=== PATIENT | female | born 1960 | race Caucasian/White ===

== ENCOUNTER → 2016-08-06 | Outpatient (CLI) | payer OTHER ==
[2016-08-06 08:51] LABS: Basophils % (A) 1 %; CH 27.4; CHCM 31.1; Eosinophils # (A) 0.1 k/uL (0-0.7); Eosinophils % (A) 2 %; HCT 41.9 % (34.0-46.0); HGB 13.2 gm/dL (11.4-16.0); Hypochromasia Slight; Luc # (Auto) 0.12; Luc % (Auto) 2; Lymphocytes % (A) 17 %; MCH 27.9 pg (25.0-35.0); MCHC 31.7 g/dL (31.0-37.0); MCV 88.2 fL (80.0-100.0); Mean Platelet Volume 6.5; Monocytes # (A) 0.2 k/uL (0-1.0); Monocytes % (A) 4 %; Neutrophils # (A) 4.1 k/uL (1.3-7.7); Neutrophils % (A) 73 %; RBC 4.74 m/uL (3.80-5.40); RDW 14.1 % (11.5-15.5); WBC 5.6 k/uL (3.8-10.6); WBC (Perox) 6.17
[2016-08-06 09:11] LABS: ALT 33 U/L (9-52); AST 24 U/L (14-36); Alkaline Phosphatase 97 U/L (38-126); Anion Gap 12 mmol/L; Blood Urea Nitrogen 11 mg/dL (7-17); Carbon Dioxide 28 mmol/L (22-30); Chloride 105 mmol/L (98-107); Cholesterol 234 mg/dL (<200); Glucose 88 mg/dL (74-99); HDL Cholesterol 47 mg/dL (40-60); Non-African American GFR(MDRD) >60 (>60 ml/min/1.73 sqM); Potassium 4.7 mmol/L (3.5-5.1); Sodium 145 mmol/L (137-145); Total Bilirubin 0.6 mg/dL (0.2-1.3); Total Protein 7.5 g/dL (6.3-8.2); Triglycerides 90 mg/dL (<150)
[2016-08-06 09:58] LABS: Hepatitis C Virus IgG Index 0.02
[2016-08-06 10:04] LABS: Hepatitis C Virus IgG Ab Negative (Negative)
== END | disposition home or self-care (01) ==
LOC: LABWHC1 07:11
PROVIDERS: ATTEND Internal Medicine
DX: R32 Unspecified urinary incontinence (principal); E78.5 Hyperlipidemia, unspecified; E55.9 Vitamin D deficiency, unspecified; E66.01 Morbid (severe) obesity due to excess calories; Z13.9 Encounter for screening, unspecified
CPT/HCPCS: 36415; 80053; 80061; 82306; 84443; 85025; 86803

== ENCOUNTER → 2016-08-09 | Outpatient (CLI) | payer OTHER ==
--- NOTE | 2016-08-09 15:34 | CT ---
EXAMINATION TYPE: CT chest w con DATE OF EXAM: 08/09/2016 3:05 PM COMPARISON: 12/07/2015, chest x-ray 02/12/2016 HISTORY: Pt states of nodules found on CXR. CT DLP: 916 mGycm, Automated exposure control for dose reduction was used. CONTRAST: Performed injected with 100 mL of Omnipaque 300. TECHNIQUE: Axial images were obtained at 5 mm thick sections. Reconstructed images are reviewed on [facility] computer in the coronal plane. FINDINGS: Portion of the thyroid visualized is normal. No suspicious lung nodules or focal infiltrates are present. Previous punctate nodular densities at [facility] right apex are not apparent on the current exam No enlarged mediastinal or hilar adenopathy is evident. The ascending aorta diameter at the level o f the main pulmonary artery is 3.7 cm. The main pulmonary artery diameter at the bifurcation is 3.[address] sections are obtained through the upper abdomen. Cyst is within the spleen measuring 3.1 c m in size and 0 Hounsfield units Hiatal hernia is present. IMPRESSIONS: 1. Normal Chest CT. 2. Splenic cyst
== END | disposition home or self-care (01) ==
LOC: RADCTMAIN 14:41
PROVIDERS: ATTEND Internal Medicine Critical Care Medicine
DX: R91.8 Other nonspecific abnormal finding of lung field (principal)
CPT/HCPCS: 71260; Q9967

== ENCOUNTER → 2016-09-22 | Outpatient (CLI) | payer OTHER ==
[2016-09-22 16:08] LABS: Appearance,Urine Clear (Clear); Basophils % (A) 1 %; Bilirubin,Urine Negative (Negative); CH 27.1; CHCM 30.1; Eosinophils # (A) 0.2 k/uL (0-0.7); Eosinophils % (A) 3 %; Glucose,Urine (UA) Negative (Negative); HCT 41.3 % (34.0-46.0); HDW 2.33; HGB 12.6 gm/dL (11.4-16.0); Hypochromasia Moderate; Ketones,Urine Negative (Negative); Leukocyte Esterase,Urine Negative (Negative); Luc # (Auto) 0.19; Luc % (Auto) 2; Lymphocytes # (A) 1.3 k/uL (1.0-4.8); Lymphocytes % (A) 17 %; MCH 27.7 pg (25.0-35.0); MCHC 30.6 g/dL (31.0-37.0); MCV 90.3 fL (80.0-100.0); Monocytes # (A) 0.4 k/uL (0-1.0); Monocytes % (A) 6 %; Neutrophils # (A) 5.6 k/uL (1.3-7.7); Neutrophils % (A) 72 %; Nitrite,Urine Negative (Negative); PH, Urine 5.5 (5.0-8.0); Protein,Urine Negative (Negative); RBC 4.57 m/uL (3.80-5.40); RDW 14.5 % (11.5-15.5); Specific Gravity,Urine 1.025 (1.001-1.035); UA Billing (MACRO vs. MICRO) CHEM; Urobilinogen,Urine <2.0 mg/dL (<2.0); WBC 7.8 k/uL (3.8-10.6); WBC (Perox) 8.32
[2016-09-22 16:28] LABS: Anion Gap 11 mmol/L; Blood Urea Nitrogen 13 mg/dL (7-17); Calcium 10.1 mg/dL (8.4-10.2); Carbon Dioxide 28 mmol/L (22-30); Chloride 108 mmol/L (98-107); Glucose 100 mg/dL (74-99); Non-African American GFR(MDRD) >60 (>60 ml/min/1.73 sqM); Potassium 4.6 mmol/L (3.5-5.1); Sodium 147 mmol/L (137-145)
== END ==
LOC: LABPAT 15:38
PROVIDERS: ATTEND Urology
DX: Z01.812 Encounter for preprocedural laboratory examination (principal); R35.0 Frequency of micturition; N39.3 Stress incontinence (female) (male); E78.5 Hyperlipidemia, unspecified
CPT/HCPCS: 36415; 80048; 81003; 85025; 87086

== ENCOUNTER 2016-09-29 08:52 | Observation (INO) | payer OTHER ==
[2016-09-24 12:59] VITALS: BMI 44.4
[~2016-09-29 08:52] MED LIST: LACTATED RINGERS 1,000 ML IV SCH; LIDOCAINE 1% 20 ML VIAL (10MG/ML) FOR IV START INTRADERMA PRN; MIDAZOLAM 2 MG/2 ML VIAL IV PRN; ONDANSETRON 4 MG/2 ML VIAL IVP PRN; ceFAZolin 3 GM in SODIUM CHLORIDE 0.9% 100 ML IVPB ONE
[2016-09-29] MEDS ORDERED: ePHEDrine 50 MG/ML 1 ML AMP ONE (10:23)
[2016-09-29] MEDS ORDERED: SUCCINYLCHOLINE CHLORIDE 100 MG/5 ML SYR IV ONE (10:23)
[2016-09-29] MEDS ORDERED: PHENYLEPHRINE-0.9% NACL SYG 1 MG/10 ML SYRINGE ONE (10:23)
[2016-09-29] MEDS ORDERED: NEOSTIGMINE 1 MG/ML 10 ML VIAL ONE (10:23)
[2016-09-29] MEDS ORDERED: ROCURONIUM BROMIDE 10 MG/ML 10 ML VIAL IV ONE (10:23)
[2016-09-29] MEDS ORDERED: PROPOFOL 10 MG/ML 20 ML VIAL IV ONE (10:23)
[2016-09-29] MEDS ORDERED: GLYCOPYRROLATE 0.2 MG/ML 2 ML VIAL ONE (10:23)
[2016-09-29] MEDS ORDERED: MIDAZOLAM 2 MG/2 ML VIAL ONE (10:23)
[2016-09-29] MEDS ORDERED: LIDOCAINE 1% INJ 10MG/ML (20 ML MDV) ONE (10:23)
[2016-09-29] MEDS ORDERED: fentaNYL (PF) 50 MCG/ML 2 ML AMP ONE (10:23)
[2016-09-29] MEDS ORDERED: VASOPRESSIN 20 UNIT/ML 1 ML VIAL SQ ONE (11:04)
[2016-09-29] MEDS ORDERED: LACTATED RINGERS 1,000 ML IV ONE (11:27)
--- NOTE | 2016-09-29 11:40 | P.OP ---
Date of Procedure: 09/29/16 Preoperative Diagnosis: Stress urinary incontinence Postoperative Diagnosis: Same Procedure(s) Performed: Pubovaginal sling (lynx), cystoscopy Implants: Anesthesia: ANTHONYA Surgeon: Jim Munguia Estimated Blood Loss (ml): 50 Pathology: none sent Condition: stable Disposition: PACU Indications for Procedure: Patient is a 56-year-old female documented stress urinary incontinence. He urethral pressures are reasonably good however due to her large size and Valsalva I thought a pubovaginal sling would be better than a trans-obturator tape to control her leakage. She comes for this procedure Operative Findings: Description of Procedure: The patient is brought to the operating suite attempted spinal anesthetic failed so she is given a general endotracheal anesthesia. She's placed lithotomy position with a sterile prep and drape. The labia are sewn laterally with 2-0 silk. A Beckman catheters introduced sterilely. A vaginal speculum was placed into the vagina. Anterior vaginal mucosa was elevated off the submucosa with a mixture of 20 units of Pitressin and 200 mL of saline. A midline suburethral incision is made. I dissect lateral the bladder neck bilaterally. I then make 2 counterincisions at the corners of the pubis. I dissect down the rectus fascias hemostat. I then pass the vaginal sling introducers behind the rectus fascia at the corners of the pubis into the vaginal space bilaterally. I then remove the Beckman catheter and cystoscope the patient with a 22-Vietnamese sheath and Foroblique lens. There is no evidence of penetration of the introducers into the bladder. I then connected the pubovaginal sling graft( lynx ) to the introducers and pull the graft suprapubically. The graft lays at the bladder neck nicely. Fit between the graft and the urethra. As the vaginal mucosa with running 2-0 Vicryl. I incise the redundant graft at the pubic incisions and then closed the pubic incisions with 4-0 Vicryl. A vaginal packing is placed. The silk stitches are then removed. The patient's awakened and returned recovery room good condition. The urine remains clear. The patient will be placed in the hospital postoperatively.
[2016-09-29] MEDS: HYDROmorphone 1 MG/ML 1 ML SYRINGE IVP PRN ×3 (12:04→12:52)
[2016-09-29] MEDS: KETOROLAC 30 MG/ML 1 ML VIAL IVP PRN ×2 (12:21→21:01)
[2016-09-29] MEDS: DEXTROSE 5%-0.45% NACL 1,000 ML IV SCH (13:52)
[2016-09-29] MEDS: PRAMIPEXOLE 0.5 MG TAB PO SCH ×2 (16:20→21:00)
[2016-09-29] MEDS ORDERED: PANTOPRAZOLE 40 MG TABLET PO SCH (21:00)
[2016-09-30 00:45] VITALS: RESP 16
[2016-09-30] MEDS: DEXTROSE 5%-0.45% NACL 1,000 ML IV SCH (02:50)
[2016-09-30] MEDS: KETOROLAC 30 MG/ML 1 ML VIAL IVP PRN (06:01)
[2016-09-30 07:25] LABS: Anion Gap 10 mmol/L; Basophils % (A) 0 %; Blood Urea Nitrogen 10 mg/dL (7-17); CH 27.1; CHCM 31.4; Calcium 9.4 mg/dL (8.4-10.2); Carbon Dioxide 24 mmol/L (22-30); Chloride 107 mmol/L (98-107); Eosinophils # (A) 0.2 k/uL (0-0.7); Eosinophils % (A) 2 %; Glucose 101 mg/dL (74-99); HCT 36.3 % (34.0-46.0); HDW 2.52; HGB 11.6 gm/dL (11.4-16.0); Hypochromasia Slight; Luc % (Auto) 2; Lymphocytes # (A) 1.1 k/uL (1.0-4.8); Lymphocytes % (A) 11 %; MCH 27.6 pg (25.0-35.0); MCHC 31.9 g/dL (31.0-37.0); MCV 86.6 fL (80.0-100.0); Mean Platelet Volume 6.6; Monocytes # (A) 0.3 k/uL (0-1.0); Monocytes % (A) 4 %; Neutrophils # (A) 7.5 k/uL (1.3-7.7); Neutrophils % (A) 81 %; Non-African American GFR(MDRD) >60 (>60 ml/min/1.73 sqM); Potassium 4.4 mmol/L (3.5-5.1); RBC 4.19 m/uL (3.80-5.40); RDW 14.3 % (11.5-15.5); Sodium 141 mmol/L (137-145); WBC 9.3 k/uL (3.8-10.6); WBC (Perox) 9.41
[2016-09-30] MEDS ORDERED: CHOLECALCIFEROL 1,000 UNIT TAB PO SCH (09:00)
[2016-09-30] MEDS ORDERED: CYANOCOBALAMIN 500 MCG TAB PO SCH (09:00)
[2016-09-30] MEDS ORDERED: MAGNESIUM OXIDE 400 MG TAB PO SCH (09:00)
[2016-09-30] MEDS ORDERED: ATENOLOL 25 MG TAB PO SCH (09:00)
[2016-09-30] MEDS: PRAMIPEXOLE 0.5 MG TAB PO SCH (10:08)
--- NOTE | 2016-09-30 11:19 | P.DS ---
Providers Date of admission: 09/30/16 06:51 Attending physician: Jim Munguia Primary care physician: [facility] Course: A shunt was admitted 09/29/2016 for a pubovaginal sling. She underwent this without difficulty. She did well overnight. Her vaginal packing and catheter have been removed this morning. She is voiding well into completion. Her pain is minimal. She'll be discharged home this morning on a regular diet limited activity. She'll follow-up in office in one week. She'll be given a small prescription of [place] for pain. She's been instructed to call us with any further issues. Her condition is good. Patient Condition at Discharge: Good Plan - Discharge Summary New Discharge Prescriptions: No Action Pramipexole [Mirapex] 0.5 mg PO TID Pantoprazole Sodium [Protonix] 40 mg PO HS Magnesium Oxide [Mag-Ox] 400 mg PO DAILY Ubidecarenone [Co Q-10] 100 mg PO DAILY Glucosamine/Chondr Hurtado A Sod [Osteo Bi-Flex Caplet] 1 tab PO DAILY Cholecalciferol [Vitamin D3] 4,000 unit PO DAILY Rivaroxaban [Xarelto] 20 mg PO HS Multivitamins, Thera [Multivitamin] 1 tab PO DAILY Atenolol 25 mg PO DAILY Cyanocobalamin (Vitamin B-12) [Vitamin B-12] 1,000 mcg PO DAILY Discharge Medication List Pantoprazole Sodium [Protonix] 40 mg PO HS 12/04/14 [History] Pramipexole [Mirapex] 0.5 mg PO TID 12/04/14 [History] Cholecalciferol [Vitamin D3] 4,000 unit PO DAILY 02/12/16 [History] Glucosamine/Chondr Hurtado A Sod [Osteo Bi-Flex Caplet] 1 tab PO DAILY 02/12/16 [ History] Magnesium Oxide [Mag-Ox] 400 mg PO DAILY 02/12/16 [History] Multivitamins, Thera [Multivitamin] 1 tab PO DAILY 02/12/16 [History] Rivaroxaban [Xarelto] 20 mg PO HS 02/12/16 [History] Ubidecarenone [Co Q-10] 100 mg PO DAILY 02/12/16 [History] Atenolol 25 mg PO DAILY 09/24/16 [History] Cyanocobalamin (Vitamin B-12) [Vitamin B-12] 1,000 mcg PO DAILY 09/24/16 [ History] Follow up Appointment(s)/Referral(s): Jim Munguia MD [STAFF PHYSICIAN] - 1 Week Discharge Disposition: HOME SELF-CARE
[2016-09-30 12:19] VITALS: BP 109/64; PULSE 66; TEMP 97.8
[2016-09-30] MEDS ORDERED: RIVAROXABAN 10 MG TAB PO SCH (21:00)
== END 2016-09-30 12:57 | disposition home or self-care (01) ==
LOC: OR 08:52 → 6PED 11:55 → OR 09-30 06:50 → 6PED 09-30 06:51
PROVIDERS: ADMIT Urology; ATTEND Urology
DX: N39.3 Stress incontinence (female) (male) (principal); N32.81 Overactive bladder; R35.0 Frequency of micturition; R35.1 Nocturia; K21.9 Gastro-esophageal reflux disease without esophagitis; I48.91 Unspecified atrial fibrillation; Z79.01 Long term (current) use of anticoagulants; E78.5 Hyperlipidemia, unspecified; E55.9 Vitamin D deficiency, unspecified; M54.9 Dorsalgia, unspecified; M72.2 Plantar fascial fibromatosis; G25.81 Restless legs syndrome; Z92.89 Personal history of other medical treatment; Z96.652 Presence of left artificial knee joint; Z98.51 Tubal ligation status; Z82.49 Family history of ischemic heart disease and other diseases of the circulatory system; Z84.1 Family history of disorders of kidney and ureter; Z87.891 Personal history of nicotine dependence; Z79.899 Other long term (current) drug therapy
CPT/HCPCS: 57288; 80048; 85025; G0378; C1771; J2250; J2710; J0690; J2405; J2001; J3010; J1885 ×2; J1170; J2370; J0330; J2704

== ENCOUNTER → 2017-01-19 | Outpatient (CLI) | payer OTHER ==
--- NOTE | 2017-01-19 18:25 | CT ---
EXAMINATION TYPE: CT chest w con DATE OF EXAM: 01/19/2017 COMPARISON: 08/09/2016 HISTORY: Patient has no complaints at time of study. Follow up study for multiple known lung nodules . CT DLP: 785 mGycm Automated exposure control for dose reduction was used. CONTRAST: CT scan of the chest is performed with IV Contrast, patient injected with 100 mL of Omnipaque 300. FINDINGS: The lungs are clear of consolidation. There is no sign of a pulmonary mass. Thoracic aorta appears no rmal. There is no evidence of aneurysm or dissection. There are no hilar masses. Heart size is normal . There is no pericardial effusion. There is no pleural effusion. There is a 2 cm cyst in the spleen. There is a small hiatal hernia. There is no evidence of a definite pulmonary nodule. There is mild s purring in the thoracic spine. IMPRESSION: Small hiatal hernia. Splenic cyst. No adverse change compared to old exam. No evidence o f a pulmonary nodule.
== END | disposition home or self-care (01) ==
LOC: RADCTMAIN 17:46
PROVIDERS: ATTEND Internal Medicine Critical Care Medicine
DX: K44.9 Diaphragmatic hernia without obstruction or gangrene (principal); R91.8 Other nonspecific abnormal finding of lung field
CPT/HCPCS: 71260; Q9967

== ENCOUNTER → 2017-03-02 | Outpatient (CLI) | payer OTHER ==
--- NOTE | 2017-03-02 17:52 | CONS ---
CONSULTATION DATE OF SERVICE: 03/02/2017 A 56-year-old lady has been evaluated in the sleep center for possible obstructive sleep apnea-hypopnea syndrome. HISTORY OF PRESENT ILLNESS AND SLEEP-WAKE EVALUATION: Patient's usual sleep schedule on weekdays from around 8:30 p.m. to 10:00 p.m. until 4:30 a.m., on weekend from around 8:30 p.m. to 10:00 p.m. until 5:00 a.m. to 6:00 a.m. Sometimes she has problem with falling asleep for more than 30 minutes, but not for more than 1 hour. Has TV set in bedroom. She snores and wakes up from sleep up to 4 times with up to 3 episodes of nocturia. Positive history of awakenings with palpitation, heartburn, gasping for air, restless legs. She has been told by relatives that she has some kind of abnormalities of respiration during the sleep. In the morning, she wakes up tired, falling asleep during the day. [place] Sleepiness Scale is 7. PAST MEDICAL HISTORY: Positive for episodes of atrial fibrillations, acid reflux, restless legs syndrome, osteoarthritis. PAST SURGICAL HISTORY: Bilateral total knee replacement, tubal ligation, bladder sling. MEDICATIONS: 1. Paxil. 2. Pantoprazole. 3. Xarelto. 4. Atenolol. 5. Glucosamine. 6. Some supplements, including magnesium, multivitamins, vitamin D3. SOCIAL HISTORY: Positive for smoking about 1 pack a day for 20 years, quit 24 years ago. Alcohol consumption occasional. FAMILY HISTORY: Heart problems, hyperlipidemia, arthritis, sleep apnea, acid reflux, thyroid problems. REVIEW OF SYSTEMS: Multiple awakenings from sleep, sometimes tiredness during the day. PHYSICAL EXAMINATION: GENERAL: lady without distress. VITAL SIGNS: BP 117/80, HR 74, RR 16, height 65-1/2 inches, weight 285.2, BMI 46.7, neck 15-3/4 inches in circumference, oxygen saturation at room air 96%, temp 98.1. HEENT: PERRLA, EOMI, evaluation of oropharynx showed tongue protrudes midline, extremely low position of soft palate. Short distance between soft palate and pharyngeal wall. Some restriction of nasal breathing. NECK: Supple, no JVD. Thyroid is not palpable. LUNGS: Clear to percussion and to auscultation. Good air exchange. No wheezing or rhonchi. HEART: S1, S2 regular. No murmurs, gallops, or rubs. ABDOMEN: Obese, soft and nontender. Bowel sounds are present. No organomegaly appreciated. EXTREMITIES: No clubbing or cyanosis. RADAR ENGINEERING TEACHER: Awake, alert, and oriented X3. Cranial nerves 2 to 7 intact. There is no fasciculation or atrophy. noted. No focal deficits observed. IMPRESSION: 1. Snoring, witnessed episodes of some abnormal breathing during the sleep, extremely low position of soft palate, multiple awakenings from sleep, obstructive sleep apnea-hypopnea syndrome. 2. Restriction of nasal breathing. 3. Obesity; body mass index 46.7. 4. History of restless legs. 5. Possible periodic limb movements during the sleep, improves while in treatment with dopamine agonists. 6. Episodes of paroxysmal atrial fibrillation. 7. Acid reflux. 8. Osteoarthritis. 9. Status post total bilateral knee replacement. 10.Status post tubal ligation. 11.Status post bladder sling. PLAN: 1. Polysomnography for evaluation of patient's breathing during sleep. 2. CPAP/BiPAP titration if sleep study confirms obstructive sleep apnea-hypopnea syndrome. 3. Preferable position during sleep on the side. 4. No driving if patient feels any sleepiness. Patient is aware of civil and criminal liability for unsafe driving. 5. I will see patient for follow up visit to explain results of testing and following plan. Thank you very much for referring this patient for consultation. Sincerely, Adama Jones MD, PhD, FAASM Diplomat of [place] [employer] [place] [employer] Rpg Programmer Analyst of [facility] [place] MMODL / IJN: [id number] /
== END ==
LOC: SLEEP 14:49
PROVIDERS: ATTEND Internal Medicine
DX: G47.33 Obstructive sleep apnea (adult) (pediatric) (principal); E66.9 Obesity, unspecified; G25.81 Restless legs syndrome; I48.0 Paroxysmal atrial fibrillation; K21.9 Gastro-esophageal reflux disease without esophagitis; M19.90 Unspecified osteoarthritis, unspecified site; Z96.653 Presence of artificial knee joint, bilateral; Z98.51 Tubal ligation status; Z79.899 Other long term (current) drug therapy; Z87.891 Personal history of nicotine dependence
CPT/HCPCS: 99211

== ENCOUNTER → 2017-06-16 | Outpatient (CLI) | payer OTHER ==
--- NOTE | 2017-06-16 17:44 | SFUN ---
SLEEP STUDY FOLLOW UP NOTE DATE OF SERVICE: 06/16/2017. HISTORY: A 56-year-old lady has been followed in Sleep Center for treatment of severe obstructive sleep apnea-hypopnea syndrome. Recently, she has had a polysomnogram and CPAP titration and I discussed results of sleep studies with patient in detail. Subsequently, she was started on treatment with CPAP and today this is her first visit on treatment with CPAP. The patient is able to use her machine every night for the whole night and feels better in relation to her sleep. She does not wake up from sleep like before and she feels also better during the day. I checked her CPAP unit, CPAP pressure is 8 cm of water, usage is 100% of the time of the night more than 4 hours. Average usage is 6.5 hours. Leak is 7 L/minute, which is totally acceptable. Apnea-hypopnea index only 0.3 for the last month, which is perfect. [place] Sleepiness Scale today is 10. MEDICATIONS: 1. Paxil. 2. Pantoprazole. 3. Xarelto. 4. Atenolol. 5. Glucosamine. 6. Vitamin B. 7. Multivitamins. 8. Vitamin D3. PHYSICAL EXAM: During physical exam, patient in no distress. BP 149/86, HR 82, RR 16, weight 291, temp 98.1, oxygen saturation room air 98%. GENERAL A pleasant patient without any distress. HEENT PERRLA, EOMI, evaluation of oropharynx showed extremely low position of soft palate. NECK: Supple, no JVD. Thyroid is not palpable. LUNGS: Clear to percussion and to auscultation. Good air exchange. No wheezing or rhonchi. HEART: S1, S2 regular. No murmurs, gallops, or rubs. ABDOMEN: Obese, soft and nontender. Bowel sounds are present. No organomegaly appreciated. EXTREMITIES: No clubbing or cyanosis. PHLEBOTOMIST LAB ASSISTANT: Awake, alert, and oriented X3. Cranial nerves 2 to 7 intact. There is no fasciculation or atrophy. noted. No focal deficits observed. IMPRESSION: 1. Severe obstructive sleep apnea-hypopnea syndrome; apnea-hypopnea index 54.3 with severe oxygen desaturation to 62.5%, on full control with CPAP at 8 cm of water. The patient demonstrated 100% compliance with treatment, benefitting from treatment. 2. Obesity. 3. History of episodes of paroxysmal atrial fibrillation. 4. Acid reflux. 5. Osteoarthritis. 6. Status post bilateral total knee replacement. 7. Status post tubal ligation. 8. Status post bladder sling. PLAN: 1. Patient will continue to use CPAP equipment every night for the whole night. 2. Losing weight. 3. Sleep hygiene with adequate time in bed for at least 8 hours. 4. No driving if feeling sleepiness. 5. We may consider to change nasal mask to nasal pillow mask. Thank you very much for allowing me to participate in the management of your patient. MMODL / IJN: [id number] /
== END | disposition home or self-care (01) ==
LOC: SLEEP 15:39
PROVIDERS: ATTEND Internal Medicine
DX: G47.33 Obstructive sleep apnea (adult) (pediatric) (principal); E66.9 Obesity, unspecified; K21.9 Gastro-esophageal reflux disease without esophagitis; M19.90 Unspecified osteoarthritis, unspecified site; Z96.653 Presence of artificial knee joint, bilateral; Z86.79 Personal history of other diseases of the circulatory system; Z99.89 Dependence on other enabling machines and devices; Z79.899 Other long term (current) drug therapy; Z79.01 Long term (current) use of anticoagulants; Z98.890 Other specified postprocedural states

== ENCOUNTER 2017-08-29 07:23 | Emergency (ER) | payer OTHER ==
--- NOTE | 2017-08-29 07:50 | ED ---
General Adult HPI - General Chief complaint: Shortness of Breath Stated complaint: SOB Time Seen by Provider: 08/29/17 07:25 Source: patient, RN notes reviewed Mode of arrival: ambulatory Limitations: no limitations - History of Present Illness Initial comments: This is a 57-year-old female who presents to the emergency department complaining that she had shortness of breath with any exertion today. Patient states about 7 steps and was extremely short of breath. Patient states walking back to the room to get around up patient states she was very short of breath per patient denies any chest pain but she states she felt her heart racing. Patient states she is on Xarelto currently for A. fib but she does not take any rate control medications. Patient states she was on atenolol but she has stopped at 6-8 months ago. Patient denies any lightheadedness or dizziness. Patient denied any recent fever chills or cough. Patient denies any headache patient denies numbness or weakness. Patient denies any calf tenderness or leg swelling. - Related Data Home Medications Medication Instructions Recorded Confirmed Pantoprazole Sodium [Protonix] 40 mg PO W/SUPPER 12/04/14 08/29/17 Cholecalciferol [Vitamin D3] 5,000 unit PO DAILY 02/12/16 08/29/17 Glucosamine/Chondr Hurtado A Sod [Osteo 1 tab PO DAILY 02/12/16 08/29/17 Bi-Flex Caplet] Multivitamins, Thera [Multivitamin] 1 tab PO DAILY 02/12/16 08/29/17 Rivaroxaban [Xarelto] 20 mg PO W/SUPPER 02/12/16 08/29/17 Ubidecarenone [Co Q-10] 100 mg PO DAILY 02/12/16 08/29/17 Pramipexole Di-HCl [Mirapex] 0.75 mg PO TID 03/25/17 08/29/17 Allergies Allergy/AdvReac Type Severity Reaction Status Date / Time adhesive tape Allergy red skin Verified 08/29/17 09:12 Review of Systems ROS Statement: Those systems with pertinent positive or pertinent negative responses have been documented in the HPI. ROS Other: All systems not noted in ROS Statement are negative. Past Medical History Past Medical History: Atrial Fibrillation, GERD/Reflux, Hyperlipidemia, Osteoarthritis (OA), Sleep Apnea/CPAP/BIPAP Additional Past Medical History / Comment(s): restless leg syndrom, migraine yrs ago, no cpap yet, occult blood in stool, nodule on lung History of Any Multi-Drug Resistant Organisms: None Reported Past Surgical History: Bladder Surgery, Joint Replacement, Orthopedic Surgery, Tubal Ligation Additional Past Surgical History / Comment(s): left breast biopsy, buck knee replacement, rt shoulder arthroscopy, bladder sling, bladder suspension Past Anesthesia/Blood Transfusion Reactions: Previous Problems w/ Anesthesia Additional Past Anesthesia/Blood Transfusion Reaction / Comment(s): states during her 1st knee replacement & during colonoscopy her legs were "twitching" & had to be given more anesthesia-didn't think had to do w/her restless leg Past Psychological History: No Psychological Hx Reported Smoking Status: Former smoker Past Alcohol Use History: Rare Past Drug Use History: None Reported - Past Family History Mother Family Medical History: No Reported History General Exam - General Exam Comments Initial Comments: GENERAL: Patient is well-developed and well-nourished. Patient is nontoxic and well- hydrated and is in no acute distress. ENT: Neck is soft and supple. No significant lymphadenopathy is noted. Oropharynx is clear. Moist mucous membranes. Neck has full range of motion without eliciting any pain. EYES: The sclera were anicteric and conjunctiva were pink and moist. Extraocular movements were intact and pupils were equal round and reactive to light. Eyelids were unremarkable. PULMONARY: Unlabored respirations. Good breath sounds bilaterally. No audible rales rhonchi or wheezing was noted. CARDIOVASCULAR: There is a regular rate and rhythm without any murmurs gallops or rubs. ABDOMEN: Soft and nontender with normal bowel sounds. No palpable organomegaly was noted. There is no palpable pulsatile mass. SKIN: Skin is clear with no lesions or rashes and otherwise unremarkable. NEUROLOGIC: Patient is alert and oriented x3. Cranial nerves II through XII are grossly intact. Motor and sensory are also intact. Normal speech, volume and content. Symmetrical smile. MUSCULOSKELETAL: Normal extremities with adequate strength and full range of motion. No lower extremity swelling or edema. No calf tenderness. LYMPHATICS: No significant lymphadenopathy is noted PSYCHIATRIC: Normal psychiatric evaluation. Limitations: no limitations Course Vital Signs 08/29/17 08/29/17 08/29/17 07:23 08:27 08:30 Temperature 98 F Pulse Rate 89 80 Respiratory 24 18 18 Rate Blood Pressure 143/71 124/72 O2 Sat by Pulse 96 96 Oximetry 08/29/17 09:30 Temperature Pulse Rate 79 Respiratory 20 Rate Blood Pressure 140/65 O2 Sat by Pulse 98 Oximetry Medical Decision Making - Medical Decision Making Patient's EKG shows normal sinus rhythm at 84 bpm SC interval 240 QRS 78 QT interval is 358 QTC is 423 patient's EKG shows no extrasystole patient's EKG shows no ST segment elevation or depression. Chest x-ray shows no acute abnormalities Patient states she's been a symptomatically she spends in the emergency department. Patient ambulated around the emergency department had no symptoms whatsoever. Patient was offered admission but she did not want to stay she said she follow-up with Dr. Kay patient also stated she would come back to the emergency department if she had more symptoms. Patient stated her symptoms felt the same as they did when she had A. fib in the past. - Lab Data Result diagrams: 08/29/17 08:13 08/29/17 08:13 Lab Results 08/29/17 08/29/17 08/29/17 Range/Units 08:13 08:13 08:13 WBC 8.6 (3.8-10.6) k/uL RBC 4.74 (3.80-5.40) m/uL Hgb 13.7 (11.4-16.0) gm/dL Hct 42.0 (34.0-46.0) % MCV 88.7 (80.0-100.0) fL MCH 29.0 (25.0-35.0) pg MCHC 32.7 (31.0-37.0) g/dL RDW 13.6 (11.5-15.5) % Plt Count 314 (150-450) k/uL Neutrophils % 78 % Lymphocytes % 12 % Monocytes % 5 % Eosinophils % 4 % Basophils % 0 % Neutrophils # 6.7 (1.3-7.7) k/uL Lymphocytes # 1.0 (1.0-4.8) k/uL Monocytes # 0.4 (0-1.0) k/uL Eosinophils # 0.3 (0-0.7) k/uL Basophils # 0.0 (0-0.2) k/uL PT (9.0-12.0) sec INR (<1.2) APTT (22.0-30.0) sec D-Dimer (<0.60) mg/L FEU Sodium 144 (137-145) mmol/L Potassium 4.3 (3.5-5.1) mmol/L Chloride 108 H (98-107) mmol/L Carbon Dioxide 23 (22-30) mmol/L Anion Gap 13 mmol/L BUN 14 (7-17) mg/dL Creatinine 0.54 (0.52-1.04) mg/dL Est GFR (CKD-EPI)AfAm >90 (>60 ml/min/1.73 sqM) Est GFR (CKD-EPI)NonAf >90 (>60 ml/min/1.73 sqM) Glucose 91 (74-99) mg/dL Calcium 9.6 (8.4-10.2) mg/dL Magnesium 1.9 (1.6-2.3) mg/dL Total Bilirubin 0.6 (0.2-1.3) mg/dL AST 22 (14-36) U/L ALT 33 (9-52) U/L Alkaline Phosphatase 84 (38-126) U/L Total Creatine Kinase 87 (30-135) U/L CK-MB (CK-2) 1.0 (0.0-2.4) ng/mL CK-MB (CK-2) Rel Index 1.1 Troponin I <0.012 (0.000-0.034) ng/mL NT-Pro-B Natriuret Pep pg/mL Total Protein 6.4 (6.3-8.2) g/dL Albumin 3.8 (3.5-5.0) g/dL 08/29/17 08/29/17 Range/Units 08:13 08:13 WBC (3.8-10.6) k/uL RBC (3.80-5.40) m/uL Hgb (11.4-16.0) gm/dL Hct (34.0-46.0) % MCV (80.0-100.0) fL MCH (25.0-35.0) pg MCHC (31.0-37.0) g/dL RDW (11.5-15.5) % Plt Count (150-450) k/uL Neutrophils % % Lymphocytes % % Monocytes % % Eosinophils % % Basophils % % Neutrophils # (1.3-7.7) k/uL Lymphocytes # (1.0-4.8) k/uL Monocytes # (0-1.0) k/uL Eosinophils # (0-0.7) k/uL Basophils # (0-0.2) k/uL PT 10.2 (9.0-12.0) sec INR 1.0 (<1.2) APTT 26.9 (22.0-30.0) sec D-Dimer 0.46 (<0.60) mg/L FEU Sodium (137-145) mmol/L Potassium (3.5-5.1) mmol/L Chloride (98-107) mmol/L Carbon Dioxide (22-30) mmol/L Anion Gap mmol/L BUN (7-17) mg/dL Creatinine (0.52-1.04) mg/dL Est GFR (CKD-EPI)AfAm (>60 ml/min/1.73 sqM) Est GFR (CKD-EPI)NonAf (>60 ml/min/1.73 sqM) Glucose (74-99) mg/dL Calcium (8.4-10.2) mg/dL Magnesium (1.6-2.3) mg/dL Total Bilirubin (0.2-1.3) mg/dL AST (14-36) U/L ALT (9-52) U/L Alkaline Phosphatase (38-126) U/L Total Creatine Kinase (30-135) U/L CK-MB (CK-2) (0.0-2.4) ng/mL CK-MB (CK-2) Rel Index Troponin I (0.000-0.034) ng/mL NT-Pro-B Natriuret Pep 52 pg/mL Total Protein (6.3-8.2) g/dL Albumin (3.5-5.0) g/dL Disposition Clinical Impression: Dyspnea, Palpitations Disposition: HOME SELF-CARE Instructions: Palpitations (ED), Dyspnea (ED) Is patient prescribed a controlled substance at d/c from ED?: No Referrals: Eamon Mcdonough MD [Primary Care Provider] - 1-2 days Time of Disposition: 09:44
[2017-08-29 08:23] LABS: Basophils % (A) 0 %; Eosinophils # (A) 0.3 k/uL (0-0.7); Eosinophils % (A) 4 %; HGB 13.7 gm/dL (11.4-16.0); Lymphocytes % (A) 12 %; MCHC 32.7 g/dL (31.0-37.0); MCV 88.7 fL (80.0-100.0); Mean Platelet Volume 6.8; Monocytes # (A) 0.4 k/uL (0-1.0); Monocytes % (A) 5 %; Neutrophils # (A) 6.7 k/uL (1.3-7.7); Neutrophils % (A) 78 %; Platelet Count 314 k/uL (150-450); RBC 4.74 m/uL (3.80-5.40); RDW 13.6 % (11.5-15.5); WBC 8.6 k/uL (3.8-10.6)
--- NOTE | 2017-08-29 08:34 | XR ---
EXAMINATION TYPE: XR chest 2V DATE OF EXAM: 08/29/2017 COMPARISON: Chest CT January 19, 2017. Two-view chest x-ray February 12, 2016 HISTORY: Difficulty in breathing. TECHNIQUE: Frontal and lateral views of the chest are obtained. FINDINGS: There is chronic parenchymal change without suspicious focal air space opacity, pleural ef fusion, or pneumothorax seen. The cardiac silhouette size is upper limits of normal. The osseous s tructures are intact. IMPRESSION: Chronic changes without acute pulmonary process.
[2017-08-29 08:37] LABS: D-Dimer 0.46 mg/L FEU (<0.60); Partial Thromboplastin Time 26.9 sec (22.0-30.0); Prothrombin Time 10.2 sec (9.0-12.0)
[2017-08-29 08:43] LABS: ALT 33 U/L (9-52); AST 22 U/L (14-36); Albumin 3.8 g/dL (3.5-5.0); Alkaline Phosphatase 84 U/L (38-126); Anion Gap 13 mmol/L; Blood Urea Nitrogen 14 mg/dL (7-17); Calcium 9.6 mg/dL (8.4-10.2); Carbon Dioxide 23 mmol/L (22-30); Chloride 108 mmol/L (98-107); Glucose 91 mg/dL (74-99); Magnesium 1.9 mg/dL (1.6-2.3); Potassium 4.3 mmol/L (3.5-5.1); Sodium 144 mmol/L (137-145); Total Bilirubin 0.6 mg/dL (0.2-1.3); Total Protein 6.4 g/dL (6.3-8.2)
[2017-08-29 08:55] LABS: Creatine Kinase 87 U/L (30-135)
[2017-08-29 09:06] LABS: Troponin I <0.012 ng/mL (0.000-0.034)
[2017-08-29 10:16] VITALS: BP 122/63; PULSE 74; RESP 16; TEMP 97.5
== END 2017-08-29 10:12 | disposition home or self-care (01) ==
LOC: EC 07:23
DX: R00.2 Palpitations (principal); R06.02 Shortness of breath; K21.9 Gastro-esophageal reflux disease without esophagitis; G25.81 Restless legs syndrome; G47.30 Sleep apnea, unspecified; Z99.89 Dependence on other enabling machines and devices; M19.90 Unspecified osteoarthritis, unspecified site; Z96.653 Presence of artificial knee joint, bilateral; Z87.891 Personal history of nicotine dependence; Z79.899 Other long term (current) drug therapy; Z79.01 Long term (current) use of anticoagulants; Z91.048 Other nonmedicinal substance allergy status
CPT/HCPCS: 36415; 71046; 80053; 82550; 82553; 83735; 83880; 84484; 85025; 85379; 85610; 85730; 93005; 99285

== ENCOUNTER → 2017-10-03 | Outpatient (CLI) | payer OTHER ==
[2017-10-03 10:10] LABS: ALT 43 U/L (9-52); AST 27 U/L (14-36); Albumin 4.2 g/dL (3.5-5.0); Alkaline Phosphatase 82 U/L (38-126); Anion Gap 13 mmol/L; Blood Urea Nitrogen 12 mg/dL (7-17); Calcium 9.4 mg/dL (8.4-10.2); Carbon Dioxide 22 mmol/L (22-30); Chloride 110 mmol/L (98-107); Cholesterol 207 mg/dL (<200); Glucose 92 mg/dL (74-99); HDL Cholesterol 43 mg/dL (40-60); LDL Cholesterol,Calculated 143 mg/dL (0-99); Potassium 4.1 mmol/L (3.5-5.1); Sodium 145 mmol/L (137-145); Total Bilirubin 0.6 mg/dL (0.2-1.3); Total Protein 6.8 g/dL (6.3-8.2); Triglycerides 106 mg/dL (<150)
== END | disposition home or self-care (01) ==
LOC: LABWHC1 09:31
PROVIDERS: ATTEND Internal Medicine
DX: E78.5 Hyperlipidemia, unspecified (principal); E55.9 Vitamin D deficiency, unspecified; I48.0 Paroxysmal atrial fibrillation
CPT/HCPCS: 36415; 80053; 80061; 82306

== ENCOUNTER → 2018-06-23 | Outpatient (CLI) | payer OTHER ==
--- NOTE | 2018-06-26 08:12 | MM ---
Reason for exam: screening (asymptomatic). Last mammogram was performed 2 years and 4 months ago. History: Patient is postmenopausal and had first child at age 32. Excisional biopsy of the left breast, 1998. Physical Findings: A clinical breast exam by your physician is recommended on an annual basis and results should be correlated with mammographic findings. MG Screening Mammo w CAD Bilateral CC and MLO view(s) were taken. Prior study comparison: February 18, 2016, bilateral MG screening mammo w CAD. October 29, 2013, right breast MG work up mamm w CAD RT. No significant changes when compared with prior studies. ASSESSMENT: Benign, BI-RAD 2 RECOMMENDATION: Routine screening mammogram of both breasts in 1 year.
== END ==
LOC: RADMAMWWP 06:47
PROVIDERS: ATTEND Internal Medicine
DX: Z12.31 Encounter for screening mammogram for malignant neoplasm of breast (principal)
CPT/HCPCS: 77067

== ENCOUNTER 2018-12-18 10:41 | Inpatient (IN) | payer OTHER ==
--- NOTE | 2018-12-18 11:28 | ED ---
General Adult HPI - General Chief complaint: Shortness of Breath Stated complaint: EMILIA Time Seen by Provider: 12/18/18 10:54 Source: patient, RN notes reviewed Mode of arrival: ambulatory Limitations: no limitations - History of Present Illness Initial comments: Patient is a pleasant 58-year-old female presenting to the emergency department with difficulty breathing. Onset of symptoms was several days ago. Patient has had a cough for several weeks. Patient has finished 2 doses of antibiotics now. Dyspnea does worsen with exertion, even as little as 10 feet or so. Cough rarely has mild amount of white sputum. No fevers. No leg pain or leg sw elling. No chest pain. - Related Data Home Medications Medication Instructions Recorded Confirmed Pantoprazole Sodium [Protonix] 40 mg PO W/SUPPER 12/04/14 12/18/18 Cholecalciferol [Vitamin D3] 5,000 unit PO DAILY 02/12/16 12/18/18 Glucosamine/Chondr Monreal A Sod [Osteo 1 tab PO DAILY 02/12/16 12/18/18 Bi-Flex Caplet] Multivitamins, Thera [Multivitamin] 1 tab PO DAILY 02/12/16 12/18/18 Rivaroxaban [Xarelto] 20 mg PO W/SUPPER 02/12/16 12/18/18 Ubidecarenone [Co Q-10] 100 mg PO DAILY 02/12/16 12/18/18 Ergocalciferol (Vitamin D2) 50,000 unit PO MONREAL 12/18/18 12/18/18 [Drisdol] Ferrous Sulfate [Feosol] 325 mg PO DAILY 12/18/18 12/18/18 Levalbuterol HCl [Xopenex] 1.25 mg INHALATION RT-TID 12/18/18 12/18/18 Magnesium Oxide [Mag-Ox] 400 mg PO DAILY 12/18/18 12/18/18 Pramipexole [Mirapex] 1 mg PO TID 12/18/18 12/18/18 Pravastatin Sodium [Pravachol] 20 mg PO DAILY 12/18/18 12/18/18 buPROPion XL [Wellbutrin Xl] 150 mg PO DAILY 12/18/18 12/18/18 metFORMIN HCL ER [Glucophage Xr] 1,000 mg PO AC-SUPPER 08/26/19 08/26/19 Allergies Allergy/AdvReac Type Severity Reaction Status Date / Time adhesive tape AdvReac red skin Verified 12/18/18 11:23 Review of Systems ROS Statement: Those systems with pertinent positive or pertinent negative responses have been documented in the HPI. ROS Other: All systems not noted in ROS Statement are negative. Constitutional: Denies: fever Eyes: Denies: eye pain ENT: Denies: ear pain Respiratory: Reports: cough, dyspnea Cardiovascular: Denies: chest pain Endocrine: Reports: fatigue Gastrointestinal: Denies: abdominal pain Genitourinary: Denies: dysuria Musculoskeletal: Denies: back pain Skin: Denies: rash Neurological: Denies: weakness Past Medical History Past Medical History: Atrial Fibrillation, GERD/Reflux, Hyperlipidemia, Osteoarthritis (OA), Sleep Apnea/CPAP/BIPAP Additional Past Medical History / Comment(s): restless leg syndrom, migraine yrs ago, no cpap yet, occult blood in stool, nodule on lung History of Any Multi-Drug Resistant Organisms: None Reported Past Surgical History: Bladder Surgery, Joint Replacement, Orthopedic Surgery, Tubal Ligation Additional Past Surgical History / Comment(s): left breast biopsy, buck knee replacement, rt shoulder arthroscopy, bladder sling, bladder suspension Past Anesthesia/Blood Transfusion Reactions: Previous Problems w/ Anesthesia Additional Past Anesthesia/Blood Transfusion Reaction / Comment(s): states during her 1st knee replacement & during colonoscopy her legs were "twitching" & had to be given more anesthesia-didn't think had to do w/her restless leg Past Psychological History: No Psychological Hx Reported Smoking Status: Former smoker Past Alcohol Use History: Rare Past Drug Use History: None Reported - Past Family History Mother Family Medical History: No Reported History General Exam Limitations: no limitations General appearance: alert, in no apparent distress Head exam: Present: atraumatic Eye exam: Present: normal appearance, PERRL ENT exam: Present: normal oropharynx Neck exam: Present: normal inspection Respiratory exam: Present: normal lung sounds bilaterally. Absent: chest wall tenderness Cardiovascular Exam: Present: regular rate, normal rhythm Expanded Peripheral pulses: 2+: Posterior Tibialis (R), Posterior Tibialis (L) GI/Abdominal exam: Present: soft. Absent: tenderness Extremities exam: Present: pedal edema (Trace bilateral). Absent: calf tenderness Neurological exam: Present: alert Psychiatric exam: Present: normal affect, normal mood Skin exam: Present: normal color Course Vital Signs 12/18/18 12/18/18 12/18/18 10:44 12:09 13:25 Temperature 98 F Pulse Rate 111 H 96 97 Respiratory 22 24 16 Rate Blood Pressure 143/76 109/60 121/69 O2 Sat by Pulse 97 96 99 Oximetry EKG Findings - EKG Comments: EKG Findings:: Normal sinus rhythm 98. MS 138. QRS 84. QT 358. QTC 457. Left axis. LVH criteria. No acute ST elevation. Medical Decision Making - Medical Decision Making Patient reevaluated and updated. Case was discussed with Dr. lee, who will admit covering for Dr. Godfrey. - Lab Data Result diagrams: 12/18/18 11:35 12/18/18 11:35 Lab Results 12/18/18 12/18/18 12/18/18 Range/Units 11:35 11:35 11:35 WBC 10.1 (3.8-10.6) k/uL RBC 2.38 L (3.80-5.40) m/uL Hgb 6.5 L* (11.4-16.0) gm/dL Hct 21.5 L (34.0-46.0) % MCV 90.5 (80.0-100.0) fL MCH 27.5 (25.0-35.0) pg MCHC 30.4 L (31.0-37.0) g/dL RDW 18.0 H (11.5-15.5) % Plt Count 375 (150-450) k/uL Neutrophils % 81 % Lymphocytes % 11 % Monocytes % 4 % Eosinophils % 3 % Basophils % 1 % Neutrophils # 8.2 H (1.3-7.7) k/uL Lymphocytes # 1.1 (1.0-4.8) k/uL Monocytes # 0.4 (0-1.0) k/uL Eosinophils # 0.3 (0-0.7) k/uL Basophils # 0.1 (0-0.2) k/uL Hypochromasia Moderate Anisocytosis Slight PT (9.0-12.0) sec INR (<1.2) APTT (22.0-30.0) sec Sodium 141 (137-145) mmol/L Potassium 3.4 L (3.5-5.1) mmol/L Chloride 106 (98-107) mmol/L Carbon Dioxide 25 (22-30) mmol/L Anion Gap 10 mmol/L BUN 13 (7-17) mg/dL Creatinine 0.68 (0.52-1.04) mg/dL Est GFR (CKD-EPI)AfAm >90 (>60 ml/min/1.73 sqM) Est GFR (CKD-EPI)NonAf >90 (>60 ml/min/1.73 sqM) Glucose 106 H (74-99) mg/dL Calcium 9.1 (8.4-10.2) mg/dL Total Bilirubin 0.3 (0.2-1.3) mg/dL AST 22 (14-36) U/L ALT 22 (9-52) U/L Alkaline Phosphatase 61 (38-126) U/L Troponin I (0.000-0.034) ng/mL NT-Pro-B Natriuret Pep 325 pg/mL Total Protein 6.1 L (6.3-8.2) g/dL Albumin 3.5 (3.5-5.0) g/dL Stool Occult Blood (Negative) Blood Type Blood Type Confirm Blood Type Recheck Bld Type Recheck Status Antibody Screen Spec Expiration Date 12/18/18 12/18/18 12/18/18 Range/Units 11:35 11:35 14:25 WBC (3.8-10.6) k/uL RBC (3.80-5.40) m/uL Hgb (11.4-16.0) gm/dL Hct (34.0-46.0) % MCV (80.0-100.0) fL MCH (25.0-35.0) pg MCHC (31.0-37.0) g/dL RDW (11.5-15.5) % Plt Count (150-450) k/uL Neutrophils % % Lymphocytes % % Monocytes % % Eosinophils % % Basophils % % Neutrophils # (1.3-7.7) k/uL Lymphocytes # (1.0-4.8) k/uL Monocytes # (0-1.0) k/uL Eosinophils # (0-0.7) k/uL Basophils # (0-0.2) k/uL Hypochromasia Anisocytosis PT 10.3 (9.0-12.0) sec INR 1.0 (<1.2) APTT 21.6 L (22.0-30.0) sec Sodium (137-145) mmol/L Potassium (3.5-5.1) mmol/L Chloride (98-107) mmol/L Carbon Dioxide (22-30) mmol/L Anion Gap mmol/L BUN (7-17) mg/dL Creatinine (0.52-1.04) mg/dL Est GFR (CKD-EPI)AfAm (>60 ml/min/1.73 sqM) Est GFR (CKD-EPI)NonAf (>60 ml/min/1.73 sqM) Glucose (74-99) mg/dL Calcium (8.4-10.2) mg/dL Total Bilirubin (0.2-1.3) mg/dL AST (14-36) U/L ALT (9-52) U/L Alkaline Phosphatase (38-126) U/L Troponin I <0.012 (0.000-0.034) ng/mL NT-Pro-B Natriuret Pep pg/mL Total Protein (6.3-8.2) g/dL Albumin (3.5-5.0) g/dL Stool Occult Blood (Negative) Blood Type A Positive Blood Type Confirm Blood Type Recheck No Previous Record Bld Type Recheck Status CABO Indicated Antibody Screen NEGATIVE Spec Expiration Date 12/21/18232412/18/18 12/18/18 Range/Units 14:29 15:31 WBC (3.8-10.6) k/uL RBC (3.80-5.40) m/uL Hgb (11.4-16.0) gm/dL Hct (34.0-46.0) % MCV (80.0-100.0) fL MCH (25.0-35.0) pg MCHC (31.0-37.0) g/dL RDW (11.5-15.5) % Plt Count (150-450) k/uL Neutrophils % % Lymphocytes % % Monocytes % % Eosinophils % % Basophils % % Neutrophils # (1.3-7.7) k/uL Lymphocytes # (1.0-4.8) k/uL Monocytes # (0-1.0) k/uL Eosinophils # (0-0.7) k/uL Basophils # (0-0.2) k/uL Hypochromasia Anisocytosis PT (9.0-12.0) sec INR (<1.2) APTT (22.0-30.0) sec Sodium (137-145) mmol/L Potassium (3.5-5.1) mmol/L Chloride (98-107) mmol/L Carbon Dioxide (22-30) mmol/L Anion Gap mmol/L BUN (7-17) mg/dL Creatinine (0.52-1.04) mg/dL Est GFR (CKD-EPI)AfAm (>60 ml/min/1.73 sqM) Est GFR (CKD-EPI)NonAf (>60 ml/min/1.73 sqM) Glucose (74-99) mg/dL Calcium (8.4-10.2) mg/dL Total Bilirubin (0.2-1.3) mg/dL AST (14-36) U/L ALT (9-52) U/L Alkaline Phosphatase (38-126) U/L Troponin I (0.000-0.034) ng/mL NT-Pro-B Natriuret Pep pg/mL Total Protein (6.3-8.2) g/dL Albumin (3.5-5.0) g/dL Stool Occult Blood Positive H (Negative) Blood Type Blood Type Confirm A Positive Blood Type Recheck Bld Type Recheck Status Antibody Screen Spec Expiration Date - Radiology Data Radiology results: image reviewed (Chest x-ray shows stable retrocardiac density.) Disposition Clinical Impression: GI bleeding Disposition: ADMITTED IP TO THIS [facility] Is patient prescribed a controlled substance at d/c from ED?: No Referrals: Eamon Mcdonough MD [Primary Care Provider] - 1-2 days Decision Time: 15:41
[2018-12-18 12:03] LABS: ALT 22 U/L (9-52); AST 22 U/L (14-36); African American GFR (CKD) >90 (>60 ml/min/1.73 sqM); Albumin 3.5 g/dL (3.5-5.0); Alkaline Phosphatase 61 U/L (38-126); Anion Gap 10 mmol/L; Blood Urea Nitrogen 13 mg/dL (7-17); Calcium 9.1 mg/dL (8.4-10.2); Carbon Dioxide 25 mmol/L (22-30); Chloride 106 mmol/L (98-107); Glucose 106 mg/dL (74-99); Potassium 3.4 mmol/L (3.5-5.1); Sodium 141 mmol/L (137-145); Total Bilirubin 0.3 mg/dL (0.2-1.3); Total Protein 6.1 g/dL (6.3-8.2)
[2018-12-18 12:17] LABS: Anisocytosis Slight; Basophils # (A) 0.1 k/uL (0-0.2); Basophils % (A) 1 %; Eosinophils # (A) 0.3 k/uL (0-0.7); Eosinophils % (A) 3 %; HCT 21.5 % (34.0-46.0); Hypochromasia Moderate; Lymphocytes # (A) 1.1 k/uL (1.0-4.8); Lymphocytes % (A) 11 %; MCH 27.5 pg (25.0-35.0); MCHC 30.4 g/dL (31.0-37.0); MCV 90.5 fL (80.0-100.0); Mean Platelet Volume 7.3; Monocytes # (A) 0.4 k/uL (0-1.0); Monocytes % (A) 4 %; Neutrophils # (A) 8.2 k/uL (1.3-7.7); Neutrophils % (A) 81 %; Platelet Count 375 k/uL (150-450); RBC 2.38 m/uL (3.80-5.40); WBC 10.1 k/uL (3.8-10.6)
[2018-12-18 12:23] LABS: HGB 6.5 gm/dL (11.4-16.0)
[2018-12-18 12:32] LABS: Prothrombin Time 10.3 sec (9.0-12.0)
[2018-12-18 12:33] LABS: Partial Thromboplastin Time 21.6 sec (22.0-30.0)
[2018-12-18] MEDS ORDERED: PANTOPRAZOLE 40 MG/10 ML VIAL IVP STA (14:26)
--- NOTE | 2018-12-18 14:33 | XR ---
EXAMINATION TYPE: XR chest 2V DATE OF EXAM: 12/18/2018 COMPARISON: 08/29/2017 TECHNIQUE: PA and lateral views submitted. HISTORY: Difficulty breathing FINDINGS: The lungs are clear and there is no pneumothorax, pleural effusion, or focal pneumonia. Heart size is stable. Question of a hiatal hernia. Subsegmental changes along the right lung base are stable. De generative changes of the spine. Mild hyperinflation. Hypertrophic and degenerative change of the spi ne. IMPRESSION: 1. No acute process. Mild COPD not excluded correlate clinically. 2. Stable retrocardiac density could represent ectasia of the aorta or small hiatal hernia correlate clinically.
[2018-12-18] MEDS ORDERED: NALOXONE 0.4 MG/ML 1 ML VIAL IV PRN (15:41)
[2018-12-18] MEDS: SODIUM CHLORIDE 0.9% 1,000 ML IV SCH (16:30)
[2018-12-18] MEDS: PANTOPRAZOLE 40 MG/10 ML VIAL IV SCH (16:35)
[2018-12-18 19:46] LABS: Anisocytosis Slight; Basophils % (A) 0 %; Eosinophils # (A) 0.3 k/uL (0-0.7); Eosinophils % (A) 3 %; HCT 23.4 % (34.0-46.0); Hypochromasia Moderate; Lymphocytes # (A) 1.2 k/uL (1.0-4.8); Lymphocytes % (A) 12 %; MCH 27.5 pg (25.0-35.0); MCHC 30.1 g/dL (31.0-37.0); MCV 91.4 fL (80.0-100.0); Mean Platelet Volume 7.1; Monocytes # (A) 0.3 k/uL (0-1.0); Monocytes % (A) 3 %; Neutrophils # (A) 8.2 k/uL (1.3-7.7); Neutrophils % (A) 81 %; Platelet Count 353 k/uL (150-450); RBC 2.56 m/uL (3.80-5.40); WBC 10.2 k/uL (3.8-10.6)
[2018-12-18 21:21] VITALS: BMI 46.6
[2018-12-19] MEDS: PRAMIPEXOLE 1 MG TAB PO SCH ×4 (01:10→22:09)
[2018-12-19] MEDS: PANTOPRAZOLE 40 MG/10 ML VIAL IV SCH (07:21)
[2018-12-19 10:18] LABS: Anisocytosis Slight; Basophils % (A) 1 %; Eosinophils # (A) 0.3 k/uL (0-0.7); Eosinophils % (A) 4 %; HCT 24.6 % (34.0-46.0); HGB 7.8 gm/dL (11.4-16.0); Hypochromasia Moderate; Lymphocytes # (A) 1.3 k/uL (1.0-4.8); Lymphocytes % (A) 15 %; MCH 29.1 pg (25.0-35.0); MCHC 31.7 g/dL (31.0-37.0); MCV 91.9 fL (80.0-100.0); Mean Platelet Volume 7.2; Monocytes # (A) 0.3 k/uL (0-1.0); Monocytes % (A) 4 %; Neutrophils # (A) 6.3 k/uL (1.3-7.7); Neutrophils % (A) 76 %; Platelet Count 342 k/uL (150-450); Poikilocytosis Slight; RBC 2.67 m/uL (3.80-5.40); RDW 16.8 % (11.5-15.5); WBC 8.4 k/uL (3.8-10.6)
[2018-12-19] MEDS ORDERED: BISACODYL 5 MG TABLET.DR PO STA (12:53)
--- NOTE | 2018-12-19 13:01 | P.CONS ---
History of Present Illness - Reason for Consult Consult date: 12/19/18 Anemia GI bleed Requesting physician: Lucien Hutchins - Chief Complaint Shortness of breath - History of Present Illness 58-year-old female with a past medical history of morbid obesity BMI 46.5, atrial fibrillation maintained on Xarelto 3-4 years, colonic diverticulosis, he morrhoids, migraines, GERD, sleep apnea, restless leg syndrome admitted with profound weakness shortness of breath over the last week. Patient is in the process of being evaluated for upcoming bariatric surgery and was placed on oral iron prophylactically. Over the last week she has had increased nausea midepigastric upper abdominal discomfort as well as a few emesis described as dark brown in color along with multiple black colored bowel movements which she attributed to iron therapy. Denies fever chills hematuria or vaginal bleeding. She recently completed outpatient antibiotics for bronchitis. Denies gross hematemesis or hematochezia. No history of peptic ulcer disease. Colonoscopy screening March 2017 identify colonic diverticulosis and hemorrhoids. EGD was performed about 5 years ago to her memory unremarkable. No aspirin and NSAIDs or alcohol abuse. Last dose of Xarelto was 2 days ago. Admission hemoglobin 6.5. MCV 90. Platelet 375. Present hemoglobin is 7.8. S he has received 2 units of blood. BUN 13. Creatinine 0.6. Previous hemoglobin August 2017 was 13.7. INR 1.0. FOBT positive. Chest x-ray no acute process. Review of Systems Constitutional: Denies fever, chills, sweats, weight gain, or loss. HEENT: Negative for migraines, blurred vision or loss, earaches, drainage, tinnitus, oral mucosal lesions, dysphagia, or odynophagia. CARDIAC: Negative for chest pain, arrhythmias, or palpitation. RESPIRATORY: Admitted with shortness of breath denies, hemoptysis, cough, or sputum production. GI: See HPI for pertinent findings. : Negative for hematuria, urgency, frequency, polyuria, or dysuria. GYNc: Negative vaginal discharge. MUSCULOSKELETAL: Negative for muscle aches, swelling, arthritis, and arthralgias. NEUROLOGIC: Negative for stroke or TIA. ENDOCRINE: Negative for thyroid problems. SKIN: Negative for rash or itching. PSYCHIATRIC: Negative history for depression and anxiety Past Medical History Past Medical History: Atrial Fibrillation, GERD/Reflux, Hyperlipidemia, Osteoarthritis (OA), Sleep Apnea/CPAP/BIPAP Additional Past Medical History / Comment(s): restless leg syndrom, migraine yrs ago, no cpap yet, occult blood in stool, nodule on lung, metformin for weight loss not a diabetic, sleep apnea uses cpap at home, iron for preparation for bariatric surgery, no date for bariatric surgery as of yet, hemorrhoids per dr espinoza with colonoscopy, has been having black stools and sometimes has a little blood on toilet paper, no blood recently. upper respiratory infection recently with sinus infection that turned into bronchitis over a week ago was on amoxicillin and steroid pack did not help. Coughing up green plegm. Was told has poor circulation and has blockage in right leg , also has poor circulation in left leg. History of Any Multi-Drug Resistant Organisms: None Reported Past Surgical History: Bladder Surgery, Joint Replacement, Orthopedic Surgery, Tubal Ligation Additional Past Surgical History / Comment(s): left breast biopsy, buck knee replacement, rt shoulder arthroscopy, bladder sling, bladder suspension Past Anesthesia/Blood Transfusion Reactions: Previous Problems w/ Anesthesia Additional Past Anesthesia/Blood Transfusion Reaction / Comm: states during her 1st knee replacement & during colonoscopy her legs were "twitching" & had to be given more anesthesia-didn't think had to do w/her restless leg Past Psychological History: No Psychological Hx Reported Smoking Status: Former smoker Past Alcohol Use History: Rare Additional Past Alcohol Use History / Comment(s): quit smoking 1992, smoked for 15-20 yrs. was < 1 PPD Past Drug Use History: None Reported - Past Family History Mother Family Medical History: No Reported History Medications and Allergies Home Medications Medication Instructions Recorded Confirmed Type Pantoprazole Sodium [Protonix] 40 mg PO W/SUPPER 12/04/14 12/18/18 History Cholecalciferol [Vitamin D3] 5,000 unit PO DAILY 02/12/16 12/18/18 History Glucosamine/Chondr Monreal A Sod [Osteo 1 tab PO DAILY 02/12/16 12/18/18 History Bi-Flex Caplet] Multivitamins, Thera [Multivitamin] 1 tab PO DAILY 02/12/16 12/18/18 History Rivaroxaban [Xarelto] 20 mg PO W/SUPPER 02/12/16 12/18/18 History Ubidecarenone [Co Q-10] 100 mg PO DAILY 02/12/16 12/18/18 History Ergocalciferol (Vitamin D2) 50,000 unit PO MONREAL 12/18/18 12/18/18 History [Drisdol] Ferrous Sulfate [Feosol] 325 mg PO DAILY 12/18/18 12/18/18 History Magnesium Oxide [Mag-Ox] 400 mg PO DAILY 12/18/18 12/18/18 History Pramipexole [Mirapex] 1 mg PO TID 12/18/18 12/18/18 History Pravastatin Sodium [Pravachol] 20 mg PO DAILY 12/18/18 12/18/18 History buPROPion XL [Wellbutrin Xl] 150 mg PO DAILY 12/18/18 12/18/18 History metFORMIN HCL ER [Glucophage Xr] 1,000 mg PO AC-BID 12/18/18 12/18/18 History Allergies Allergy/AdvReac Type Severity Reaction Status Date / Time adhesive tape AdvReac red skin Verified 12/18/18 20:58 Physical Exam Vitals: Vital Signs Temp Pulse Pulse Resp BP BP Pulse Ox 12/19/18 11:15 98.1 F 78 18 91/63 92 L 12/19/18 05:44 98.0 F 88 22 111/69 92 L 12/19/18 02:46 98.2 F 86 20 111/54 96 12/19/18 02:45 98.2 F 86 20 111/54 12/19/18 01:20 98.3 F 87 20 108/51 12/19/18 00:50 98.3 F 97 16 118/49 12/19/18 00:40 98.2 F 91 16 114/58 12/18/18 22:23 96 12/18/18 20:41 98.1 F 101 H 20 148/66 96 12/18/18 20:25 98 F 88 18 118/50 99 12/18/18 18:27 98.3 F 89 16 129/59 99 12/18/18 17:48 98.4 F 76 16 115/76 12/18/18 17:35 76 16 123/53 99 12/18/18 16:58 98.4 F 67 16 136/60 99 12/18/18 16:28 98.3 F 82 16 118/58 97 12/18/18 16:18 97.8 F 89 20 117/71 97 12/18/18 13:25 97 16 121/69 99 Intake and Output 12/18/18 12/19/18 12/19/18 22:59 06:59 14:59 Intake Total 310 1040 Balance 310 1040 Intake: Intake, IV Titration 140 Amount Sodium Chloride 0.9% 1, 140 000 ml @ 20 mls/hr IV . [facility] Rx#:[id number] Oral 590 Blood Product 310 310 Rc As-1 Unit 310 [id number] Rc As-1 Unit 310 [id number] Other: Voiding Method Toilet Toilet # Voids 1 General appearance: The patient is alert, oriented, in no acute distress. HET: Head is normocephalic and atraumatic. Pupils are equal and reactive. Oropharynx is clear without lesions. Neck: Supple without lymphadenopathy. Trachea midline. Heart: S1 S2. Regular rate and rhythm. Lungs: No crackles or wheezes are heard. Abdomen: Soft, nontender, nondistended with bowel sounds. No peritoneal signs. No palpable organomegaly or masses. Extremities: Normal skin color and turgor. No cyanosis, rash, ulceration, clubbing, or edema. Radial and pedal pulses are 2/4 bilaterally. Neurological: No focal deficits. Strength and sensation are grossly intact. Results CBC & Chem 7: 12/19/18 09:01 12/19/18 09:01 Labs: Abnormal Lab Results - Last 24 Hours (Table) 12/18/18 12/18/18 12/18/18 Range/Units 14:25 14:29 19:23 RBC 2.56 L (3.80-5.40) m/uL Hgb 7.0 L (11.4-16.0) gm/dL Hct 23.4 L (34.0-46.0) % MCHC 30.1 L (31.0-37.0) g/dL RDW 17.0 H (11.5-15.5) % Neutrophils # 8.2 H (1.3-7.7) k/uL Stool Occult Blood Positive H (Negative) Crossmatch See Detail 12/19/18 Range/Units 09:01 RBC 2.67 L (3.80-5.40) m/uL Hgb 7.8 L (11.4-16.0) gm/dL Hct 24.6 L (34.0-46.0) % MCHC (31.0-37.0) g/dL RDW 16.8 H (11.5-15.5) % Neutrophils # (1.3-7.7) k/uL Stool Occult Blood (Negative) Crossmatch CT scan - chest: report reviewed (Dr. Quick) Assessment and Plan (1) Symptomatic anemia Narrative/Plan: 58-year-old female admitted with acute GI bleed symptomatic normocytic hypochromic anemia component of acute blood loss with symptoms of shortness of breath melanotic bowel movements with positive stool guaiac. Admission hemoglobin 6.5 received 2 units of blood. Colonoscopy March 2017 colitis diverticulosis and hemorrhoids no recent EGD. Possible peptic ulcer disease, bleeding AVM, possible small bowel pathology underlying colonic source cannot be excluded. Current Visit: Yes Status: Acute Code(s): D64.9 - ANEMIA, UNSPECIFIED SNOMED Code(s): 441675605 (2) Acute blood loss anemia Current Visit: Yes Status: Acute Code(s): D62 - ACUTE POSTHEMORRHAGIC ANEMIA SNOMED Code(s): 288624449 (3) Stool guaiac positive Current Visit: Yes Status: Acute Code(s): R19.5 - OTHER FECAL ABNORMALITIES SNOMED Code(s): 39857041 (4) Morbid obesity with BMI of 45.0-49.9, adult Current Visit: Yes Status: Acute Code(s): E66.01 - MORBID (SEVERE) OBESITY DUE TO EXCESS CALORIES; Z68.42 - BODY MASS INDEX (BMI) 45.0-49.9, ADULT SNOMED Code(s): 263325259 (5) Atrial fibrillation Current Visit: Yes Status: Chronic Code(s): I48.91 - UNSPECIFIED ATRIAL FIBRILLATION SNOMED Code(s): 20147466 Plan: 1. Dr. Quick recommends EGD colonoscopy possible small bowel capsule endosc opy will proceed tomorrow. Hold iron in preparation for possible small bowel capsule study. Hold Xarelto. CBC monitoring. Protonix 40 mg daily. Nothing by mouth after midnight. The pen rider has discussed the risks, benefits and alternative therapies for the above-mentioned procedure and for both sedation/analgesia as well as necessary blood product administration, if indicated, as they pertain to this patient. The patient has indicated understanding and acceptance of the risks and procedures discussed. Thank you for this kind referral and the opportunity to participate in the care of your patient. This consultation was discussed with Dr. Quick. The impression and plan of care have been directed as dictated.
[2018-12-19] MEDS: SODIUM CHLORIDE 0.9% 1,000 ML IV SCH (13:39)
[2018-12-19] MEDS ORDERED: PEG 3350-NA SULF,BICARB,CL/KCL 4,000 ML BOTTLE PO ONE (16:00)
--- NOTE | 2018-12-19 17:37 | P.GSCN ---
History of Present Illness Consult date: 12/19/18 Reason for Consult: GI bleed History of present illness: Patient was having complaints of shortness of breath and fatigue. He was found to have profound anemia with a hemoglobin of 6.5. 2 units of blood were given and hemoglobin now 7.8. Denies pain. Some black stools although takes iron. She is taking Xarelto for A. fib. Feels well at this time. Last colonoscopy 1.5 years ago showing small descending colon tubular adenoma. Last EGD 4-5 years ago. No history of ulcers. No abdominal pain. Review of Systems The patient denies any acute changes in vision or hearing, no dysphagia or odynophagia, no chest pain or shortness of breath, no dysuria or hematuria, no headache, no runny nose, no rectal bleeding, no unexplained weight loss Past Medical History Past Medical History: Atrial Fibrillation, GERD/Reflux, Hyperlipidemia, Osteoarthritis (OA), Sleep Apnea/CPAP/BIPAP Additional Past Medical History / Comment(s): restless leg syndrom, migraine yrs ago, no cpap yet, occult blood in stool, nodule on lung, metformin for weight loss not a diabetic, sleep apnea uses cpap at home, iron for preparation for bariatric surgery, no date for bariatric surgery as of yet, hemorrhoids per dr espinoza with colonoscopy, has been having black stools and sometimes has a little blood on toilet paper, no blood recently. upper respiratory infection recently with sinus infection that turned into bronchitis over a week ago was on amoxicillin and steroid pack did not help. Coughing up green plegm. Was told has poor circulation and has blockage in right leg , also has poor circulation in left leg. History of Any Multi-Drug Resistant Organisms: None Reported Past Surgical History: Bladder Surgery, Joint Replacement, Orthopedic Surgery, Tubal Ligation Additional Past Surgical History / Comment(s): left breast biopsy, buck knee replacement, rt shoulder arthroscopy, bladder sling, bladder suspension Past Anesthesia/Blood Transfusion Reactions: Previous Problems w/ Anesthesia Additional Past Anesthesia/Blood Transfusion Reaction / Comm: states during her 1st knee replacement & during colonoscopy her legs were "twitching" & had to be given more anesthesia-didn't think had to do w/her restless leg Past Psychological History: No Psychological Hx Reported Smoking Status: Former smoker Past Alcohol Use History: Rare Additional Past Alcohol Use History / Comment(s): quit smoking 1992, smoked for 15-20 yrs. was < 1 PPD Past Drug Use History: None Reported - Past Family History Mother Family Medical History: No Reported History Medications and Allergies Home Medications Medication Instructions Recorded Confirmed Type Pantoprazole Sodium [Protonix] 40 mg PO W/SUPPER 12/04/14 12/18/18 History Cholecalciferol [Vitamin D3] 5,000 unit PO DAILY 02/12/16 12/18/18 History Glucosamine/Chondr Monreal A Sod [Osteo 1 tab PO DAILY 02/12/16 12/18/18 History Bi-Flex Caplet] Multivitamins, Thera [Multivitamin] 1 tab PO DAILY 02/12/16 12/18/18 History Rivaroxaban [Xarelto] 20 mg PO W/SUPPER 02/12/16 12/18/18 History Ubidecarenone [Co Q-10] 100 mg PO DAILY 02/12/16 12/18/18 History Ergocalciferol (Vitamin D2) 50,000 unit PO MONREAL 12/18/18 12/18/18 History [Drisdol] Ferrous Sulfate [Feosol] 325 mg PO DAILY 12/18/18 12/18/18 History Magnesium Oxide [Mag-Ox] 400 mg PO DAILY 12/18/18 12/18/18 History Pramipexole [Mirapex] 1 mg PO TID 12/18/18 12/18/18 History Pravastatin Sodium [Pravachol] 20 mg PO DAILY 12/18/18 12/18/18 History buPROPion XL [Wellbutrin Xl] 150 mg PO DAILY 12/18/18 12/18/18 History metFORMIN HCL ER [Glucophage Xr] 1,000 mg PO AC-BID 12/18/18 12/18/18 History Allergies Allergy/AdvReac Type Severity Reaction Status Date / Time adhesive tape AdvReac red skin Verified 12/18/18 20:58 Surgical - Exam Vital Signs Temp Pulse Resp BP Pulse Ox 98 F 111 H 22 143/76 97 12/18/18 10:44 12/18/18 10:44 12/18/18 10:44 12/18/18 10:44 12/18/18 10:44 Results - Labs 12/19/18 09:01 12/19/18 09:01 Abnormal Lab Results - Last 24 Hours (Table) 0812/18/18 12/19/18 Range/Units 14:25 19:23 09:01 RBC 2.56 L 2.67 L (3.80-5.40) m/uL Hgb 7.0 L 7.8 L (11.4-16.0) gm/dL Hct 23.4 L 24.6 L (34.0-46.0) % MCHC 30.1 L (31.0-37.0) g/dL RDW 17.0 H 16.8 H (11.5-15.5) % Neutrophils # 8.2 H (1.3-7.7) k/uL Crossmatch See Detail Diabetes panel 12/19/18 Range/Units 09:01 Potassium 3.9 (3.5-5.1) mmol/L Pituitary panel 12/19/18 Range/Units 09:01 Potassium 3.9 (3.5-5.1) mmol/L Adrenal panel 12/19/18 Range/Units 09:01 Potassium 3.9 (3.5-5.1) mmol/L Assessment and Plan (1) GI bleeding Narrative/Plan: Agree with plans for upper and lower endoscopy. We'll follow with you. Current Visit: Yes Status: Acute Code(s): K92.2 - GASTROINTESTINAL HEMORRHAGE, UNSPECIFIED SNOMED Code(s): 38148243
--- NOTE | 2018-12-19 17:46 | P.HPIM ---
History of Present Illness H&P Date: 12/19/18 Chief Complaint: Weak and tired/black stools History of presenting complaint: This is a pleasant 58-year-old patient of Dr. Eamon Godfrey. Chronic stable medical conditions include GERD, hyperlipidemia, restless leg syndrome, obstructive sleep apnea uses CPAP machine. Patient is on iron supplements. Patient had dark stools for quite a while. For last 4 weeks patient is being struggling with upper respiratory tract symptoms/bronchitis. Patient about a week ago at finished her with amoxicillin. Really didn't feel much better. Still having some cough and tiredness short of breath. Decided to go back and see her family doctor. They ran some tests including checks x-ray that was negative. Because patient is feeling weak tired rundown decided to send the patient and. Patient in the ER was discovered to have a hemoglobin of 6.5. Patient did get 2 units of blood since then hemoglobin this morning was 7.8. Patient has been feeling weak tired rundown. Patient's had EGDs previously by Dr. Mo and coloscopy by Dr. Page. Denies any abdominal pain. No prior history of peptic ulcer disease. Review of systems: GEN.: Weak and tired EYES: None HEENT: None NECK: None RESPIRATORY: 6 sleep apnea CARDIOVASCULAR: None GASTROINTESTINAL: As above GENITOURINARY: None MUSCULOSKELETAL: None LYMPHATICS: None HEMATOLOGICAL: None PSYCHIATRY: None NEUROLOGICAL: None Social history: Alcohol rarely. . 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 Smoked for about 20 years stopped 92 Family history: Reviewed, noncontributory presentation Physical examination: VITAL SIGNS: 98.0, 11, 7022, 143/76, 97% on room air GENERAL: BMI 46.5, laying in bed a bit tired appearing. EYES: Pupils equal. Conjunctiva palel. HEENT: External appearance of nose and ears normal, oral cavity grossly normal. NECK: JVD not raised; masses not palpable. HEART: First and second heart sounds are normal; no edema. LUNGS: Respiratory rate normal; clear to auscultation. ABDOMEN: Soft, nontender, liver spleen not palpable, no masses palpable. PSYCH: Alert and oriented x3; mood and affect normal. NEUROLOGICAL: Cranial nerves grossly intact; no facial asymmetry, power and sensation grossly intact. LYMPHATICS: No lymph nodes palpable in the axilla and neck INVESTIGATIONS, reviewed in the clinical context: White count 10.1 hemoglobin 6.5, repeat this morning 7.8 platelets 375 potassium 3.4 creatinine 0.68 Assessment: -Acute severe anemia symptomatic, likely source GI bleed though patient does take iron and stools have been dark for a long-time. Patient has received 2 units of blood -Paroxysmal atrial fibrillation currently in sinus rhythm -GERD -Hyperlipidemia -Primary osteoarthritis -Obstructive sleep apnea uses CPAP -Internal hemorrhoids -Pending outpatient bariatric surgery Plan: GI Dr. Page were consulted. Patient did receive 2 units of blood. Repeat hemoglobin in the morning. Patient's anticoagulant in the form of Xarelto held. Patient's been on clear liquids. Care was discussed with the patient. Questions were answered. Follow up labs. Past Medical History Past Medical History: Atrial Fibrillation, GERD/Reflux, Hyperlipidemia, Osteoarthritis (OA), Sleep Apnea/CPAP/BIPAP Additional Past Medical History / Comment(s): restless leg syndrom, migraine yr s ago, no cpap yet, occult blood in stool, nodule on lung, metformin for weight loss not a diabetic, sleep apnea uses cpap at home, iron for preparation for bariatric surgery, no date for bariatric surgery as of yet, hemorrhoids per dr espinoza with colonoscopy, has been having black stools and sometimes has a little blood on toilet paper, no blood recently. upper respiratory infection recently with sinus infection that turned into bronchitis over a week ago was on amoxicillin and steroid pack did not help. Coughing up green plegm. Was told has poor circulation and has blockage in right leg , also has poor circulation in left leg. History of Any Multi-Drug Resistant Organisms: None Reported Past Surgical History: Bladder Surgery, Joint Replacement, Orthopedic Surgery, Tubal Ligation Additional Past Surgical History / Comment(s): left breast biopsy, buck knee replacement, rt shoulder arthroscopy, bladder sling, bladder suspension Past Anesthesia/Blood Transfusion Reactions: Previous Problems w/ Anesthesia Additional Past Anesthesia/Blood Transfusion Reaction / Comment(s): states during her 1st knee replacement & during colonoscopy her legs were "twitching" & had to be given more anesthesia-didn't think had to do w/her restless leg Past Psychological History: No Psychological Hx Reported Smoking Status: Former smoker Past Alcohol Use History: Rare Additional Past Alcohol Use History / Comment(s): quit smoking 1992, smoked for 15-20 yrs. was < 1 PPD Past Drug Use History: None Reported - Past Family History Mother Family Medical History: No Reported History Medications and Allergies Home Medications Medication Instructions Recorded Confirmed Type Pantoprazole Sodium [Protonix] 40 mg PO W/SUPPER 12/04/14 12/18/18 History Cholecalciferol [Vitamin D3] 5,000 unit PO DAILY 02/12/16 12/18/18 History Glucosamine/Chondr Monreal A Sod [Osteo 1 tab PO DAILY 02/12/16 12/18/18 History Bi-Flex Caplet] Multivitamins, Thera [Multivitamin] 1 tab PO DAILY 02/12/16 12/18/18 History Rivaroxaban [Xarelto] 20 mg PO W/SUPPER 02/12/16 12/18/18 History Ubidecarenone [Co Q-10] 100 mg PO DAILY 02/12/16 12/18/18 History Ergocalciferol (Vitamin D2) 50,000 unit PO MONREAL 12/18/18 12/18/18 History [Drisdol] Ferrous Sulfate [Feosol] 325 mg PO DAILY 12/18/18 12/18/18 History Magnesium Oxide [Mag-Ox] 400 mg PO DAILY 12/18/18 12/18/18 History Pramipexole [Mirapex] 1 mg PO TID 12/18/18 12/18/18 History Pravastatin Sodium [Pravachol] 20 mg PO DAILY 12/18/18 12/18/18 History buPROPion XL [Wellbutrin Xl] 150 mg PO DAILY 12/18/18 12/18/18 History metFORMIN HCL ER [Glucophage Xr] 1,000 mg PO AC-BID 12/18/18 12/18/18 History Allergies Allergy/AdvReac Type Severity Reaction Status Date / Time adhesive tape AdvReac red skin Verified 12/18/18 20:58 Physical Exam Vitals: Vital Signs Temp Pulse Pulse Resp BP BP Pulse Ox 12/19/18 05:44 98.0 F 88 22 111/69 92 L 12/19/18 02:46 98.2 F 86 20 111/54 96 12/19/18 02:45 98.2 F 86 20 111/54 12/19/18 01:20 98.3 F 87 20 108/51 12/19/18 00:50 98.3 F 97 16 118/49 12/19/18 00:40 98.2 F 91 16 114/58 12/18/18 22:23 96 12/18/18 20:41 98.1 F 101 H 20 148/66 96 12/18/18 20:25 98 F 88 18 118/50 99 12/18/18 18:27 98.3 F 89 16 129/59 99 12/18/18 17:48 98.4 F 76 16 115/76 12/18/18 17:35 76 16 123/53 99 12/18/18 16:58 98.4 F 67 16 136/60 99 12/18/18 16:28 98.3 F 82 16 118/58 97 12/18/18 16:18 97.8 F 89 20 117/71 97 12/18/18 13:25 97 16 121/69 99 12/18/18 12:09 96 24 109/60 96 12/18/18 10:44 98 F 111 H 22 143/76 97 Intake and Output 12/18/18 12/19/18 12/19/18 22:59 06:59 14:59 Intake Total 310 1040 Balance 310 1040 Intake: Intake, IV Titration 140 Amount Sodium Chloride 0.9% 1, 140 000 ml @ 20 mls/hr IV . Q24H [facility] Rx#:[id number] Oral 590 Blood Product 310 310 Rc As-1 Unit 310 [id number] Rc As-1 Unit 310 [id number] Other: Voiding Method Toilet Toilet # Voids 1 Results CBC & Chem 7: 12/19/18 09:01 12/19/18 09:01 Labs: Abnormal Lab Results - Last 24 Hours (Table) 12/18/18 12/18/18 12/18/18 Range/Units 11:35 11:35 11:35 RBC 2.38 L (3.80-5.40) m/uL Hgb 6.5 L* (11.4-16.0) gm/dL Hct 21.5 L (34.0-46.0) % MCHC 30.4 L (31.0-37.0) g/dL RDW 18.0 H (11.5-15.5) % Neutrophils # 8.2 H (1.3-7.7) k/uL APTT 21.6 L (22.0-30.0) sec Potassium 3.4 L (3.5-5.1) mmol/L Glucose 106 H (74-99) mg/dL Total Protein 6.1 L (6.3-8.2) g/dL Stool Occult Blood (Negative) Crossmatch 12/18/18 12/18/18 12/18/18 Range/Units 14:25 14:29 19:23 RBC 2.56 L (3.80-5.40) m/uL Hgb 7.0 L (11.4-16.0) gm/dL Hct 23.4 L (34.0-46.0) % MCHC 30.1 L (31.0-37.0) g/dL RDW 17.0 H (11.5-15.5) % Neutrophils # 8.2 H (1.3-7.7) k/uL APTT (22.0-30.0) sec Potassium (3.5-5.1) mmol/L Glucose (74-99) mg/dL Total Protein (6.3-8.2) g/dL Stool Occult Blood Positive H (Negative) Crossmatch See Detail Thrombosis Risk Factor Assmnt - Choose All That Apply Any of the Below Risk Factors Present?: Yes Each Factor Represents 1 point: Age 41-60 years, Obesity (BMI >25), Swollen legs (current) Other Risk Factors: No Other congenital or acquired thrombophilia - If yes, enter type in comment: No Thrombosis Risk Factor Assessment Total Risk Factor Score: 3 Thrombosis Risk Factor Assessment Level: Moderate Risk
[2018-12-19] MEDS ORDERED: ONDANSETRON 4 MG/2 ML VIAL IVP PRN (21:15)
[2018-12-20] MEDS: PRAMIPEXOLE 1 MG TAB PO SCH ×3 (07:36→22:42)
[2018-12-20 07:43] LABS: Anisocytosis Slight; HCT 24.7 % (34.0-46.0); HGB 7.8 gm/dL (11.4-16.0); Hypochromasia Moderate; MCH 28.9 pg (25.0-35.0); MCHC 31.7 g/dL (31.0-37.0); MCV 91.2 fL (80.0-100.0); Mean Platelet Volume 7.4; Platelet Count 368 k/uL (150-450); Poikilocytosis Moderate; RBC 2.71 m/uL (3.80-5.40); RDW 16.2 % (11.5-15.5); WBC 6.9 k/uL (3.8-10.6)
[2018-12-20] MEDS ORDERED: FERROUS SULFATE 325 MG TAB PO SCH (09:00)
[2018-12-20] MEDS: PANTOPRAZOLE 40 MG/10 ML VIAL IV SCH (10:13)
--- NOTE | 2018-12-20 12:38 | P.PN ---
Subjective Progress Note Date: 12/20/18 Principal diagnosis: GI bleed Patient doing well today. Denies abdominal pain. Tolerating diet. She did well with her prep. No rectal bleeding. Objective - Vital Signs Vital signs: Vital Signs Temp 97.9 F 12/20/18 10:13 Pulse 78 12/20/18 10:13 Resp 20 12/20/18 10:13 BP 105/65 12/20/18 10:13 Pulse Ox 95 12/20/18 10:13 Intake & Output 12/19/18 12/20/18 12/20/18 18:59 06:59 18:59 Intake Total 300 1180 Output Total 4 Balance 300 1176 Intake: Oral 300 1180 Output: Urine 2 Stool 2 Other: Voiding Method Toilet Toilet Toilet # Voids 1 1 # Bowel Movements 1 2 - Exam Abdomen: Soft, nontender, nondistended - Labs CBC & Chem 7: 12/20/18 06:33 12/19/18 09:01 Labs: Abnormal Lab Results - Last 24 Hours (Table) 12/20/18 Range/Units 06:33 RBC 2.71 L (3.80-5.40) m/uL Hgb 7.8 L (11.4-16.0) gm/dL Hct 24.7 L (34.0-46.0) % RDW 16.2 H (11.5-15.5) % Assessment and Plan (1) GI bleeding Narrative/Plan: Await upper and lower endoscopy today. Will follow. Current Visit: Yes Status: Acute Code(s): K92.2 - GASTROINTESTINAL HEMORRHAGE, UNSPECIFIED SNOMED Code(s): 73127596
[2018-12-20] MEDS ORDERED: PROPOFOL 10 MG/ML 20 ML VIAL IV ONE (12:40)
[2018-12-20] MEDS ORDERED: GLYCOPYRROLATE 0.2 MG/ML 2 ML VIAL ONE (12:40)
[2018-12-20] MEDS ORDERED: LIDOCAINE 1% INJ 10MG/ML (20 ML MDV) ONE (12:40)
[2018-12-20] MEDS ORDERED: MIDAZOLAM 2 MG/2 ML VIAL ONE (12:40)
[2018-12-20] MEDS ORDERED: LACTATED RINGERS 1,000 ML IV ONE (12:52)
--- NOTE | 2018-12-20 13:40 | P.PCN ---
Date of Procedure: 12/20/18 Description of Procedure: Brief history: Patient is a pleasant scheduled for an elective upper endoscopy as well as colonoscopy as a part of evaluation of anemia of acute blood loss. Past medical history of morbid obesity BMI 46.5, atrial fibrillation maintained on Xarelto 3- 4 years, colonic diverticulosis, hemorrhoids, migraines, GERD, sleep apnea, restless leg syndrome admitted with profound weakness shortness of breath over the last week. Patient is in the process of being evaluated for upcoming bariatric surgery and was placed on oral iron prophylactically. Over the last week she has had increased nausea midepigastric upper abdominal discomfort as well as a few emesis described as dark brown in color along with multiple black colored bowel movements which she attributed to iron therapy. Denies gross hematemesis or hematochezia. No history of peptic ulcer disease. Colonoscopy screening March 2017 identify colonic diverticulosis and hemorrhoids. EGD was performed about 5 years ago to her memory unremarkable. No aspirin and NSAIDs or alcohol abuse. Last dose of Xarelto was 2 days ago. Admission hemoglobin 6.5. MCV 90. FOBT positive. Chest x-ray no acute process. Procedure performed: Esophagogastroduodenoscopy with biopsy Colonoscopy with polypectomy Estimated blood loss: Minimal. Preoperative diagnosis: Anemia, stool positive for occult blood Anesthesia: MAC Procedure: After informed consent was obtained from the patient was brought into the endoscopy unit and IV sedation was administered by anesthesia under continuous monitoring. Initially upper endoscopy was done. The Olympus GF 190 video endoscope was inserted inserted into the mouth and esophagus intubated without any difficulty and was gradually advanced into the stomach and duodenum and carefully examined. The bulb and second part of the duodenum appeared normal with biopsies taken. The scope was then withdrawn into the stomach adequately insufflated with air and upon careful examination the antrum and body, cardia and fundus appeared grossly normal except for some mild scattered erythema in the antrum and body suggestive of mild gastritis with biopsies taken. Patient also had multiple polyps in the body and fundus of the stomach suggestive of fundic gland polyps with biopsies of polyps taken. The scope was then withdrawn into the esophagus. The GE junction was located at 31 cm to the incisors with a 4 cm hiatal hernia noted. It appeared regular with no erythema erosions or ulcerations. Rest of the esophagus appeared normal. Patient tolerated the procedure well. At this time the patient continued to remain sedation. Initial digital rectal examination was normal. Olympus CF 190 video colonoscope was then inserted into the rectum and gradually advanced to the cecum without any difficulty. Careful examination was performed as the scope was gradually being withdrawn. The prep was excellent. The cecum, ascending colon, transverse colon, descending colon, sigmoid colon and rectum appeared normal. diminutive 2 mm sessile ileocecal valve polyp removed with cold forceps. Small 4 mm hepatic flexure polyp removed with cold snare polypectomy. Small 3 mm transverse colon sessile polyp removed with cold snare polypectomy. Diminutive 2 mm with cold forcep polypectomy. Patient had multiple large diverticula throughout the entire colon. Retroflexion was performed in the rectum and no lesions were noted, Mild internal hemorrhoids noted. Patient tolerated the procedure well. Impression: 1. Mild gastritis antrum and body, biopsied. Gastric polyps, biopsied. Duodenal biopsies. Moderate-sized hiatal hernia. 2. Pandiverticulosis. 2 diminutive polyps removed with cold forceps from the IC valve and sigmoid colon. 2 small polyps removed with cold snare polypectomy from the transverse colon and hepatic flexure. Recommendations: Findings of this examination were discussed with the patient as well as The nursing staff. At this time we'll proceed to video capsule endoscopy. Continue to monitor hemoglobin and hematocrit and transfuse as needed. Okay for liquids after 2 hours diet after 4 hours after the video capsule endoscopy is administered.
[2018-12-20] MEDS ORDERED: SIMETHICONE 40 MG/0.6 ML DROPS 2,000 MG/30 ML BOTTLE PO ONE (14:25)
[2018-12-20] MEDS: CHOLECALCIFEROL 1,000 UNIT TAB PO SCH (16:42)
[2018-12-20] MEDS: MAGNESIUM OXIDE 400 MG TAB PO SCH (16:42)
[2018-12-20] MEDS: MULTIVITAMINS, THERA 1 EACH TAB PO SCH (16:42)
[2018-12-20] MEDS: PRAVASTATIN SODIUM 20 MG TAB PO SCH (16:42)
[2018-12-20] MEDS: SODIUM CHLORIDE 0.9% 1,000 ML IV SCH (16:42)
[2018-12-20] MEDS: buPROPion XL 150 MG TAB.ER.24H PO SCH (16:42)
--- NOTE | 2018-12-20 23:15 | P.PN ---
Progress Note - Text Progress Note Date: 12/20/18 Chief Complaint: Weak and tired/black stools Interval history: This is a pleasant 58-year-old patient of Dr. Eamon Godfrey. Chronic stable medical conditions include GERD, hyperlipidemia, restless leg syndrome, obstructive sleep apnea uses CPAP machine. Patient is on iron supplements. Patient had dark stools for quite a while. For last 4 weeks patient is being struggling with upper respiratory tract symptoms/bronchitis. Patient about a week ago at finished her with amoxicillin. Really didn't feel much better. Still having some cough and tiredness short of breath. Decided to go back and see her family doctor. They ran some tests including checks x-ray that was negative. Because patient is feeling weak tired rundown decided to send the patient and. Patient in the ER was discovered to have a hemoglobin of 6.5. Patient did get 2 units of blood Today-saw the patient this afternoon. Awaiting endoscopy. No further bowel movements. Feels a bit tired. Laying in bed. Review of systems: Was done for constitutional, cardiovascular, GI, pulmonary. relevant finding as above Active Medications Bupropion HCl (Wellbutrin Xl) 150 mg PO DAILY [facility] Last Admin: 12/20/18 16:42 Dose: 150 mg Documented by: Cholecalciferol (Vitamin D3 (25 Mcg = 1000 Iu)) 5,000 unit PO DAILY [facility] Last Admin: 12/20/18 16:42 Dose: 5,000 unit Documented by: Ergocalciferol (Vitamin D2) 50,000 unit PO MONREAL [facility] Sodium Chloride (Saline 0.9%) 1,000 mls @ 20 mls/hr IV .Q24H [facility] Last Admin: 12/20/18 16:42 Dose: Not Given Documented by: Magnesium Oxide (Mag-Ox) 400 mg PO DAILY [facility] Last Admin: 12/20/18 16:42 Dose: 400 mg Documented by: Multivitamins (Theragran) 1 each PO DAILY [facility] Last Admin: 12/20/18 16:42 Dose: 1 each Documented by: Naloxone HCl (Narcan) 0.2 mg IV Q2M PRN PRN Reason: Opioid Reversal Ondansetron HCl (Zofran) 4 mg IVP Q6HR PRN PRN Reason: Nausea And Vomiting Last Admin: 12/19/18 21:33 Dose: 4 mg Documented by: Pantoprazole Sodium (Protonix) 40 mg IV DAILY [facility] Last Admin: 12/20/18 10:13 Dose: 40 mg Documented by: Pramipexole Dihydrochloride (Mirapex) 1 mg PO TID [facility] Last Admin: 12/20/18 22:42 Dose: 1 mg Documented by: Pravastatin Sodium (Pravachol) 20 mg PO DAILY [facility] Last Admin: 12/20/18 16:42 Dose: 20 mg Documented by: Physical examination: VITAL SIGNS: 97.9, 78, 20, 105/65, 95% room air GENERAL: Laying in bed, comfortable. EYES: Pupils equal. Conjunctiva pale. HEENT: External appearance of nose and ears normal, oral cavity grossly normal. NECK: JVD not raised; masses not palpable. HEART: First and second heart sounds are normal; no edema. LUNGS: Respiratory rate normal; clear to auscultation. ABDOMEN: Soft, nontender, liver spleen not palpable, no masses palpable. PSYCH: Alert and oriented x3; mood and affect normal. INVESTIGATIONS, reviewed in the clinical context: Hemoglobin 7.8 Assessment: -Acute severe anemia symptomatic, likely source GI bleed though patient does take iron and stools have been dark for a long-time. Patient has received 2 un its of blood -Paroxysmal atrial fibrillation currently in sinus rhythm -GERD -Hyperlipidemia -Primary osteoarthritis -Obstructive sleep apnea uses CPAP -Internal hemorrhoids -Pending outpatient bariatric surgery -Hiatal hernia -Alvarado diverticulosis Plan: Patient was due to go EGD and endoscopy this afternoon. Nurse called me EGD did not show any evidence of bleeding. Did show hiatal hernia, some gastritis and alvarado diverticulosis. Capsule endoscopy was ordered.
[2018-12-21] MEDS: PRAVASTATIN SODIUM 20 MG TAB PO SCH (08:06)
[2018-12-21] MEDS: CHOLECALCIFEROL 1,000 UNIT TAB PO SCH (08:06)
[2018-12-21] MEDS: PRAMIPEXOLE 1 MG TAB PO SCH (08:07)
[2018-12-21] MEDS: MULTIVITAMINS, THERA 1 EACH TAB PO SCH (08:07)
[2018-12-21] MEDS: MAGNESIUM OXIDE 400 MG TAB PO SCH (08:07)
[2018-12-21] MEDS: buPROPion XL 150 MG TAB.ER.24H PO SCH (08:07)
[2018-12-21] MEDS: PANTOPRAZOLE 40 MG/10 ML VIAL IV SCH (08:07)
[2018-12-21 09:16] VITALS: BP 98/64; PULSE 72; RESP 18; TEMP 98.1
--- NOTE | 2018-12-21 10:40 | P.PN ---
Subjective Progress Note Date: 12/21/18 Principal diagnosis: GI bleed Patient doing well today. No bleeding. Yesterday's endoscopic findings noted. Went for small bowel capsule study. Those results are pending. Objective - Vital Signs Vital signs: Vital Signs Temp 98.1 F 12/21/18 09:15 Pulse 72 12/21/18 09:15 Resp 18 12/21/18 09:15 BP 98/64 12/21/18 09:15 Pulse Ox 97 12/21/18 09:15 Intake & Output 12/20/18 12/21/18 12/21/18 18:59 06:59 18:59 Intake Total 600 500 Balance 600 500 Intake: IV 600 Oral 500 Other: Voiding Method Toilet Toilet # Voids 2 4 - Exam Abdomen: Soft, nontender, nondistended - Labs CBC & Chem 7: 12/20/18 06:33 12/19/18 09:01 Assessment and Plan (1) GI bleeding Narrative/Plan: Continue GI workup. We'll sign off. Call if needed. Current Visit: Yes Status: Acute Code(s): K92.2 - GASTROINTESTINAL HEMORRHAGE, UNSPECIFIED SNOMED Code(s): 10220171
--- NOTE | 2018-12-21 12:41 | P.PN ---
Subjective Progress Note Date: 12/21/18 Principal diagnosis: gi bleed anemia Hgb stable 7.8. No bledding no abdominal complaints. S/p EGD/colon; HH, alvarado diverticulosis polypectomy x 2. Small bowel capsule completed results pending. Objective - Vital Signs Vital signs: Vital Signs Temp 98.1 F 12/21/18 09:15 Pulse 72 12/21/18 09:15 Resp 18 12/21/18 09:15 BP 98/64 12/21/18 09:15 Pulse Ox 97 12/21/18 09:15 Intake & Output 12/20/18 12/21/18 12/21/18 18:59 06:59 18:59 Intake Total 600 500 Balance 600 500 Intake: IV 600 Oral 500 Other: Voiding Method Toilet Toilet # Voids 2 4 - Constitutional General appearance: Present: morbidly obese - EENT Eyes: Present: normal appearance - Neck Neck: Present: normal ROM - Respiratory Respiratory: bilateral: CTA - Cardiovascular Heart sounds: normal: S1, S2 - Gastrointestinal General gastrointestinal: Present: soft (nontender) - Integumentary Integumentary: Present: normal - Psychiatric Psychiatric: Present: A&O x's 3 - Labs CBC & Chem 7: 12/20/18 06:33 12/19/18 09:01 Assessment and Plan (1) Symptomatic anemia Narrative/Plan: S/p SBC results pending. S/p EGD/colon alvarado diverticulosis polypectomy x 2 hiatal hernia Current Visit: Yes Status: Acute Code(s): D64.9 - ANEMIA, UNSPECIFIED SNOMED Code(s): 307373394 (2) Acute blood loss anemia Current Visit: Yes Status: Acute Code(s): D62 - ACUTE POSTHEMORRHAGIC ANEMIA SNOMED Code(s): 295350959 (3) Stool guaiac positive Current Visit: Yes Status: Acute Code(s): R19.5 - OTHER FECAL ABNORMALITIES SNOMED Code(s): 35604106 (4) Morbid obesity with BMI of 45.0-49.9, adult Current Visit: Yes Status: Acute Code(s): E66.01 - MORBID (SEVERE) OBESITY DUE TO EXCESS CALORIES; Z68.42 - BODY MASS INDEX (BMI) 45.0-49.9, ADULT SNOMED Code(s): 349711499 (5) Atrial fibrillation Current Visit: Yes Status: Chronic Code(s): I48.91 - UNSPECIFIED ATRIAL FIBRILLATION SNOMED Code(s): 68572684 Plan: 1. Agreeable for DC SBC results pending. CBC 1 week f/u w/PCP. May restart anticoagulation. Patient will follow up w/sbc results next week. Assessment and plan of care discussed w/Dr. Yepez
[2018-12-24] MEDS ORDERED: ERGOCALCIFEROL 50,000 UNIT CAP PO SCH (09:00)
--- NOTE | 2018-12-25 00:24 | P.DS ---
Providers Date of admission: 12/18/18 15:41 Expected date of discharge: 12/21/18 Attending physician: Lucien Hutchins Consults: 12/18/18 15:42 Consult Physician Urgent Consulting Provider: Tres Quick Consult Reason/Comments: GI hemorrhage Do you want consulting provider notified?: Yes 12/19/18 09:12 Consult Physician Routine Consulting Provider: Jeff Reynolds Consult Reason/Comments: gib, known to you Do you want consulting provider notified?: Yes Primary care physician: [facility] Course: Hospital course: This is a pleasant 58-year-old patient of Dr. Eamon Godfrey. Chronic stable medical conditions include GERD, hyperlipidemia, restless leg syndrome, obstructive sleep apnea uses CPAP machine. Patient is on iron supplements. Patient had dark stools for quite a while. For last 4 weeks patient is being struggling with upper respiratory tract symptoms/bronchitis. Patient about a week ago at finished her with amoxicillin. Really didn't feel much better. Still having some cough and tiredness short of breath. Decided to go back and see her family doctor. They ran some tests including checks x-ray that was negative. Because patient is feeling weak tired rundown decided to send the patient and. Patient in the ER was discovered to have a hemoglobin of 6.5. Patient did get 2 units of blood . EGD showed mild gastritis and a moderate- sized hiatal hernia and alvarado diverticulosis. 2 small polypectomy was carried out. Small bowel capsule endoscopy was done. Results were not available by the time of discharge. Patient had no further episodes dark stools. Did receive a total of 2 units of blood. Hemoglobin before discharge was 7.8. Discussed with Yolanda from GI before patient was discharged-okay for Xarelto to be resumed Consultation: Dr. Oliveira from GI Procedure: EGD, colonoscopy, small bowel capsule endoscopy Physical examination: VITAL SIGNS: 98.1, 72, 18, 98/64, 97% room air GENERAL: , comfortable. EYES: Pupils equal. Conjunctiva pale. HEENT: External appearance of nose and ears normal, oral cavity grossly normal. NECK: JVD not raised; masses not palpable. HEART: First and second heart sounds are normal; no edema. LUNGS: Respiratory rate normal; clear to auscultation. ABDOMEN: Soft, nontender, liver spleen not palpable, no masses palpable. PSYCH: Alert and oriented x3; mood and affect normal. INVESTIGATIONS, reviewed in the clinical context: Hemoglobin 7.8 Discharge diagnosis: -Acute severe anemia symptomatic, likely source GI bleed Patient has received 2 units of blood -Paroxysmal atrial fibrillation currently in sinus rhythm -GERD -Hyperlipidemia -Primary osteoarthritis -Obstructive sleep apnea uses CPAP -Internal hemorrhoids -Pending outpatient bariatric surgery -Hiatal hernia -Alvarado diverticulosis Disposition: Home Patient Condition at Discharge: Stable Plan - Discharge Summary Discharge Rx Participant: Yes New Discharge Prescriptions: Continue Pantoprazole Sodium [Protonix] 40 mg PO W/SUPPER Ubidecarenone [Co Q-10] 100 mg PO DAILY Glucosamine/Chondr Monreal A Sod [Osteo Bi-Flex Caplet] 1 tab PO DAILY Cholecalciferol [Vitamin D3 (25 Mcg = 1000 Iu)] 5,000 unit PO DAILY Rivaroxaban [Xarelto] 20 mg PO W/SUPPER Multivitamins, Thera [Multivitamin (formulary)] 1 tab PO DAILY Pramipexole [Mirapex] 1 mg PO TID metFORMIN HCL ER [Glucophage Xr] 1,000 mg PO AC-BID Pravastatin Sodium [Pravachol] 20 mg PO DAILY Magnesium Oxide [Mag-Ox] 400 mg PO DAILY Ferrous Sulfate [Iron (65 MG Elemental)] 325 mg PO DAILY Ergocalciferol (Vitamin D2) [Drisdol] 50,000 unit PO MONREAL buPROPion XL [Wellbutrin XL] 150 mg PO DAILY Discharge Medication List Pantoprazole Sodium [Protonix] 40 mg PO W/SUPPER 12/04/14 [History] Cholecalciferol [Vitamin D3 (25 Mcg = 1000 Iu)] 5,000 unit PO DAILY 02/12/16 [History] Glucosamine/Chondr Monreal A Sod [Osteo Bi-Flex Caplet] 1 tab PO DAILY 02/12/16 [History] Multivitamins, Thera [Multivitamin (formulary)] 1 tab PO DAILY 02/12/16 [History] Rivaroxaban [Xarelto] 20 mg PO W/SUPPER 02/12/16 [History] Ubidecarenone [Co Q-10] 100 mg PO DAILY 02/12/16 [History] Ergocalciferol (Vitamin D2) [Drisdol] 50,000 unit PO MONREAL 12/18/18 [History] Ferrous Sulfate [Iron (65 MG Elemental)] 325 mg PO DAILY 12/18/18 [History] Magnesium Oxide [Mag-Ox] 400 mg PO DAILY 12/18/18 [History] Pramipexole [Mirapex] 1 mg PO TID 12/18/18 [History] Pravastatin Sodium [Pravachol] 20 mg PO DAILY 12/18/18 [History] buPROPion XL [Wellbutrin XL] 150 mg PO DAILY 12/18/18 [History] metFORMIN HCL ER [Glucophage Xr] 1,000 mg PO AC-BID 12/18/18 [History] Follow up Appointment(s)/Referral(s): Jeff Reynolds MD [Medical Doctor] - 2 Weeks Eamon Mcdonough MD [Primary Care Provider] - 1-2 days (12/26/18 @ 2:15) Tres Quick MD [STAFF PHYSICIAN] - 1 Week () Activity/Diet/Wound Care/Special Instructions: cbc-5 days
== END 2018-12-21 15:57 | disposition home or self-care (01) | DRG 348 ==
LOC: EC 10:41 → 3SCARD 15:41 → 3NMEDONC 20:13 → 6PED 12-20 10:00
PROVIDERS: ADMIT Hospitalist; ATTEND Hospitalist
PROC: 30233N1 Transfusion of Nonautologous Red Blood Cells into Peripheral Vein, Percutaneous Approach (ICD-10-PCS; 2018-12-18)
PROC: 0DB78ZX Excision of Stomach, Pylorus, Via Natural or Artificial Opening Endoscopic, Diagnostic (ICD-10-PCS; principal; 2018-12-20 13:00)
PROC: 0DBL8ZZ Excision of Transverse Colon, Via Natural or Artificial Opening Endoscopic (ICD-10-PCS; principal; 2018-12-20 13:00)
PROC: 0DB98ZX Excision of Duodenum, Via Natural or Artificial Opening Endoscopic, Diagnostic (ICD-10-PCS; principal; 2018-12-20 13:00)
PROC: 0DBC8ZZ Excision of Ileocecal Valve, Via Natural or Artificial Opening Endoscopic (ICD-10-PCS; principal; 2018-12-20 13:00)
PROC: 0DBN8ZZ Excision of Sigmoid Colon, Via Natural or Artificial Opening Endoscopic (ICD-10-PCS; principal; 2018-12-20 13:00)
DX: K29.71 Gastritis, unspecified, with bleeding (principal); D62 Acute posthemorrhagic anemia; Z68.42 Body mass index [BMI] 45.0-49.9, adult; D12.3 Benign neoplasm of transverse colon; D12.4 Benign neoplasm of descending colon; D12.0 Benign neoplasm of cecum; D12.5 Benign neoplasm of sigmoid colon; E66.01 Morbid (severe) obesity due to excess calories; E78.5 Hyperlipidemia, unspecified; G25.81 Restless legs syndrome; G47.33 Obstructive sleep apnea (adult) (pediatric); I48.0 Paroxysmal atrial fibrillation; K21.9 Gastro-esophageal reflux disease without esophagitis; K31.7 Polyp of stomach and duodenum; K44.9 Diaphragmatic hernia without obstruction or gangrene; K57.31 Diverticulosis of large intestine without perforation or abscess with bleeding; K64.8 Other hemorrhoids; M19.91 Primary osteoarthritis, unspecified site; Z96.653 Presence of artificial knee joint, bilateral; Z79.01 Long term (current) use of anticoagulants; Z99.89 Dependence on other enabling machines and devices; Z79.84 Long term (current) use of oral hypoglycemic drugs; Z79.899 Other long term (current) drug therapy; Z87.891 Personal history of nicotine dependence; Z88.8 Allergy status to other drugs, medicaments and biological substances; Z96.612 Presence of left artificial shoulder joint
CPT/HCPCS: 36415; 43239; 45380; 45385; 71046; 80053; 82272; 83880; 84132; 84484; 85025; 85027; 85610; 85730; 86850; 86900; 86901; 86920; 88305; 91110; 93005; 96374; 99285

== ENCOUNTER → 2019-01-09 | Outpatient (CLI) | payer OTHER ==
[2019-01-09 07:02] LABS: Basophils % (A) 1 %; Eosinophils # (A) 0.3 k/uL (0-0.7); Eosinophils % (A) 5 %; HCT 27.9 % (34.0-46.0); HGB 8.3 gm/dL (11.4-16.0); Hypochromasia Marked; Lymphocytes # (A) 0.8 k/uL (1.0-4.8); Lymphocytes % (A) 10 %; MCH 25.9 pg (25.0-35.0); MCHC 29.6 g/dL (31.0-37.0); MCV 87.5 fL (80.0-100.0); Mean Platelet Volume 6.8; Monocytes # (A) 0.3 k/uL (0-1.0); Monocytes % (A) 4 %; Neutrophils # (A) 5.8 k/uL (1.3-7.7); Neutrophils % (A) 79 %; Platelet Count 501 k/uL (150-450); Poikilocytosis Moderate; RBC 3.19 m/uL (3.80-5.40); RDW 15.2 % (11.5-15.5); WBC 7.4 k/uL (3.8-10.6)
== END | disposition home or self-care (01) ==
LOC: LABWHC1 06:39
PROVIDERS: ATTEND Nurse Practitioner
DX: K92.2 Gastrointestinal hemorrhage, unspecified (principal)
CPT/HCPCS: 36415; 85025

== ENCOUNTER → 2019-06-25 | Outpatient (CLI) | payer BC ==
--- NOTE | 2019-06-27 07:31 | MM ---
Reason for exam: screening (asymptomatic). Last mammogram was performed 1 year ago. History: Patient is postmenopausal and had first child at age 32. Benign excisional biopsy of the left breast, 1998. Physical Findings: A clinical breast exam by your physician is recommended on an annual basis and results should be correlated with mammographic findings. MG Screening Mammo w CAD Bilateral CC and MLO view(s) were taken. Prior study comparison: June 23, 2018, bilateral MG screening mammo w CAD. February 18, 2016, bilateral MG screening mammo w CAD. There are scattered fibroglandular densities. There is chronic nodularity in the right breast. No significant changes when compared with prior studies. ASSESSMENT: Benign, BI-RAD 2 RECOMMENDATION: Routine screening mammogram of both breasts in 1 year.
== END | disposition home or self-care (01) ==
LOC: RADMAMWWP 16:01
PROVIDERS: ATTEND Internal Medicine
DX: Z12.31 Encounter for screening mammogram for malignant neoplasm of breast (principal)
CPT/HCPCS: 77067

== ENCOUNTER 2020-07-14 09:18 | Observation (INO) | payer BC, MEDICAID ==
[2020-07-14] MEDS ORDERED: NITROGLYCERIN OINT 1 INCH/GM PACKET TOPICAL STA (09:50)
[2020-07-14] MEDS ORDERED: ASPIRIN 81 MG PO STA (09:50)
--- NOTE | 2020-07-14 09:51 | ED ---
General Adult HPI - General Chief complaint: Chest Pain Stated complaint: SOB SLIGHT CHEST PRESSURE Time Seen by Provider: 07/14/20 09:20 Source: patient, RN notes reviewed, old records reviewed Mode of arrival: ambulatory Limitations: no limitations - History of Present Illness Initial comments: This a 59-year-old female presents emergency Department complaining of chest pressure and shortness of breath per patient states was intermittent all day yes terday and again today. Patient states she has a history of A. fib and is on Xarelto. Patient states she was going to her food and beverage assistant today on a scheduled appointment to get a Holter monitor because it's a yearly thing that they do. Patient states on the way home she started having chest pressure and her insisted she come to the emergency department since she was complaining about all day yesterday. Patient denies any radiation of the pain. Patient denies any diaphoresis. Patient denies any nausea. Patient states she does have high cholesterol but she denies diabetes high blood pressure and smoking. Patient denies any headache patient denies lightheadedness or dizziness. Patient denies any recent fever chills or cough. - Related Data Home Medications Medication Instructions Recorded Confirmed Pantoprazole Sodium [Protonix] 40 mg PO W/SUPPER 12/04/14 12/18/18 Cholecalciferol [Vitamin D3 (25 5,000 unit PO DAILY 02/12/16 12/18/18 Mcg = 1000 Iu)] Glucosamine/Chondr Monreal A Sod [Osteo 1 tab PO DAILY 02/12/16 12/18/18 Bi-Flex Caplet] Multivitamins, Thera [Multivitamin 1 tab PO DAILY 02/12/16 12/18/18 (formulary)] Rivaroxaban [Xarelto] 20 mg PO W/SUPPER 02/12/16 12/18/18 Ubidecarenone [Co Q-10] 100 mg PO DAILY 02/12/16 12/18/18 Ergocalciferol (Vitamin D2) 50,000 unit PO MONREAL 12/18/18 12/18/18 [Drisdol (50,000 Iu)] Ferrous Sulfate [Iron (65 MG 325 mg PO DAILY 12/18/18 12/18/18 Elemental)] Magnesium Oxide [Mag-Ox] 400 mg PO DAILY 12/18/18 12/18/18 Pramipexole [Mirapex] 1 mg PO TID 12/18/18 12/18/18 Pravastatin Sodium [Pravachol] 20 mg PO DAILY 12/18/18 12/18/18 buPROPion XL [Wellbutrin XL] 150 mg PO DAILY 12/18/18 12/18/18 metFORMIN HCL ER [Glucophage Xr] 1,000 mg PO AC-BID 12/18/18 12/18/18 Allergies Allergy/AdvReac Type Severity Reaction Status Date / Time adhesive tape AdvReac red skin Verified 07/14/20 09:26 Review of Systems ROS Statement: Those systems with pertinent positive or pertinent negative responses have been documented in the HPI. ROS Other: All systems not noted in ROS Statement are negative. Past Medical History Past Medical History: Atrial Fibrillation, GERD/Reflux, Hyperlipidemia, Osteoarthritis (OA), Sleep Apnea/CPAP/BIPAP Additional Past Medical History / Comment(s): restless leg syndrom, migraine yrs ago, no cpap yet, occult blood in stool, nodule on lung, metformin for weight loss not a diabetic, sleep apnea uses cpap at home, iron for preparation for bariatric surgery, no date for bariatric surgery as of yet, hemorrhoids per dr espinoza with colonoscopy, has been having black stools and sometimes has a little blood on toilet paper, no blood recently. upper respiratory infection recently with sinus infection that turned into bronchitis over a week ago was on amoxicillin and steroid pack did not help. Coughing up green plegm. Was told has poor circulation and has blockage in right leg , also has poor circulation in left leg. History of Any Multi-Drug Resistant Organisms: None Reported Past Surgical History: Bladder Surgery, Joint Replacement, Orthopedic Surgery, Tubal Ligation Additional Past Surgical History / Comment(s): left breast biopsy, buck knee replacement, rt shoulder arthroscopy, bladder sling, bladder suspension Past Anesthesia/Blood Transfusion Reactions: Previous Problems w/ Anesthesia Additional Past Anesthesia/Blood Transfusion Reaction / Comment(s): states during her 1st knee replacement & during colonoscopy her legs were "twitching" & had to be given more anesthesia-didn't think had to do w/her restless leg Past Psychological History: No Psychological Hx Reported Smoking Status: Never smoker Past Alcohol Use History: Rare Past Drug Use History: None Reported - Past Family History Mother Family Medical History: No Reported History General Exam - General Exam Comments Initial Comments: GENERAL: Patient is well-developed and well-nourished. Patient is nontoxic and well- hydrated and is in mild distress. ENT: Neck is soft and supple. No significant lymphadenopathy is noted. Oropharynx is clear. Moist mucous membranes. Neck has full range of motion without eliciting any pain. EYES: The sclera were anicteric and conjunctiva were pink and moist. Extraocular movements were intact and pupils were equal round and reactive to light. Eyelids were unremarkable. PULMONARY: Unlabored respirations. Good breath sounds bilaterally. No audible rales rhonchi or wheezing was noted. CARDIOVASCULAR: There is a regular rate and rhythm without any murmurs gallops or rubs. ABDOMEN: Soft and nontender with normal bowel sounds. SKIN: Skin is clear with no lesions or rashes and otherwise unremarkable. NEUROLOGIC: Patient is alert and oriented x3. Cranial nerves II through XII are grossly intact. Motor and sensory are also intact. Normal speech, volume and content. Symmetrical smile. MUSCULOSKELETAL: Normal extremities with adequate strength and full range of motion. No lower extremity swelling or edema. No calf tenderness. LYMPHATICS: No significant lymphadenopathy is noted PSYCHIATRIC: Normal psychiatric evaluation. Limitations: no limitations Course Vital Signs 07/14/20 07/14/20 07/14/20 09:23 09:50 10:22 Temperature 97.7 F Pulse Rate 111 H 140 H 100 Respiratory 24 32 H 18 Rate Blood Pressure 153/69 O2 Sat by Pulse 99 95 100 Oximetry 07/14/20 10:42 Temperature Pulse Rate 95 Respiratory 19 Rate Blood Pressure 91/50 O2 Sat by Pulse 98 Oximetry Medical Decision Making - Medical Decision Making EKG shows sinus tachycardia at 109 bpm TX interval is 160 QRS is 80 QT interval 324 QTC is 436. Patient's EKG shows no ST segment elevation. Patient got up to go to the bathroom and her heart rate went up to 140s she became acutely short of breath. Chest x-ray shows no acute abnormality. I spoke with Dr. Hutchins agreed to admit the patient admitted the patient wrote admitting orders. I consult to cardiology - Lab Data Result diagrams: 07/14/20 09:55 07/14/20 09:55 Lab Results 07/14/20 07/14/20 07/14/20 Range/Units 09:55 09:55 09:55 WBC 9.0 (3.8-10.6) k/uL RBC 3.12 L (3.80-5.40) m/uL Hgb 8.5 L (11.4-16.0) gm/dL Hct 27.0 L (34.0-46.0) % MCV 86.7 (80.0-100.0) fL MCH 27.2 (25.0-35.0) pg MCHC 31.4 (31.0-37.0) g/dL RDW 16.2 H (11.5-15.5) % Plt Count 414 (150-450) k/uL MPV 7.6 Neutrophils % 76 % Lymphocytes % 14 % Monocytes % 5 % Eosinophils % 3 % Basophils % 1 % Neutrophils # 6.8 (1.3-7.7) k/uL Lymphocytes # 1.3 (1.0-4.8) k/uL Monocytes # 0.5 (0-1.0) k/uL Eosinophils # 0.3 (0-0.7) k/uL Basophils # 0.1 (0-0.2) k/uL Hypochromasia Moderate Anisocytosis Slight PT 10.6 (9.0-12.0) sec INR 1.0 (<1.2) APTT 21.1 L (22.0-30.0) sec Sodium 139 (137-145) mmol/L Potassium 4.1 (3.5-5.1) mmol/L Chloride 108 H (98-107) mmol/L Carbon Dioxide 23 (22-30) mmol/L Anion Gap 8 mmol/L BUN 15 (7-17) mg/dL Creatinine 0.63 (0.52-1.04) mg/dL Est GFR (CKD-EPI)AfAm >90 (>60 ml/min/1.73 sqM) Est GFR (CKD-EPI)NonAf >90 (>60 ml/min/1.73 sqM) Glucose 130 H (74-99) mg/dL Calcium 9.6 (8.4-10.2) mg/dL Magnesium 1.9 (1.6-2.3) mg/dL Total Bilirubin 0.4 (0.2-1.3) mg/dL AST 31 (14-36) U/L ALT 22 (4-34) U/L Alkaline Phosphatase 79 (38-126) U/L Troponin I (0.000-0.034) ng/mL Total Protein 6.2 L (6.3-8.2) g/dL Albumin 3.7 (3.5-5.0) g/dL Coronavirus (PCR) (Not Detectd) 07/14/20 07/14/20 Range/Units 09:55 09:57 WBC (3.8-10.6) k/uL RBC (3.80-5.40) m/uL Hgb (11.4-16.0) gm/dL Hct (34.0-46.0) % MCV (80.0-100.0) fL MCH (25.0-35.0) pg MCHC (31.0-37.0) g/dL RDW (11.5-15.5) % Plt Count (150-450) k/uL MPV Neutrophils % % Lymphocytes % % Monocytes % % Eosinophils % % Basophils % % Neutrophils # (1.3-7.7) k/uL Lymphocytes # (1.0-4.8) k/uL Monocytes # (0-1.0) k/uL Eosinophils # (0-0.7) k/uL Basophils # (0-0.2) k/uL Hypochromasia Anisocytosis PT (9.0-12.0) sec INR (<1.2) APTT (22.0-30.0) sec Sodium (137-145) mmol/L Potassium (3.5-5.1) mmol/L Chloride (98-107) mmol/L Carbon Dioxide (22-30) mmol/L Anion Gap mmol/L BUN (7-17) mg/dL Creatinine (0.52-1.04) mg/dL Est GFR (CKD-EPI)AfAm (>60 ml/min/1.73 sqM) Est GFR (CKD-EPI)NonAf (>60 ml/min/1.73 sqM) Glucose (74-99) mg/dL Calcium (8.4-10.2) mg/dL Magnesium (1.6-2.3) mg/dL Total Bilirubin (0.2-1.3) mg/dL AST (14-36) U/L ALT (4-34) U/L Alkaline Phosphatase (38-126) U/L Troponin I <0.012 (0.000-0.034) ng/mL Total Protein (6.3-8.2) g/dL Albumin (3.5-5.0) g/dL Coronavirus (PCR) Not Detected (Not Detectd) Disposition Clinical Impression: Dyspnea, Chest pain, Palpitations Disposition: ADMITTED IP TO THIS HOSP Referrals: Eamon Mcdonough MD [Primary Care Provider] - 1-2 days Time of Disposition: 11:20
[2020-07-14 10:01] LABS: Anisocytosis Slight; Basophils # (A) 0.1 k/uL (0-0.2); Basophils % (A) 1 %; Eosinophils # (A) 0.3 k/uL (0-0.7); Eosinophils % (A) 3 %; HGB 8.5 gm/dL (11.4-16.0); Hypochromasia Moderate; Lymphocytes # (A) 1.3 k/uL (1.0-4.8); Lymphocytes % (A) 14 %; MCH 27.2 pg (25.0-35.0); MCHC 31.4 g/dL (31.0-37.0); MCV 86.7 fL (80.0-100.0); Mean Platelet Volume 7.6; Monocytes # (A) 0.5 k/uL (0-1.0); Monocytes % (A) 5 %; Neutrophils # (A) 6.8 k/uL (1.3-7.7); Neutrophils % (A) 76 %; Platelet Count 414 k/uL (150-450); RBC 3.12 m/uL (3.80-5.40); RDW 16.2 % (11.5-15.5)
[2020-07-14 10:16] LABS: Prothrombin Time 10.6 sec (9.0-12.0)
--- NOTE | 2020-07-14 10:18 | XR ---
EXAMINATION TYPE: XR chest 2V DATE OF EXAM: 07/14/2020 COMPARISON: Chest x-ray 12/18/2018, CT 01/19/2017 HISTORY: Chest pain and shortness of breath TECHNIQUE: Frontal and lateral views of the chest are obtained. FINDINGS: There is no focal air space opacity, pleural effusion, or pneumothorax seen. The cardiac silhouette size is within normal limits. There are overlying leads. Lung volumes are low. Patient is rotated. Retrocardiac density is present consistent with hiatal hernia and partial intrathoracic sto mach. The osseous structures are intact. IMPRESSION: No acute cardiopulmonary process.
[2020-07-14 10:21] LABS: ALT 22 U/L (4-34); AST 31 U/L (14-36); African American GFR (CKD) >90 (>60 ml/min/1.73 sqM); Albumin 3.7 g/dL (3.5-5.0); Alkaline Phosphatase 79 U/L (38-126); Anion Gap 8 mmol/L; Blood Urea Nitrogen 15 mg/dL (7-17); Calcium 9.6 mg/dL (8.4-10.2); Carbon Dioxide 23 mmol/L (22-30); Chloride 108 mmol/L (98-107); Glucose 130 mg/dL (74-99); Magnesium 1.9 mg/dL (1.6-2.3); Non-African American GFR(CKD) >90 (>60 ml/min/1.73 sqM); Potassium 4.1 mmol/L (3.5-5.1); Sodium 139 mmol/L (137-145); Total Bilirubin 0.4 mg/dL (0.2-1.3); Total Protein 6.2 g/dL (6.3-8.2)
[2020-07-14 10:25] LABS: Partial Thromboplastin Time 21.1 sec (22.0-30.0)
[2020-07-14] MEDS ORDERED: NITROGLYCERIN SL TABS 0.4 MG TAB SUBLINGUAL PRN (11:20)
[2020-07-14] MEDS ORDERED: NITROGLYCERIN OINT 1 INCH/GM PACKET TOPICAL SCH (12:00)
[2020-07-14] MEDS ORDERED: ACETAMINOPHEN TAB 500 MG TAB PO STA (12:29)
--- NOTE | 2020-07-14 13:10 | P.CRDCN ---
History of Present Illness History of present illness: HISTORY OF PRESENTING ILLNESS This is a pleasant 59-year-old female past medical history significant for paroxysmal atrial fibrillation(on Xarelto), dyslipidemia, hypertension, obstructive sleep apnea (wears a CPAP), morbid obesity, former smoker. She follows in the office with Dr. Rogers. We have been asked to see in consultation for chest pain. States she was going to Dr. 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 On the way home she started having chest pressure and shortness of breath while driving and presented to the emergency department. She states she has chronic shortness of breath for years. She has been having exertional shortness of breath and intermittent chest pressure for 1-2 months. However, over the past week her shortness of breath has gotten worse. This weekend she states she could not walk 5-10 steps without being short of breath and needing to sit down and rest. She denies chest pain, she feels a chest pressure in the center of her chest. The chest pressure is non-radiating, non- exertional. She has been sleeping in her recliner recently due to shortness of breath while sleeping, and has not been using her CPAP because her machine is upstairs in her bedroom. She does endorse lower extremity edema, but that is chronic and unchanged. She denies nausea, diaphoresis, palpitations, lightheadedness, or syncope. Denies history of [place], stroke, or diabetes. Patients states she is compliant with medication. She is a former smoker (has not smoked in 30 years). Denies alcohol or illicit drug use. EKG revealed sinus tachycardia, no significant ST-T wave abnormalities. Troponin negative x 1. Telemetry reviewed- sinus mechanism HR 90s. Chest xray Patient is rotated No acute cardiopulmonary process. Lung volumes are low. Laboratory data reviewed, Troponin negative x 1, WBC 9.0, Hgb 8.5 (6.5-8.3 in 2019), Platelets 414, Na 139, K 4.1, sCr 0.63, BUN 15. Covid-19 PCR negative Vital signs 106/54 HR 89, maintaining oxygen saturations on room air, afebrile. Current home cardiac medications include Xarelto 20mg nightly, Pravastatin 20mg nightly, magnesium oxide 400mg daily. Echo 2018- normal systolic function EF 60%, normal diastolic function, trace AR, mild MR, mild TR. 12/2019 Lexiscan stress test- negative for ischemia REVIEW OF SYSTEMS At the time of my exam: CONSTITUTIONAL: Denies fever or chills. CARDIOVASCULAR: +chest pressure. +shortness of breath, +orthopnea Denies palpitations. RESPIRATORY: Denies cough. GASTROINTESTINAL: Denies abdominal pain, diarrhea, constipation, nausea or vomiting. MUSCULOSKELETAL: Denies myalgias. NEUROLOGIC: Denies numbness, tingling, headacbe or weakness. ENDOCRINE: +fatigue Deniesweight change, polydipsia or polyurina. GENITOURINARY: Denies burning, hematuria or urgency with micturation. HEMATOLOGIC: Denies history of anemia or bleeding. PHYSICAL EXAMINATION CONSTITUTIONAL: No apparent distress. HEENT: Head is normocephalic. Pupils are equal, round. Sclerae anicteric. Mucous membranes of the mouth are moist. No carotid bruit. CHEST EXAMINATION: Lungs are clear to auscultation. No chest wall tenderness is noted on palpation or with deep breathing. HEART EXAMINATION: Tachycardia, Regular rate and rhythm. S1, S2 heard. No murmurs, gallops or rub. ABDOMEN: Soft, nontender. Positive bowel sounds. EXTREMITIES: 2+ peripheral pulses, +1 LLE edema, trace RLE edema, no calf tenderness. SKIN: intact NEUROLOGIC EXAMINATION: Patient is awake, alert and oriented x3. ASSESSMENT Chest pain- appears atypical, troponin negative x 1, EKG with no significant ST- T wave abnormalities. Dyspnea on exertion Paroxysmal atrial fibrillation (on Xarelto) Dyslipidemia Hypertension Morbid obesity. PLAN -Continue ACS rule out workup with troponins, will check D-dimer and BNP. Will make further recommendations pending additional lab work. -Continue cardiac telemetry. -Continue xarelto and statin Nurse Practitioner note has been reviewed, I agree with a documented findings and plan of care. Patient was seen and examined. Past Medical History Past Medical History: Atrial Fibrillation, GERD/Reflux, Hyperlipidemia, Osteoarthritis (OA), Sleep Apnea/CPAP/BIPAP Additional Past Medical History / Comment(s): restless leg syndrom, migraine yrs ago, no cpap yet, occult blood in stool, nodule on lung, metformin for we ight loss not a diabetic, sleep apnea uses cpap at home, iron for preparation for bariatric surgery, no date for bariatric surgery as of yet, hemorrhoids per dr espinoza with colonoscopy, has been having black stools and sometimes has a little blood on toilet paper, no blood recently. upper respiratory infection recently with sinus infection that turned into bronchitis over a week ago was on amoxicillin and steroid pack did not help. Coughing up green plegm. Was told has poor circulation and has blockage in right leg , also has poor circulation in left leg. History of Any Multi-Drug Resistant Organisms: None Reported Past Surgical History: Bladder Surgery, Joint Replacement, Orthopedic Surgery, Tubal Ligation Additional Past Surgical History / Comment(s): left breast biopsy, buck knee replacement, rt shoulder arthroscopy, bladder sling, bladder suspension Past Anesthesia/Blood Transfusion Reactions: Previous Problems w/ Anesthesia Additional Past Anesthesia/Blood Transfusion Reaction / Comment(s): states during her 1st knee replacement & during colonoscopy her legs were "twitching" & had to be given more anesthesia-didn't think had to do w/her restless leg Past Psychological History: No Psychological Hx Reported Smoking Status: Never smoker Past Alcohol Use History: Rare Past Drug Use History: None Reported - Past Family History Mother Family Medical History: No Reported History Medications and Allergies Home Medications Medication Instructions Recorded Confirmed Type RX: Cholecalciferol [Vitamin D3 125 mcg PO DAILY 02/12/16 07/14/20 History (25 Mcg = 1000 Iu)] RX: Multivitamins, Thera 1 tab PO DAILY 02/12/16 07/14/20 History [Multivitamin (formulary)] RX: Rivaroxaban [Xarelto] 20 mg PO AC-SUPPER 02/12/16 07/14/20 History RX: Magnesium Oxide [Mag-Ox] 400 mg PO DAILY 12/18/18 07/14/20 History RX: Pramipexole [Mirapex] 1 mg PO TID 12/18/18 07/14/20 History RX: Pravastatin Sodium [Pravachol] 20 mg PO AC-SUPPER 12/18/18 07/14/20 History Allergies Allergy/AdvReac Type Severity Reaction Status Date / Time adhesive tape Allergy Rash/Hives Verified 07/14/20 11:22 Physical Exam Vitals: Vital Signs Temp Pulse Resp BP Pulse Ox 07/14/20 11:21 107/59 100 07/14/20 10:42 95 19 91/50 98 07/14/20 10:22 100 18 100 07/14/20 09:50 140 H 32 H 95 07/14/20 09:23 97.7 F 111 H 24 153/69 99 Intake and Output 07/13/20 07/14/20 07/14/20 22:59 06:59 14:59 Other: Weight 151.953 kg Results 07/14/20 09:55 07/14/20 09:55 Cardiac Enzymes 07/14/20 07/14/20 Range/Units 09:55 09:55 AST 31 (14-36) U/L Troponin I <0.012 (0.000-0.034) ng/mL Coagulation 07/14/20 Range/Units 09:55 PT 10.6 (9.0-12.0) sec APTT 21.1 L (22.0-30.0) sec CBC 07/14/20 Range/Units 09:55 WBC 9.0 (3.8-10.6) k/uL RBC 3.12 L (3.80-5.40) m/uL Hgb 8.5 L (11.4-16.0) gm/dL Hct 27.0 L (34.0-46.0) % Plt Count 414 (150-450) k/uL Comprehensive Metabolic Panel 07/14/20 Range/Units 09:55 Sodium 139 (137-145) mmol/L Potassium 4.1 (3.5-5.1) mmol/L Chloride 108 H (98-107) mmol/L Carbon Dioxide 23 (22-30) mmol/L BUN 15 (7-17) mg/dL Creatinine 0.63 (0.52-1.04) mg/dL Glucose 130 H (74-99) mg/dL Calcium 9.6 (8.4-10.2) mg/dL AST 31 (14-36) U/L ALT 22 (4-34) U/L Alkaline Phosphatase 79 (38-126) U/L Total Protein 6.2 L (6.3-8.2) g/dL Albumin 3.7 (3.5-5.0) g/dL Current Medications Generic Name Dose Route Start Last Admin Trade Name Freq PRN Reason Stop Dose Admin Aspirin 325 mg 07/15/20 09:00 Aspirin 325 Mg Tab PO DAILY KARLA Nitroglycerin 0.4 mg 07/14/20 11:20 Nitroglycerin Sl Tabs 0.4 Mg Tab SUBLINGUAL Q5M PRN Chest Pain Nitroglycerin 1 inch 07/14/20 12:00 07/14/20 11:23 Nitroglycerin Oint 1 Inch/Gm Packet TOPICAL Not Given Q6HR KARLA Intake and Output 07/13/20 07/14/20 07/14/20 22:59 06:59 14:59 Other: Weight 151.953 kg Patient Weight 07/15/20 06:59 Weight 151.953 kg 07/14/20 09:55 07/14/20 09:55
[2020-07-14] MEDS: PRAMIPEXOLE 1 MG TAB PO SCH ×2 (15:56→21:07)
--- NOTE | 2020-07-14 15:57 | P.HPIM ---
History of Present Illness H&P Date: 07/14/20 Chief Complaint: Short of breath History of presenting complaint: This is a pleasant 59-year-old patient of Dr. Bradshaw. Chronic stable medical conditions include GERD, hyperlipidemia, restless leg syndrome, obstructive sleep apnea uses CPAP machine, hiatal hernia, Landis diverticulosis. Atrial flutter fibrillation.. Patient at the baseline always been short of breath. She noticed that progressively that she's becomes more short of breath with taking a few steps. And occasionally slight chest pressure no. No radiation. She also develops leg swelling especially to was the evening and better with resting her leg. 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 Denies any cough fever and chills. She will put on at least 15 pounds in the last few months. Review of systems: GEN.: tired EYES: None HEENT: None NECK: None RESPIRATORY: As above CARDIOVASCULAR: As above GASTROINTESTINAL: Reflux GENITOURINARY: None MUSCULOSKELETAL: Some joint pains LYMPHATICS: None HEMATOLOGICAL: None PSYCHIATRY: None NEUROLOGICAL: None Social history: Alcohol rarely. . 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 EYES: Pupils equal. Conjunctiva normal HEENT: External appearance of nose and ears normal, oral cavity grossly normal. NECK: JVD not raised; masses not palpable. HEART: Distant heart sounds; no edema. LUNGS: Respiratory rate normal; distant breath sounds. ABDOMEN: Soft, nontender, liver spleen not palpable, no masses palpable. PSYCH: Alert and oriented x3; mood and affect normal. NEUROLOGICAL: Cranial nerves grossly intact; no facial asymmetry, power and sensation grossly intact. LYMPHATICS: No lymph nodes palpable in the axilla and neck INVESTIGATIONS, reviewed in the clinical context: WBC 9 hemoglobin 8.5 platelets 414 potassium 4.1 creatinine 0.63 D-dimer 0.45 Troponin I 2 both negative proBNP 63 Coronavirus [PCR]-not detected EKG tracing personally reviewed by me-possible atrial flutter with some ST segment depression in V2 through V6 Chest x-ray film personally reviewed by me-possible borderline cardiomegaly Assessment: -This is a patient has good baseline shortness of breath now presents with increasing shortness of breath is only taking a few steps. She has significantly put on weight since last time she was here about years ago. Patient does have underlying atrial flutter fibrillation. Possibly her rate is uncontrolled with exertion. Making it symptomatic. Also given some ST segment changes maybe she has underlying cardiac ischemia. She will need a stress test at some point. Cardiology consulted. -Persistent Atrial flutter/ fibrillation -on xarelto. -GERD, use Pepcid when necessary -Hyperlipidemia, continue Pravachol -Primary osteoarthritis, use Tylenol when necessary -Obstructive sleep apnea uses CPAP -Internal hemorrhoids -Hiatal hernia -Landis diverticulosis, asymptomatic -Morbid obesity BMI 52.5. Patient to follow-up with her PCP regarding weight loss measures. She'll also look into bariatric surgery. Care was discussed with the patient. Questions answered. Past Medical History Past Medical History: Atrial Fibrillation, GERD/Reflux, Hyperlipidemia, Osteoarthritis (OA), Sleep Apnea/CPAP/BIPAP Additional Past Medical History / Comment(s): restless leg syndrom, migraine yrs ago, no cpap yet, occult blood in stool, nodule on lung, metformin for weight loss not a diabetic, sleep apnea uses cpap at home, iron for preparation for bariatric surgery, no date for bariatric surgery as of yet, hemorrhoids per dr espinoza with colonoscopy, has been having black stools and sometimes has a little blood on toilet paper, no blood recently. upper respiratory infection recently with sinus infection that turned into bronchitis over a week ago was on amoxicillin and steroid pack did not help. Coughing up green plegm. Was told has poor circulation and has blockage in right leg , also has poor circulation in left leg. History of Any Multi-Drug Resistant Organisms: None Reported Past Surgical History: Bladder Surgery, Joint Replacement, Orthopedic Surgery, Tubal Ligation Additional Past Surgical History / Comment(s): left breast biopsy, buck knee replacement, rt shoulder arthroscopy, bladder sling, bladder suspension Past Anesthesia/Blood Transfusion Reactions: Previous Problems w/ Anesthesia Additional Past Anesthesia/Blood Transfusion Reaction / Comment(s): states during her 1st knee replacement & during colonoscopy her legs were "twitching" & had to be given more anesthesia-didn't think had to do w/her restless leg Past Psychological History: No Psychological Hx Reported Smoking Status: Never smoker Past Alcohol Use History: Rare Past Drug Use History: None Reported - Past Family History Mother Family Medical History: No Reported History Medications and Allergies Home Medications Medication Instructions Recorded Confirmed Type Cholecalciferol [Vitamin D3 (25 125 mcg PO DAILY 02/12/16 07/14/20 History Mcg = 1000 Iu)] Multivitamins, Thera [Multivitamin 1 tab PO DAILY 02/12/16 07/14/20 History (formulary)] Rivaroxaban [Xarelto] 20 mg PO AC-SUPPER 02/12/16 07/14/20 History Magnesium Oxide [Mag-Ox] 400 mg PO DAILY 12/18/18 07/14/20 History Pramipexole [Mirapex] 1 mg PO TID 12/18/18 07/14/20 History Pravastatin Sodium [Pravachol] 20 mg PO AC-SUPPER 12/18/18 07/14/20 History Allergies Allergy/AdvReac Type Severity Reaction Status Date / Time adhesive tape Allergy Rash/Hives Verified 07/14/20 11:22 Physical Exam Vitals: Vital Signs Temp Pulse Resp BP Pulse Ox 07/14/20 14:44 97.7 F 96 18 106/54 94 L 07/14/20 13:47 96 18 106/54 94 L 07/14/20 12:19 89 18 106/54 95 07/14/20 11:21 107/59 100 07/14/20 10:42 95 19 91/50 98 07/14/20 10:22 100 18 100 07/14/20 09:50 140 H 32 H 95 07/14/20 09:23 97.7 F 111 H 24 153/69 99 Intake and Output 07/14/20 07/14/20 07/14/20 06:59 14:59 22:59 Other: Weight 151.953 kg Results CBC & Chem 7: 07/14/20 09:55 07/14/20 09:55 Labs: Abnormal Lab Results - Last 24 Hours (Table) 07/14/20 07/14/20 07/14/20 Range/Units 09:55 09:55 09:55 RBC 3.12 L (3.80-5.40) m/uL Hgb 8.5 L (11.4-16.0) gm/dL Hct 27.0 L (34.0-46.0) % RDW 16.2 H (11.5-15.5) % APTT 21.1 L (22.0-30.0) sec Chloride 108 H (98-107) mmol/L Glucose 130 H (74-99) mg/dL Total Protein 6.2 L (6.3-8.2) g/dL
[2020-07-14] MEDS ORDERED: PRAVASTATIN SODIUM 20 MG TAB PO SCH (17:30)
[2020-07-14] MEDS ORDERED: RIVAROXABAN 20 MG TAB PO SCH (17:30)
[2020-07-14] MEDS: METOPROLOL TARTRATE 12.5 MG TAB PO SCH (21:07)
[2020-07-15 02:40] VITALS: PULSE 75; RESP 20; TEMP 97.8
[2020-07-15] MEDS ORDERED: CHOLECALCIFEROL 25 MCG (1000 IU) TABLET PO SCH (09:00)
[2020-07-15] MEDS ORDERED: MAGNESIUM OXIDE 400 MG TAB PO SCH (09:00)
[2020-07-15] MEDS ORDERED: MULTIVITAMINS, THERA 1 EACH TAB PO SCH (09:00)
[2020-07-15] MEDS ORDERED: ASPIRIN 81 MG PO SCH (09:00)
[2020-07-15] MEDS ORDERED: ASPIRIN 325 MG TAB PO SCH (09:00)
[2020-07-15 09:06] VITALS: BP 125/74
[2020-07-15] MEDS: METOPROLOL TARTRATE 12.5 MG TAB PO SCH (09:07)
[2020-07-15] MEDS: PRAMIPEXOLE 1 MG TAB PO SCH (09:15)
[2020-07-15 10:13] LABS: Chol/HDL Ratio 3.97; LDL Cholesterol,Calculated 81.4 mg/dL (0.0-131.0); VLDL Calculation 16.6 mg/dL (5.00-40.00)
--- NOTE | 2020-07-15 14:47 | P.PN ---
Subjective This is a pleasant 59-year-old female past medical history significant for paroxysmal atrial fibrillation(on Xarelto), dyslipidemia, hypertension, ob structive sleep apnea (wears a CPAP), morbid obesity, former smoker. She follows in the office with Dr. Rogers. We have been asked to see in consultation for chest pain. States she was going to Dr. 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 On the way home she started having chest pressure and shortness of breath while driving and presented to the emergency department. She states she has chronic shortness of breath for years. She has been having exertional shortness of breath and intermittent chest pressure for 1-2 months. However, over the past week her shortness of breath has gotten worse. This weekend she states she could not walk 5-10 steps without being short of breath and needing to sit down and rest. She denies chest pain, she feels a chest pressure in the center of her chest. The chest pressure is non-radiating, non-exertional. She has been sleeping in her recliner recently due to shortness of breath while sleeping, and has not been using her CPAP because her machine is upstairs in her bedroom. She does endorse lower extremity edema, but that is chronic and unchang ed. She denies nausea, diaphoresis, palpitations, lightheadedness, or syncope. Denies history of [place], stroke, or diabetes. Patients states she is compliant with medication. She is a former smoker (has not smoked in 30 years). Denies alcohol or illicit drug use. EKG revealed sinus tachycardia, no significant ST-T wave abnormalities. Troponin negative x 1. Telemetry reviewed- sinus mechanism HR 90s. Chest xray Patient is rotated No acute cardiopulmonary process. Lung volumes are low. Laboratory data reviewed, Troponin negative x 1, WBC 9.0, Hgb 8.5 (6.5-8.3 in 2019), Platelets 414, Na 139, K 4.1, sCr 0.63, BUN 15. Covid-19 PCR negative Vital signs 106/54 HR 89, maintaining oxygen saturations on room air, afebrile. Current home cardiac medications include Xarelto 20mg nightly, Pravastatin 20mg nightly, magnesium oxide 400mg daily. Echo 2018- normal systolic function EF 60%, normal diastolic function, trace AR, mild MR, mild TR. 12/2019 Lexiscan stress test- negative for ischemia 07/15/20: Patient seen and examined at bedside. No acute distress. Shortness of breath has imroved. D-dimer negative, BNP 63. BP 125/74 HR 70s, afebrile, maintaing oxygen saturations on room air. PHYSICAL EXAMINATION CONSTITUTIONAL: No apparent distress. HEENT: Head is normocephalic. Pupils are equal, round. Sclerae anicteric. Mucous membranes of the mouth are moist. No carotid bruit. CHEST EXAMINATION: Lungs are clear to auscultation. No chest wall tenderness is noted on palpation or with deep breathing. HEART EXAMINATION: Tachycardia, Regular rate and rhythm. S1, S2 heard. No murmurs, gallops or rub. ABDOMEN: Soft, nontender. Positive bowel sounds. EXTREMITIES: 2+ peripheral pulses, trace LLE edema, trace RLE edema, no calf tenderness. SKIN: intact NEUROLOGIC EXAMINATION: Patient is awake, alert and oriented x3. ASSESSMENT Chest pain- appears atypical, troponin negative x 1, EKG with no significant ST- T wave abnormalities. Dyspnea on exertion Paroxysmal atrial fibrillation (on Xarelto) Dyslipidemia Hypertension Morbid obesity. PLAN -Discussed with patient CPAP compliance. - From cardiology standpoint,no further cardiac workup, ok to discharge patient. Patient will follow up outpatient with Dr. Rogers in the office. Nurse Practitioner note has been reviewed, I agree with a documented findings and plan of care. Patient was seen and examined. Objective - Vital Signs Vital signs: Vital Signs Temp 97.8 F 07/15/20 00:55 Pulse 75 07/15/20 00:55 Resp 20 07/15/20 00:55 BP 125/74 07/15/20 09:05 Pulse Ox 95 07/15/20 00:55 Intake & Output 07/14/20 07/15/20 07/15/20 18:59 06:59 18:59 Intake Total 200 Balance 200 Weight 151.953 kg Intake: Oral 200 Other: Voiding Method Toilet # Voids 1 - Labs CBC & Chem 7: 07/14/20 09:55 07/14/20 09:55 Labs: Abnormal Lab Results - Last 24 Hours (Table) 07/15/20 Range/Units 04:51 HDL Cholesterol 33.0 L (40.0-60.0) mg/dL
--- NOTE | 2020-07-17 15:12 | P.DS ---
Providers Date of admission: 07/14/20 11:31 Expected date of discharge: 07/15/20 Attending physician: Lucien Hutchins Consults: 07/14/20 11:20 Consult Physician Urgent Consulting Provider: [facility] Consult Reason/Comments: Chest pain Do you want consulting provider notified?: Yes Primary care physician: [facility] Course: Chief Complaint: Short of breath History of presenting complaint: This is a pleasant 59-year-old patient of Dr. Bradshaw. Chronic stable medical conditions include GERD, hyperlipidemia, restless leg syndrome, obstructive sleep apnea uses CPAP machine, hiatal hernia, Landis-diverticulosis. Atrial flutter fibrillation.. Patient at the baseline always been short of breath. She noticed that progressively that she's becomes more short of breath with taking a few steps. And occasionally slight chest pressure . No radiation. She also develops leg swelling especially towards the evening and better with elevating her leg. 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 Denies any cough fever and chills. She has put on at least 15 pounds in the last few months. Patient is seen by cardiology. No further workup. They want the patient to follow-up with her airplane first officer Dr. Rogers. I did tell her that I this could be symptoms from her deconditioning from putting on weight. Weight loss catina sures were discussed. EKG troponins were negative. Did tell her to consider outpatient stress test with the airplane first officer. Consultation: Dr. Gayle from cardiology Social history: Alcohol rarely. . 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 EYES: Pupils equal. Conjunctiva normal HEENT: External appearance of nose and ears normal, oral cavity grossly normal. NECK: JVD not raised; masses not palpable. HEART: Distant heart sounds; no edema. LUNGS: Respiratory rate normal; distant breath sounds. ABDOMEN: Soft, nontender, liver spleen not palpable, no masses palpable. PSYCH: Alert and oriented x3; mood and affect normal. NEUROLOGICAL: Cranial nerves grossly intact; no facial asymmetry, power and sensation grossly intact. INVESTIGATIONS, reviewed in the clinical context: LDL 81 WBC 9 hemoglobin 8.5 platelets 414 potassium 4.1 creatinine 0.63 D-dimer 0.45 Troponin I 2 both negative proBNP 63 Coronavirus [PCR]-not detected EKG tracing personally reviewed by me-possible atrial flutter with some ST segment depression in V2 through V6 Chest x-ray film personally reviewed by me-possible borderline cardiomegaly Assessment and plan: -Patient presents for short of breath, chest pressure on exertion. Could be from deconditioning from putting on.. Also could be from paroxysmal atrial flutter. Outpatient cardiac ischemia to be ruled out. With stress test -Paroxysmal Atrial flutter/ fibrillation -on xarelto. -GERD, use Pepcid when necessary -Hyperlipidemia, continue Pravachol -Primary osteoarthritis, use Tylenol when necessary -Obstructive sleep apnea uses CPAP -Internal hemorrhoids -Hiatal hernia -Landis diverticulosis, asymptomatic -Morbid obesity BMI 52.5. Patient to follow-up with her PCP regarding weight loss measures. Consider bariatric surgery. Disposition: Home Plan - Discharge Summary Discharge Rx Participant: No New Discharge Prescriptions: New Metoprolol Tartrate [Lopressor] 12.5 mg PO BID #60 tab Continue Cholecalciferol [Vitamin D3 (25 Mcg = 1000 Iu)] 125 mcg PO DAILY Rivaroxaban [Xarelto] 20 mg PO AC-SUPPER Multivitamins, Thera [Multivitamin (formulary)] 1 tab PO DAILY Pramipexole [Mirapex] 1 mg PO TID Pravastatin Sodium [Pravachol] 20 mg PO AC-SUPPER Magnesium Oxide [Mag-Ox] 400 mg PO DAILY Discharge Medication List Cholecalciferol [Vitamin D3 (25 Mcg = 1000 Iu)] 125 mcg PO DAILY 02/12/16 [History] Multivitamins, Thera [Multivitamin (formulary)] 1 tab PO DAILY 02/12/16 [History] Rivaroxaban [Xarelto] 20 mg PO AC-SUPPER 02/12/16 [History] Magnesium Oxide [Mag-Ox] 400 mg PO DAILY 12/18/18 [History] Pramipexole [Mirapex] 1 mg PO TID 12/18/18 [History] Pravastatin Sodium [Pravachol] 20 mg PO AC-SUPPER 12/18/18 [History] Metoprolol Tartrate [Lopressor] 12.5 mg PO BID #60 tab 07/15/20 [Rx] Follow up Appointment(s)/Referral(s): Quinton Rogers MD [STAFF PHYSICIAN] - 1 Week Eamon Mcdonough MD [Primary Care Provider] - 1-2 days Patient Instructions/Handouts: Angina (DC), Heart Palpitations (DC), Iron Deficiency Anemia (DC), Dyspnea (DC) Discharge Disposition: HOME SELF-CARE
== END 2020-07-15 12:23 | disposition home or self-care (01) ==
LOC: EC 09:18 → 6NMEDSUR 11:31
PROVIDERS: ADMIT Hospitalist; ATTEND Hospitalist
DX: R07.89 Other chest pain (principal); R06.09 Other forms of dyspnea; I48.0 Paroxysmal atrial fibrillation; I10 Essential (primary) hypertension; E78.00 Pure hypercholesterolemia, unspecified; I48.92 Unspecified atrial flutter; E78.5 Hyperlipidemia, unspecified; G47.33 Obstructive sleep apnea (adult) (pediatric); Z99.89 Dependence on other enabling machines and devices; K21.9 Gastro-esophageal reflux disease without esophagitis; M19.90 Unspecified osteoarthritis, unspecified site; G25.81 Restless legs syndrome; E66.01 Morbid (severe) obesity due to excess calories; Z68.43 Body mass index [BMI] 50.0-59.9, adult; G43.909 Migraine, unspecified, not intractable, without status migrainosus; Z20.822 Contact with and (suspected) exposure to COVID-19; R19.5 Other fecal abnormalities; K44.9 Diaphragmatic hernia without obstruction or gangrene; K57.90 Diverticulosis of intestine, part unspecified, without perforation or abscess without bleeding; M19.91 Primary osteoarthritis, unspecified site; K64.8 Other hemorrhoids; R60.0 Localized edema; Z79.01 Long term (current) use of anticoagulants; Z79.899 Other long term (current) drug therapy; Z91.048 Other nonmedicinal substance allergy status; Z96.653 Presence of artificial knee joint, bilateral; Z98.51 Tubal ligation status; Z87.891 Personal history of nicotine dependence
CPT/HCPCS: 93005 ×2; 99285; 36415; 94760; 85379; 83880; 80061; 80053; 83735; 84484; 85025; 85610; 85730; 87635; 71046; G0378 ×2

== ENCOUNTER 2020-08-01 06:33 | Day surgery (SDC) | payer BC, MEDICAID ==
[2020-07-28 13:01] VITALS: BMI 52.4
[~2020-08-01 06:33] MED LIST changes: +ALPRAZolam 0.25 MG TAB PO PRN; +ALPRAZolam 0.5 MG TAB PO PRN; +ASPIRIN 325 MG TAB PO STA; +HEPARIN SODIUM,PORCINE 10,000 UNIT in SODIUM CHLORIDE 0.9% 1,000 ML IRRIGATION PRN; +HEPARIN SODIUM,PORCINE 2,500 UNIT in SODIUM CHLORIDE 0.9% 250 ML IRRIGATION PRN; -LACTATED RINGERS 1,000 ML IV SCH; -LIDOCAINE 1% 20 ML VIAL (10MG/ML) FOR IV START INTRADERMA PRN; -MIDAZOLAM 2 MG/2 ML VIAL IV PRN; +NITROGLYCERIN SL TABS 0.4 MG TAB SUBLINGUAL PRN; -ONDANSETRON 4 MG/2 ML VIAL IVP PRN; +SODIUM CHLORIDE 0.9% 1,000 ML in EMPTY BAG 1 BAG IV ONE; -ceFAZolin 3 GM in SODIUM CHLORIDE 0.9% 100 ML IVPB ONE
[2020-08-01 07:15] VITALS: RESP 18
[2020-08-01] MEDS ORDERED: VERAPAMIL 2.5 MG/ML 2 ML AMP ONE (07:30)
[2020-08-01] MEDS ORDERED: LIDOCAINE 1% INJ 10MG/ML (20 ML MDV) ONE (07:30)
[2020-08-01] MEDS ORDERED: fentaNYL (PF) 50 MCG/ML 2 ML AMP ONE (07:30)
[2020-08-01] MEDS: MIDAZOLAM 2 MG/2 ML VIAL IV ONE ×2 (07:35→07:52)
[2020-08-01] MEDS: fentaNYL (PF) 50 MCG/ML 2 ML AMP IV ONE ×2 (07:35→07:52)
[2020-08-01] MEDS ORDERED: LIDOCAINE 1% INJ 10MG/ML (20 ML MDV) SQ ONE (07:38)
[2020-08-01] MEDS: VERAPAMIL SYRINGE (5 MG/10 ML) INTRAARTER ONE ×2 (07:40→07:51)
[2020-08-01] MEDS ORDERED: HEPARIN SODIUM 1,000 UN/ML (10ML VL) ONE (07:42)
[2020-08-01] MEDS ORDERED: IOPAMIDOL-370 125ML BTL INJ ONE (08:00)
[2020-08-01 08:06] LABS: HCT 23.8 % (34.0-46.0); Hypochromasia Marked; MCH 23.7 pg (25.0-35.0); MCHC 28.8 g/dL (31.0-37.0); MCV 82.4 fL (80.0-100.0); Mean Platelet Volume 7.3; Platelet Count 423 k/uL (150-450); Poikilocytosis Moderate; RBC 2.89 m/uL (3.80-5.40); RDW 15.3 % (11.5-15.5); WBC 6.9 k/uL (3.8-10.6)
[2020-08-01] MEDS ORDERED: RX INFO: IV CONTRAST WAS GIVEN 1 EACH MISC MISCELLANE PRN (08:10)
--- NOTE | 2020-08-01 08:10 | P.CARDCATH ---
Description of Procedure: PROCEDURES PERFORMED: Left heart catheterization, bilateral coronary angiography INDICATION: Persistent chest pain and shortness of breath concerning for unstable angina HISTORY: Patient is a 59-year-old female with history of paroxysmal atrial fibrillation, hyperlipidemia, obesity who has been experiencing increased dyspnea on exertion and chest pressure or last 6 months to the point where with minor activity such as walking room to room she has chest pain and pressure. Given ongoing symptoms recommendation was for heart catheterization. CONSENT:I have discussed the risks, benefits and alternative therapies for the above-mentioned procedure and for both sedation/analgesia as well as necessary blood product administration, if indicated, as they pertain to this patient. The patient has indicated understanding and acceptance of the risks and procedures discussed. PROCEDURE: After the risks, benefits and alternatives of the above mentioned procedure explained in detail with the patient, informed consent was obtained. Patient was taken to the catheterization lab and prepped and draped in usual fashion. 1% lidocaine was used to anesthetize the right radial artery. A 6- Micronesian sheath was placed in the right radial artery using modified Seldinger technique. Left coronary angiography was performed with a 5-Micronesian JL 3.5 catheter and right coronary angiography was performed with a 6-Micronesian AR2 catheter in various views. A 6-Micronesian FR5 catheter was inserted into the left ventricle and pressure measurements were obtained. The right radial sheath was removed and a TR band was placed with hemostasis achieved. The patient tolerated the procedure well. Patient was transported back to the post catheterization holding area in stable condition. Conscious Sedation: Patient was monitored under the direct supervision of vision of myself for conscious sedation using Versed and fentanyl for a total duration of 23 minutes HEMODYNAMICS: Aortic: 105/61 LV: 107/6 LVEDP 15mmHg SELECTIVE CORONARY ARTERIOGRAPHY: LEFT MAIN: The left main is a large caliber vessel which bifurcates into the LAD and circumflex. There is no significant stenosis. LEFT ANTERIOR DESCENDING CORONARY ARTERY: LAD is a large caliber vessel which wraps around to the apex. There is no significant stenosis. LEFT CIRCUMFLEX CORONARY ARTERY: Left circumflex is a moderate caliber vessel without significant stenosis. RIGHT CORONARY ARTERY: The right coronary artery is a large caliber vessel which gives off a PDA and PLV branch and is the dominant vessel. There is no significant stenosis. FINAL IMPRESSION: 1. Normal coronary arteries as described above. 2. High normal left sided filling pressures PLAN: 1. Aggressive risk factor modification per most recent ACC/AHA guidelines. 2. Follow-up in the office in 1-2 weeks.
[2020-08-01 08:15] LABS: HGB 6.9 gm/dL (11.4-16.0)
[2020-08-01 10:17] LABS: HCT 21.6 % (34.0-46.0); Hypochromasia Marked; MCH 24.4 pg (25.0-35.0); MCHC 29.3 g/dL (31.0-37.0); MCV 83.3 fL (80.0-100.0); Mean Platelet Volume 7.2; Platelet Count 368 k/uL (150-450); Poikilocytosis Moderate; RDW 15.5 % (11.5-15.5); WBC 5.7 k/uL (3.8-10.6)
[2020-08-01 10:33] LABS: HGB 6.4 gm/dL (11.4-16.0)
[2020-08-01 10:57] LABS: Eosinophils # (M) 0.21 k/uL (0-0.7); Lymphocytes # (M) 0.35 k/uL (1.0-4.8); Monocytes # (M) 0.35 k/uL (0-1.0); Neutrophils % (M) 87 %; Nucleated Red Blood Cells 0 /100 WBC (0-0); Polychromasia Present; Total Cells Counted 100
[2020-08-01 10:58] LABS: Anisocytosis (M) Present; Mixed Population RBC Present
[2020-08-01 15:32] VITALS: TEMP 98.3
[2020-08-01 16:22] LABS: % Iron Saturation 0.87 (12.00-45.00); Ferritin 6.4 ng/mL (10.0-291.0)
[2020-08-01 17:08] VITALS: BP 108/62; PULSE 92
--- NOTE | 2020-08-07 11:57 | CDI ---
Date 08.07.20 CDS/[facility] Name: Nettie Ramos Phone: If any questions, call Leslye Cooley Deputy Sheriff Generalist/Bailiff at Patient Name: Christa Butler Discharge Date: 08.01.2020 ATTENTION: The [facility] Coding Staff appreciate your assistance in clarifying documentation. Please respond to the clarification below the line at the bottom and electronically sign. The [facility] Coding staff will review the response and follow-up if needed. Please note: Queries are made part of the Legal Health Record. If you have any questions, please contact the Deputy Sheriff Generalist/Bailiff. Dear Dr. Tucker In order to code to the greatest specificity and for the greatest reimbursement I need the following information: A transfusion of RBC was given to pt, please document dx to support why the transfusion was given. Thank you for your kind consideration. Symptomatic iron deficiency anemia MTDD
== END 2020-08-01 17:20 | disposition home or self-care (01) ==
LOC: CATHCVL 06:33
PROVIDERS: ATTEND Internal Medicine
DX: R07.89 Other chest pain (principal); D50.9 Iron deficiency anemia, unspecified; R06.02 Shortness of breath; R00.0 Tachycardia, unspecified; R06.09 Other forms of dyspnea; I48.0 Paroxysmal atrial fibrillation; E78.5 Hyperlipidemia, unspecified; E66.01 Morbid (severe) obesity due to excess calories; I10 Essential (primary) hypertension; G72.0 Drug-induced myopathy; T46.6X5A Adverse effect of antihyperlipidemic and antiarteriosclerotic drugs, initial encounter; Z68.43 Body mass index [BMI] 50.0-59.9, adult; Z72.0 Tobacco use; Z91.09 Other allergy status, other than to drugs and biological substances; Z79.899 Other long term (current) drug therapy; Z79.01 Long term (current) use of anticoagulants; Z82.49 Family history of ischemic heart disease and other diseases of the circulatory system
CPT/HCPCS: 93458; 86900; 86901; 82728; 83540; 83550; 85025; 85027; 86850; 86920; C1769 ×2; C1894; P9016; J2250; J2001; J3010; J1644; Q9967

== ENCOUNTER → 2020-08-20 | Outpatient (CLI) | payer MEDICAID ==
[2020-08-20 17:14] VITALS: BP 158/62; PULSE 93; RESP 16; TEMP 98.6; BMI 55.7
--- NOTE | 2020-08-20 17:33 | P.HPBAR ---
Bariatric H&P - History & Physicial H&P Date: 08/20/20 History & Physicial: Visit/CC: Initial Visit Patient initial contact: Initial weight: 149.374 kg Initial weight in pounds: 329.31 Height: 5 ft 4.5 in Initial BMI: 55.6 Last weight: Current weight: 149.459 kg Current weight in pounds: 329.50 Current BMI: 55.7 Maize body weight (based on NIH guidelines): 55.565 kg Excess body weight loss: The patient is a 60 year-old F who presents for Bariatric Assessment. DATE OF SERVICE: 08/20/2020 REASON FOR CONSULTATION: Initial bariatric evaluation. HISTORY OF PRESENT ILLNESS: Christa Butler is a 60-year-old female who comes with lifelong morbid obesity. She is looking into the gastric bypass. She reports gastroesophageal reflux disease and has been taking Nexium more than 5 years. She has tried medical supervised weight. She is on Saxenda. She has tried weight watchers. Her most weight loss is 10 pounds with weight gain. Her mother, dad, grandmother on both sides has morbid obesity. She denies family history of Crohns. She personally had colitis. She still has her gallbladder. Her father had irritable bowel syndrome. She denies abdominal surgery. She has osteoarthritis of the lower back, right hip pain, both knees and had replacement including foot problems. She has restlelss leg syndrome. She denies easy bleeding. No reports of blood clots. She has sleep apnea. She is currently not on blood pressure medications. Her mother had diabetes. She has hiatal hernia. She comes in with a holter monitor. She reports shortness of breath and dyspnea. She sees Dr. Rogers. She had an angiogram this year and was clear. Her hemoglobin was low with anemia. She had her colonoscopy November 2018. She was Xarelto for atrial fibrillation. She has persistent anemia. She had been on Xarelto for 5 years. At height of 5 feet 4.5 inches, her ideal body weight is 144 pounds. She comes in 329 pounds. Her body mass index is 55.7 She is 185 pounds overweight. PAST MEDICAL HISTORY: 1. Morbid obesity due to excess calories 2. Body mass index of 55.7, initial 3. Restless leg syndrome 4. Osteoarthritis bilateral knee 5. Colon polyp 6. Hypertensive heart disease 7. Hyperlipidemia 8. Iron deficiency anemia 9. Diabetes type 2, [id number] 10. Gastric polyp 11. Hiatal hernia 12. Diverticular disease 13. Hemorrhoids 14. Obstructive sleep apnea 15. Migraines 16. Osteopenia 17. Atrial fibrillation 18. Gastroesophageal reflux disease 19. Osteoarthritis lower back 20. Osteoarthritis of the hips PAST SURGICAL HISTORY: 1. Knee replacement 2. Colonoscopy 3. Left breast biopsy 4. Left knee arthroscopy 5. Bilateral knee replacement 6. Right shoulder arthroscopy 7. Bladder sling 8. Upper endoscopy 9. Colonoscopy with polypectomy 10. Small bowel capsule 11. Tubal ligation HOME MEDICATIONS: Home Medications Medication Instructions Recorded Confirmed Cholecalciferol [Vitamin D3 (25 5,000 unit PO DAILY 02/12/16 09/29/20 Mcg = 1000 Iu)] Multivitamins, Thera [Multivitamin 1 tab PO DAILY 02/12/16 09/29/20 (formulary)] Magnesium Oxide [Mag-Ox] 400 mg PO DAILY 12/18/18 09/29/20 Pramipexole [Mirapex] 1 mg PO TID 12/18/18 09/29/20 Pravastatin Sodium [Pravachol] 20 mg PO AC-SUPPER 12/18/18 09/29/20 Metoprolol Succinate (ER) [Toprol 25 mg PO DAILY 08/20/20 09/29/20 XL] Ubidecarenone [Co Q-10] 1 tab PO DAILY 08/25/20 09/29/20 Docusate [Colace] 100 mg PO BID 09/11/20 09/29/20 Ferrous Sulfate [Iron (65 MG 325 mg PO TID 09/11/20 09/29/20 Elemental)] Liraglutide [Saxenda] 1.8 mg SQ DAILY 09/11/20 09/29/20 Previous Rx's Medication Instructions Recorded Omeprazole [PriLOSEC] 40 mg PO DAILY #14 cap 09/15/20 ALLERGIES: Allergies Allergy/AdvReac Type Severity Reaction Status Date / Time adhesive tape Allergy Rash/Hives Verified 09/29/20 09:49 SOCIAL HISTORY: Past tobacco use. FAMILY HISTORY: No family history of ulcerative colitis disease or Crohn's disease. Family history of morbid obesity. No lupus in the family. No reports of stomach or esophageal cancer. Mother had congestive heart failure. Has thyroid problems. Father has history of coronary artery disease. Her mother had diabetes. Her mother, dad, grandmother on both sides has morbid obesity. REVIEW OF ORGAN SYSTEMS: CONSTITUTIONAL: At height of 5 feet 4.5 inches, her ideal body weight is 144 pounds. She comes in 329 pounds. Her body mass index is 55.7 She is 185 pounds overweight. HEENT: Denies any active troubles with vision or hearing. ENDOCRINE: Has diabetes. No hypothyroidism. CARDIOVASCULAR: Has hypertensive heart disease. No recent chest pain or heart attack. Has hyperlipidemia. Has dyspnea on exertion. Has atrial fibrillation. Had angina. Has peripheral vascular occlusive disease. She comes in with a holter monitor. RESPIRATORY: She has dyspnea. Denies chronic obstructive pulmonary disease. He has dyspnea on exertion. Has obstructive sleep apnea. Has lung nodules. History of bronchitis. GASTROINTESTINAL: Has gastrointestinal bleeding. His iron deficiency anemia. Has gastroesophageal reflux disease. She had her colonoscopy November 2018 with polyps. GENITOURINARY: No recent blood in urine. History of bladder leakage. MUSCULOSKELETAL: Has lower back pain and joint pain. Has osteoarthritis of the knees. Has restless leg syndrome. Has osteopenia. NEURO: No headaches. No seizure disorders. Has migraines. PSYCH: No suicidal ideation. No depression. RHEUMATOLOGIC: No lupus. No rheumatoid arthritis. HEMATOLOGIC: Past abnormal bleeding or bruising. Has gastrointestinal bleeding and recent blood transfusion. Was on blood thinners. SKIN: No rash. No skin cancer. PHYSICAL EXAM: VITAL SIGNS: Height 5 foot 4.5 inches, weight 329 pounds. BMI 55.7 Vital Signs Temp 98.6 F 08/20/20 17:12 Pulse 93 08/20/20 17:12 Resp 16 08/20/20 17:12 BP 158/62 08/20/20 17:12 Pulse Ox GENERAL: Well-developed in no acute distress. HEENT: No scleral icterus. Extraocular movements grossly intact. Hears conversational speech. No nasal drainage. NECK: Supple without lymphadenopathy. CHEST: Nonlabored respirations with equal bilateral excursions. CARDIOVASCULAR: Regular rate and regular rhythm. Distal 2+ pulses. ABDOMEN: Obese, soft, nontender, nondistended. MUSCULOSKELETAL: No clubbing, cyanosis. NEURO: No focal or lateralizing signs. Cranial nerves 2 through 12 grossly within normal limits. PSYCH: Appropriate affect. Alert and oriented to person, place and time. SKIN: Good skin turgor. Well perfused. ASSESSMENT: 1. Morbid obesity due to excess calories 2. Body mass index of 55.7, initial 3. Restless leg syndrome 4. Osteoarthritis bilateral knee 5. Colon polyp 6. Hypertensive heart disease 7. Hyperlipidemia 8. Iron deficiency anemia 9. Diabetes type 2, [id number] 10. Gastric polyp 11. Hiatal hernia 12. Diverticular disease 13. Hemorrhoids 14. Obstructive sleep apnea 15. Migraines 16. Osteopenia 17. Atrial fibrillation 18. Gastroesophageal reflux disease 19. Osteoarthritis lower back 20. Osteoarthritis of the hips PLAN: 1. Surgical options including a band, gastric bypass, sleeve gastrectomy were described in detail. Alternatives such as gastric balloon including duodenal switch were described. She is looking into the gastric bypass. 2. The [place] bariatric surgical collaborative data and outcomes calculator were described with surgical options. 3. Recommend a bariatric metabolic panel to evaluate for micro- including macronutrient deficiencies. 4. For history of daytime somnolence, recommend evaluation and treatment for sleep apnea. 5. Dietary surveillance and counseling was reviewed. Increased protein intake over 65 grams daily advised. 6. Will need cardiac risk assessment. 7. Recommend medical risk assessment. 8. Psych assessment per insurance guidelines. 9. Recommend upper endoscopy. 10. Recommend 12-lead EKG. 11. Recommend esophagram for hiatal hernia. 12. Recommend urine nicotine testing for history of tobacco abuse disorder 13. Recommend urine drug screen 14. Recommend CT of the abdomen and pelvis, chest for incarcerated abdominal hernia. 15. Recommend colonoscopy for anemia and colon polyps. 16. Recommend iron infusion for iron deficiency anemia. 17. She is elevated risk for complication with sleep apnea and pre-existing heart disease. Thank you for this consultation. Past Medical History Past Medical History: Atrial Fibrillation, Chest Pain / Angina, GERD/Reflux, Hyperlipidemia, Osteoarthritis (OA), Sleep Apnea/CPAP/BIPAP Additional Past Medical History / Comment(s): +stool ob/lower GI bleed/severe anemia with blood transfusion, gastric polyp, hiatal hernia, diverticular disease, colon polyp, hemorrhoids, AUTUMN and either sleeps in a recliner or uses Cpap, arthritis in back/bilateral knees, migraines years ago, osteopenia, RLS, lung nodules/unchanged over a couple years of being monitored, bilateral leg poor circulation, bronchitis, sinusitis, OBV 07/14-07/15/20 FOR CHEST PAIN History of Any Multi-Drug Resistant Organisms: None Reported Past Surgical History: Bladder Surgery, Breast Surgery, Joint Replacement, Orthopedic Surgery, Tubal Ligation Additional Past Surgical History / Comment(s): left breast benign biopsy, L knee arthroscopy, buck knee replacement, rt shoulder arthroscopy, bladder sling, bladder suspension, EGD, colonoscopies/polypectomy, small bowel capsule Past Anesthesia/Blood Transfusion Reactions: Previous Problems w/ Anesthesia Additional Past Anesthesia/Blood Transfusion Reaction / Comm: states during her 1st knee replacement & during colonoscopy her legs were "twitching" & had to be given general anesthesia-didn't think had to do w/her restless leg Past Psychological History: No Psychological Hx Reported Additional Psychological History / Comment(s): Pt resides with her spouse. She uses a cane or walker occasionally. She drives. Smoking Status: Former smoker Past Alcohol Use History: Rare Additional Past Alcohol Use History / Comment(s): Pt started smoking in 1973 and quit in 1992. Past Drug Use History: None Reported - Past Family History Father Family Medical History: Coronary Artery Disease (CAD) Additional Family Medical History / Comment(s): Father lived to be 82 yrs. He had 9 cardiac stents. Sister(s) Additional Family Medical History / Comment(s): Pt has 3 sisters, all of which a re healthy except one has thyroid problem. Mother Family Medical History: Congestive Heart Failure (CHF) Additional Family Medical History / Comment(s): Mother of chf at the age of 74 yrs. She was obese. Surgical - Exam Vital Signs Temp Pulse Resp BP 98.6 F 93 16 158/62 08/20/20 17:12 08/20/20 17:12 08/20/20 17:12 08/20/20 17:12 Bariatric Checklist Checklist: Plan: Checklist: EGD: 1. Hiatal hernia: 2. H. Pylori: HgbA1c: Vitamin D: Smoking: Former smoker Primary care physician referral: Psychiatry clearance: Cardiology clearance: Sleep study: Diet journal: VTE risk score: VTE risk level: Rehab needs at discharge:
== END | disposition home or self-care (01) ==
LOC: BARWHC3 15:26
PROVIDERS: ATTEND Surgery Plastic and Reconstructive Surgery
DX: E66.01 Morbid (severe) obesity due to excess calories (principal); G25.81 Restless legs syndrome; M17.0 Bilateral primary osteoarthritis of knee; K63.5 Polyp of colon; I11.9 Hypertensive heart disease without heart failure; E78.5 Hyperlipidemia, unspecified; D50.9 Iron deficiency anemia, unspecified; E11.9 Type 2 diabetes mellitus without complications; K44.9 Diaphragmatic hernia without obstruction or gangrene; K57.90 Diverticulosis of intestine, part unspecified, without perforation or abscess without bleeding; K64.9 Unspecified hemorrhoids; G47.33 Obstructive sleep apnea (adult) (pediatric); G43.909 Migraine, unspecified, not intractable, without status migrainosus; M85.80 Other specified disorders of bone density and structure, unspecified site; I48.91 Unspecified atrial fibrillation; K21.9 Gastro-esophageal reflux disease without esophagitis; M47.816 Spondylosis without myelopathy or radiculopathy, lumbar region; M16.0 Bilateral primary osteoarthritis of hip; Z68.43 Body mass index [BMI] 50.0-59.9, adult; Z79.899 Other long term (current) drug therapy; Z91.048 Other nonmedicinal substance allergy status; Z87.891 Personal history of nicotine dependence
CPT/HCPCS: 99202

== ENCOUNTER → 2020-09-05 | Outpatient (CLI) | payer MEDICAID ==
--- NOTE | 2020-09-10 12:14 | MM ---
Reason for exam: screening (asymptomatic). Last mammogram was performed 1 year and 2 months ago. History: Patient is postmenopausal and had first child at age 32. Benign excisional biopsy of the left breast, 1998. Physical Findings: A clinical breast exam by your physician is recommended on an annual basis and results should be correlated with mammographic findings. MG Screening Mammo w CAD Bilateral CC and MLO view(s) were taken. Prior study comparison: June 25, 2019, bilateral MG screening mammo w CAD. June 23, 2018, bilateral MG screening mammo w CAD. There are scattered fibroglandular densities. No significant changes when compared with prior studies. ASSESSMENT: Benign, BI-RAD 2 RECOMMENDATION: Routine screening mammogram of both breasts in 1 year.
== END | disposition home or self-care (01) ==
LOC: RADUSWWP 14:41
PROVIDERS: ATTEND Internal Medicine
DX: Z12.31 Encounter for screening mammogram for malignant neoplasm of breast (principal); Z78.0 Asymptomatic menopausal state
CPT/HCPCS: 77067

== ENCOUNTER → 2020-09-05 | Outpatient (CLI) | payer MEDICAID ==
[2020-09-05 09:14] LABS: African American GFR (CKD) >90 (>60 ml/min/1.73 sqM); Blood Urea Nitrogen 10 mg/dL (7-17); Non-African American GFR(CKD) >90 (>60 ml/min/1.73 sqM)
--- NOTE | 2020-09-05 09:59 | CT ---
EXAMINATION TYPE: CT abdomen pelvis w con DATE OF EXAM: 09/05/2020 COMPARISON: None HISTORY: Anemia CT DLP: 4485.8 mGycm Automated exposure control for dose reduction was used. TECHNIQUE: Helical acquisition of images was performed from the lung bases through the pelvis. CONTRAST: Performed with Oral Contrast and with IV Contrast, patient injected with 100 mL of Isovue 300. FINDINGS: The lung bases are clear. There is a moderate to large hernia. There are 2 enlarged lymph nodes in th e paraesophageal region adjacent to the hiatal hernia one measuring 2.1 cm another measuring 2.5 cm. The gallbladder is normal and there is no distention, wall thickening, gallstone or pericholecystic f luid. There is no biliary ductal dilatation. No focal mass seen within the liver pancreas, spleen or adrenal glands. The kidneys excrete contrast promptly and symmetrically and there is no solid renal mass or hydroneph rosis. There is mild retroperitoneal adenopathy with 2 periaortic lymph nodes identified one measuring appro ximately 3.9 cm and the other measuring approximately 2.6 cm. The bowel loops are normal in caliber and there is no evidence of obstruction. No inflammatory change s are identified in the mesentery. There is diffuse diverticulosis without CT evidence of diverticuli tis. There is no free intraperitoneal air or fluid. There is no pelvic mass, adenopathy, abscess or free fluid. Rectum, uterus and urinary bladder are un remarkable. No focal intraosseous abnormalities are seen. IMPRESSION: 1. Moderate to large hiatal hernia with distal paraesophageal lymphadenopathy and retroperitoneal kayden nopathy as described above. 2. No evidence of diverticulitis. There is diffuse diverticulosis of the colon.
--- NOTE | 2020-09-05 15:42 | FL ---
ESOPHOGRAM. HISTORY: Dysphagia Esophagram was performed per the air contrast technique. The patient swallowed barium and effervesce nt crystals without difficulty or delay. Esophageal peristalsis and motility appear to be within normal limits. There is no evidence for filling defect, mass or diverticulum. Small to moderate fixed hiatal hernia noted. Subsequently single contrast cervical esophagram was performed which fails demonstrate evidence for a spiration penetration or mass. IMPRESSION: Small to moderate fixed hiatal hernia noted.
== END | disposition home or self-care (01) ==
LOC: RADCTMAIN 07:37
PROVIDERS: ATTEND Surgery Plastic and Reconstructive Surgery
DX: K44.9 Diaphragmatic hernia without obstruction or gangrene (principal); K57.30 Diverticulosis of large intestine without perforation or abscess without bleeding; R59.0 Localized enlarged lymph nodes
CPT/HCPCS: 82565; 84520; 74220; 74177; 36415; Q9967

== ENCOUNTER 2020-09-15 07:05 | Day surgery (SDC) | payer MEDICAID ==
[2020-09-11 09:03] VITALS: BMI 52.0
[2020-09-15 07:29] VITALS: RESP 16; TEMP 99.6
--- NOTE | 2020-09-15 07:41 | P.GSHP ---
History of Present Illness H&P Date: 09/15/20 CHIEF COMPLAINT: GERD and colon screen HISTORY OF PRESENT ILLNESS: The patient is a 60-year-old female who presents with gastroesophageal reflux disease, anemia and colon polyps. Upper and lower endoscopy were offered for further evaluation and management. PAST MEDICAL HISTORY: Please see list. PAST SURGICAL HISTORY: Please see list. MEDICATIONS: Please see list. ALLERGIES: Please see list. SOCIAL HISTORY: No illicit drug use FAMILY HISTORY: No reports of Crohn disease or ulcerative colitis. REVIEW OF ORGAN SYSTEMS: CONSTITUTIONAL: No reports of fevers or chills. GI: Denies any blood in stools or constipation. PHYSICAL EXAM: VITAL SIGNS: Stable GENERAL: Well-developed pleasant in no acute distress. HEENT: No scleral icterus. Extraocular movements grossly intact. Moist buccal mucosa. NECK: Supple without lymphadenopathy. CHEST: Unlabored respirations. Equal bilateral excursions. CARDIOVASCULAR: Regular rate and rhythm. Distal 2+ pulses. ABDOMEN: Soft, nondistended. MUSCULOSKELETAL: No clubbing, cyanosis, or edema. ASSESSMENT: 1. Gastroesophageal reflux disease 2. Colon screen. PLAN: 1. Recommend proceeding with an upper and lower endoscopy Past Medical History Past Medical History: Atrial Fibrillation, Chest Pain / Angina, GERD/Reflux, Hyperlipidemia, Osteoarthritis (OA), Sleep Apnea/CPAP/BIPAP Additional Past Medical History / Comment(s): lower GI bleed/severe anemia with blood transfusion, gastric polyp, hiatal hernia, diverticular disease, colon polyp, hemorrhoids, AUTUMN and either sleeps in a recliner or uses Cpap, arthritis in back/bilateral knees, migraines years ago, osteopenia, RLS, lung nodules/unchanged over a couple years of being monitored, bilateral leg poor circulation, bronchitis, sinusitis, holter monitor, recent SOB w/exertion History of Any Multi-Drug Resistant Organisms: None Reported Past Surgical History: Bladder Surgery, Breast Surgery, Heart Catheterization, Joint Replacement, Orthopedic Surgery, Tubal Ligation Additional Past Surgical History / Comment(s): left breast benign biopsy, L knee arthroscopy, buck knee replacement, rt shoulder arthroscopy, bladder suspension, EGD, colonoscopies, small bowel capsule Past Anesthesia/Blood Transfusion Reactions: Previous Problems w/ Anesthesia Additional Past Anesthesia/Blood Transfusion Reaction / Comment(s): states during her 1st knee replacement & during colonoscopy her legs were "twitching" & had to be given general anesthesia-restless leg Smoking Status: Former smoker - Past Family History Father Family Medical History: Coronary Artery Disease (CAD) Additional Family Medical History / Comment(s): Father lived to be 82 yrs. He had 9 cardiac stents. Sister(s) Additional Family Medical History / Comment(s): Pt has 3 sisters, all of which are healthy except one has thyroid problem. Mother Family Medical History: Congestive Heart Failure (CHF) Additional Family Medical History / Comment(s): Mother of chf at the age of 74 yrs. She was obese. Medications and Allergies Home Medications Medication Instructions Recorded Confirmed Type Cholecalciferol [Vitamin D3 (25 5,000 unit PO DAILY 02/12/16 09/11/20 History Mcg = 1000 Iu)] Multivitamins, Thera [Multivitamin 1 tab PO DAILY 02/12/16 09/11/20 History (formulary)] Magnesium Oxide [Mag-Ox] 400 mg PO DAILY 12/18/18 09/11/20 History Pramipexole [Mirapex] 1 mg PO TID 12/18/18 09/11/20 History Pravastatin Sodium [Pravachol] 20 mg PO AC-SUPPER 12/18/18 09/11/20 History Esomeprazole Magnesium [NexIUM 20 mg PO DAILY 07/28/20 09/11/20 History 24Hr] Metoprolol Succinate (ER) [Toprol 25 mg PO DAILY 08/20/20 09/11/20 History Xl] Ubidecarenone [Co Q-10] 1 tab PO DAILY 08/25/20 09/11/20 History Docusate [Colace] 100 mg PO BID 09/11/20 09/15/20 History Ferrous Sulfate [Feosol] 325 mg PO TID 09/11/20 09/11/20 History Liraglutide [Saxenda] 1.8 mg SQ DAILY 09/11/20 09/11/20 History Allergies Allergy/AdvReac Type Severity Reaction Status Date / Time adhesive tape Allergy Rash/Hives Verified 09/11/20 08:59 Surgical - Exam Vital Signs Temp Pulse Resp BP Pulse Ox 99.6 F 89 16 134/59 94 L 09/15/20 07:19 09/15/20 07:19 09/15/20 07:19 09/15/20 07:19 09/15/20 07:19
[2020-09-15 07:43] LABS: Glucose,Whole Blood 94 mg/dL (75-99)
[2020-09-15] MEDS ORDERED: LACTATED RINGERS 1,000 ML IV ONE (07:43)
[2020-09-15] MEDS ORDERED: LIDOCAINE 1% (10MG/ML) FOR IV START INTRADERMA ONE (07:44)
[2020-09-15] MEDS ORDERED: PROPOFOL 10 MG/ML 20 ML VIAL IV ONE (08:01)
[2020-09-15] MEDS ORDERED: LIDOCAINE 1% INJ 10MG/ML (20 ML MDV) ONE (08:01)
--- NOTE | 2020-09-15 08:35 | P.PCN ---
Date of Procedure: 09/15/20 Description of Procedure: PREOPERATIVE DIAGNOSIS: Gastroesophageal reflux disease. Morbid obesity. Anemia Iron deficiency anemia POSTOPERATIVE DIAGNOSIS: Diaphragmatic hiatal hernia, sliding type Acute esophageal ulceration with bleeding Gastritis Gastroesophageal reflux disease Gastric polyps OPERATION: Esophagogastroduodenoscopy with biopsies along antrum. SURGEON: Tanisha Joseph MD ANESTHESIA: MAC. INDICATIONS: The patient is a 60-year-old female who presents with a history of reflux diseas e and anemia. Benefits and risks of the procedure were described. Informed consent was obtained. DESCRIPTION: The patient was brought into the endoscopy suite and laid in the left lateral decubitus position. An Olympus gastroscope was passed along the posterior oropharynx down to the distal esophagus where the squamocolumnar junction was encountered at 35 cm from the incisors. The stomach was entered and no bile reflux was found. Additional findings are listed below. Biopsies with cold forceps were obtained of the antrum. The first through third portion of the duodenum was examined and unremarkable. Retroflexion of the scope confirmed Hill grade 4 lower esophageal valve. The squamocolumnar junction demonstrated LA grade C erosive esophagitis. The stomach was desufflated. The patient tolerated the procedure well. FINDINGS: Squamocolumnar junction 35 cm from the incisors. Diaphragmatic hiatus at 40 cm. Hiatal hernia, 5 cm, with bleeding Hill grade 4 lower esophageal valve. LA grade C erosive esophagitis with bleeding No active duodenitis. Chronic gastritis Gastric polyps RECOMMENDATIONS: Upper endoscopy as needed.
--- NOTE | 2020-09-15 08:38 | P.PCN ---
Date of Procedure: 09/15/20 Description of Procedure: PREOPERATIVE DIAGNOSIS: History of colon polyps Anemia POSTOPERATIVE DIAGNOSIS: History of colon polyps Anemia Severe pandiverticulosis Internal and external hemorrhoids, grade 3 OPERATION: Colonoscopy to the cecum, ileocecal valve SURGEON: Tanisha Joseph MD. ANESTHESIA: MAC. INDICATIONS: The patient is a 60-year-old female who presents with history of colon polyps and recent anemia. Benefits and risks were described and informed consent was obtained. DESCRIPTION OF PROCEDURE: The patient had undergone Sutab prep. The patient had been brought into the operating room and laid in the left lateral decubitus position. After adequate intravenous sedation, the rectum was examined with 2% lidocaine jelly. External hemorrhoids were encountered. The rectal tone was within normal limits. No lesions were palpated in the rectal vault. An Olympus colonoscope was advanced until the cecum, ileocecal valve were clearly viewed. The prep was excellent. Severe pandiverticulosis was encountered. No colonic polyps were found. No evidence of focal colitis was found. Retroflexion of the scope demonstrated grade 3 internal hemorrhoids without active bleeding or inflammation. The colon was desufflated. The patient had tolerated the procedure well. Withdrawal time was over 6 minutes. FINDINGS: Aronchick preparation quality scale 2 (1-5) Internal hemorrhoids, grade 3 External prolapsed hemorrhoids, grade 3 Severe pandiverticulosis No arteriovenous malformations. No adenomatous polyps. No focal colitis. RECOMMENDATIONS: Lower endoscopy in 5 years, 2025 Plan - Discharge Summary Discharge Rx Participant: No New Discharge Prescriptions: New RX: Omeprazole [PriLOSEC] 40 mg PO DAILY #14 cap Continue RX: Cholecalciferol [Vitamin D3 (25 Mcg = 1000 Iu)] 5,000 unit PO DAILY RX: Multivitamins, Thera [Multivitamin (formulary)] 1 tab PO DAILY RX: Pramipexole [Mirapex] 1 mg PO TID RX: Pravastatin Sodium [Pravachol] 20 mg PO AC-SUPPER RX: Magnesium Oxide [Mag-Ox] 400 mg PO DAILY RX: Metoprolol Succinate (ER) [Toprol XL] 25 mg PO DAILY RX: Ubidecarenone [Co Q-10] 1 tab PO DAILY RX: Liraglutide [Saxenda] 1.8 mg SQ DAILY RX: Esomeprazole Magnesium [NexIUM 24Hr] 20 mg PO DAILY RX: Ferrous Sulfate [Iron (65 MG Elemental)] 325 mg PO TID RX: Docusate [Colace] 100 mg PO BID Discharge Medication List RX: Cholecalciferol [Vitamin D3 (25 Mcg = 1000 Iu)] 5,000 unit PO DAILY 02/12/16 [History] RX: Multivitamins, Thera [Multivitamin (formulary)] 1 tab PO DAILY 02/12/16 [History] RX: Magnesium Oxide [Mag-Ox] 400 mg PO DAILY 12/18/18 [History] RX: Pramipexole [Mirapex] 1 mg PO TID 12/18/18 [History] RX: Pravastatin Sodium [Pravachol] 20 mg PO AC-SUPPER 12/18/18 [History] RX: Esomeprazole Magnesium [NexIUM 24Hr] 20 mg PO DAILY 07/28/20 [History] RX: Metoprolol Succinate (ER) [Toprol XL] 25 mg PO DAILY 08/20/20 [History] RX: Ubidecarenone [Co Q-10] 1 tab PO DAILY 08/25/20 [History] RX: Docusate [Colace] 100 mg PO BID 09/11/20 [History] RX: Ferrous Sulfate [Iron (65 MG Elemental)] 325 mg PO TID 09/11/20 [History] RX: Liraglutide [Saxenda] 1.8 mg SQ DAILY 09/11/20 [History] RX: Omeprazole [PriLOSEC] 40 mg PO DAILY #14 cap 09/15/20 [Rx] Follow up Appointment(s)/Ref[facility] [place] [facility]] - 09/17/20 Patient Instructions/Handouts: Peptic Ulcer (DC), Hiatal Hernia (DC), Gastritis (DC), Diverticulosis (DC), Diet for Stomach Ulcers and Gastritis (GEN), Diverticulosis Diet (GEN) Activity/Diet/Wound Care/Special Instructions: Repeat colonoscopy 5 years, 2025 Discharge Disposition: HOME SELF-CARE
[2020-09-15 09:00] VITALS: BP 129/78; PULSE 78
== END 2020-09-15 09:17 | disposition home or self-care (01) ==
LOC: ORWHC2ENDO 07:05
PROVIDERS: ATTEND Surgery Plastic and Reconstructive Surgery
DX: K21.9 Gastro-esophageal reflux disease without esophagitis (principal); D50.9 Iron deficiency anemia, unspecified; E66.01 Morbid (severe) obesity due to excess calories; E78.5 Hyperlipidemia, unspecified; G47.33 Obstructive sleep apnea (adult) (pediatric); I48.91 Unspecified atrial fibrillation; K22.10 Ulcer of esophagus without bleeding; K29.50 Unspecified chronic gastritis without bleeding; K31.7 Polyp of stomach and duodenum; K44.9 Diaphragmatic hernia without obstruction or gangrene; M19.90 Unspecified osteoarthritis, unspecified site; M85.80 Other specified disorders of bone density and structure, unspecified site; Z79.899 Other long term (current) drug therapy; Z82.49 Family history of ischemic heart disease and other diseases of the circulatory system; Z87.891 Personal history of nicotine dependence; Z96.653 Presence of artificial knee joint, bilateral
CPT/HCPCS: 45378; 43239; 88305; J2001; J2704

== ENCOUNTER → 2020-09-17 | Outpatient (CLI) | payer MEDICAID ==
--- NOTE | 2020-09-17 16:34 | P.PN ---
Subjective Progress Note Date: 09/17/20 DATE OF SERVICE: 09/17/2020 CHIEF COMPLAINT: Morbid obesity HISTORY OF PRESENT ILLNESS: Christa Butler is a 60-year-old female with lifelong morbid obesity. She is looking into the gastric bypass. She reports gastroesophageal reflux disease. As a result of her morbid obesity, she has developed osteoarthritis of the lower back, right hip pain, both knees and has sleep apnea. She has persistent iron deficiency anemia. She has pending complete cardiac risk assessment. She has a symptomatic hiatal hernia. She presents for management of her morbid obesity. At height of 5 feet 4.5 inches, her ideal body weight is 144 pounds. She comes in 330 pounds from 329 pounds, 1 month ago. She has gained 1 pound in 1 month. Her body mass index is 55.9. She is 186 pounds overweight. PAST MEDICAL HISTORY: 1. Morbid obesity due to excess calories 2. Body mass index of 55.7, initial 3. Restless leg syndrome 4. Osteoarthritis bilateral knee 5. Colon polyp 6. Hypertensive heart disease 7. Hyperlipidemia 8. Iron deficiency anemia 9. Diabetes type 2, [id number] 10. Gastric polyp 11. Hiatal hernia 12. Diverticular disease 13. Hemorrhoids 14. Obstructive sleep apnea 15. Migraines 16. Osteopenia 17. Atrial fibrillation 18. Gastroesophageal reflux disease 19. Osteoarthritis lower back 20. Osteoarthritis of the hips PAST SURGICAL HISTORY: 1. Knee replacement 2. Colonoscopy 3. Left breast biopsy 4. Left knee arthroscopy 5. Bilateral knee replacement 6. Right shoulder arthroscopy 7. Bladder sling 8. Upper endoscopy 9. Colonoscopy with polypectomy 10. Small bowel capsule 11. Tubal ligation HOME MEDICATIONS: Home Medications Medication Instructions Recorded Confirmed Cholecalciferol [Vitamin D3 (25 5,000 unit PO DAILY 02/12/16 09/29/20 Mcg = 1000 Iu)] Multivitamins, Thera [Multivitamin 1 tab PO DAILY 02/12/16 09/29/20 (formulary)] Magnesium Oxide [Mag-Ox] 400 mg PO DAILY 12/18/18 09/29/20 Pramipexole [Mirapex] 1 mg PO TID 12/18/18 09/29/20 Pravastatin Sodium [Pravachol] 20 mg PO AC-SUPPER 12/18/18 09/29/20 Metoprolol Succinate (ER) [Toprol 25 mg PO DAILY 08/20/20 09/29/20 XL] Ubidecarenone [Co Q-10] 1 tab PO DAILY 08/25/20 09/29/20 Docusate [Colace] 100 mg PO BID 09/11/20 09/29/20 Ferrous Sulfate [Iron (65 MG 325 mg PO TID 09/11/20 09/29/20 Elemental)] Liraglutide [Saxenda] 1.8 mg SQ DAILY 09/11/20 09/29/20 Previous Rx's Medication Instructions Recorded Omeprazole [PriLOSEC] 40 mg PO DAILY #14 cap 09/15/20 ALLERGIES: Allergies Allergy/AdvReac Type Severity Reaction Status Date / Time adhesive tape Allergy Rash/Hives Verified 09/29/20 09:49 SOCIAL HISTORY: Past tobacco use. FAMILY HISTORY: No family history of ulcerative colitis disease or Crohn's disease. Family history of morbid obesity. No lupus in the family. No reports of stomach or esophageal cancer. Mother had congestive heart failure. Has thyroid problems. Father has history of coronary artery disease. Her mother had diabetes. Her mother, dad, grandmother on both sides has morbid obesity. REVIEW OF ORGAN SYSTEMS: CONSTITUTIONAL: At height of 5 feet 4.5 inches, her ideal body weight is 144 pounds. She comes in 329 pounds. Her body mass index is 55.7 She is 185 pounds overweight. HEENT: Denies any active troubles with vision or hearing. ENDOCRINE: Has diabetes. No hypothyroidism. CARDIOVASCULAR: Has hypertensive heart disease. No recent chest pain or heart attack. Has hyperlipidemia. Has dyspnea on exertion. Has atrial fibrillation. Had angina. Has peripheral vascular occlusive disease. She comes in with a holter monitor. RESPIRATORY: She has dyspnea. Denies chronic obstructive pulmonary disease. He has dyspnea on exertion. Has obstructive sleep apnea. Has lung nodules. History of bronchitis. GASTROINTESTINAL: Has gastrointestinal bleeding. His iron deficiency anemia. Has gastroesophageal reflux disease. She had her colonoscopy November 2018 with polyps. GENITOURINARY: No recent blood in urine. History of bladder leakage. MUSCULOSKELETAL: Has lower back pain and joint pain. Has osteoarthritis of the knees. Has restless leg syndrome. Has osteopenia. NEURO: No headaches. No seizure disorders. Has migraines. PSYCH: No suicidal ideation. No depression. RHEUMATOLOGIC: No lupus. No rheumatoid arthritis. HEMATOLOGIC: Past abnormal bleeding or bruising. Has gastrointestinal bleeding and recent blood transfusion. Was on blood thinners. SKIN: No rash. No skin cancer. PHYSICAL EXAM: VITAL SIGNS: Height 5 foot 4.5 inches, weight 330 pounds. BMI 55.9 Vital Signs Temp 98.2 F 09/17/20 15:21 Pulse 76 09/17/20 15:21 Resp BP 125/82 09/17/20 15:21 Pulse Ox GENERAL: Well-developed in no acute distress. HEENT: No scleral icterus. Extraocular movements grossly intact. Hears conversational speech. No nasal drainage. NECK: Supple without lymphadenopathy. CHEST: Nonlabored respirations with equal bilateral excursions. CARDIOVASCULAR: Regular rate and regular rhythm. Distal 2+ pulses. ABDOMEN: Obese, soft, nontender, nondistended. MUSCULOSKELETAL: No clubbing, cyanosis. NEURO: No focal or lateralizing signs. Cranial nerves 2 through 12 grossly within normal limits. PSYCH: Appropriate affect. Alert and oriented to person, place and time. SKIN: Good skin turgor. Well perfused. LABS: Reviewed. Hgb 6.4. Iron low. CARDIAC CATH REPORT: LEFT MAIN: The left main is a large caliber vessel which bifurcates into the LAD and circumflex. There is no significant stenosis. LEFT ANTERIOR DESCENDING CORONARY ARTERY: LAD is a large caliber vessel which wraps around to the apex. There is no significant stenosis. LEFT CIRCUMFLEX CORONARY ARTERY: Left circumflex is a moderate caliber vessel without significant stenosis. RIGHT CORONARY ARTERY: The right coronary artery is a large caliber vessel which gives off a PDA and PLV branch and is the dominant vessel. There is no significant stenosis. FINAL IMPRESSION: 1. Normal coronary arteries as described above. 2. High normal left sided filling pressures EGD FINDINGS: Squamocolumnar junction 35 cm from the incisors. Diaphragmatic hiatus at 40 cm. Hiatal hernia, 5 cm, with bleeding Hill grade 4 lower esophageal valve. LA grade C erosive esophagitis with bleeding No active duodenitis. Chronic gastritis Gastric polyps COLON FINDINGS: Aronchick preparation quality scale 2 (1-5) Internal hemorrhoids, grade 3 External prolapsed hemorrhoids, grade 3 Severe pandiverticulosis No arteriovenous malformations. No adenomatous polyps. No focal colitis. IMAGING: Barium swallow independently reviewed with moderate hiatal hernia, fixed. This is my independent interpretation. RADIOLOGY REPORT: CT of the abdomen and pelvis with moderate fixed hiatal hernia. Final Pathologic Diagnosis GASTRIC ANTRUM, BIOPSY: Mild chronic gastritis. Helicobacter pylori organisms are not identified on routine H+E sections. ASSESSMENT: 1. Morbid obesity due to excess calories 2. Body mass index of 55.9 3. Restless leg syndrome 4. Osteoarthritis bilateral knee 5. Colon polyp 6. Hypertensive heart disease 7. Hyperlipidemia 8. Iron deficiency anemia 9. Diabetes type 2, [id number] 10. Gastric polyp 11. Hiatal hernia 12. Diverticular disease 13. Hemorrhoids 14. Obstructive sleep apnea 15. Migraines 16. Osteopenia 17. Atrial fibrillation 18. Gastroesophageal reflux disease 19. Osteoarthritis lower back 20. Osteoarthritis of the hips 21. Diaphragmatic hiatal hernia. PLAN: 1. She has completed cardiac clearance with her pre-existing heart disease. 2. She has a large paraesophageal hiatal hernia where she is symptomatic. Recommend repair for which she is elevated risk with BMI over 50 and severe anemia. 3. She has severe anemia. Recommend iron infusions and re-check and correction of her anemia. 4. Recommend repeat iron studies following iron infusion therapy. 5. Will need complete bariatric labs.
[2020-09-18 11:33] VITALS: BP 125/82; PULSE 76; TEMP 98.2; BMI 55.9
== END ==
LOC: BARWHC3 15:21
PROVIDERS: ATTEND Surgery Plastic and Reconstructive Surgery
DX: E66.01 Morbid (severe) obesity due to excess calories (principal); D50.9 Iron deficiency anemia, unspecified; E11.9 Type 2 diabetes mellitus without complications; E78.5 Hyperlipidemia, unspecified; G25.81 Restless legs syndrome; G43.909 Migraine, unspecified, not intractable, without status migrainosus; G47.33 Obstructive sleep apnea (adult) (pediatric); I11.9 Hypertensive heart disease without heart failure; I48.91 Unspecified atrial fibrillation; K21.9 Gastro-esophageal reflux disease without esophagitis; K29.50 Unspecified chronic gastritis without bleeding; K31.7 Polyp of stomach and duodenum; K44.9 Diaphragmatic hernia without obstruction or gangrene; M16.0 Bilateral primary osteoarthritis of hip; M17.0 Bilateral primary osteoarthritis of knee; K57.90 Diverticulosis of intestine, part unspecified, without perforation or abscess without bleeding; K64.9 Unspecified hemorrhoids; M47.9 Spondylosis, unspecified; M85.80 Other specified disorders of bone density and structure, unspecified site; Z68.43 Body mass index [BMI] 50.0-59.9, adult; Z79.899 Other long term (current) drug therapy; Z87.891 Personal history of nicotine dependence; Z91.048 Other nonmedicinal substance allergy status
CPT/HCPCS: 99211

== ENCOUNTER → 2020-09-29 | Outpatient (CLI) | payer MEDICAID ==
[2020-09-29 09:35] VITALS: BMI 56.0
[2020-09-29 12:20] LABS: Anisocytosis Slight; HCT 43.7 % (34.0-46.0); Hypochromasia Marked; MCH 27.7 pg (25.0-35.0); MCHC 30.6 g/dL (31.0-37.0); Mean Platelet Volume 7.2; Platelet Count 312 k/uL (150-450); RBC 4.82 m/uL (3.80-5.40); RDW 17.8 % (11.5-15.5); WBC 10.5 k/uL (3.8-10.6)
[2020-09-29 12:26] LABS: HGB 13.4 gm/dL (11.4-16.0); MCV 90.6 fL (80.0-100.0)
[2020-09-29 12:52] LABS: INR 0.9 (<1.2); Prothrombin Time 9.9 sec (9.0-12.0)
[2020-09-30 01:35] LABS: Ferritin 75.9 ng/mL (10.0-291.0)
[2020-09-30 01:49] LABS: % Iron Saturation 8.88 (12.00-45.00); African American GFR (CKD) 92.9 (60.0-200.0); Albumin 4.4 g/dL (3.80-4.90); Albumin/Globulin Ratio 1.69 (1.60-3.17); Anion Gap 7.9 mmol/L (4.00-12.00); BUN/Creat Ratio 13.75 Ratio (12.00-20.00); Calcium 9.7 mg/dL (8.7-10.3); Carbon Dioxide 31.1 mmol/L (21.6-31.8); Chol/HDL Ratio 4.45; Folate, Serum 21.2 ng/mL; Globulin 2.6 g/dL (1.6-3.3); LDL Cholesterol,Calculated 136.8 mg/dL (0.0-131.0); Non-African American GFR(CKD) 80.1 (60.0-200.0); Phosphorus 3.8 mg/dL (2.4-5.1); Potassium 4.5 mmol/L (3.5-5.5); Total Bilirubin 0.3 mg/dL (0.3-1.2); VLDL Calculation 15.2 mg/dL (5.00-40.00)
[2020-09-30 14:36] LABS: Zinc, Serum 72 ug/dL (60-130)
[2020-10-01 06:14] LABS: Vit B1(Thiamine) 87 ug/L (38-122)
[2020-10-01 12:58] LABS: Vitamin A 40 ug/dL (38-106)
[2020-10-03 00:29] LABS: Selenium 116 mcg/L (63-160)
== END ==
LOC: BARWHC3 08:30
PROVIDERS: ATTEND Surgery Plastic and Reconstructive Surgery
DX: E66.01 Morbid (severe) obesity due to excess calories (principal); Z71.3 Dietary counseling and surveillance; Z91.048 Other nonmedicinal substance allergy status; Z87.891 Personal history of nicotine dependence; Z68.43 Body mass index [BMI] 50.0-59.9, adult
CPT/HCPCS: 36415; 80053; 80061; 82306; 82525; 82607; 82728; 82746; 83036; 83540; 83550; 83735; 83970; 84100; 84134; 84255; 84425; 84443; 84590; 84630; 85027; 85610; 85730; 97804

== ENCOUNTER 2020-10-29 22:39 | Emergency (ER) | payer MEDICAID ==
[2020-10-29] MEDS ORDERED: HYDROmorphone 0.5 MG/0.5 ML SYRINGE IVP STA (22:54)
[2020-10-29] MEDS ORDERED: SODIUM CHLORIDE 0.9% 1,000 ML IV STA (22:54)
[2020-10-29] MEDS ORDERED: ONDANSETRON 4 MG/2 ML VIAL IVP STA (22:54)
--- NOTE | 2020-10-29 22:58 | ED ---
Abdominal Pain HPI - General Source: patient, RN notes reviewed Mode of arrival: wheelchair Limitations: no limitations <Rene De La Cruz - Last Filed: 10/29/20 22:57> <Radhames Wheat - Last Filed: 10/31/20 02:31> - General Chief Complaint: Abdominal Pain Stated Complaint: Abd Pain Time Seen by Provider: 10/29/20 22:44 - History of Present Illness Initial Comments: This is a 60-year-old female presents emergency Department chief complaint of abdominal pain. Patient states pain is intensifying and states it's primarily lower abdomen at this point she states it was in her midabdomen. She has meant to some nausea without emesis time. Denies any diarrhea constipation. She is scheduled for surgery next week for arrival hernia by Dr. Joseph. Patient denies any fevers chills no chest pain shortness of breath. Patient states nothing makes pain. At this time. She does feel it into her back also. (Rene De La Cruz) - Related Data Home Medications Medication Instructions Recorded Confirmed Multivitamins, Thera [Multivitamin 1 tab PO DAILY 02/12/16 10/30/20 (formulary)] Magnesium Oxide [Mag-Ox] 400 mg PO DAILY 12/18/18 10/30/20 Pramipexole [Mirapex] 1 mg PO TID 12/18/18 10/30/20 Ubidecarenone [Co Q-10] 100 mg PO DAILY 08/25/20 10/30/20 Ferrous Sulfate [Iron (65 MG 325 mg PO TID 09/11/20 10/30/20 Elemental)] Metoprolol Succinate [Toprol XL] 50 mg PO DAILY 10/29/20 10/30/20 Pravastatin Sodium [Pravachol] 40 mg PO DAILY 10/29/20 10/30/20 Turmeric Root Extract [Turmeric] 500 mg PO DAILY 10/29/20 10/30/20 Cholecalciferol (Vitamin D3) 125 mcg PO DAILY 10/30/20 10/30/20 [Vitamin D3 (5000 Iu)] Allergies Allergy/AdvReac Type Severity Reaction Status Date / Time adhesive tape Allergy Rash/Hives/pulls Verified 10/30/20 22:58 skin off Review of Systems ROS Other: All systems not noted in ROS Statement are negative. <Rene De La Cruz - Last Filed: 10/29/20 22:57> ROS Other: All systems not noted in ROS Statement are negative. <Radhames Wheat - Last Filed: 10/31/20 02:31> ROS Statement: Those systems with pertinent positive or pertinent negative responses have been documented in the HPI. Past Medical History Past Medical History: Atrial Fibrillation, Chest Pain / Angina, GERD/Reflux, Hyperlipidemia, Osteoarthritis (OA), Sleep Apnea/CPAP/BIPAP, Vascular Disorder Additional Past Medical History / Comment(s): 07/2020 lower GI bleed/ulceration from hiatal hernia/ severe anemia with blood transfusion, gastric polyp, hiatal hernia, diverticular disease, colon polyp, hemorrhoids, constipation, AUTUMN and either sleeps in a recliner or uses Cpap, arthritis in back/bilateral knees, migraines years ago, osteopenia, RLS, bilateral leg poor circulation, bronchitis, sinusitis, History of Any Multi-Drug Resistant Organisms: None Reported Past Surgical History: Bladder Surgery, Breast Surgery, Heart Catheterization, Joint Replacement, Orthopedic Surgery, Tubal Ligation Additional Past Surgical History / Comment(s): left breast biopsy, L knee arthroscopy, buck knee replacement, rt shoulder arthroscopy, bladder sling, bladder suspension, EGD, colonoscopies, small bowel capsule, 08/11/20 heart cath( needed blood transfusion) Past Anesthesia/Blood Transfusion Reactions: Previous Problems w/ Anesthesia Additional Past Anesthesia/Blood Transfusion Reaction / Comment(s): states during her 1st knee replacement & during colonoscopy her legs were "twitching" & had to be given general anesthesia-didn't think had to do w/her restless leg Past Psychological History: No Psychological Hx Reported Smoking Status: Former smoker Past Alcohol Use History: Rare Past Drug Use History: None Reported - Past Family History Father Family Medical History: Coronary Artery Disease (CAD) Additional Family Medical History / Comment(s): Father lived to be 82 yrs. He had 9 cardiac stents. Sister(s) Additional Family Medical History / Comment(s): Pt has 3 sisters, all of which are healthy except one has thyroid problem. Mother Family Medical History: Congestive Heart Failure (CHF) Additional Family Medical History / Comment(s): Mother of chf at the age of 74 yrs. She was obese. <Dedoe,Rene M - Last Filed: 10/29/20 22:57> General Exam Limitations: no limitations General appearance: alert, in no apparent distress Head exam: Present: atraumatic, normocephalic, normal inspection Neck exam: Present: normal inspection, full ROM. Absent: tenderness, meningismus, lymphadenopathy Respiratory exam: Present: normal lung sounds bilaterally. Absent: respiratory distress, wheezes, rales, rhonchi, stridor Cardiovascular Exam: Present: regular rate, normal rhythm, normal heart sounds. Absent: systolic murmur, diastolic murmur, rubs, gallop, clicks GI/Abdominal exam: Present: soft, tenderness, normal bowel sounds. Absent: distended, guarding, rebound, rigid Back exam: Absent: CVA tenderness (R), CVA tenderness (L) Neurological exam: Present: alert Skin exam: Present: warm, dry, intact, normal color. Absent: rash <Rene De La Cruz M - Last Filed: 10/29/20 22:57> General appearance: alert, in no apparent distress Head exam: Present: atraumatic, normocephalic, normal inspection Eye exam: Present: normal appearance, PERRL, EOMI. Absent: scleral icterus, conjunctival injection, periorbital swelling ENT exam: Present: normal exam, mucous membranes moist Neck exam: Present: normal inspection. Absent: tenderness, meningismus, lymphadenopathy Respiratory exam: Present: normal lung sounds bilaterally. Absent: respiratory distress, wheezes, rales, rhonchi, stridor Cardiovascular Exam: Present: regular rate, normal rhythm, normal heart sounds. Absent: systolic murmur, diastolic murmur, rubs, gallop, clicks GI/Abdominal exam: Present: soft, normal bowel sounds. Absent: distended, tenderness, guarding, rebound, rigid Extremities exam: Present: normal inspection, full ROM, normal capillary refill. Absent: tenderness, pedal edema, joint swelling, calf tenderness Back exam: Present: normal inspection Neurological exam: Present: alert, oriented X3, CN II-XII intact Psychiatric exam: Present: normal affect, normal mood Skin exam: Present: warm, dry, intact, normal color. Absent: rash <Radhames Wheat - Last Filed: 10/31/20 02:31> Course <Radhames Wheat - Last Filed: 10/31/20 02:31> Vital Signs 10/29/20 10/30/20 22:41 01:53 Temperature 97.8 F 97.9 F Pulse Rate 79 70 Respiratory 18 16 Rate Blood Pressure 117/66 118/70 O2 Sat by Pulse 93 L 97 Oximetry - Reevaluation(s) Reevaluation #1: Medical records reviewed Patient symptoms are improved significantly here in the ER Patient in no acute distress Patient informed of results and questions answered (Radhames Wheat) Medical Decision Making - Lab Data Result diagrams: 10/29/20 23:23 10/29/20 23:23 - Radiology Data Radiology results: report reviewed (CT abdomen and pelvis negative for s ignificant acute disease), image reviewed <Radhames Wheat - Last Filed: 10/31/20 02:31> - Medical Decision Making 60 female DF for persistent abdominal pain. Patient feels like she wants to try discharge home will she is continuously having intermittent abdominal pain (Radhames Wheat) - Lab Data Lab Results 10/29/20 10/29/20 10/29/20 Range/Units 23:23 23:23 23:23 WBC 12.5 H (3.8-10.6) k/uL RBC 4.33 (3.80-5.40) m/uL Hgb 12.7 (11.4-16.0) gm/dL Hct 38.1 (34.0-46.0) % MCV 88.0 (80.0-100.0) fL MCH 29.3 (25.0-35.0) pg MCHC 33.3 (31.0-37.0) g/dL RDW 17.0 H (11.5-15.5) % Plt Count 345 (150-450) k/uL MPV 7.1 Neutrophils % 82 % Lymphocytes % 8 % Monocytes % 5 % Eosinophils % 4 % Basophils % 0 % Neutrophils # 10.3 H (1.3-7.7) k/uL Lymphocytes # 1.0 (1.0-4.8) k/uL Monocytes # 0.7 (0-1.0) k/uL Eosinophils # 0.4 (0-0.7) k/uL Basophils # 0.0 (0-0.2) k/uL Anisocytosis Slight Sodium 135 L (137-145) mmol/L Potassium 3.8 (3.5-5.1) mmol/L Chloride 99 (98-107) mmol/L Carbon Dioxide 27 (22-30) mmol/L Anion Gap 9 mmol/L BUN 18 H (7-17) mg/dL Creatinine 0.59 (0.52-1.04) mg/dL Est GFR (CKD-EPI)AfAm >90 (>60 ml/min/1.73 sqM) Est GFR (CKD-EPI)NonAf >90 (>60 ml/min/1.73 sqM) Glucose 105 H (74-99) mg/dL Plasma Lactic Acid Lemuel (0.7-2.0) mmol/L Calcium 9.3 (8.4-10.2) mg/dL Total Bilirubin 0.4 (0.2-1.3) mg/dL AST 35 (14-36) U/L ALT 41 H (4-34) U/L Alkaline Phosphatase 93 (38-126) U/L Total Protein 6.4 (6.3-8.2) g/dL Albumin 3.9 (3.5-5.0) g/dL Amylase 43 (30-110) U/L Lipase 127 (23-300) U/L Urine Color Yellow Urine Appearance Cloudy H (Clear) Urine pH 5.5 (5.0-8.0) Ur Specific [place] 1.027 (1.001-1.035) Urine Protein Negative (Negative) Urine Glucose (UA) Negative (Negative) Urine Ketones Trace H (Negative) Urine Blood Small H (Negative) Urine Nitrite Negative (Negative) Urine Bilirubin Negative (Negative) Urine Urobilinogen <2.0 (<2.0) mg/dL Ur Leukocyte Esterase Moderate H (Negative) Urine RBC 1 (0-5) /hpf Urine WBC 1 (0-5) /hpf Ur Squamous Epith Cells 3 (0-4) /hpf Urine Bacteria Rare H (None) /hpf Urine Mucus Rare H (None) /hpf 10/29/20 Range/Units 23:23 WBC (3.8-10.6) k/uL RBC (3.80-5.40) m/uL Hgb (11.4-16.0) gm/dL Hct (34.0-46.0) % MCV (80.0-100.0) fL MCH (25.0-35.0) pg MCHC (31.0-37.0) g/dL RDW (11.5-15.5) % Plt Count (150-450) k/uL MPV Neutrophils % % Lymphocytes % % Monocytes % % Eosinophils % % Basophils % % Neutrophils # (1.3-7.7) k/uL Lymphocytes # (1.0-4.8) k/uL Monocytes # (0-1.0) k/uL Eosinophils # (0-0.7) k/uL Basophils # (0-0.2) k/uL Anisocytosis Sodium (137-145) mmol/L Potassium (3.5-5.1) mmol/L Chloride (98-107) mmol/L Carbon Dioxide (22-30) mmol/L Anion Gap mmol/L BUN (7-17) mg/dL Creatinine (0.52-1.04) mg/dL Est GFR (CKD-EPI)AfAm (>60 ml/min/1.73 sqM) Est GFR (CKD-EPI)NonAf (>60 ml/min/1.73 sqM) Glucose (74-99) mg/dL Plasma Lactic Acid Lemuel 1.1 (0.7-2.0) mmol/L Calcium (8.4-10.2) mg/dL Total Bilirubin (0.2-1.3) mg/dL AST (14-36) U/L ALT (4-34) U/L Alkaline Phosphatase (38-126) U/L Total Protein (6.3-8.2) g/dL Albumin (3.5-5.0) g/dL Amylase (30-110) U/L Lipase (23-300) U/L Urine Color Urine Appearance (Clear) Urine pH (5.0-8.0) Ur Specific [place] (1.001-1.035) Urine Protein (Negative) Urine Glucose (UA) (Negative) Urine Ketones (Negative) Urine Blood (Negative) Urine Nitrite (Negative) Urine Bilirubin (Negative) Urine Urobilinogen (<2.0) mg/dL Ur Leukocyte Esterase (Negative) Urine RBC (0-5) /hpf Urine WBC (0-5) /hpf Ur Squamous Epith Cells (0-4) /hpf Urine Bacteria (None) /hpf Urine Mucus (None) /hpf Disposition <Rene De La Cruz - Last Filed: 10/29/20 22:57> Is patient prescribed a controlled substance at d/c from ED?: No <Radhames Wheat - Last Filed: 10/31/20 02:31> Clinical Impression: Abdominal pain Disposition: HOME SELF-CARE Condition: Fair Instructions (If sedation given, give patient instructions): Abdominal Pain (ED) Referrals: Juliette Bradshaw MD [Primary Care Provider] - 1-2 days
[2020-10-29 23:34] LABS: Anisocytosis Slight; Basophils % (A) 0 %; Eosinophils # (A) 0.4 k/uL (0-0.7); Eosinophils % (A) 4 %; HCT 38.1 % (34.0-46.0); HGB 12.7 gm/dL (11.4-16.0); Lymphocytes % (A) 8 %; MCH 29.3 pg (25.0-35.0); MCHC 33.3 g/dL (31.0-37.0); Mean Platelet Volume 7.1; Monocytes # (A) 0.7 k/uL (0-1.0); Monocytes % (A) 5 %; Neutrophils # (A) 10.3 k/uL (1.3-7.7); Neutrophils % (A) 82 %; Platelet Count 345 k/uL (150-450); RBC 4.33 m/uL (3.80-5.40); WBC 12.5 k/uL (3.8-10.6)
[2020-10-30] LABS: Appearance,Urine Cloudy (Clear); Bacteria,Urine Rare /hpf; Bilirubin,Urine Negative (Negative); Blood,Urine Small (Negative); Color,Urine Yellow; Glucose,Urine (UA) Negative (Negative); Ketones,Urine Trace (Negative); Leukocyte Esterase,Urine Moderate (Negative); Mucus,Urine Rare /hpf; Nitrite,Urine Negative (Negative); PH, Urine 5.5 (5.0-8.0); Protein,Urine Negative (Negative); RBC,Urine 1 /hpf (0-5); Specific Gravity,Urine 1.027 (1.001-1.035); Squamous Epithelial Cell,Urine 3 /hpf (0-4); Urobilinogen,Urine <2.0 mg/dL (<2.0); WBC,Urine 1 /hpf (0-5)
[2020-10-30 00:02] LABS: ALT 41 U/L (4-34); AST 35 U/L (14-36); African American GFR (CKD) >90 (>60 ml/min/1.73 sqM); Albumin 3.9 g/dL (3.5-5.0); Alkaline Phosphatase 93 U/L (38-126); Amylase 43 U/L (30-110); Anion Gap 9 mmol/L; Blood Urea Nitrogen 18 mg/dL (7-17); Calcium 9.3 mg/dL (8.4-10.2); Carbon Dioxide 27 mmol/L (22-30); Chloride 99 mmol/L (98-107); Glucose 105 mg/dL (74-99); Lipase 127 U/L (23-300); Non-African American GFR(CKD) >90 (>60 ml/min/1.73 sqM); Potassium 3.8 mmol/L (3.5-5.1); Sodium 135 mmol/L (137-145); Total Bilirubin 0.4 mg/dL (0.2-1.3); Total Protein 6.4 g/dL (6.3-8.2)
--- NOTE | 2020-10-30 00:13 | CT ---
EXAMINATION TYPE: CT abdomen pelvis w con DATE OF EXAM: 10/29/2020 COMPARISON: 09/05/2020 HISTORY: Abd Pain CT DLP: 4061.70 mGycm Automated exposure control for dose reduction was used. CONTRAST: Performed with IV Contrast, patient injected with 100 mL of Isovue 300. Lung bases are clear of consolidation. There is no pleural effusion. There is hiatal hernia. Stomach is intact. Liver spleen pancreas gallbladder appear intact. The bile ducts are not dilated. There is no adrenal mass. Kidneys show satisfactory contrast opacification. There is no hydronephrosi s. The ureters are not dilated. Delayed images show normal renal excretion. The lumbar vertebra show no compression fracture. There is L5 spondylolysis with first-degree L5-S1 s pondylolisthesis. The bony pelvis is intact. The hip joints are intact. Bladder distends smoothly. Uterus is anteverted. There is no pelvic mass. I see no significant enlarg ed pelvic lymph nodes. There is enlarged left side abdominal para-aortic lymph nodes that measure up to 4 cm. IMPRESSION: There is retroperitoneal lymphadenopathy that is increased compared to old CT scan and could relate t o lymphoma. Colonic diverticulosis without diverticulitis. Normal appendix. Hiatal hernia.
[2020-10-30] MEDS ORDERED: CALCIUM CARBONATE 500 MG CHEWABLE PO STA (01:33)
[2020-10-30] MEDS ORDERED: traMADol 50 MG STARTER PACK 3 TAB BTL PO STA (01:33)
[2020-10-30] MEDS ORDERED: ACET/COD 300 MG/30 MG STARTER PACK 6 TAB BTL PO STA (01:33)
[2020-10-30] MEDS ORDERED: ONDANSETRON 4 MG ODT STARTER PACK 2 TAB BTL PO STA (01:33)
[2020-10-30] MEDS ORDERED: MAG HYDROX/AL HYDROX/SIMETH 30 ML, HYOSCYAMINE ELIXIR 10 ML PO STA ×2 (01:33)
[2020-10-30 01:57] VITALS: BP 118/70; PULSE 70; RESP 16; TEMP 97.9
== END 2020-10-30 01:59 | disposition home or self-care (01) ==
LOC: EC 22:39
DX: R10.9 Unspecified abdominal pain (principal); I48.91 Unspecified atrial fibrillation; E78.5 Hyperlipidemia, unspecified; K21.9 Gastro-esophageal reflux disease without esophagitis; M19.90 Unspecified osteoarthritis, unspecified site; Z87.891 Personal history of nicotine dependence; Z79.899 Other long term (current) drug therapy
CPT/HCPCS: 96374 ×2; 96375 ×2; 96361 ×2; 99284 ×2; 36415; 80053; 82150; 83605; 83690; 85025; 81001; 74177; J2405; S0119; J1170; Q9967

== ENCOUNTER 2020-10-30 21:30 | Observation (INO) | payer MEDICAID ==
[2020-10-30] MEDS ORDERED: KETOROLAC 15 MG/ML 1 ML VIAL IVP STA (21:40)
[2020-10-30] MEDS ORDERED: ONDANSETRON 4 MG/2 ML VIAL IVP STA (21:40)
[2020-10-30] MEDS ORDERED: SODIUM CHLORIDE 0.9% 1,000 ML IV STA (21:40)
[2020-10-30] MEDS ORDERED: PANTOPRAZOLE 40 MG/10 ML VIAL IVP STA (21:40)
[2020-10-30] MEDS ORDERED: MORPHINE SULFATE 4 MG/ML SYRINGE IV STA (21:40)
--- NOTE | 2020-10-30 21:58 | ED ---
Recheck HPI - General Chief Complaint: Abdominal Pain Stated Complaint: Abd pain Time Seen by Provider: 10/30/20 21:40 Source: patient, RN notes reviewed, old records reviewed Mode of arrival: ambulatory - History of Present Illness Initial Comments: This is a 6-year-old female DF for evaluation of abdominal pain. Chronic Abdominal Pain. Patient Is Going through Outpatient Follow-Up regarding Her Persistent Abdominal Pain. Mild Nausea, Epigastric Pain Bilateral Lower Abdom inal Pain Diffuse Abdominal Pain and Back Pain. Patient Was Seen in the ER Yesterday for Similar Complaint. The Pain Has Persisted. Denies Any Fevers No Nausea Vomiting or Diarrhea. MD Complaint: other (Persistent pain) -: days(s) Returns Today for: persistent/worsening pain related to initial visit Symptoms Since Prior Visit: worsening pain Context: ran out of medication Associated Symptoms: abdominal pain Treatments Prior to Arrival: Given Pain Meds on - Related Data Home Medications Medication Instructions Recorded Confirmed Cholecalciferol [Vitamin D3 (25 5,000 unit PO DAILY 02/12/16 10/29/20 Mcg = 1000 Iu)] Multivitamins, Thera [Multivitamin 1 tab PO DAILY 02/12/16 10/29/20 (formulary)] Magnesium Oxide [Mag-Ox] 400 mg PO DAILY 12/18/18 10/29/20 Pramipexole [Mirapex] 1 mg PO TID 12/18/18 10/29/20 Ubidecarenone [Co Q-10] 100 mg PO DAILY 08/25/20 10/29/20 Ferrous Sulfate [Iron (65 MG 325 mg PO TID 09/11/20 10/29/20 Elemental)] Metoprolol Succinate [Toprol XL] 50 mg PO DAILY 10/29/20 10/29/20 Pravastatin Sodium [Pravachol] 40 mg PO DAILY 10/29/20 10/29/20 Turmeric Root Extract [Turmeric] 1,500 mg PO BID 10/29/20 10/29/20 Allergies Allergy/AdvReac Type Severity Reaction Status Date / Time adhesive tape Allergy Rash/Hives/pulls Verified 10/30/20 21:32 skin off Review of Systems ROS Statement: Those systems with pertinent positive or pertinent negative responses have been documented in the HPI. ROS Other: All systems not noted in ROS Statement are negative. Past Medical History Past Medical History: Atrial Fibrillation, Chest Pain / Angina, GERD/Reflux, Hyperlipidemia, Osteoarthritis (OA), Sleep Apnea/CPAP/BIPAP, Vascular Disorder Additional Past Medical History / Comment(s): 07/2020 lower GI bleed/ulceration from hiatal hernia/ severe anemia with blood transfusion, gastric polyp, hiatal hernia, diverticular disease, colon polyp, hemorrhoids, constipation, AUTUMN and either sleeps in a recliner or uses Cpap, arthritis in back/bilateral knees, migraines years ago, osteopenia, RLS, bilateral leg poor circulation, bronchitis, sinusitis, History of Any Multi-Drug Resistant Organisms: None Reported Past Surgical History: Bladder Surgery, Breast Surgery, Heart Catheterization, Joint Replacement, Orthopedic Surgery, Tubal Ligation Additional Past Surgical History / Comment(s): left breast biopsy, L knee arthroscopy, buck knee replacement, rt shoulder arthroscopy, bladder sling, bladder suspension, EGD, colonoscopies, small bowel capsule, 08/11/20 heart cath(needed blood transfusion) Past Anesthesia/Blood Transfusion Reactions: Previous Problems w/ Anesthesia Additional Past Anesthesia/Blood Transfusion Reaction / Comment(s): states during her 1st knee replacement & during colonoscopy her legs were "twitching" & had to be given general anesthesia-didn't think had to do w/her restless leg Past Psychological History: No Psychological Hx Reported Smoking Status: Former smoker Past Alcohol Use History: Rare Past Drug Use History: None Reported - Past Family History Father Family Medical History: Coronary Artery Disease (CAD) Additional Family Medical History / Comment(s): Father lived to be 82 yrs. He had 9 cardiac stents. Sister(s) Additional Family Medical History / Comment(s): Pt has 3 sisters, all of which are healthy except one has thyroid problem. Mother Family Medical History: Congestive Heart Failure (CHF) Additional Family Medical History / Comment(s): Mother of chf at the age of 74 yrs. She was obese. General Exam General appearance: alert, in no apparent distress Head exam: Present: atraumatic, normocephalic, normal inspection Eye exam: Present: normal appearance, PERRL, EOMI. Absent: scleral icterus, conjunctival injection, periorbital swelling ENT exam: Present: normal exam, mucous membranes moist Neck exam: Present: normal inspection. Absent: tenderness, meningismus, lympha denopathy Respiratory exam: Present: normal lung sounds bilaterally. Absent: respiratory distress, wheezes, rales, rhonchi, stridor Cardiovascular Exam: Present: regular rate, normal rhythm, normal heart sounds. Absent: systolic murmur, diastolic murmur, rubs, gallop, clicks GI/Abdominal exam: Present: soft, normal bowel sounds. Absent: distended, tenderness, guarding, rebound, rigid Extremities exam: Present: normal inspection, full ROM, normal capillary refill. Absent: tenderness, pedal edema, joint swelling, calf tenderness Back exam: Present: normal inspection Neurological exam: Present: alert, oriented X3, CN II-XII intact Psychiatric exam: Present: normal affect, normal mood Skin exam: Present: warm, dry, intact, normal color. Absent: rash Course Vital Signs 10/30/20 21:32 Temperature 98.3 F Pulse Rate 78 Respiratory 16 Rate Blood Pressure 122/76 O2 Sat by Pulse 96 Oximetry - Reevaluation(s) Reevaluation #1: 10/30/20 22:52 Medical records reviewed 10/30/20 22:53 ER visit yesterday is also reviewed Reevaluation #2: 10/30/20 22:53 Patient has adequate pain control currently Reevaluation #3: 10/30/20 22:53 Patient informed of results and questions answered - Consultations Consultation #1: Dr. Swan is aware of patient admission, sent patient for evaluation Medical Decision Making - Medical Decision Making 60 female here in the emergency department, seemed yesterday for evaluation of abdominal pain acute on chronic. Patient to be admitted for surgical evaluation regarding chronic abdominal pain - Lab Data Result diagrams: 10/30/20 22:22 10/30/20 22:22 Lab Results 10/30/20 10/30/20 10/30/20 Range/Units 22:22 22:22 22:22 WBC 12.5 H (3.8-10.6) k/uL RBC 4.30 (3.80-5.40) m/uL Hgb 12.6 (11.4-16.0) gm/dL Hct 38.0 (34.0-46.0) % MCV 88.4 (80.0-100.0) fL MCH 29.3 (25.0-35.0) pg MCHC 33.2 (31.0-37.0) g/dL RDW 16.8 H (11.5-15.5) % Plt Count 344 (150-450) k/uL MPV 7.1 Neutrophils % 83 % Lymphocytes % 6 % Monocytes % 5 % Eosinophils % 5 % Basophils % 0 % Neutrophils # 10.4 H (1.3-7.7) k/uL Lymphocytes # 0.7 L (1.0-4.8) k/uL Monocytes # 0.7 (0-1.0) k/uL Eosinophils # 0.6 (0-0.7) k/uL Basophils # 0.0 (0-0.2) k/uL Anisocytosis Slight Sodium 135 L (137-145) mmol/L Potassium 3.8 (3.5-5.1) mmol/L Chloride 100 (98-107) mmol/L Carbon Dioxide 29 (22-30) mmol/L Anion Gap 6 mmol/L BUN 11 (7-17) mg/dL Creatinine 0.57 (0.52-1.04) mg/dL Est GFR (CKD-EPI)AfAm >90 (>60 ml/min/1.73 sqM) Est GFR (CKD-EPI)NonAf >90 (>60 ml/min/1.73 sqM) Glucose 112 H (74-99) mg/dL Plasma Lactic Acid Lemuel 1.0 (0.7-2.0) mmol/L Calcium 9.7 (8.4-10.2) mg/dL Total Bilirubin 0.4 (0.2-1.3) mg/dL AST 39 H (14-36) U/L ALT 41 H (4-34) U/L Alkaline Phosphatase 92 (38-126) U/L Total Protein 6.4 (6.3-8.2) g/dL Albumin 3.8 (3.5-5.0) g/dL Amylase 44 (30-110) U/L Lipase 108 (23-300) U/L - Radiology Data Radiology results: report reviewed (Ultrasound gallbladder is pending), image reviewed Disposition Clinical Impression: Abdominal pain Disposition: ADMITTED IP TO THIS [facility] Condition: Good Is patient prescribed a controlled substance at d/c from ED?: No Referrals: Juliette Bradshaw MD [Primary Care Provider] - 1-2 days
[2020-10-30 22:28] LABS: Anisocytosis Slight; Basophils % (A) 0 %; Eosinophils # (A) 0.6 k/uL (0-0.7); Eosinophils % (A) 5 %; HGB 12.6 gm/dL (11.4-16.0); Lymphocytes # (A) 0.7 k/uL (1.0-4.8); Lymphocytes % (A) 6 %; MCH 29.3 pg (25.0-35.0); MCHC 33.2 g/dL (31.0-37.0); MCV 88.4 fL (80.0-100.0); Mean Platelet Volume 7.1; Monocytes # (A) 0.7 k/uL (0-1.0); Monocytes % (A) 5 %; Neutrophils # (A) 10.4 k/uL (1.3-7.7); Neutrophils % (A) 83 %; Platelet Count 344 k/uL (150-450); RDW 16.8 % (11.5-15.5); WBC 12.5 k/uL (3.8-10.6)
[2020-10-30 22:45] LABS: ALT 41 U/L (4-34); AST 39 U/L (14-36); African American GFR (CKD) >90 (>60 ml/min/1.73 sqM); Albumin 3.8 g/dL (3.5-5.0); Alkaline Phosphatase 92 U/L (38-126); Amylase 44 U/L (30-110); Anion Gap 6 mmol/L; Blood Urea Nitrogen 11 mg/dL (7-17); Calcium 9.7 mg/dL (8.4-10.2); Carbon Dioxide 29 mmol/L (22-30); Chloride 100 mmol/L (98-107); Glucose 112 mg/dL (74-99); Lipase 108 U/L (23-300); Non-African American GFR(CKD) >90 (>60 ml/min/1.73 sqM); Potassium 3.8 mmol/L (3.5-5.1); Sodium 135 mmol/L (137-145); Total Bilirubin 0.4 mg/dL (0.2-1.3); Total Protein 6.4 g/dL (6.3-8.2)
[2020-10-30] MEDS ORDERED: ONDANSETRON 4 MG/2 ML VIAL IVP PRN (22:50)
[2020-10-30] MEDS ORDERED: NALOXONE 0.4 MG/ML 1 ML VIAL IV PRN (22:50)
[2020-10-30] MEDS ORDERED: MORPHINE SULFATE 4 MG/ML SYRINGE IV PRN (23:00)
[2020-10-30] MEDS ORDERED: SODIUM CHLORIDE 0.9% 1,000 ML IV SCH (23:00)
--- NOTE | 2020-10-30 23:47 | US ---
EXAMINATION TYPE: US gallbladder DATE OF EXAM: 10/30/2020 COMPARISON: CT CLINICAL HISTORY: pain. Pain. EXAM MEASUREMENTS: Liver Length: 17.8 cm Gallbladder Wall: 0.22 cm CBD: Not visualized. Right Kidney: 12.8 x 5.3 x 4.9 cm Limited due to patient body habitus and gas. Pancreas: Limited due to gas. *Duct measures 3.7 mm. Liver: Appears coarse. Increased echogenicity. Limited measurement- measures upper limits of normal. Gallbladder: Limited. Possible internal echoes versus artifact. Evidence for sonographic Norman's sign: Yes CBD: Not visualized. Right Kidney: Appears slightly enlarged. No hydronephrosis or masses seen IMPRESSION: There is evidence of fatty infiltration of the liver. Normal right kidney. No gallstones or dilated ducts.
[2020-10-31] MEDS: KETOROLAC 15 MG/ML 1 ML VIAL IVP SCH ×5 (01:02→23:11)
[2020-10-31] MEDS ORDERED: INDOCYANINE GREEN 25 MG VIAL IV PRN (06:34)
[2020-10-31] MEDS ORDERED: ACETAMINOPHEN TAB 500 MG TAB PO PRN (06:34)
[2020-10-31] MEDS ORDERED: SCOPOLAMINE 1.5MG/72HR PATCH TRANSDERM PRN (06:34)
[2020-10-31] MEDS ORDERED: GABAPENTIN 300 MG CAP PO PRN (06:34)
[2020-10-31 06:49] LABS: Anisocytosis Slight; Basophils % (A) 0 %; Eosinophils # (A) 0.7 k/uL (0-0.7); Eosinophils % (A) 6 %; HCT 37.1 % (34.0-46.0); HGB 12.1 gm/dL (11.4-16.0); Hypochromasia Slight; Lymphocytes # (A) 0.8 k/uL (1.0-4.8); Lymphocytes % (A) 7 %; MCH 29.2 pg (25.0-35.0); MCHC 32.7 g/dL (31.0-37.0); MCV 89.2 fL (80.0-100.0); Monocytes # (A) 0.6 k/uL (0-1.0); Monocytes % (A) 5 %; Neutrophils # (A) 9.4 k/uL (1.3-7.7); Neutrophils % (A) 81 %; Platelet Count 350 k/uL (150-450); RBC 4.16 m/uL (3.80-5.40); RDW 16.7 % (11.5-15.5); WBC 11.7 k/uL (3.8-10.6)
[2020-10-31 06:50] LABS: Amorphous Sediment,Urine Rare /hpf; Appearance,Urine Cloudy (Clear); Bacteria,Urine Rare /hpf; Bilirubin,Urine Negative (Negative); Blood,Urine Trace (Negative); Color,Urine Yellow; Glucose,Urine (UA) Negative (Negative); Hyaline Casts,Urine 1 /lpf (0-2); Ketones,Urine Negative (Negative); Leukocyte Esterase,Urine Trace (Negative); Mucus,Urine Occasional /hpf; Nitrite,Urine Negative (Negative); PH, Urine 5.5 (5.0-8.0); Protein,Urine Trace (Negative); RBC,Urine 1 /hpf (0-5); Specific Gravity,Urine 1.021 (1.001-1.035); Squamous Epithelial Cell,Urine 18 /hpf (0-4); Urobilinogen,Urine <2.0 mg/dL (<2.0); WBC,Urine 9 /hpf (0-5)
[2020-10-31] MEDS ORDERED: ceFAZolin 3 GM in SODIUM CHLORIDE 0.9% 100 ML IVPB PRN (07:00)
[2020-10-31 07:02] LABS: ALT 40 U/L (4-34); AST 39 U/L (14-36); African American GFR (CKD) >90 (>60 ml/min/1.73 sqM); Albumin 3.9 g/dL (3.5-5.0); Alkaline Phosphatase 91 U/L (38-126); Anion Gap 5 mmol/L; Blood Urea Nitrogen 10 mg/dL (7-17); Calcium 9.3 mg/dL (8.4-10.2); Carbon Dioxide 28 mmol/L (22-30); Chloride 103 mmol/L (98-107); Glucose 103 mg/dL (74-99); Non-African American GFR(CKD) >90 (>60 ml/min/1.73 sqM); Potassium 4.1 mmol/L (3.5-5.1); Sodium 136 mmol/L (137-145); Total Bilirubin 0.7 mg/dL (0.2-1.3); Total Protein 6.4 g/dL (6.3-8.2)
[2020-10-31] MEDS: PANTOPRAZOLE 40 MG/10 ML VIAL IV SCH (09:37)
[2020-10-31] MEDS: DEXAMETHASONE SOD PHOSPHATE 4 MG/ML 1 ML VIAL IV SCH ×4 (09:38→23:11)
[2020-10-31] MEDS: HEPARIN SODIUM,PORCINE/PF 5,000 UNIT/0.5 ML SYRINGE SQ SCH ×3 (09:38→23:11)
[2020-10-31] MEDS ORDERED: IV FLUID CONTINUATION 1,000 ML IV ONE ×2 (10:55)
[2020-10-31] MEDS ORDERED: LACTATED RINGERS 1,000 ML IV ONE ×3 (11:15→13:55)
--- NOTE | 2020-10-31 12:03 | P.GSHP ---
History of Present Illness H&P Date: 10/31/20 CHIEF COMPLAINT: Cholecystitis HISTORY OF PRESENT ILLNESS: The patient is a 60-year-old female who presents with history of acute epigastric including right upper quadrant abdominal pain for 2 days. She underwent diagnostic studies for her gallbladder. She is admitted with acute cholecystitis. PAST MEDICAL HISTORY: Please see list PAST SURGICAL HISTORY: Please see list MEDICATIONS: Please see list ALLERGIES: Please see list SOCIAL HISTORY: Please see list FAMILY HISTORY: Please see list REVIEW OF ORGAN SYSTEMS: CONSTITUTIONAL: No reports of fevers or chills. HEENT: Denies any troubles with the vision or hearing. ENDOCRINE: No reports of hypothyroidism. No diabetes. RESPIRATORY: No recent pneumonias. CARDIOVASCULAR: Denies chest pain or palpitations GI: No blood in stools or constipation. MUSCULOSKELETAL: Has occasional joint pain including back pain. NEURO: No seizure disorders or headaches. No recent stroke. PSYCH: No depression or suicidal ideation. GENITOURINARY: No active blood in urine. No urinary hesitancy. HEMATOLOGIC: No personal or family history of DVTs or pulmonary emboli. SKIN: No skin cancer. PHYSICAL EXAM: VITAL SIGNS: Afebrile vital signs stable GENERAL: Well-developed pleasant in no acute distress. HEENT: No scleral icterus. Extraocular movements grossly intact. Moist buccal mucosa. NECK: Supple without lymphadenopathy. CHEST: Unlabored respirations. Equal bilateral excursions. CARDIOVASCULAR: Regular rate regular rhythm rhythm. Distal 2+ pulses. ABDOMEN: Soft, nondistended. Tender along the epigastrium and right upper qu adrant. MUSCULOSKELETAL: No clubbing, cyanosis, or edema. NEURO: Cranial nerves II to XII within normal limits. No focal or lateralizing signs. PSYCH: Alert and oriented to person, place and time. SKIN: Well-perfused good skin turgor. ASSESSMENT: 1. Epigastric and right upper quadrant abdominal pain 2. Chronic cholecystitis 3. Symptomatic gallstones. PLAN: 1. Will need a robotic cholecystectomy possible open. Benefits and risks were described. 2. Heparin for DVT prophylaxis 5000 units. 3. Antibiotic prophylaxis. 4. She is elevated risk due to morbid obesity, BMI over 50. Past Medical History Past Medical History: Atrial Fibrillation, Chest Pain / Angina, GERD/Reflux, Hyperlipidemia, Osteoarthritis (OA), Sleep Apnea/CPAP/BIPAP, Vascular Disorder Additional Past Medical History / Comment(s): 07/2020 lower GI bleed/ulceration from hiatal hernia/ severe anemia with blood transfusion, gastric polyp, hiatal hernia, diverticular disease, colon polyp, hemorrhoids, constipation, AUTUMN and either sleeps in a recliner or uses Cpap, arthritis in back/bilateral knees, migraines years ago, osteopenia, RLS, bilateral leg poor circulation, bronchitis, sinusitis, History of Any Multi-Drug Resistant Organisms: None Reported Past Surgical History: Bladder Surgery, Breast Surgery, Heart Catheterization, Joint Replacement, Orthopedic Surgery, Tubal Ligation Additional Past Surgical History / Comment(s): left breast biopsy, L knee arthroscopy, buck knee replacement, rt shoulder arthroscopy, bladder sling, bladder suspension, EGD, colonoscopies, small bowel capsule, 08/11/20 heart cath(needed blood transfusion) Past Anesthesia/Blood Transfusion Reactions: Previous Problems w/ Anesthesia Additional Past Anesthesia/Blood Transfusion Reaction / Comment(s): states during her 1st knee replacement & during colonoscopy her legs were "twitching" & had to be given general anesthesia-didn't think had to do w/her restless leg Past Psychological History: No Psychological Hx Reported Additional Psychological History / Comment(s): . Smoking Status: Former smoker Past Alcohol Use History: Rare Additional Past Alcohol Use History / Comment(s): Pt started smoking in 1973 and quit in 1992. 1/2 PPD Past Drug Use History: None Reported - Past Family History Father Family Medical History: Coronary Artery Disease (CAD) Additional Family Medical History / Comment(s): Father lived to be 82 yrs. He had 9 cardiac stents. Sister(s) Additional Family Medical History / Comment(s): Pt has 3 sisters, all of which are healthy except one has thyroid problem. Mother Family Medical History: Congestive Heart Failure (CHF) Additional Family Medical History / Comment(s): Mother of chf at the age of 74 yrs. She was obese. Medications and Allergies Home Medications Medication Instructions Recorded Confirmed Type Multivitamins, Thera [Multivitamin 1 tab PO DAILY 02/12/16 10/30/20 History (formulary)] Magnesium Oxide [Mag-Ox] 400 mg PO DAILY 12/18/18 10/30/20 History Pramipexole [Mirapex] 1 mg PO TID 12/18/18 10/30/20 History Ubidecarenone [Co Q-10] 100 mg PO DAILY 08/25/20 10/30/20 History Ferrous Sulfate [Iron (65 MG 325 mg PO TID 09/11/20 10/30/20 History Elemental)] Metoprolol Succinate [Toprol XL] 50 mg PO DAILY 10/29/20 10/30/20 History Pravastatin Sodium [Pravachol] 40 mg PO DAILY 10/29/20 10/30/20 History Turmeric Root Extract [Turmeric] 500 mg PO DAILY 10/29/20 10/30/20 History Cholecalciferol (Vitamin D3) 125 mcg PO DAILY 10/30/20 10/30/20 History [Vitamin D3 (5000 Iu)] Allergies Allergy/AdvReac Type Severity Reaction Status Date / Time adhesive tape Allergy Rash/Hives/pulls Verified 10/30/20 22:58 skin off Surgical - Exam Vital Signs Temp Pulse Resp BP Pulse Ox 98.3 F 78 16 122/76 96 10/30/20 21:32 10/30/20 21:32 10/30/20 21:32 10/30/20 21:32 10/30/20 21:32 Results - Labs 10/31/20 06:33 10/31/20 06:33 Abnormal Lab Results - Last 24 Hours (Table) 10/30/20 10/30/20 Range/Units 22:22 22:22 WBC 12.5 H (3.8-10.6) k/uL RDW 16.8 H (11.5-15.5) % Neutrophils # 10.4 H (1.3-7.7) k/uL Lymphocytes # 0.7 L (1.0-4.8) k/uL Sodium 135 L (137-145) mmol/L Glucose 112 H (74-99) mg/dL AST 39 H (14-36) U/L ALT 41 H (4-34) U/L Diabetes panel 10/30/20 Range/Units 22:22 Sodium 135 L (137-145) mmol/L Potassium 3.8 (3.5-5.1) mmol/L Chloride 100 (98-107) mmol/L Carbon Dioxide 29 (22-30) mmol/L BUN 11 (7-17) mg/dL Creatinine 0.57 (0.52-1.04) mg/dL Glucose 112 H (74-99) mg/dL Calcium 9.7 (8.4-10.2) mg/dL AST 39 H (14-36) U/L ALT 41 H (4-34) U/L Alkaline Phosphatase 92 (38-126) U/L Total Protein 6.4 (6.3-8.2) g/dL Albumin 3.8 (3.5-5.0) g/dL Calcium panel 10/30/20 Range/Units 22:22 Calcium 9.7 (8.4-10.2) mg/dL Albumin 3.8 (3.5-5.0) g/dL Pituitary panel 10/30/20 Range/Units 22:22 Sodium 135 L (137-145) mmol/L Potassium 3.8 (3.5-5.1) mmol/L Chloride 100 (98-107) mmol/L Carbon Dioxide 29 (22-30) mmol/L BUN 11 (7-17) mg/dL Creatinine 0.57 (0.52-1.04) mg/dL Glucose 112 H (74-99) mg/dL Calcium 9.7 (8.4-10.2) mg/dL Adrenal panel 10/30/20 Range/Units 22:22 Sodium 135 L (137-145) mmol/L Potassium 3.8 (3.5-5.1) mmol/L Chloride 100 (98-107) mmol/L Carbon Dioxide 29 (22-30) mmol/L BUN 11 (7-17) mg/dL Creatinine 0.57 (0.52-1.04) mg/dL Glucose 112 H (74-99) mg/dL Calcium 9.7 (8.4-10.2) mg/dL Total Bilirubin 0.4 (0.2-1.3) mg/dL AST 39 H (14-36) U/L ALT 41 H (4-34) U/L Alkaline Phosphatase 92 (38-126) U/L Total Protein 6.4 (6.3-8.2) g/dL Albumin 3.8 (3.5-5.0) g/dL
[2020-10-31] MEDS ORDERED: LIDOCAINE 1% INJ 10MG/ML (20 ML MDV) ONE (12:15)
[2020-10-31] MEDS ORDERED: GLYCOPYRROLATE 0.2 MG/ML 2 ML VIAL ONE (12:15)
[2020-10-31] MEDS ORDERED: NEOSTIGMINE 1 MG/ML 10 ML VIAL ONE (12:15)
[2020-10-31] MEDS ORDERED: SUCCINYLCHOLINE CHLORIDE VIAL 200 MG/10 ML VIAL IV ONE (12:15)
[2020-10-31] MEDS ORDERED: ROCURONIUM 10 MG/ML (5 ML VIAL) IV ONE (12:15)
[2020-10-31] MEDS ORDERED: PROPOFOL 10 MG/ML 20 ML VIAL IV ONE (12:15)
[2020-10-31] MEDS ORDERED: fentaNYL (PF) 50 MCG/ML 2 ML AMP ONE (12:15)
[2020-10-31] MEDS ORDERED: MIDAZOLAM 2 MG/2 ML VIAL ONE (12:15)
[2020-10-31] MEDS ORDERED: INDOCYANINE GREEN 25 MG VIAL IV ONE (12:15)
[2020-10-31] MEDS ORDERED: LIDOCAINE 1%-EPI 1:100,000 20 ML VIAL SQ ONE (12:54)
--- NOTE | 2020-10-31 13:43 | P.OP ---
Date of Procedure: 10/31/20 Description of Procedure: SURGEON: ELAN GILL MD PREOPERATIVE DIAGNOSES: 1. Acute cholecystitis with leukocytosis 2. Transaminitis 3. Atrial fibrillation 4. Obstructive sleep apnea 5. Angina 6. Morbid obesity due to excess calories, BMI 50.6 7. Gastroesophageal reflux disease with esophagitis 8. Right upper quadrant peritonitis 9. Hyperlipidemia 10. Iron deficiency anemia 11. Restless leg syndrome 12. Osteopenia POSTOPERATIVE DIAGNOSES: 1. Acute cholecystitis with leukocytosis 2. Transaminitis 3. Atrial fibrillation 4. Obstructive sleep apnea 5. Angina 6. Morbid obesity due to excess calories, BMI 50.6 7. Gastroesophageal reflux disease with esophagitis 8. Right upper quadrant peritonitis 9. Hyperlipidemia 10. Iron deficiency anemia 11. Restless leg syndrome 12. Osteopenia 13. Hepatomegaly OPERATION: 1. Robotic-assisted da Vincent Xi laparoscopic cholecystectomy, multiport with FIREFLY ESTIMATED BLOOD LOSS: 10 mL. SPECIMENS REMOVED: Gallbladder. COMPLICATIONS: None. OPERATIVE FINDINGS: 1. Hepatomegaly 2. Moderate lower abdominal peritoneal adhesions. INDICATIONS: The patient is a 60-year-old female who presents with acute cholecystitis with right upper quadrant peritonitis. Robotic assisted laparoscopic approach was described. Benefits and risks of the procedure including but not limited to bleeding, infection, injury to the biliary tree was described. Informed consent was obtained. DESCRIPTION OF PROCEDURE: Patient was brought to the operating room, placed in supine position. After general induction, the abdomen had been prepped and draped in standard sterile fashion. The robotic da Vincent XI system was primed. After a timeout protocol was performed, the patient had been prepped and draped in standard sterile fashion. The patient was injected with indocyanine green. A 5 mm 0 degrees laparoscopic trocar entry was performed along the left upper quadrant. The abdomen insufflated to 15 mmHg pressure which was tolerated well. Diagnostic laparoscopy demonstrated no injury to bowel viscera or mesentery. The liver surface was unremarkable. Next, two 8 mm robotic ports were placed along the right upper abdomen. The camera 8-mm port was maintained along the epigastrium. Another 8 mm port was placed along the left upper abdominal wall after exchanging the 5 mm port. Please note that the ports were placed at least 10 to 15 cm away from the target anatomy of the gallbladder. The robot was docked along the left lateral abdomen. The patient was repositioned in reverse Trendelenburg position. Using a grasper for arm 3, a grasper for arm 4, including hook cautery for arm 1, the robotic system was docked and primed as described. Instruments were interchanged by the fire control assistant including hook cautery, Bovie cautery and clip appliers. I had sat at the console. Attention was brought to the infundibulum and cystic structures. The infundibulum and cystic duct were dissected free from surrounding tissues. The cystic duct was isolated. FIREFLY was used to identify the cystic artery and cystic structures. A critical view of safety was obtained. Large PLASTIC clips were used throughout the entire case. Using a clip acid purifier, 2 clips were placed at the junction of the infundibulum and cystic duct. The cystic duct was divided between clips. Next, the cystic artery was similarly clipped and cauterized. Electro-Bovie cautery was used to remove the gallbladder from the hepatic fossa. Hemostasis was checked and found to be adequate. The robot was undocked. I re-scrubbed into the case. Using a 10 mm Endo Catch bag via the left upper quadrant incision, the specimen was removed from the abdominal cavity. All pneumoperitoneum instruments were evacuated from the abdominal cavity. The incisions were reapproximated using 4-0 Monocryl in an interrupted subcuticular fashion. Fascial defects were less than 8 mm in size. Please note along the trocar sites, local anesthetic was placed as a field block prior to insertion of all instruments. Liquid glue was applied to the skin. At the end of the procedure needle, sponge, and instrument count had been verified correct by the surgical supervisor. The patient was transferred to postanesthesia care unit in stable condition.
[2020-10-31] MEDS ORDERED: ACETAMINOPHEN IV (For NPO) 1,000 MG in EMPTY BAG 1 BAG IVPB ONE (14:00)
[2020-10-31] MEDS ORDERED: ACETAMINOPHEN IV (For NPO) 1,000 MG/100 ML VIAL IVPB ONE (14:10)
[2020-10-31] MEDS: ACETAMINOPHEN TAB 500 MG TAB PO SCH ×2 (14:31→23:10)
[2020-10-31] MEDS: METOPROLOL SUCCINATE (ER) 50 MG TAB.ER.24H PO SCH (16:56)
[2020-10-31] MEDS: PRAMIPEXOLE 1 MG TAB PO SCH ×2 (16:58→22:01)
[2020-10-31] MEDS ORDERED: HYDROmorphone 1 MG/ML 1 ML SYRINGE IVP PRN (19:09)
[2020-10-31] MEDS: SODIUM CHLORIDE 0.9% 1,000 ML IV SCH ×2 (19:26→22:00)
[2020-10-31 19:55] VITALS: RESP 18
[2020-10-31] MEDS: SODIUM FERRIC GLUCONAT-SUCROSE 125 MG in SODIUM CHLORIDE 0.9% 100 ML IVPB SCH ×2 (20:24→20:51)
[2020-10-31] MEDS: PIPERACILLIN-TAZOBACTAM 3.375 GM in SODIUM CHLORIDE 0.9% 100 ML IVPB SCH (22:00)
[2020-11-01 01:40] VITALS: TEMP 98.5
[2020-11-01] MEDS: SODIUM CHLORIDE 0.9% 1,000 ML IV SCH ×2 (03:02→09:07)
[2020-11-01] MEDS: PIPERACILLIN-TAZOBACTAM 3.375 GM in SODIUM CHLORIDE 0.9% 100 ML IVPB SCH (04:06)
[2020-11-01] MEDS: ACETAMINOPHEN TAB 500 MG TAB PO SCH ×2 (05:36→11:18)
[2020-11-01] MEDS: DEXAMETHASONE SOD PHOSPHATE 4 MG/ML 1 ML VIAL IV SCH ×2 (05:36→11:17)
[2020-11-01] MEDS: KETOROLAC 15 MG/ML 1 ML VIAL IVP SCH ×2 (05:36→11:17)
[2020-11-01 06:48] LABS: Anisocytosis Slight; Basophils % (A) 0 %; Eosinophils # (A) 0.1 k/uL (0-0.7); Eosinophils % (A) 1 %; HCT 35.6 % (34.0-46.0); HGB 11.5 gm/dL (11.4-16.0); Hypochromasia Slight; Lymphocytes # (A) 0.5 k/uL (1.0-4.8); Lymphocytes % (A) 4 %; MCH 29.3 pg (25.0-35.0); MCHC 32.4 g/dL (31.0-37.0); MCV 90.7 fL (80.0-100.0); Mean Platelet Volume 7.4; Monocytes # (A) 0.4 k/uL (0-1.0); Monocytes % (A) 4 %; Neutrophils # (A) 9.3 k/uL (1.3-7.7); Neutrophils % (A) 90 %; Platelet Count 306 k/uL (150-450); RBC 3.93 m/uL (3.80-5.40); RDW 16.6 % (11.5-15.5); WBC 10.4 k/uL (3.8-10.6)
[2020-11-01 07:02] LABS: ALT 37 U/L (4-34); AST 32 U/L (14-36); African American GFR (CKD) >90 (>60 ml/min/1.73 sqM); Albumin 3.4 g/dL (3.5-5.0); Alkaline Phosphatase 78 U/L (38-126); Anion Gap 6 mmol/L; Blood Urea Nitrogen 10 mg/dL (7-17); Calcium 9.3 mg/dL (8.4-10.2); Carbon Dioxide 26 mmol/L (22-30); Chloride 108 mmol/L (98-107); Glucose 147 mg/dL (74-99); Non-African American GFR(CKD) >90 (>60 ml/min/1.73 sqM); Potassium 4.8 mmol/L (3.5-5.1); Sodium 140 mmol/L (137-145); Total Bilirubin 0.3 mg/dL (0.2-1.3); Total Protein 5.9 g/dL (6.3-8.2)
[2020-11-01] MEDS: HEPARIN SODIUM,PORCINE/PF 5,000 UNIT/0.5 ML SYRINGE SQ SCH (08:33)
[2020-11-01] MEDS: METOPROLOL SUCCINATE (ER) 50 MG TAB.ER.24H PO SCH (08:33)
[2020-11-01] MEDS: PANTOPRAZOLE 40 MG/10 ML VIAL IV SCH (08:33)
[2020-11-01] MEDS: PRAMIPEXOLE 1 MG TAB PO SCH (08:33)
[2020-11-01] MEDS: SODIUM FERRIC GLUCONAT-SUCROSE 125 MG in SODIUM CHLORIDE 0.9% 100 ML IVPB SCH (08:34)
[2020-11-01 08:45] VITALS: BP 145/77; PULSE 71
[2020-11-01] MEDS ORDERED: MAGNESIUM OXIDE 400 MG TAB PO SCH (09:00)
--- NOTE | 2020-11-01 11:30 | P.DS ---
Providers Date of admission: 10/30/20 22:50 Expected date of discharge: 11/01/20 Attending physician: Tanisha Jospeh Primary care physician: Juliette Bradshaw MD Hospital Course: Patient minute of the hospital for cholecystitis. Underwent uneventful cholecystectomy yesterday. Doing well today. Pain is well-controlled. She is tolerating her diet. She would like to go home today. Patient not requiring any narcotics. We'll discharge. Follow-up with Dr. Swan 1 week. Patient Condition at Discharge: Good Plan - Discharge Summary Discharge Rx Participant: No New Discharge Prescriptions: New Acetaminophen Tab [Tylenol Tab] 1,000 mg PO Q6HR PRN #30 tablet PRN Reason: Pain Simethicone [Gas-X] 125 mg PO AC-TID PRN #20 capsule PRN Reason: Pain Continue Multivitamins, Thera [Multivitamin (formulary)] 1 tab PO DAILY Pramipexole [Mirapex] 1 mg PO TID Magnesium Oxide [Mag-Ox] 400 mg PO DAILY Ubidecarenone [Co Q-10] 100 mg PO DAILY Pravastatin Sodium [Pravachol] 40 mg PO DAILY Ferrous Sulfate [Iron (65 MG Elemental)] 325 mg PO TID Metoprolol Succinate [Toprol XL] 50 mg PO DAILY Cholecalciferol (Vitamin D3) [Vitamin D3 (5000 Iu)] 125 mcg PO DAILY Discontinued Turmeric Root Extract [Turmeric] 500 mg PO DAILY Discharge Medication List Multivitamins, Thera [Multivitamin (formulary)] 1 tab PO DAILY 02/12/16 [History] Magnesium Oxide [Mag-Ox] 400 mg PO DAILY 12/18/18 [History] Pramipexole [Mirapex] 1 mg PO TID 12/18/18 [History] Ubidecarenone [Co Q-10] 100 mg PO DAILY 08/25/20 [History] Ferrous Sulfate [Iron (65 MG Elemental)] 325 mg PO TID 09/11/20 [History] Metoprolol Succinate [Toprol XL] 50 mg PO DAILY 10/29/20 [History] Pravastatin Sodium [Pravachol] 40 mg PO DAILY 10/29/20 [History] Cholecalciferol (Vitamin D3) [Vitamin D3 (5000 Iu)] 125 mcg PO DAILY 10/30/20 [History] Acetaminophen Tab [Tylenol Tab] 1,000 mg PO Q6HR PRN #30 tablet 10/31/20 [Rx] Simethicone [Gas-X] 125 mg PO AC-TID PRN #20 capsule 10/31/20 [Rx] [facility]Ref[place] [facility] [place] [place] [facility] [place] (call to confirm time with center. ) Juliette Bradshaw MD [Primary Care Provider] - 1-2 days Patient Instructions/Handouts: Laparoscopic Cholecystectomy (DC) Activity/Diet/Wound Care/Special Instructions: Recommend low-fat diet fluids are encouraged. No lifting pushing or pulling over 10 pounds in 2 weeks until November 14. May shower. No bath tub soaks for two weeks until November 14. Use Tylenol, gas drops and ibuprofen or Aleve scheduled for the next 24-48 hours for best pain relief.Use ice along incisions for today to prevent swelling. follow up with physicians as directed. Call physician with any questions comments concerns, worsening returning symptoms, fever, not tolerating diet or fluids, pain not controlled with medications prescribed to you. Discharge Disposition: HOME SELF-CARE
== END 2020-11-01 12:45 | disposition home or self-care (01) ==
LOC: EC 21:30 → 6PED 22:50
PROVIDERS: ADMIT Surgery Plastic and Reconstructive Surgery; ATTEND Surgery Plastic and Reconstructive Surgery
DX: K80.12 Calculus of gallbladder with acute and chronic cholecystitis without obstruction (principal); K66.0 Peritoneal adhesions (postprocedural) (postinfection); K65.9 Peritonitis, unspecified; D50.9 Iron deficiency anemia, unspecified; I48.91 Unspecified atrial fibrillation; I25.119 Atherosclerotic heart disease of native coronary artery with unspecified angina pectoris; E78.5 Hyperlipidemia, unspecified; K21.9 Gastro-esophageal reflux disease without esophagitis; G25.81 Restless legs syndrome; K76.0 Fatty (change of) liver, not elsewhere classified; K44.0 Diaphragmatic hernia with obstruction, without gangrene; K57.90 Diverticulosis of intestine, part unspecified, without perforation or abscess without bleeding; G47.33 Obstructive sleep apnea (adult) (pediatric); K59.00 Constipation, unspecified; K64.9 Unspecified hemorrhoids; M47.819 Spondylosis without myelopathy or radiculopathy, site unspecified; K21.00 Gastro-esophageal reflux disease with esophagitis, without bleeding; M85.80 Other specified disorders of bone density and structure, unspecified site; I99.9 Unspecified disorder of circulatory system; E66.01 Morbid (severe) obesity due to excess calories; Z68.43 Body mass index [BMI] 50.0-59.9, adult; Z79.899 Other long term (current) drug therapy; Z91.048 Other nonmedicinal substance allergy status; Z98.51 Tubal ligation status; Z96.653 Presence of artificial knee joint, bilateral; Z87.891 Personal history of nicotine dependence; Z86.010 Personal history of colon polyps; Z87.19 Personal history of other diseases of the digestive system; Z87.09 Personal history of other diseases of the respiratory system; Z86.69 Personal history of other diseases of the nervous system and sense organs; Z82.49 Family history of ischemic heart disease and other diseases of the circulatory system; Z83.49 Family history of other endocrine, nutritional and metabolic diseases
CPT/HCPCS: 47562; S2900; 36415; 76705; 80053; 81001; 82150; 83605; 83690; 84484; 85025; 88304; 93005; 96374; 96375; 96376; 99285

== ENCOUNTER 2020-12-05 11:59 | Inpatient (IN) | payer MEDICAID ==
[2020-12-01 14:12] VITALS: BMI 51.2
--- NOTE | 2020-12-05 11:21 | P.GSHP ---
History of Present Illness H&P Date: 12/05/20 CHIEF COMPLAINT: Paraesophageal hiatal hernia with gastroesophageal reflux disease. HISTORY OF PRESENT ILLNESS: The patient is a 60-year-old female who presents with paraesophageal hiatal hernia symptomatic over 5 years. She has completed barium swallow including upper endoscopy workup. Now she presents for surgical intervention. PAST MEDICAL HISTORY: Please see list. PAST SURGICAL HISTORY: Please see list. MEDICATIONS: Please see list. ALLERGIES: Please see list. SOCIAL HISTORY: No illicit drug use FAMILY HISTORY: No reports of Crohn disease or ulcerative colitis. REVIEW OF ORGAN SYSTEMS: CONSTITUTIONAL: No reports of fevers or chills. GI: Denies any blood in stools or constipation. PHYSICAL EXAM: VITAL SIGNS: Stable GENERAL: Well-developed pleasant and in no acute distress. HEENT: No scleral icterus. Extraocular movements grossly intact. Moist buccal mucosa. NECK: Supple without lymphadenopathy. CHEST: Unlabored respirations. Equal bilateral excursions. CARDIOVASCULAR: Regular rate and rhythm. Distal 2+ pulses. ABDOMEN: Soft, nondistended. No peritoneal signs. MUSCULOSKELETAL: No clubbing, cyanosis, or edema. SKIN: Well-perfused. Good skin turgor. STUDIES: Barium swallow reviewed demonstrates large paraesophageal hiatal hernia. ASSESSMENT: 1. Diaphragmatic paraesophageal hiatal hernia with severe gastroesophageal reflux disease. PLAN: 1. Recommend proceeding with a robotic paraesophageal hiatal hernia with possible mesh. 2. Benefits and risks of surgical intervention was discussed including possibility of open technique. 3. Inpatient hospitalization recommended of 2 nights 4. DVT prophylaxis. 5. Antibiotic prophylaxis. 6. She has also completed a very low caloric high-protein diet to address underlying hepatomegaly. Past Medical History Past Medical History: Atrial Fibrillation, Chest Pain / Angina, GERD/Reflux, Hyperlipidemia, Osteoarthritis (OA), Sleep Apnea/CPAP/BIPAP, Vascular Disorder Additional Past Medical History / Comment(s): 07/2020 lower GI bleed/ulceration from hiatal hernia/ severe anemia with blood transfusion, gastric polyp, hiatal hernia, diverticular disease, colon polyp, hemorrhoids, constipation, AUTUMN and either sleeps in a recliner or uses Cpap, arthritis in back/bilateral knees, migraines years ago, osteopenia, RLS, bilateral leg poor circulation, bronchitis, sinusitis, swallowing difficulty History of Any Multi-Drug Resistant Organisms: None Reported Past Surgical History: Bladder Surgery, Breast Surgery, Cholecystectomy, Heart Catheterization, Joint Replacement, Orthopedic Surgery, Tubal Ligation Additional Past Surgical History / Comment(s): left breast biopsy, L knee arthroscopy, buck knee replacement, rt shoulder arthroscopy, bladder sling, bladder suspension, EGD, colonoscopies, small bowel capsule, 08/11/20 heart cath(needed blood transfusion) Past Anesthesia/Blood Transfusion Reactions: Previous Problems w/ Anesthesia Additional Past Anesthesia/Blood Transfusion Reaction / Comment(s): states during her 1st knee replacement & during colonoscopy her legs were "twitching" & had to be given general anesthesia-didn't think had to do w/her restless leg Smoking Status: Former smoker - Past Family History Father Family Medical History: Coronary Artery Disease (CAD) Additional Family Medical History / Comment(s): Father lived to be 82 yrs. He had 9 cardiac stents. Sister(s) Additional Family Medical History / Comment(s): Pt has 3 sisters, all of which are healthy except one has thyroid problem. Mother Family Medical History: Congestive Heart Failure (CHF) Additional Family Medical History / Comment(s): Mother of chf at the age of 74 yrs. She was obese. Medications and Allergies Home Medications Medication Instructions Recorded Confirmed Type Multivitamins, Thera [Multivitamin 1 tab PO DAILY 02/12/16 12/01/20 History (formulary)] Magnesium Oxide [Mag-Ox] 400 mg PO DAILY 12/18/18 12/01/20 History Pramipexole [Mirapex] 1 mg PO TID 12/18/18 12/01/20 History Ubidecarenone [Co Q-10] 100 mg PO DAILY 08/25/20 12/01/20 History Ferrous Sulfate [Iron (65 MG 325 mg PO BID 09/11/20 12/01/20 History Elemental)] Metoprolol Succinate [Toprol XL] 50 mg PO DAILY 10/29/20 12/01/20 History Pravastatin Sodium [Pravachol] 40 mg PO DAILY 10/29/20 12/01/20 History Cholecalciferol (Vitamin D3) 125 mcg PO DAILY 10/30/20 12/01/20 History [Vitamin D3 (5000 Iu)] Turmeric Root Extract [Turmeric] 500 mg PO DAILY 12/01/20 12/01/20 History Allergies Allergy/AdvReac Type Severity Reaction Status Date / Time adhesive tape Allergy Rash/Hives/pulls Verified 12/01/20 14:02 skin off
[~2020-12-05 11:59] MED LIST changes: +ACETAMINOPHEN TAB 500 MG TAB PO PRN; -ALPRAZolam 0.25 MG TAB PO PRN; -ALPRAZolam 0.5 MG TAB PO PRN; -ASPIRIN 325 MG TAB PO STA; +CHLORHEXIDINE GLUCONATE 15 ML CUP MUCOUS MEM PRN; +DEXAMETHASONE SOD PHOSPHATE 4 MG/ML 1 ML VIAL IV ONE; +GABAPENTIN 300 MG CAP PO PRN; -HEPARIN SODIUM,PORCINE 10,000 UNIT in SODIUM CHLORIDE 0.9% 1,000 ML IRRIGATION PRN; -HEPARIN SODIUM,PORCINE 2,500 UNIT in SODIUM CHLORIDE 0.9% 250 ML IRRIGATION PRN; +HEPARIN SODIUM,PORCINE/PF 5,000 UNIT/0.5 ML SYRINGE SQ PRN; +LIDOCAINE 1% (10MG/ML) FOR IV START INTRADERMA PRN; -NITROGLYCERIN SL TABS 0.4 MG TAB SUBLINGUAL PRN; +ONDANSETRON 4 MG/2 ML VIAL IVP ONE; +PANTOPRAZOLE 40 MG/10 ML VIAL IVP PRN; -SODIUM CHLORIDE 0.9% 1,000 ML in EMPTY BAG 1 BAG IV ONE; +ceFAZolin 3 GM in SODIUM CHLORIDE 0.9% 100 ML IVPB PRN
[2020-12-05] MEDS: SCOPOLAMINE 1.5MG/72HR PATCH TRANSDERM SCH (12:54)
[2020-12-05] MEDS: LACTATED RINGERS 1,000 ML IV SCH (13:03)
[2020-12-05 13:04] LABS: Basophils % (A) 0 %; Eosinophils # (A) 0.2 k/uL (0-0.7); Eosinophils % (A) 2 %; HCT 38.2 % (34.0-46.0); HGB 12.8 gm/dL (11.4-16.0); Hypochromasia Slight; Lymphocytes # (A) 1.2 k/uL (1.0-4.8); Lymphocytes % (A) 11 %; MCH 29.4 pg (25.0-35.0); MCHC 33.5 g/dL (31.0-37.0); Mean Platelet Volume 6.9; Monocytes # (A) 0.9 k/uL (0-1.0); Monocytes % (A) 8 %; Neutrophils # (A) 7.8 k/uL (1.3-7.7); Neutrophils % (A) 76 %; Platelet Count 401 k/uL (150-450); RBC 4.35 m/uL (3.80-5.40); RDW 15.1 % (11.5-15.5); WBC 10.3 k/uL (3.8-10.6)
[2020-12-05 14:30] LABS: ALT 31 U/L (4-34); AST 37 U/L (14-36); African American GFR (CKD) >90 (>60 ml/min/1.73 sqM); Albumin 3.8 g/dL (3.5-5.0); Alkaline Phosphatase 100 U/L (38-126); Anion Gap 9 mmol/L; Blood Urea Nitrogen 7 mg/dL (7-17); Calcium 9.3 mg/dL (8.4-10.2); Carbon Dioxide 24 mmol/L (22-30); Chloride 105 mmol/L (98-107); Glucose 86 mg/dL (74-99); Non-African American GFR(CKD) >90 (>60 ml/min/1.73 sqM); Potassium 4.1 mmol/L (3.5-5.1); Sodium 138 mmol/L (137-145); Total Bilirubin 0.6 mg/dL (0.2-1.3); Total Protein 6.3 g/dL (6.3-8.2)
[2020-12-05] MEDS ORDERED: fentaNYL (PF) 50 MCG/ML 2 ML AMP ONE (15:32)
[2020-12-05] MEDS ORDERED: ROCURONIUM 10 MG/ML (5 ML VIAL) IV ONE (15:32)
[2020-12-05] MEDS ORDERED: PROPOFOL 10 MG/ML 20 ML VIAL IV ONE (15:32)
[2020-12-05] MEDS ORDERED: GLYCOPYRROLATE 0.2 MG/ML 2 ML VIAL ONE (15:32)
[2020-12-05] MEDS ORDERED: PHENYLEPHRINE-0.9% NACL SYG 1,000 MCG/10 ML SYRINGE ONE (15:32)
[2020-12-05] MEDS ORDERED: NEOSTIGMINE 1 MG/ML 10 ML VIAL ONE (15:32)
[2020-12-05] MEDS ORDERED: HYDROmorphone (PF) 1 MG/ML ONE (15:32)
[2020-12-05] MEDS ORDERED: LIDOCAINE 1% INJ 10MG/ML (20 ML MDV) ONE (15:32)
[2020-12-05] MEDS ORDERED: MIDAZOLAM 2 MG/2 ML VIAL ONE (15:32)
[2020-12-05] MEDS ORDERED: SUCCINYLCHOLINE CHLORIDE VIAL 200 MG/10 ML VIAL IV ONE (15:32)
[2020-12-05] MEDS ORDERED: LIDOCAINE 1%-EPI 1:100,000 20 ML VIAL SQ ONE (15:56)
[2020-12-05] MEDS ORDERED: LACTATED RINGERS 1,000 ML IV ONE (17:30)
[2020-12-05] MEDS ORDERED: KETOROLAC 15 MG/ML 1 ML VIAL ONE (18:40)
[2020-12-05] MEDS: HYDROmorphone 0.5 MG/0.5 ML SYRINGE IVP PRN ×2 (18:40→18:55)
[2020-12-05] MEDS ORDERED: KETOROLAC 15 MG/ML 1 ML VIAL IVP ONE (18:42)
[2020-12-05] MEDS ORDERED: NALOXONE 0.4 MG/ML 1 ML VIAL IV PRN (19:03)
[2020-12-05] MEDS ORDERED: METOCLOPRAMIDE 5 MG/ML 2 ML VIAL IVP PRN (19:03)
[2020-12-05] MEDS ORDERED: ONDANSETRON 4 MG/2 ML VIAL IVP PRN (19:03)
--- NOTE | 2020-12-05 19:18 | P.OP ---
Date of Procedure: 12/05/20 Description of Procedure: SURGEON: ELAN GILL MD PREOPERATIVE DIAGNOSES: 1. Paraesophageal diaphragmatic hiatal hernia with dysphagia 2. Gastroesophageal reflux disease 3. Chronic iron deficiency anemia 4. Morbid obesity due to excess calories, BMI 50.2 5. Hyperlipidemia 6. Hypertensive heart disease 7. Chronic iron deficiency anemia 8. Vitamin D deficiency 9. Restless leg syndrome 10. Obstructive sleep apnea 11. History of atrial fibrillation POSTOPERATIVE DIAGNOSES: 1. Paraesophageal diaphragmatic hiatal hernia with dysphagia 2. Gastroesophageal reflux disease 3. Chronic iron deficiency anemia 4. Morbid obesity due to excess calories, BMI 50.2 5. Hyperlipidemia 6. Hypertensive heart disease 7. Chronic iron deficiency anemia 8. Vitamin D deficiency 9. Restless leg syndrome 10. Obstructive sleep apnea 11. History of atrial fibrillation 12. 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 Retroperitoneal lymphadenopathy OPERATION: 1. Robotic-assisted da Vincent Xi laparoscopic paraesophageal hiatal hernia aborted for lysis of adhesions over 1 hour 2. Excision of retroperitoneal lymph node, lesser curvature of the stomach at hiatus 3. Intraoperative esophagogastroduodenoscopy ANESTHESIA: General with local anesthetic. ESTIMATED BLOOD LOSS: 10 mL SPECIMENS REMOVED: Retroperitoneal lymphadenopathy at hiatus, lesser curvature of the stomach, 2 cm lymph node in size sent fresh COMPLICATIONS: None. FINDINGS: 1. Incarcerated paraesophageal hiatal hernia with omental fat, over 5 cm 2. Multiple large over 2 cm retroperitoneal lymphadenopathy along the hiatus and lesser curvature of the stomach, excised and sent fresh for pathology to Dr. Reina 3. Bleeding along the distal esophagus with lesion 35-38 cm from the incisors involving 20-30% circumference with narrowing, partial obstruction 4. Upon finding of large retroperitoneal adenopathy and esophageal tumor, hiatal hernia repair aborted 5. No lesions identified along the surface of the liver INDICATIONS: The patient is a 60-year-old female who presents with chronic iron deficiency anemia, gastroesophageal reflux disease poorly controlled despite medications, dysphagia and a symptomatic paraesophageal diaphragmatic hiatal hernia. She completed upper endoscopy including barium swallow. Given the severity of her symptoms, particularly of her symptomatic diaphragmatic hiatal hernia, she had elected for surgical intervention. Benefits and risks including bleeding, infection, recurrence, dysphagia,injury to the lung, need for further surgery was described at length. Informed consent was obtained. DESCRIPTION: The patient was brought into the operating room and placed in supine position. Preoperatively she had received subcutaneous DVT prophylaxis. After general induction, the abdomen was prepped and draped in standard sterile fashion. The patient had previously voided prior to coming to the operating room. Ioban draping was placed along the abdomen. A timeout protocol was confirmed with the surgical team, for which the patient's name, procedure to be performed including DVT prophylaxis with bilateral SCDs, and preoperative antibiotics were also confirmed. A robotic da Vincent Xi system was prepped and primed. At 13 cm from the xiphoid to just below the umbilicus, proposed port sites were marked with indelible marker along the left axillary line, left mid-clavicular line with each ports were marked 10 cm from each other along her previous incisions. A 5 mm 0 degrees laparoscopic trocar entry was performed along the left upper quadrant. The abdomen was insufflated to 15 mmHg pressure she tolerated well. Diagnostic laparoscopy demonstrated no injury to bowel, viscera, or mesentery. The liver surface was unremarkable. No injury had occurred to the small bowel or viscera. Next, one 8 mm robotic port was placed along the right upper abdomen. An 8-mm port was were placed along the left mid abdomen. The camera 12-mm port extended length was maintained along the epigastrium via the hernia defect. Another 8 mm port was placed along the left upper abdominal wall after exchanging the 5 mm port. Please note that the ports were placed at least 20 cm away from the target anatomy. Care was taken to check that each robotic arm were safely away from collision with the bed or the patient. At the epigastrium, a medium sized [place] liver retractor was placed under direct visualization with the Iron Litigation Manager placed under the right shoulder of the patient. The patient was repositioned in reverse Trendelenburg position and 21 after lowering the bed. The robot was docked along the right side of the patient. Using a grasper for arm 3, a grasper for arm 2, including hook cautery for arm 1, the robotic system was docked and primed as described. Instruments were interchanged by the insurance assistant . I had sat at the console. The gastrohepatic ligament was cleaved using a vessel sealer. Incarcerated omental fat was identified along the hiatus. The measured defect was consistent with 5 cm width. Extensive dissection using vessel sealer for lysis of adhesions was performed to reduce the large incarcerated paraesophageal hiatal hernia from the mediastinum. The contents were very firm of concrete con sistency. Circumferentially the phrenoesophageal ligament was mobilized. Extensive lysis of adhesions over 1 hour was performed. After extensive dissection, large retroperitoneal adenopathy at the posterior hiatus along the lesser curvature of the stomach was identified over 2 cm in size of firm consistency. Using a vessel sealer, the lymph node was completely excised and resected with hemostasis checked. I went to the head of the bed to perform intraoperative esophagogastroduodenoscopy. An Olympus gastroscope was passed through posterior oropharynx, where a friable lesion incorporating 20-30% of the circumference of the distal esophagus was found between 35-38 cm from the incisors. The stomach was entered including duodenum. Retroflexion of the scope confirmed a Hill grade 2 lower esophageal valve. The stomach had been desufflated. No evidence of leaks were found either of the mucosal defects of the esophagus or stomach. This concluded the endoscopic portion of the case. The robot was undocked from the patient. I re-scrubbed into the case. The specimen was removed via the 12 mm trocar using an Endo Catch bag in its integrity. The specimen was sent fresh to the pathologist whom I spoke to over the phone for appropriate handling of the specimen and intraoperative findings. All instruments and pneumoperitoneum were evacuated from the abdominal cavity. Incisions were reapproximated using 4-0 Monocryl in an interrupted subcuticular fashion. Liquid glue was applied to the skin. Local anesthetic was infiltrated in all wounds for postop analgesia. At the end of the procedure, needle, sponge, and instrument count was verified correct by the surgical services director. The patient had tolerated the procedure well and was taken to the postanesthesia unit in stable condition. Intraoperative films were reviewed with the patient's family including findings and need for additional workup.
[2020-12-05] MEDS: PANTOPRAZOLE 40 MG/10 ML VIAL IV SCH (21:28)
[2020-12-05] MEDS: HYDROmorphone 1 MG/ML 1 ML SYRINGE IVP PRN (21:29)
[2020-12-06] MEDS ORDERED: ACETAMINOPHEN IV (For NPO) 1,000 MG in EMPTY BAG 1 BAG IVPB SCH
[2020-12-06] MEDS: SODIUM CHLORIDE 0.9% 1,000 ML IV SCH ×4 (00:57→20:50)
[2020-12-06] MEDS: LACTATED RINGERS 1,000 ML IV SCH (06:09)
[2020-12-06 06:12] LABS: Basophils % (A) 0 %; Eosinophils % (A) 0 %; HCT 39.3 % (34.0-46.0); HGB 12.1 gm/dL (11.4-16.0); Hypochromasia Moderate; Lymphocytes # (A) 0.7 k/uL (1.0-4.8); Lymphocytes % (A) 6 %; MCH 28.3 pg (25.0-35.0); MCHC 30.8 g/dL (31.0-37.0); MCV 91.7 fL (80.0-100.0); Mean Platelet Volume 7.4; Monocytes # (A) 0.5 k/uL (0-1.0); Monocytes % (A) 4 %; Neutrophils # (A) 10.7 k/uL (1.3-7.7); Neutrophils % (A) 89 %; Platelet Count 372 k/uL (150-450); RBC 4.28 m/uL (3.80-5.40); RDW 14.8 % (11.5-15.5); WBC 12.1 k/uL (3.8-10.6)
[2020-12-06] MEDS: PANTOPRAZOLE 40 MG/10 ML VIAL IV SCH ×2 (08:23→20:47)
[2020-12-06] MEDS: ENOXAPARIN 40 MG/0.4 ML SYRINGE SQ SCH (08:23)
[2020-12-06] MEDS: METOPROLOL SUCCINATE (ER) 50 MG TAB.ER.24H PO SCH (08:23)
[2020-12-06] MEDS: PRAMIPEXOLE 1 MG TAB PO SCH ×3 (08:24→21:07)
[2020-12-06] MEDS: ACETAMINOPHEN IV (For NPO) 1,000 MG in EMPTY BAG 1 BAG IVPB SCH ×2 (08:25→15:57)
[2020-12-06 09:51] LABS: African American GFR (CKD) 109.1 (60.0-200.0); Albumin 4.2 g/dL (3.80-4.90); Albumin/Globulin Ratio 1.83 (1.60-3.17); Anion Gap 8.8 mmol/L (4.00-12.00); BUN/Creat Ratio 11.43 Ratio (12.00-20.00); Calcium 9.2 mg/dL (8.7-10.3); Carbon Dioxide 25.2 mmol/L (21.6-31.8); Globulin 2.3 g/dL (1.6-3.3); Magnesium 1.9 mg/dL (1.5-2.4); Non-African American GFR(CKD) 94.2 (60.0-200.0); Potassium 4.3 mmol/L (3.5-5.5); Total Bilirubin 0.6 mg/dL (0.3-1.2); Total Protein 6.5 g/dL (6.2-8.2)
[2020-12-06] MEDS: ceFAZolin 3 GM in SODIUM CHLORIDE 0.9% 100 ML IVPB SCH ×2 (13:02→20:46)
[2020-12-06] MEDS: HYDROmorphone 1 MG/ML 1 ML SYRINGE IVP PRN ×2 (13:30→18:07)
--- NOTE | 2020-12-06 14:03 | P.PN ---
Subjective Progress Note Date: 12/06/20 CHIEF COMPLAINT: Esophageal malignancy with partial obstruction HISTORY OF PRESENT ILLNESS: The patient is a 60-year-old female status post lysis of adhesions and attempted hiatal hernia repair with new findings of retroperitoneal lymphadenopathy and esophageal neoplasm. Diagnostic findings are consistent with malignancy. Patient and also confirms recent 1 week history of trouble swallowing solid foods. Patient had been on a high-protein low-carb diet prior. ROS: No bowel movements. No fevers or chills. No new chest pain. No productive sputum PHYSICAL EXAM: VITAL SIGNS: Reviewed CONSTITUTIONAL: Well developed and in no acute distress. EYES: Conjuctivae without sclera icterus. Extraocular movements grossly intact. HEAD, EARS, NOSE, THROAT: Moist buccal mucosa. Head is atraumatic, normocephalic. Hears conversational speech. No nasal drainage. NECK: No gross thyroidomegaly. No jugular venous distention. RESPIRATORY: Non-labored respirations and equal bilateral excursions. CARDIOVASCULAR: Palpable 2+ radial pulses. ABDOMEN: Incisions clean dry and intact. Soft. No peritonitis. MUSCULOSKELETAL: No gross deformity of the lower extremities noted. No clubbin g. No cyanosis. SKIN: Good skin turgor. Well perfused. NEUROLOGIC: Cranial nerves II through XII grossly intact. No focal or lateralizing signs. PSYCH: Appropriate affect. Alert and oriented to person, place and time. CLINICAL LABS: Reviewed. White blood cell count elevated over 12,000. He moglobin stable 12.1-12.6. REPORT: Operative findings of esophageal lesion and retroperitoneal adenopathy along the hiatus concerning for malignancy ASSESSMENT: 1. Esophageal partial obstruction due to malignancy 2. Intra-abdominal retroperitoneal lymphadenopathy along hiatus concern for lymphoma 3. Pre-existing history of anemia PLAN: 1. Oncology consultation advised for findings of lymphadenopathy with esophageal mass 2. May need additional surgical intervention for treatment of malignancy pending pathology 3. Intraoperative findings described in detail including moderate adenopathy along the hiatus with complete excisional lymph node biopsy performed of retroperitoneal lymphadenopathy at the hiatus, lesser curvature of the stomach 4. Repeat upper endoscopy may be needed for further diagnostic assessment including placement of a Port-A-Cath for chemo 5. All questions addressed with patient including on telephone. 6. Advanced diet to dysphagia ground versus pure diet Objective - Vital Signs Vital signs: Vital Signs Temp 98.4 F 12/06/20 05:05 Pulse 74 08/14/21 05:05 Resp 16 12/06/20 05:05 BP 128/82 12/06/20 05:05 Pulse Ox 91 L 12/06/20 05:05 Intake & Output 12/05/20 12/06/20 12/06/20 18:59 06:59 18:59 Intake Total 1400 1700 Output Total 10 Balance 1390 1700 Weight 145.3 kg 145.3 kg Intake: IV 1400 500 Oral 1200 Output: Estimated Blood Loss 10 Other: Voiding Method Toilet # Voids 2 - Labs CBC & Chem 7: 12/06/20 05:33 12/06/20 05:33 Labs: Abnormal Lab Results - Last 24 Hours (Table) 12/05/20 12/05/20 12/06/20 Range/Units 12:49 14:03 05:33 WBC 12.1 H (3.8-10.6) k/uL MCHC 30.8 L (31.0-37.0) g/dL Neutrophils # 7.8 H 10.7 H (1.3-7.7) k/uL Lymphocytes # 0.7 L (1.0-4.8) k/uL BUN (9.0-27.0) mg/dL BUN/Creatinine Ratio (12.00-20.00) Ratio AST 37 H (14-36) U/L 12/06/20 Range/Units 05:33 WBC (3.8-10.6) k/uL MCHC (31.0-37.0) g/dL Neutrophils # (1.3-7.7) k/uL Lymphocytes # (1.0-4.8) k/uL BUN 8.0 L (9.0-27.0) mg/dL BUN/Creatinine Ratio 11.43 L (12.00-20.00) Ratio AST 42 H (14-36) U/L
[2020-12-06] MEDS ORDERED: KETOROLAC 15 MG/ML 1 ML VIAL IVP SCH (14:15)
[2020-12-06] MEDS: SODIUM FERRIC GLUCONAT-SUCROSE 125 MG in SODIUM CHLORIDE 0.9% 100 ML IVPB SCH (14:38)
--- NOTE | 2020-12-06 15:00 | P.CONS ---
<Mery Marin - Last Filed: 12/06/20 14:54> History of Present Illness - Reason for Consult Consult date: 12/06/20 New Esophageal Mass Requesting physician: Tanisha Joseph - History of Present Illness Mrs. Butler presented for Excision of retroperitoneal lymph node, lesser curvature of the stomach at hiatus and Intraoperative esophagoga stroduodenoscopy. Concern of underlying malignancy prompted consult to us for further evaluation. Per the medical chart patient has been complaining of dysphagia for the past few weeks. Review of Systems All systems: negative Constitutional: Reports as per HPI Past Medical History Past Medical History: Atrial Fibrillation, Chest Pain / Angina, GERD/Reflux, Hyperlipidemia, Osteoarthritis (OA), Sleep Apnea/CPAP/BIPAP, Vascular Disorder Additional Past Medical History / Comment(s): 07/2020 lower GI bleed/ulceration from hiatal hernia/ severe anemia with blood transfusion, gastric polyp, hiatal hernia, diverticular disease, colon polyp, hemorrhoids, constipation, AUTUMN and either sleeps in a recliner or uses Cpap, arthritis in back/bilateral knees, migraines years ago, osteopenia, RLS, bilateral leg poor circulation, bronchitis, sinusitis, swallowing difficulty History of Any Multi-Drug Resistant Organisms: None Reported Past Surgical History: Bladder Surgery, Breast Surgery, Cholecystectomy, Heart Catheterization, Joint Replacement, Orthopedic Surgery, Tubal Ligation Additional Past Surgical History / Comment(s): left breast biopsy, L knee arthroscopy, buck knee replacement, rt shoulder arthroscopy, bladder sling, bladder suspension, EGD, colonoscopies, small bowel capsule, 08/11/20 heart cath(needed blood transfusion) Past Anesthesia/Blood Transfusion Reactions: Previous Problems w/ Anesthesia Additional Past Anesthesia/Blood Transfusion Reaction / Comm: states during her 1st knee replacement & during colonoscopy her legs were "twitching" & had to be given general anesthesia-didn't think had to do w/her restless leg Past Psychological History: No Psychological Hx Reported Smoking Status: Former smoker, Never smoker Past Alcohol Use History: Rare Additional Past Alcohol Use History / Comment(s): Pt started smoking in 1973 and quit in 1992. 1/2 PPD Past Drug Use History: None Reported - Past Family History Father Family Medical History: Coronary Artery Disease (CAD) Additional Family Medical History / Comment(s): Father lived to be 82 yrs. He had 9 cardiac stents. Sister(s) Additional Family Medical History / Comment(s): Pt has 3 sisters, all of which are healthy except one has thyroid problem. Mother Family Medical History: Congestive Heart Failure (CHF) Additional Family Medical History / Comment(s): Mother of chf at the age of 74 yrs. She was obese. Medications and Allergies Home Medications Medication Instructions Recorded Confirmed Type Multivitamins, Thera [Multivitamin 1 tab PO DAILY 02/12/16 12/01/20 History (formulary)] Magnesium Oxide [Mag-Ox] 400 mg PO DAILY 12/18/18 12/01/20 History Pramipexole [Mirapex] 1 mg PO TID 12/18/18 12/05/20 History Ubidecarenone [Co Q-10] 100 mg PO DAILY 08/25/20 12/01/20 History Ferrous Sulfate [Iron (65 MG 325 mg PO BID 09/11/20 12/01/20 History Elemental)] Metoprolol Succinate [Toprol XL] 50 mg PO DAILY 10/29/20 12/05/20 History Pravastatin Sodium [Pravachol] 40 mg PO DAILY 10/29/20 12/05/20 History Cholecalciferol (Vitamin D3) 125 mcg PO DAILY 10/30/20 12/01/20 History [Vitamin D3 (5000 Iu)] Turmeric Root Extract [Turmeric] 500 mg PO DAILY 12/01/20 12/01/20 History Allergies Allergy/AdvReac Type Severity Reaction Status Date / Time adhesive tape Allergy Rash/Hives/pulls Verified 12/05/20 12:35 skin off Physical Exam Vitals: Vital Signs Temp Pulse Pulse Resp BP BP Pulse Ox 12/06/20 13:02 98.5 F 79 19 108/71 94 L 12/06/20 05:05 98.4 F 74 16 128/82 91 L 12/05/20 22:00 83 125/77 12/05/20 21:45 80 124/76 12/05/20 21:30 84 127/73 12/05/20 21:15 80 130/74 12/05/20 21:00 82 120/94 12/05/20 20:45 77 123/70 12/05/20 20:30 80 112/73 12/05/20 20:15 78 117/66 12/05/20 20:14 85 16 08/13/21 20:00 98.4 F 78 16 120/68 90 L 12/05/20 19:25 98 12/05/20 19:10 97 F L 70 18 130/70 97 12/05/20 18:55 76 16 124/67 94 L 12/05/20 18:40 78 16 121/57 92 L 12/05/20 18:25 97 F L 91 16 134/61 91 L Intake and Output 12/05/20 12/06/20 12/06/20 22:59 06:59 14:59 Intake Total 1700 1200 Output Total 10 Balance 1690 1200 Intake: IV 1700 Oral 1200 Output: Estimated Blood Loss 10 Other: Voiding Method Toilet # Voids 2 Weight 145.3 kg Results CBC & Chem 7: 12/06/20 05:33 12/06/20 05:33 Labs: Abnormal Lab Results - Last 24 Hours (Table) 12/06/20 12/06/20 Range/Units 05:33 05:33 WBC 12.1 H (3.8-10.6) k/uL MCHC 30.8 L (31.0-37.0) g/dL Neutrophils # 10.7 H (1.3-7.7) k/uL Lymphocytes # 0.7 L (1.0-4.8) k/uL BUN 8.0 L (9.0-27.0) mg/dL BUN/Creatinine Ratio 11.43 L (12.00-20.00) Ratio AST 42 H (13-35) U/L Assessment and Plan (1) Esophageal cancer Current Visit: Yes Status: Acute Code(s): C15.9 - MALIGNANT NEOPLASM OF ESOPHAGUS, UNSPECIFIED SNOMED Code(s): 765834732 Plan: Assessment and Recs: Concern of Malignancy post EGD secondary to lymphadenopathy: - Await Pathology to result - FUrther recs once resulted - Full staging can be performed as outpatient. <Lisa Jamison - Last Filed: 12/06/20 15:42> History of Present Illness - Chief Complaint Planned surgery - History of Present Illness Ms. Butler is a very pleasant 60-year-old female who has been following with surgery for concerns of hiatal hernia. She did have a CT in 10/2020 that revealed retroperitoneal lymphadenopathy that had increased in size from prior scans however it is not clear if this has been addressed in the past. She presented for hiatal hernia surgery however intraoperatively was found to have large retroperitoneal lymph nodes. Surgery was aborted and she underwent excision of a retroperitoneal lymph node. Per patient fresh frozen sample was concerning for lymphoma. Awaiting pathology. Patient denies any B symptoms. No excessive fatigue. Her main concerns have been her GI complaints that are attributed to hiatal hernia. History of smoking intermittently for up to 15 years, quit in 1980s. No significant alcohol or drug use. No known family history of malignancy. Physical Exam Vitals: Vital Signs Temp Pulse Pulse Resp BP BP Pulse Ox 12/06/20 13:02 98.5 F 79 19 108/71 94 L 12/06/20 05:05 98.4 F 74 16 128/82 91 L 12/05/20 22:00 83 125/77 12/05/20 21:45 80 124/76 12/05/20 21:30 84 127/73 12/05/20 21:15 80 130/74 12/05/20 21:00 82 120/94 12/05/20 20:45 77 123/70 12/05/20 20:30 80 112/73 12/05/20 20:15 78 117/66 12/05/20 20:14 85 16 12/05/20 20:00 98.4 F 78 16 120/68 90 L 12/05/20 19:25 98 12/05/20 19:10 97 F L 70 18 130/70 97 12/05/20 18:55 76 16 124/67 94 L 12/05/20 18:40 78 16 121/57 92 L 12/05/20 18:25 97 F L 91 16 134/61 91 L Intake and Output 12/06/20 12/06/20 12/06/20 06:59 14:59 22:59 Intake Total 1200 Balance 1200 Intake: Oral 1200 Other: Voiding Method Toilet # Voids 2 Gen.: no acute distress HEENT: No conjunctival pallor, mucosa moist. Neck: Supple Lungs: No respiratory distress Heart: Regular rate Abdomen: Soft Skin: No jaundice Neuro: Alert and oriented 3 Psych: Appropriate affect. Results CBC & Chem 7: 12/06/20 05:33 12/06/20 05:33 Labs: Abnormal Lab Results - Last 24 Hours (Table) 12/06/20 12/06/20 Range/Units 05:33 05:33 WBC 12.1 H (3.8-10.6) k/uL MCHC 30.8 L (31.0-37.0) g/dL Neutrophils # 10.7 H (1.3-7.7) k/uL Lymphocytes # 0.7 L (1.0-4.8) k/uL BUN 8.0 L (9.0-27.0) mg/dL BUN/Creatinine Ratio 11.43 L (12.00-20.00) Ratio AST 42 H (13-35) U/L CT scan - abdomen: report reviewed CT scan - pelvis: report reviewed Assessment and Plan Assessment: Retroperitnoeal LAD Plan: Ms. Butler is a very pleasant 60 yo female who is here for hiatal hernia surgery which was aborted due to intraoperative finding of retroperitoneal lymphadenopathy. He does appear that she did have enlarged retroperitoneal lymph nodes on a computed tomography scan from 10/2020. Unclear if this was addressed prior to this hospitalization. Intraoperative flash frozen sample co ncerning for lymphoma per patient. Will need to await final pathology of excision of lymph node. Staging and further recommendations once the pathology report is obtained. If patient otherwise ready to be discharged no objections to discharge and she can follow-up later this week to discuss final pathology results once available. Discussed with patient in detail she is agreeable to the plan. All of her questions were answered.
[2020-12-07] MEDS: HYDROmorphone 1 MG/ML 1 ML SYRINGE IVP PRN ×3 (00:08→19:32)
[2020-12-07] MEDS ORDERED: ACETAMINOPHEN IV (For NPO) 1,000 MG in EMPTY BAG 1 BAG IVPB ONE (03:00)
[2020-12-07] MEDS: ceFAZolin 3 GM in SODIUM CHLORIDE 0.9% 100 ML IVPB SCH ×3 (03:02→19:30)
[2020-12-07] MEDS: METOPROLOL SUCCINATE (ER) 50 MG TAB.ER.24H PO SCH (08:23)
[2020-12-07] MEDS: PANTOPRAZOLE 40 MG/10 ML VIAL IV SCH ×2 (08:23→21:03)
[2020-12-07] MEDS: ENOXAPARIN 40 MG/0.4 ML SYRINGE SQ SCH (08:23)
[2020-12-07] MEDS: SODIUM CHLORIDE 0.9% 1,000 ML IV SCH ×3 (08:24→21:03)
[2020-12-07] MEDS: PRAMIPEXOLE 1 MG TAB PO SCH ×3 (08:24→21:03)
[2020-12-07] MEDS: SODIUM FERRIC GLUCONAT-SUCROSE 125 MG in SODIUM CHLORIDE 0.9% 100 ML IVPB SCH (08:49)
--- NOTE | 2020-12-07 18:18 | P.PN ---
Subjective Progress Note Date: 12/07/20 CHIEF COMPLAINT: Esophageal malignancy with partial obstruction HISTORY OF PRESENT ILLNESS: The patient is a 60-year-old female status post lysis of adhesions and attempted hiatal hernia repair with new findings of retroperitoneal lymphadenopathy and esophageal neoplasm. She has troubles swallowing chopped diet. She was seen by oncology without any clear answers per her report. Her pain is tolerable. ROS: No fevers or chills. No new chest pain. No productive sputum PHYSICAL EXAM: VITAL SIGNS: Reviewed CONSTITUTIONAL: Well developed and in no acute distress. EYES: Conjuctivae without sclera icterus. Extraocular movements grossly intact. HEAD, EARS, NOSE, THROAT: Moist buccal mucosa. Head is atraumatic, normocephalic. Hears conversational speech. No nasal drainage. NECK: No gross thyroidomegaly. No jugular venous distention. RESPIRATORY: Non-labored respirations and equal bilateral excursions. CARDIOVASCULAR: Palpable 2+ radial pulses. ABDOMEN: Corie peritonitis. MUSCULOSKELETAL: No gross deformity of the lower extremities noted. No clubbing. No cyanosis. SKIN: Good skin turgor. Well perfused. NEUROLOGIC: Cranial nerves II through XII grossly intact. No focal or lateralizing signs. PSYCH: Appropriate affect. Alert and oriented to person, place and time. CLINICAL LABS: No new labs ASSESSMENT: 1. Esophageal partial obstruction due to malignancy 2. Intra-abdominal retroperitoneal lymphadenopathy along hiatus concern for lymphoma 3. Pre-existing history of anemia PLAN: 1. Per discussion with pathologist, results should be available tomorrow. 2. Will adjust diet to pureed with her current difficulty swallowing. 3. Additional recommendation pending pathology with oncology input. Objective - Vital Signs Vital signs: Vital Signs Temp 98.3 F 12/07/20 13:57 Pulse 83 12/07/20 13:57 Resp 19 12/07/20 13:57 BP 121/61 12/07/20 13:57 Pulse Ox 91 L 12/07/20 13:57 Intake & Output 12/06/20 12/07/20 12/07/20 18:59 06:59 18:59 Intake Total 1250 590 Balance 1250 590 Intake: Oral 1250 590 Other: Voiding Method Toilet Toilet # Voids 3 3 - Labs CBC & Chem 7: 12/06/20 05:33 12/06/20 05:33
[2020-12-08] MEDS: ceFAZolin 3 GM in SODIUM CHLORIDE 0.9% 100 ML IVPB SCH ×2 (03:56→13:17)
[2020-12-08] MEDS: SODIUM CHLORIDE 0.9% 1,000 ML IV SCH ×2 (03:57→13:15)
[2020-12-08 04:16] VITALS: RESP 18; TEMP 98.4
[2020-12-08 07:48] LABS: Basophils % (A) 0 %; Eosinophils # (A) 0.5 k/uL (0-0.7); Eosinophils % (A) 5 %; HCT 35.9 % (34.0-46.0); HGB 11.2 gm/dL (11.4-16.0); Hypochromasia Moderate; Lymphocytes # (A) 0.6 k/uL (1.0-4.8); Lymphocytes % (A) 7 %; MCH 28.5 pg (25.0-35.0); MCHC 31.1 g/dL (31.0-37.0); MCV 91.8 fL (80.0-100.0); Mean Platelet Volume 7.5; Monocytes # (A) 0.4 k/uL (0-1.0); Monocytes % (A) 5 %; Neutrophils # (A) 7.5 k/uL (1.3-7.7); Neutrophils % (A) 82 %; Platelet Count 305 k/uL (150-450); RBC 3.91 m/uL (3.80-5.40); RDW 15.1 % (11.5-15.5); WBC 9.1 k/uL (3.8-10.6)
[2020-12-08] MEDS: METOPROLOL SUCCINATE (ER) 50 MG TAB.ER.24H PO SCH (08:36)
[2020-12-08] MEDS: ENOXAPARIN 40 MG/0.4 ML SYRINGE SQ SCH (08:36)
[2020-12-08] MEDS: PANTOPRAZOLE 40 MG/10 ML VIAL IV SCH (08:36)
[2020-12-08] MEDS: HYDROmorphone 1 MG/ML 1 ML SYRINGE IVP PRN (08:45)
[2020-12-08] MEDS: SODIUM FERRIC GLUCONAT-SUCROSE 125 MG in SODIUM CHLORIDE 0.9% 100 ML IVPB SCH (08:45)
[2020-12-08] MEDS: PRAMIPEXOLE 1 MG TAB PO SCH (08:45)
[2020-12-08] MEDS: SCOPOLAMINE 1.5MG/72HR PATCH TRANSDERM SCH (08:46)
[2020-12-08 11:35] VITALS: BP 112/69; PULSE 81
--- NOTE | 2020-12-08 15:40 | P.PN ---
Subjective Progress Note Date: 12/08/20 Principal diagnosis: Lymph node biopsy Awaiting pathology results, I have spoken to Dr. Joseph and at this time planning for discharge. Patient may follow-up with us pending results of biopsy. She denies any recent weight loss, night sweats. Objective - Vital Signs Vital signs: Vital Signs Temp 98.4 F 12/08/20 11:04 Pulse 81 12/08/20 11:04 Resp 18 12/08/20 11:04 BP 112/69 12/08/20 11:04 Pulse Ox 93 L 12/08/20 11:04 Intake & Output 12/07/20 12/08/20 12/08/20 18:59 06:59 18:59 Intake Total 1125 1600 Balance 1125 1600 Intake: Intake, IV Titration 1100 Amount Sodium Chloride 0.9% 1, 900 000 ml @ 130 mls/hr IV . Q7H42M KARLA Rx#:[id number] ceFAZolin 3 gm In Sodium 200 Chloride 0.9% 100 ml @ 200 mls/hr IVPB Q8H KARLA Rx#:[id number] Oral 1125 500 Other: Voiding Method Toilet Toilet Toilet # Voids 3 4 - Exam Gen.: no acute distress HEENT: No conjunctival pallor, mucosa moist. Neck: Supple Lungs: No respiratory distress Heart: Regular rate Abdomen: Soft Skin: No jaundice Neuro: Alert and oriented 3 Psych: Appropriate affect. - Labs CBC & Chem 7: 12/08/20 07:32 12/06/20 05:33 Labs: Abnormal Lab Results - Last 24 Hours (Table) 12/08/20 Range/Units 07:32 Hgb 11.2 L (11.4-16.0) gm/dL Lymphocytes # 0.6 L (1.0-4.8) k/uL Assessment and Plan (1) Esophageal cancer Status: Acute Code(s): C15.9 - MALIGNANT NEOPLASM OF ESOPHAGUS, UNSPECIFIED SNOMED Code(s): 390585335 Plan: Assessment and Recs: Concern of Malignancy post EGD secondary to lymphadenopathy: - Await Pathology to result - FUrther recs once resulted - Full staging can be performed as outpatient. Will have tentative appointment made for the end of this week or early next week to review pathology if malignant and develop plan
--- NOTE | 2020-12-08 16:48 | P.DS ---
Providers Date of admission: 12/05/20 19:03 Expected date of discharge: 12/08/20 Attending physician: Tanisha Joseph Consults: 12/06/20 14:04 Consult Physician Urgent Consulting Provider: Margarito Menjivar Consult Reason/Comments: New lymphoma, esophageal lesion Do you want consulting provider notified?: Yes Primary care physician: Juliette Bradshaw MD - Discharge Diagnosis(es) (1) BMI 50.0-59.9, adult Status: Acute (2) Esophageal cancer Status: Acute (3) Hiatal hernia with GERD and esophagitis Status: Acute (4) Incarcerated hiatal hernia Status: Acute (5) Lymphoma Status: Acute (6) Morbid obesity due to excess calories Status: Acute Hospital Course: POSTOPERATIVE DIAGNOSES: 1. Paraesophageal diaphragmatic hiatal hernia with dysphagia 2. Gastroesophageal reflux disease 3. Chronic iron deficiency anemia 4. Morbid obesity due to excess calories, BMI 50.2 5. Hyperlipidemia 6. Hypertensive heart disease 7. Chronic iron deficiency anemia 8. Vitamin D deficiency 9. Restless leg syndrome 10. Obstructive sleep apnea 11. History of atrial fibrillation 12. 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 Retroperitoneal lymphadenopathy COURSE: The patient is a 60-year-old female admitted for hiatal hernia and treatment of gastroesophageal reflux disease. During the procedure, new findings of retroperitoneal lymphadenopathy and esophageal neoplasm was found concerning for malignancy. Specimens were sent to pathology for further workup. She then confirmed worsening troubles with swallowing. She was switched from a chopped diet to pured diet which she was able to tolerate. She reported her swallowing was tolerable with adjustment of diet. Patient was seen by oncology to arrange for outpatient follow-up. ROS: No fevers or chills. No new chest pain. No productive sputum PHYSICAL EXAM: VITAL SIGNS: Reviewed CONSTITUTIONAL: Well developed and in no acute distress. EYES: Conjuctivae without sclera icterus. Extraocular movements grossly intact. HEAD, EARS, NOSE, THROAT: Moist buccal mucosa. Head is atraumatic, normocephalic. Hears conversational speech. No nasal drainage. NECK: No gross thyroidomegaly. No jugular venous distention. RESPIRATORY: Non-labored respirations and equal bilateral excursions. CARDIOVASCULAR: Palpable 2+ radial pulses. ABDOMEN: Incisions clean dry and intact. No peritonitis. MUSCULOSKELETAL: No gross deformity of the lower extremities noted. No clubbing. No cyanosis. SKIN: Good skin turgor. Well perfused. NEUROLOGIC: Cranial nerves II through XII grossly intact. No focal or lateralizing signs. PSYCH: Appropriate affect. Alert and oriented to person, place and time. CLINICAL LABS: White blood cell count was normal at 9.1. Hemoglobin was down from 12.1-11.2. ASSESSMENT: 1. Esophageal partial obstruction due to malignancy 2. Intra-abdominal retroperitoneal lymphadenopathy along hiatus concern for lymphoma 3. Pre-existing history of iron deficiency anemia PLAN: 1. I spoke with oncology team with close follow-up of pathology which is still pending. 2. Close outpatient follow-up with myself and oncology described. 3. Patient was stable for discharge. Procedures: OPERATION: 1. Robotic-assisted da Vincent Xi laparoscopic paraesophageal hiatal hernia aborted for lysis of adhesions over 1 hour 2. Excision of retroperitoneal lymph node, lesser curvature of the stomach at hiatus 3. Intraoperative esophagogastroduodenoscopy ANESTHESIA: General with local anesthetic. ESTIMATED BLOOD LOSS: 10 mL SPECIMENS REMOVED: Retroperitoneal lymphadenopathy at hiatus, lesser curvature of the stomach, 2 cm lymph node in size sent fresh COMPLICATIONS: None. FINDINGS: 1. Incarcerated paraesophageal hiatal hernia with omental fat, over 5 cm 2. Multiple large over 2 cm retroperitoneal lymphadenopathy along the hiatus and lesser curvature of the stomach, excised and sent fresh for pathology to Dr. Reina 3. Bleeding along the distal esophagus with lesion 35-38 cm from the incisors involving 20-30% circumference with narrowing, partial obstruction 4. Upon finding of large retroperitoneal adenopathy and esophageal tumor, hiatal hernia repair aborted 5. No lesions identified along the surface of the liver Patient Condition at Discharge: Good Plan - Discharge Summary Discharge Rx Participant: Yes New Discharge Prescriptions: New Acetaminophen Tab [Tylenol Tab] 1,000 mg PO Q6HR PRN #30 tablet PRN Reason: Pain Simethicone [Gas-X] 125 mg PO AC-TID PRN #20 capsule PRN Reason: Pain Continue Multivitamins, Thera [Multivitamin (formulary)] 1 tab PO DAILY Pramipexole [Mirapex] 1 mg PO TID Magnesium Oxide [Mag-Ox] 400 mg PO DAILY Ubidecarenone [Co Q-10] 100 mg PO DAILY Pravastatin Sodium [Pravachol] 40 mg PO DAILY Ferrous Sulfate [Iron (65 MG Elemental)] 325 mg PO BID Metoprolol Succinate [Toprol XL] 50 mg PO DAILY Cholecalciferol (Vitamin D3) [Vitamin D3 (5000 Iu)] 125 mcg PO DAILY Discontinued Turmeric Root Extract [Turmeric] 500 mg PO DAILY Discharge Medication List Multivitamins, Thera [Multivitamin (formulary)] 1 tab PO DAILY 02/12/16 [History] Magnesium Oxide [Mag-Ox] 400 mg PO DAILY 12/18/18 [History] Pramipexole [Mirapex] 1 mg PO TID 12/18/18 [History] Ubidecarenone [Co Q-10] 100 mg PO DAILY 08/25/20 [History] Ferrous Sulfate [Iron (65 MG Elemental)] 325 mg PO BID 09/11/20 [History] Metoprolol Succinate [Toprol XL] 50 mg PO DAILY 10/29/20 [History] Pravastatin Sodium [Pravachol] 40 mg PO DAILY 10/29/20 [History] Cholecalciferol (Vitamin D3) [Vitamin D3 (5000 Iu)] 125 mcg PO DAILY 10/30/20 [History] Acetaminophen Tab [Tylenol Tab] 1,000 mg PO Q6HR PRN #30 tablet 12/08/20 [Rx] Simethicone [Gas-X] 125 mg PO AC-TID PRN #20 capsule 12/08/20 [Rx] Follow up Appointment(s)/Referral(s): Holden Blanchard MD [STAFF PHYSICIAN] - 1 Week (new patient-office will call to schedule appt.) Tanisha Joseph MD [STAFF PHYSICIAN] - 12/11/20 8:30 am Patient Instructions/Handouts: *Surgery [facility] - Scopalamine Patch Instructions, Acetaminophen (By mouth), Simethicone (By mouth), Lysis of Abdominal Adhesions (IP) Activity/Diet/Wound Care/Special Instructions: No lifting over 10 pounds in 2 weeks until Dec 19. August shower. No bath tub soaks for two weeks until Dec 19. Diet as tolerated. Use Tylenol, simethicone scheduled for the next 24-48 hours for best pain relief. Use ice along incisions for today to prevent swelling. Discharge Disposition: HOME SELF-CARE
--- NOTE | 2020-12-15 10:43 | CDI ---
Documentation Clarification Form Date: 12/15/20 From: Noreen Walsh Admit Date: 12/05/2020 07:03:00 PM Patient Name: Christa Butler Visit Number: [id number] Discharge Date: 12/08/2020 02:50:00 PM ATTENTION: The Clinical Documentation Specialists (CDI) and [facility] Coding Staff appreciate your assistance in clarifying documentation. Please respond to the clarification below the line at the bottom and electronically sign. The CDI & [facility] Coding staff will review the response and follow-up if needed. Please note: Queries are made part of the Legal Health Record. If you have any questions, please contact the author of this message via ITS. Dr. Tanisha Joseph, The final diagnosis of the pathology report states LYMPH NODE, DESIGNATED "RETROPERITONEAL", EXCISION: Fibroadipose tissue with focal scant lymphoid tissue involved by adenocarcinoma (see note). The morphologic and immunohistochemical findings are compatible with an upper gastrointestinal primary. A pancreaticobiliary primary is also a consideration, but the source of carcinoma is favored to represent an upper GI/distal esophageal source, given the clinical history and morphologic findings. Due to the presence of scant lymphoid tissue, the findings are compatible with a nearly replaced lymph node by tumor. Coding guidelines do not allow coding professionals to code based on pathology results; therefore, clarification is requested. History/risk factors: Hypertensive heart disease, Morbid obesity, GERD Clinical Indicators: Paraesophageal diaphragmatic hiatal hernia with dysphagia. The following found during surgery: Esophageal malignancy with partial obstruction and bleeding and Retroperitoneal lymphadenopathy. Treatment:1.Robotic-assisted da Vincent Xi laparoscopic paraesophageal hiatal hernia aborted for lysis of adhesions over 1 hour 2.Excision of retroperitoneal lymph node, lesser curvature of the stomach at hiatus 3.Intraoperative esophagogastroduodenoscopy Please clarify if you agree with the pathology report: [X ] Yes, please specify ____esophageal malignancy [ ] No [ ] Other (please specify) [ ] Unable to determine MTDD
== END 2020-12-08 14:50 | disposition home or self-care (01) | DRG 327 ==
LOC: OR 11:59 → 5NMEDONC 18:31 → OR 19:03
PROVIDERS: ADMIT Surgery Plastic and Reconstructive Surgery; ATTEND Surgery Plastic and Reconstructive Surgery
PROC: 07BD4ZX Excision of Aortic Lymphatic, Percutaneous Endoscopic Approach, Diagnostic (ICD-10-PCS; principal; 2020-12-05 13:40)
PROC: 0DJ08ZZ Inspection of Upper Intestinal Tract, Via Natural or Artificial Opening Endoscopic (ICD-10-PCS; principal; 2020-12-05 13:40)
PROC: 0DN64ZZ Release Stomach, Percutaneous Endoscopic Approach (ICD-10-PCS; principal; 2020-12-05 13:40)
PROC: 0DN54ZZ Release Esophagus, Percutaneous Endoscopic Approach (ICD-10-PCS; principal; 2020-12-05 13:40)
PROC: 8E0W4CZ Robotic Assisted Procedure of Trunk Region, Percutaneous Endoscopic Approach (ICD-10-PCS; principal; 2020-12-05 13:40)
DX: K44.0 Diaphragmatic hernia with obstruction, without gangrene (principal); Z68.43 Body mass index [BMI] 50.0-59.9, adult; C15.9 Malignant neoplasm of esophagus, unspecified; I11.9 Hypertensive heart disease without heart failure; E66.01 Morbid (severe) obesity due to excess calories; R16.0 Hepatomegaly, not elsewhere classified; D50.9 Iron deficiency anemia, unspecified; K21.00 Gastro-esophageal reflux disease with esophagitis, without bleeding; R13.10 Dysphagia, unspecified; R59.0 Localized enlarged lymph nodes; E78.5 Hyperlipidemia, unspecified; G47.33 Obstructive sleep apnea (adult) (pediatric); E55.9 Vitamin D deficiency, unspecified; K64.9 Unspecified hemorrhoids; K59.00 Constipation, unspecified; K57.90 Diverticulosis of intestine, part unspecified, without perforation or abscess without bleeding; G25.81 Restless legs syndrome; M47.9 Spondylosis, unspecified; M85.80 Other specified disorders of bone density and structure, unspecified site; Z53.8 Procedure and treatment not carried out for other reasons; Z79.899 Other long term (current) drug therapy; Z86.79 Personal history of other diseases of the circulatory system; Z90.49 Acquired absence of other specified parts of digestive tract; Z98.51 Tubal ligation status; Z96.653 Presence of artificial knee joint, bilateral; Z87.2 Personal history of diseases of the skin and subcutaneous tissue; Z87.448 Personal history of other diseases of urinary system; Z87.19 Personal history of other diseases of the digestive system; Z91.048 Other nonmedicinal substance allergy status; Z87.891 Personal history of nicotine dependence; Z86.69 Personal history of other diseases of the nervous system and sense organs; Z98.890 Other specified postprocedural states; Z82.49 Family history of ischemic heart disease and other diseases of the circulatory system; Z83.49 Family history of other endocrine, nutritional and metabolic diseases
CPT/HCPCS: 80053; 83735; 85025; 88307; 88341; 88342

== ENCOUNTER → 2020-12-26 | Outpatient (CLI) | payer MEDICAID ==
--- NOTE | 2020-12-30 06:07 | PE ---
EXAMINATION TYPE: PET CT fusion skull to thigh DATE OF EXAM: 12/26/2020 COMPARISON: CT abdomen and pelvis October 29, 2020 and older CTs. HISTORY: Esophageal cancer initial staging study on lymph node biopsy December 09, 2020 TECHNIQUE: Following the intravenous administration of 14.6 mCi of F-18 FDG, whole body images are p erformed from the skull base to the midthigh. Images are reviewed on the computer in the coronal, ax ial, and sagittal planes. Reconstructed rotating images are created on independent workstation and r eviewed on the computer. A localization and attenuation correction CT is performed in conjunction w ith the PET scan. Blood glucose level equals 101 SCAN: Initial Scan FINDINGS: Exam suboptimal due to patient's large body habitus. SKULL BASE AND NECK: Bilateral hypermetabolic supraclavicular lymph nodes at level of thyroid gland, for reference left-sided thyroid lymph node measures 4.2 x 3.1 cm axial image 55, Max SUV is 6.81. R ight-sided lymph node measures 3.2 x 1.9 cm axial image 51, max SUV is 7.71. CHEST, MEDIASTINUM, AND HILAR REGION: Abnormal wall thickening and hypermetabolic uptake distal one t hird of the esophagus extends through level of the diaphragmatic hiatus, max SUV is 9.57 on axial melody ge 100. Abnormal hypermetabolic right paraesophageal lymph nodes near axial image 105 noted. Abnormal mediastinal lymph nodes , for reference right paratracheal lymph node or confluence of lymph nodes measures 2.4 x 2.0 cm axial image 70, max SUV is 9.29 on axial image 63. Abnormal enlarged pre vascular lymph nodes, max SUV is 5.71. ABDOMEN AND PELVIS: Abnormal perigastric lymph node just below diaphragm measures 2.4 x 1.9 cm axial image 118, max SUV is 6.46. Additional abnormal hypermetabolic lymph node below this axial image 127 noted. Abnormal left para-aortic retroperitoneal 3.9 x 3.4 cm lymph node at level of renal vessels ax ial image 143, max SUV is 6.87. Additional abnormal hypermetabolic lymph nodes seen below this extend ing to the aortic bifurcation. Nonspecific subtle hypermetabolic area left anterior abdominal wall axial image 151 could be artifact along the lateral aspect of the rectus sheath. OSSEOUS STRUCTURES: No definitive areas of abnormal hypermetabolic uptake. OTHER CT: Low lung volumes. Small size hiatal hernia. Facet arthropathy lower lumbar spine. IMPRESSION: Primary esophageal neoplasm extends above and below the diaphragm. Adjacent adenopathy ab ove and below diaphragm. Metastatic mediastinal and bilateral supraclavicular adenopathy. Metastatic abdominal retroperitoneal adenopathy also noted.
== END | disposition home or self-care (01) ==
LOC: RADPETMAIN 14:26
PROVIDERS: ATTEND Internal Medicine Hematology & Oncology
DX: C15.9 Malignant neoplasm of esophagus, unspecified (principal); R59.0 Localized enlarged lymph nodes
CPT/HCPCS: 78815; A9552

== ENCOUNTER 2020-12-31 10:14 | Day surgery (SDC) | payer MEDICAID ==
--- NOTE | 2020-12-31 10:02 | P.GSHP ---
History of Present Illness H&P Date: 12/31/20 CHIEF COMPLAINT: Dysphagia HISTORY OF PRESENT ILLNESS: The patient is a 60-year-old female who presents reports dysphagia and history of esophageal mass. Upper endoscopy was offered for further evaluation and management. PAST MEDICAL HISTORY: Please see list. PAST SURGICAL HISTORY: Please see list. MEDICATIONS: Please see list. ALLERGIES: Please see list. SOCIAL HISTORY: No illicit drug use FAMILY HISTORY: No reports of Crohn disease or ulcerative colitis. REVIEW OF ORGAN SYSTEMS: CONSTITUTIONAL: No reports of fevers or chills. PHYSICAL EXAM: VITAL SIGNS: Stable GENERAL: Well-developed and pleasant in no acute distress. HEENT: No scleral icterus. Extraocular movements grossly intact. Moist buccal mucosa. NECK: Supple without lymphadenopathy. CHEST: Unlabored respirations. Equal bilateral excursions. CARDIOVASCULAR: Regular rate and rhythm. Distal 2+ pulses. ABDOMEN: Soft, nondistended. MUSCULOSKELETAL: No clubbing, cyanosis, or edema. ASSESSMENT: 1. Dysphagia 2. History of esophageal mass PLAN: 1. Recommend proceeding with an upper endoscopy Past Medical History Past Medical History: Atrial Fibrillation, Chest Pain / Angina, GERD/Reflux, Hyperlipidemia, Osteoarthritis (OA), Sleep Apnea/CPAP/BIPAP, Vascular Disorder Additional Past Medical History / Comment(s): 07/2020 lower GI bleed/ulceration from hiatal hernia/ severe anemia with blood transfusion, gastric polyp, hiatal hernia, diverticular disease, colon polyp, hemorrhoids, constipation, AUTUMN and either sleeps in a recliner or uses Cpap, arthritis in back/bilateral knees, migraines years ago, osteopenia, RLS, bilateral leg poor circulation, bronchitis, sinusitis, swallowing difficulty History of Any Multi-Drug Resistant Organisms: None Reported Past Surgical History: Bladder Surgery, Breast Surgery, Cholecystectomy, Heart Catheterization, Joint Replacement, Orthopedic Surgery, Tubal Ligation Additional Past Surgical History / Comment(s): left breast biopsy, L knee arthroscopy, buck knee replacement, rt shoulder arthroscopy, bladder sling, bladder suspension, EGD, colonoscopies, small bowel capsule, 08/11/20 heart cath(needed blood transfusion) Past Anesthesia/Blood Transfusion Reactions: Previous Problems w/ Anesthesia Additional Past Anesthesia/Blood Transfusion Reaction / Comment(s): states during her 1st knee replacement & during colonoscopy her legs were "twitching" & had to be given general anesthesia-didn't think had to do w/her restless leg Past Psychological History: No Psychological Hx Reported Smoking Status: Former smoker, Never smoker Past Alcohol Use History: Rare Additional Past Alcohol Use History / Comment(s): Pt started smoking in 1973 and quit in 1992. 1/2 PPD Past Drug Use History: None Reported - Past Family History Father Family Medical History: Coronary Artery Disease (CAD) Additional Family Medical History / Comment(s): Father lived to be 82 yrs. He had 9 cardiac stents. Sister(s) Additional Family Medical History / Comment(s): Pt has 3 sisters, all of which are healthy except one has thyroid problem. Mother Family Medical History: Congestive Heart Failure (CHF) Additional Family Medical History / Comment(s): Mother of chf at the age of 74 yrs. She was obese. Medications and Allergies Home Medications Medication Instructions Recorded Confirmed Type Pramipexole [Mirapex] 1 mg PO TID 12/18/18 12/31/20 History Metoprolol Succinate [Toprol XL] 50 mg PO QAM 10/29/20 12/31/20 History Pravastatin Sodium [Pravachol] 40 mg PO DAILY 10/29/20 12/31/20 History Allergies Allergy/AdvReac Type Severity Reaction Status Date / Time adhesive tape Allergy Rash/Hives/pulls Verified 12/31/20 09:06 skin off
[2020-12-31 11:08] VITALS: TEMP 97.2
[2020-12-31] MEDS ORDERED: LIDOCAINE 1% (10MG/ML) FOR IV START INTRADERMA ONE (11:08)
[2020-12-31] MEDS ORDERED: LACTATED RINGERS 1,000 ML IV ONE (11:08)
[2020-12-31] MEDS ORDERED: LIDOCAINE 1% INJ 10MG/ML (20 ML MDV) ONE (11:26)
[2020-12-31] MEDS ORDERED: KETAMINE 10 MG/ML 20 ML VIAL ONE (11:26)
[2020-12-31] MEDS ORDERED: PROPOFOL 10 MG/ML 20 ML VIAL IV ONE (11:26)
[2020-12-31] MEDS ORDERED: MIDAZOLAM 2 MG/2 ML VIAL ONE (11:26)
--- NOTE | 2020-12-31 11:54 | P.PCN ---
Date of Procedure: 12/31/20 Description of Procedure: PREOPERATIVE DIAGNOSIS: Dysphagia Esophageal mass Morbid obesity due to excess calories, BMI 50 POSTOPERATIVE DIAGNOSIS: Dysphagia Esophageal mass Morbid obesity due to excess calories, BMI 50 OPERATION: Esophagogastroduodenoscopy with snare biopsy, GE junction SURGEON: Tanisha Joseph MD ANESTHESIA: MAC. INDICATIONS: The patient is a 60-year-old female who presents dysphagia due to esophageal male. Benefits and risks of the procedure were described. Informed consent was obtained. DESCRIPTION: The patient was brought into the endoscopy suite and laid in the left lateral decubitus position. An Olympus gastroscope was passed along the posterior oropharynx down to the distal esophagus where the squamocolumnar junction was encountered at 33 cm from the incisors and a circumferential ulcerative mass extending to the GE junction. The stomach was entered and no bile reflux was found. Additional findings are listed below. Snare hot biopsy was performed to obtain specimen of the distal esophageal mass. The first through third portion of the duodenum was examined and unremarkable. Retroflexion of the scope confirmed Hill grade 4 lower esophageal valve. The stomach was desufflated. The patient tolerated the procedure well. FINDINGS: Squamocolumnar junction obliterated by distal esophageal mass at 33 cm to 40 cm from the incisors Circumferential tumor easily friable mass creating partial obstruction, easily friable and firm with snare biopsy obtained Diaphragmatic hiatus at 40 cm. Hiatal hernia, 7 cm Hill grade 4 lower esophageal valve. No active duodenitis. No duodenal ulcers No gastric ulcers RECOMMENDATIONS: Upper endoscopy as needed. Plan - Discharge Summary New Discharge Prescriptions: Continue Pramipexole [Mirapex] 1 mg PO TID Pravastatin Sodium [Pravachol] 40 mg PO DAILY Metoprolol Succinate [Toprol XL] 50 mg PO QAM Discharge Medication List Pramipexole [Mirapex] 1 mg PO TID 12/18/18 [History] Metoprolol Succinate [Toprol XL] 50 mg PO QAM 10/29/20 [History] Pravastatin Sodium [Pravachol] 40 mg PO DAILY 10/29/20 [History] Follow up Appointment(s)/Referral(s): Tanisha Joseph MD [STAFF PHYSICIAN] - 01/05/21 Patient Instructions/Handouts: Chronic Dysphagia (GEN), Complete Blenderized Diet (DC) Discharge Disposition: HOME SELF-CARE
[2020-12-31 12:40] VITALS: BP 117/54; PULSE 78; RESP 18
== END 2020-12-31 13:06 | disposition home or self-care (01) ==
LOC: ORWHC2ENDO 10:14
PROVIDERS: ATTEND Surgery Plastic and Reconstructive Surgery
DX: C16.0 Malignant neoplasm of cardia (principal); K21.9 Gastro-esophageal reflux disease without esophagitis; E78.5 Hyperlipidemia, unspecified; M19.90 Unspecified osteoarthritis, unspecified site; I48.91 Unspecified atrial fibrillation; Z79.01 Long term (current) use of anticoagulants; G47.33 Obstructive sleep apnea (adult) (pediatric); E66.01 Morbid (severe) obesity due to excess calories; Z68.43 Body mass index [BMI] 50.0-59.9, adult; Z79.899 Other long term (current) drug therapy; Z87.891 Personal history of nicotine dependence; I10 Essential (primary) hypertension
CPT/HCPCS: 88305; 88342; 43250; J2250; J2001; J2704

== ENCOUNTER 2021-01-05 07:50 | Day surgery (SDC) | payer MEDICAID ==
[2020-12-31 09:18] VITALS: BMI 49.6
--- NOTE | 2021-01-05 07:21 | P.GSHP ---
History of Present Illness H&P Date: 01/05/21 CHIEF COMPLAINT: Esophageal cancer HISTORY OF PRESENT ILLNESS: The patient is a 60-year-old female diagnosed with esophageal cancer. She needs a Mediport placement for chemotherapy. PAST MEDICAL HISTORY: See list and reviewed PAST SURGICAL HISTORY: See list and reviewed CURRENT MEDICATIONS: See list and reviewed ALLERGIES: See list and reviewed SOCIAL HISTORY: See list and reviewed FAMILY HISTORY: See list and reviewed REVIEW OF ORGAN SYSTEMS: CONSTITUTIONAL: Has weight loss. PHYSICAL EXAMINATION: Vital signs: Stable GENERAL: Well developed and in no acute distress. Pleasant. HEENT: No sclera icterus. Extraocular movements grossly intact. Moist buccal mucosa. Head is atraumatic, normocephalic. Hears conversational speech. No nasal drainage. NECK: Supple with lymphadenopathy. No JV distention. CHEST: Non-labored respirations and equal bilateral excursions. CARDIOVASCULAR: Regular rate and rhythm. Palpable 2+ radial pulses. ABDOMEN: Nontender. MUSCULOSKELETAL: No clubbing, cyanosis or edema. NEUROLOGIC: No focal or lateralizing signs. PSYCH: Appropriate affect. Alert and oriented to person, place and time. ASSESSMENT: 1. Esophageal cancer 2. Need for chemotherapeutic access. PLAN: 1. Agree with Port-A-Cath placement. Past Medical History Past Medical History: Atrial Fibrillation, Cancer, Chest Pain / Angina, GERD/Reflux, Hyperlipidemia, Osteoarthritis (OA), Sleep Apnea/CPAP/BIPAP, Vascular Disorder Additional Past Medical History / Comment(s): 07/2020 lower GI bleed/ulceration from hiatal hernia/ severe anemia with blood transfusion, gastric polyp, hiatal hernia, diverticular disease, colon polyp, hemorrhoids, constipation, AUTUMN and either sleeps in a recliner or uses Cpap, arthritis in back/bilateral knees, migraines years ago, osteopenia, RLS, bilateral leg poor circulation, bronchitis, sinusitis, swallowing difficulty, current esophageal cancer. History of Any Multi-Drug Resistant Organisms: None Reported Past Surgical History: Bladder Surgery, Breast Surgery, Cholecystectomy, Heart Catheterization, Joint Replacement, Orthopedic Surgery, Tubal Ligation Additional Past Surgical History / Comment(s): Left breast biopsy, left knee arthroscopy, bilateral knee replacements, right shoulder arthroscopy, bladder sling, bladder suspension, EGD's, colonoscopies, small bowel capsule, 08/11/20 heart cath(needed blood transfusion). Past Anesthesia/Blood Transfusion Reactions: Previous Problems w/ Anesthesia Additional Past Anesthesia/Blood Transfusion Reaction / Comment(s): States during her 1st knee replacement & during colonoscopy her legs were "twitching" & had to be given general anesthesia-didn't think had to do w/her restless leg. Past Psychological History: No Psychological Hx Reported Smoking Status: Former smoker Past Alcohol Use History: Rare Additional Past Alcohol Use History / Comment(s): Pt started smoking in 1973 and quit in 1992, 1/2 PPD. Past Drug Use History: None Reported - Past Family History Father Family Medical History: Coronary Artery Disease (CAD) Additional Family Medical History / Comment(s): Father lived to be 82 yrs. He had 9 cardiac stents. Sister(s) Additional Family Medical History / Comment(s): Pt has 3 sisters, all of which are healthy except one has thyroid problem. Mother Family Medical History: Congestive Heart Failure (CHF) Additional Family Medical History / Comment(s): Mother of CHF at the age of 74 yrs. She was obese. Medications and Allergies Home Medications Medication Instructions Recorded Confirmed Type Pramipexole [Mirapex] 1 mg PO TID 12/18/18 12/31/20 History Metoprolol Succinate [Toprol XL] 50 mg PO QAM 10/29/20 12/31/20 History Pravastatin Sodium [Pravachol] 40 mg PO DAILY 10/29/20 12/31/20 History Allergies Allergy/AdvReac Type Severity Reaction Status Date / Time adhesive tape Allergy Rash/Hives/pulls Verified 12/31/20 10:55 skin off
[~2021-01-05 07:50] MED LIST changes: -ACETAMINOPHEN TAB 500 MG TAB PO PRN; -CHLORHEXIDINE GLUCONATE 15 ML CUP MUCOUS MEM PRN; -GABAPENTIN 300 MG CAP PO PRN; -HEPARIN SODIUM,PORCINE/PF 5,000 UNIT/0.5 ML SYRINGE SQ PRN; +LACTATED RINGERS 1,000 ML IV SCH; -LIDOCAINE 1% (10MG/ML) FOR IV START INTRADERMA PRN; -PANTOPRAZOLE 40 MG/10 ML VIAL IVP PRN; +Pre Op ABX Message 1 EACH MISC MISCELLANE ONE; +fentaNYL (PF) 50 MCG/ML 2 ML AMP IV PRN
[2021-01-05] MEDS ORDERED: LIDOCAINE 1% (10MG/ML) FOR IV START INTRADERMA ONE (08:30)
[2021-01-05] MEDS ORDERED: MIDAZOLAM 2 MG/2 ML VIAL ONE (08:47)
[2021-01-05] MEDS ORDERED: PHENYLEPHRINE-0.9% NACL SYG 1,000 MCG/10 ML SYRINGE ONE (08:47)
[2021-01-05] MEDS ORDERED: fentaNYL (PF) 50 MCG/ML 2 ML AMP ONE (08:47)
[2021-01-05] MEDS ORDERED: DEXAMETHASONE SOD PHOSPHATE 10 MG/ML 1 ML VIAL ONE (08:47)
[2021-01-05] MEDS ORDERED: GLYCOPYRROLATE 0.2 MG/ML 2 ML VIAL ONE (08:47)
[2021-01-05] MEDS ORDERED: NEOSTIGMINE 1 MG/ML 10 ML VIAL ONE (08:47)
[2021-01-05] MEDS ORDERED: SUCCINYLCHOLINE CHLORIDE VIAL 200 MG/10 ML VIAL IV ONE (08:47)
[2021-01-05] MEDS ORDERED: ROCURONIUM 10 MG/ML (5 ML VIAL) IV ONE (08:47)
[2021-01-05] MEDS ORDERED: PROPOFOL 10 MG/ML 20 ML VIAL IV ONE (08:47)
--- NOTE | 2021-01-05 08:47 | P.HPADDEND ---
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 We'll proceed with Mediport placement for chemotherapy.
[2021-01-05] MEDS ORDERED: HEPARIN SODIUM,PORCINE 100 UNIT/ML 5 ML VIAL IV ONE (09:21)
[2021-01-05] MEDS ORDERED: HEPARIN SODIUM,PORCINE 10,000 UNIT/ML 1 ML VIAL IV ONE (09:21)
[2021-01-05] MEDS ORDERED: BUPIVACAINE (PF) 0.5% 30 ML VIAL SQ ONE ×2 (09:22)
[2021-01-05] MEDS ORDERED: LACTATED RINGERS 1,000 ML IV ONE (09:53)
--- NOTE | 2021-01-05 10:06 | P.OP ---
Date of Procedure: 01/05/21 Description of Procedure: SURGEON: TANISHA JOSEPH MD STIPPLER: None. PREOPERATIVE DIAGNOSES: 1. Invasive moderately differentiated esophageal cancer 2. Need for chemotherapeutic access. 3. Morbid obesity due to excess calories, BMI 49.1 4. Hypertensive heart disease POSTOPERATIVE DIAGNOSES: 1. Invasive moderately differentiated esophageal cancer 2. Need for chemotherapeutic access. 3. Morbid obesity due to excess calories, BMI 49.1 4. Hypertensive heart disease PROCEDURES PERFORMED: 1. Ultrasound guided central venous access of the right internal jugular venous vein. 2. Fluoroscopic guidance for central venous access right internal jugular vein 1 seconds. 3. Placement of right internal jugular power port 6 [place] by Eyenalyze, Xcela Plus Port ANESTHESIA: IV sedation with local. ESTIMATED BLOOD LOSS: 10 mL. SPECIMENS REMOVED: None. COMPLICATIONS: None. FINDINGS: 1. No thrombus encountered along the right carotid artery or internal jugular vein. 2. Access of the right internal jugular vein under ultrasound guidance. 3. Fluoroscopy of 1 second. INDICATIONS: The patient is a 60-year-old female recently diagnosed with esophageal cancer. She presents for chemotherapeutic access. Benefits and risks of surgical intervention were described including bleeding, infection, mechanical problems with his port. Informed consent was obtained. DESCRIPTION OR PROCEDURE: Patient was brought into the operating room, laid in supine position. After adequate IV sedation, the chest and right neck were prepped and draped in a standard sterile fashion including the shoulder with ChloraPrep. Timeout protocol was confirmed with the surgical team regarding the patient's name, procedure to be performed including preoperative medications for which she received IV antibiotics. Bilateral SCDs were placed. An ultrasound was used to capture views of the right internal jugular vein including right carotid artery, which was patent and without thrombus along its course. The right IJ was then localized using anesthetic for the skin. A 16 [place]ian needle was used to access the IJ. A guidewire was advanced into the IJ with dark nonpulsatile venous blood. Two fingerbreadths distal to the clavicle, on the lateral third, a transverse 1.5 to 2 cm incision was deepened into the skin after localizing the skin. A pocket was created for the port. The port on the back table was flushed with heparinized saline and then attached to the catheter tubing. An adapter was fastened to the actual port site over the tubing. The port easily had fit snug into the pocket. A subcutaneous tunneler was placed along the open end of the tubing and brought out through the separate stab incision. Fluoroscopic guidance confirmed no kinking along the tubing and the port site. Next, the J-wire was exchanged for a catheter sheath for which the tubing was cut to 25 cm and then advanced through the catheter sheath. The Peel-away sheath was then removed and the tubing was secured at the junction of the superior vena cava as well as the right atrium. The tubing was found to be crossed however functional. This was all done under fluoroscopic guidance under 1 seconds. Easy pullback as well as return and aspiration was obtained of the port site. The skin incision was closed using layers using 3-0 Vicryl for the subcu followed by 4-0 Monocryl in a running subcuticular fashion. At the stick site this was also reapproximated using 4-0 Monocryl. The incisions were covered with Optifoam, The skin was cleansed and Exofin liquid glue was applied. Optifoam dressing was placed over the port site. Local anesthetic was placed. At the end of the procedure, needle, sponge, and instrument count was verified correct by cath laboratory technician. Heparin lock of 5 mL was placed. The patient was awoken and pain free and taken to the second stage postanesthesia care unit. The patient tolerated the procedure well. Plan - Discharge Summary Discharge Rx Participant: Yes New Discharge Prescriptions: New Acetaminophen Tab [Tylenol Tab] 1,000 mg PO Q6HR PRN #30 tablet PRN Reason: Pain Continue Pramipexole [Mirapex] 1 mg PO TID Pravastatin Sodium [Pravachol] 40 mg PO DAILY Metoprolol Succinate [Toprol XL] 50 mg PO QAM Discharge Medication List Pramipexole [Mirapex] 1 mg PO TID 12/18/18 [History] Metoprolol Succinate [Toprol XL] 50 mg PO QAM 10/29/20 [History] Pravastatin Sodium [Pravachol] 40 mg PO DAILY 10/29/20 [History] Acetaminophen Tab [Tylenol Tab] 1,000 mg PO Q6HR PRN #30 tablet 01/05/21 [Rx] Follow up Appointment(s)/Referral(s): Tanisha Joseph MD [STAFF PHYSICIAN] - 01/15/21 Patient Instructions/Handouts: Implanted Venous Access Port (DC), How to Care for Your Implanted Venous Access Port (DC) Activity/Diet/Wound Care/Special Instructions: Remove dressing on Jan 10. May shower. No bathtub soaks for 2 weeks, Jan 19 No wide motions of the right arm to prevent dislodge of your port for 2 weeks. EXPECT BRUISING AND SLEEP WITH 2 TO 3 PILLOWS. BRUISING RESOLVES IN 2 TO 3 WEEKS. Take Tylenol for pain as needed Discharge Disposition: HOME SELF-CARE
[2021-01-05 10:12] VITALS: TEMP 96.9
--- NOTE | 2021-01-05 10:47 | XR ---
EXAMINATION TYPE: XR chest 1V confirm line [facility] DATE OF EXAM: 01/05/2021 COMPARISON: 07/14/2020 HISTORY: Port-A-Cath placement TECHNIQUE: Single frontal view of the chest is obtained. FINDINGS: Right-sided Port-A-Cath seen with the tip overlying the right atrium SVC confluence. No si zable pneumothorax. Basilar infiltrate or atelectasis bilaterally. Heart size stable. IMPRESSION: 1. Tip of the Mediport at the cavoatrial junction. No pneumothorax. 2. Bibasilar atelectasis or infiltrate correlate clinically.
[2021-01-05 11:09] VITALS: RESP 16
[2021-01-05 11:38] VITALS: BP 118/76; PULSE 76
--- NOTE | 2021-01-05 12:07 | FL ---
EXAMINATION TYPE: FL guided central line placemt HISTORY: Fluoroscopy time Impression: 1. Fluoroscopy support provided to the referring physician. Fluoroscopy 1 seconds provided.
== END 2021-01-05 11:51 | disposition home or self-care (01) ==
LOC: OR 07:50
PROVIDERS: ATTEND Surgery Plastic and Reconstructive Surgery
DX: C15.9 Malignant neoplasm of esophagus, unspecified (principal); E66.01 Morbid (severe) obesity due to excess calories; Z68.43 Body mass index [BMI] 50.0-59.9, adult; K21.9 Gastro-esophageal reflux disease without esophagitis; E78.5 Hyperlipidemia, unspecified; I48.91 Unspecified atrial fibrillation; G47.33 Obstructive sleep apnea (adult) (pediatric); M85.80 Other specified disorders of bone density and structure, unspecified site; G25.81 Restless legs syndrome; M89.49 Other hypertrophic osteoarthropathy, multiple sites; K57.90 Diverticulosis of intestine, part unspecified, without perforation or abscess without bleeding; Z87.891 Personal history of nicotine dependence; Z79.899 Other long term (current) drug therapy; K44.9 Diaphragmatic hernia without obstruction or gangrene
CPT/HCPCS: 77001; 36561; C1788; J2250; J0330; J1644; J1642; J1100 ×2; J2710; J0690; J2405; J3010; J2370; J2704

== ENCOUNTER → 2021-01-23 | Outpatient (CLI) | payer MEDICAID ==
--- NOTE | 2021-01-23 16:50 | ECHOF ---
Referral Reason:Z01.818 Chemo exposure MEASUREMENTS -------- HEIGHT: 170.2 cm WEIGHT: 142.9 kg BP: RVIDd: 3.4 cm (< 3.3) IVSd: 1.3 cm (0.6 - 1.1) LVIDd: 4.0 cm (3.9 - 5.3) LVPWd: 1.2 cm (0.6 - 1.1) IVSs: 1.8 cm LVIDs: 2.9 cm LVPWs: 1.6 cm LAESV Index (A-L): 19.33 ml/m Ao Diam: 2.8 cm (2.0 - 3.7) AV Cusp: 2.1 cm (1.5 - 2.6) LA Diam: 4.2 cm (2.7 - 3.8) MV EXCURSION: 14.414 mm (> 18.000) MV EF SLOPE: 56 mm/s (70 - 150) EPSS: 0.7 cm MV E Rosas: 0.88 m/s MV DecT: 201 ms MV A Rosas: 0.74 m/s MV E/A Ratio: 1.18 AV maxP.88 mmHg AV meanP.73 mmHg RAP: 5.00 mmHg RVSP: 19.22 mmHg FINDINGS -------- Sinus rhythm. This was a technically adequate study. The left ventricular size is normal. There is mild concentric left ventricular hypertrophy. Overa ll left ventricular systolic function is normal with, an EF between 55 - 60 %. The diastolic fillin g pattern is normal for the age of the patient 9.75. The right ventricle is mildly enlarged. Normal LA size by volume 22+/-6 ml/m2. The right atrial size is normal. Interatrial and interventricular septum intact. There is no evidence of aortic regurgitation. There is no evidence of aortic stenosis. No mitral regurgitation. Trace tricuspid regurgitation present. There is no evidence of pulmonary hypertension. The right ventricular systolic pressure, as measured by Doppler, is 19.22mmHg. There is no pulmonic regurgitation present. The aortic root size is normal. IVC Not well visulized. There is no pericardial effusion. CONCLUSIONS -------- 1. The left ventricular size is normal. 2. There is mild concentric left ventricular hypertrophy. 3. Overall left ventricular systolic function is normal with, an EF between 55 - 60 %. 4. The diastolic filling pattern is normal for the age of the patient 9.75 5. The right ventricle is mildly enlarged. 6. Trace tricuspid regurgitation present. A AND P TECHNICIAN: Odalys Justin RDCS
== END | disposition home or self-care (01) ==
LOC: RADECHMAIN 12:42
PROVIDERS: ATTEND Internal Medicine Hematology & Oncology
DX: Z01.818 Encounter for other preprocedural examination (principal); I07.1 Rheumatic tricuspid insufficiency
CPT/HCPCS: 93306

== ENCOUNTER → 2021-03-03 | Outpatient (CLI) | payer MEDICAID ==
[2021-03-03 17:46] LABS: African American GFR (CKD) >90 (>60 ml/min/1.73 sqM); Blood Urea Nitrogen 8 mg/dL (7-17); Non-African American GFR(CKD) >90 (>60 ml/min/1.73 sqM)
--- NOTE | 2021-03-04 11:40 | CT ---
EXAMINATION TYPE: CT ChestAbdPelvis w con DATE OF EXAM: 03/03/2021 COMPARISON: Nuclear medicine PET/CT 12/26/2020 HISTORY: h/o esopagus CA CT DLP: 3662.7 mGycm Automated exposure control for dose reduction was used. CONTRAST: CT scan of the chest, abdomen and pelvis is performed with Oral Contrast and with IV Contrast, patien t injected with 100 mL of Isovue 300. FINDINGS: There is a port in the right pectoral region coursing via the internal jugular approach int o the superior vena cava. The supraclavicular adenopathy seen on prior exam has improved markedly in the interval, no residual enlarged nodes present. LUNGS: The lungs are grossly clear, there is no concerning parenchymal mass or nodule identified. T here is no pleural effusion or pneumothorax seen. The tracheobronchial tree is patent. MEDIASTINUM: There are no greater than 1 cm hilar or mediastinal lymph nodes. The mediastinal adenopa thy seen on prior exam is no longer enlarged, the adenopathy seen at the level of the distal esophagu s at the hiatal hernia level has improved, there is persistent abnormal thickening present at the lev el the distal esophagus No pericardial effusion is seen. AORTA: No significant abnormality is seen. OTHER: No additional significant abnormality is seen. LIVER/GB: Low-attenuation within the liver diffusely is consistent with hepatic steatosis, patient is post cholecystectomy. The liver is enlarged. PANCREAS: No significant abnormality is seen. SPLEEN: No significant abnormality is seen. ADRENALS: No significant abnormality is seen. KIDNEYS: No significant abnormality is seen. REPRODUCTIVE ORGANS: No gross abnormality seen. BOWEL: Diverticular changes associated with the colon.. FREE AIR: No Free Air visible. ASCITES: None seen. RETROPERITONEAL ADENOPATHY: Retroperitoneal adenopathy has improved at the level of the left renal a rtery, periaortic location some residual soft tissue is present. LYMPH NODES: No greater than 1 cm abdominal or pelvic lymph nodes are appreciated. URINARY BLADDER: No significant abnormality is seen. PELVIC ADENOPATHY: None visualized. OSSEOUS STRUCTURES: No significant abnormality is seen. IMPRESSION: There is improvement in patient's adenopathy as described
== END | disposition home or self-care (01) ==
LOC: RADCTMAIN 16:15
PROVIDERS: ATTEND Internal Medicine Hematology & Oncology
DX: C15.5 Malignant neoplasm of lower third of esophagus (principal); R59.1 Generalized enlarged lymph nodes
CPT/HCPCS: 82565; 84520; 71260; 74177; 36415; Q9967

== ENCOUNTER → 2021-04-16 | Outpatient (CLI) | payer MEDICAID ==
[2021-04-16 13:33] LABS: African American GFR (CKD) >90 (>60 ml/min/1.73 sqM); Blood Urea Nitrogen 10 mg/dL (7-17); Non-African American GFR(CKD) >90 (>60 ml/min/1.73 sqM)
--- NOTE | 2021-04-16 14:59 | ECHOF ---
Referral Reason:C15.5 Esophagus CA Z03.89 Obs for suspected mets MEASUREMENTS -------- HEIGHT: 170.2 cm WEIGHT: 141.5 kg BP: IVSd: 1.0 cm (0.6 - 1.1) LVIDd: 3.5 cm (3.9 - 5.3) LVPWd: 1.1 cm (0.6 - 1.1) IVSs: 1.6 cm LVIDs: 2.3 cm LVPWs: 1.6 cm Ao Diam: 3.2 cm (2.0 - 3.7) AV Cusp: 2.4 cm (1.5 - 2.6) LA Diam: 2.5 cm (2.7 - 3.8) MV EXCURSION: 18.742 mm (> 18.000) MV EF SLOPE: 179 mm/s (70 - 150) EPSS: 2.1 cm MV E Rosas: 0.97 m/s MV DecT: 165 ms MV A Rosas: 1.01 m/s MV E/A Ratio: 0.96 RAP: 5.00 mmHg RVSP: 35.63 mmHg FINDINGS -------- This was a technically adequate study. The left ventricular size is normal. Left ventricular wall thickness is normal. Overall left vent ricular systolic function is normal with, an EF between 55 - 60 %. The right ventricle is normal in size. The left atrial size is normal. The right atrial size is normal. The aortic valve is trileaflet and appears structurally normal. The mitral valve is normal. The tricuspid valve appears structurally normal. Mild tricuspid regurgitation present. There is b orderline pulmonary hypertension. The right ventricular systolic pressure, as measured by Doppler, is 35.63mmHg. There is no pulmonic regurgitation present. The aortic root size is normal. IVC Not well visulized. There is no pericardial effusion. CONCLUSIONS -------- 1. The left ventricular size is normal. 2. Left ventricular wall thickness is normal. 3. Overall left ventricular systolic function is normal with, an EF between 55 - 60 %. 4. Mild tricuspid regurgitation present. 5. There is borderline pulmonary hypertension. 6. The right ventricular systolic pressure, as measured by Doppler, is 35.63mmHg. 7. There is no pericardial effusion. MARGARINE CHURN OPERATOR: Hanh Merlos RD
--- NOTE | 2021-04-16 15:45 | CT ---
EXAMINATION TYPE: CT ChestAbdPelvis w con DATE OF EXAM: 04/16/2021 COMPARISON: CT dated 03/03/2021 HISTORY: follow up esophageal cancer CT DLP: 2937.4 mGycm Automated exposure control for dose reduction was used. CONTRAST: CT scan of the chest, abdomen and pelvis is performed with Oral Contrast and with IV Contrast, patien t injected with 100 mL of Isovue 300. FINDINGS: There is a hiatal hernia present. Thickening of the distal esophagus the level of the hiata l hernia shows a similar appearance to prior exam, soft tissue at the level of the cardia the stomach appears somewhat less conspicuous, nodes present within the hiatal hernia show similar appearance, n onenlarged. There is a port in the right pectoral region coursing via jugular approach with the tip w ithin the superior vena cava near the cavoatrial junction LUNGS: The lungs show an interval nodular focus, axial image 44 measuring only 6 mm right lower lobe axial image 44, indeterminate. There is no pleural effusion or pneumothorax seen. The tracheobronc hial tree is patent. MEDIASTINUM: There are no greater than 1 cm hilar or mediastinal lymph nodes. No pericardial effusi on is seen. AORTA: No significant abnormality is seen. OTHER: No additional significant abnormality is seen. LIVER/GB: Liver shows low attenuation likely due to hepatic steatosis, patient is post cholecystectom y. PANCREAS: No significant abnormality is seen. SPLEEN: No significant abnormality is seen. ADRENALS: No significant abnormality is seen. KIDNEYS: No significant abnormality is seen. REPRODUCTIVE ORGANS: No gross abnormality seen. BOWEL: No significant abnormality is seen. FREE AIR: No Free Air visible. ASCITES: None seen. RETROPERITONEAL ADENOPATHY: No retroperitoneal adenopathy is seen. LYMPH NODES: No greater than 1 cm abdominal or pelvic lymph nodes are appreciated. URINARY BLADDER: No significant abnormality is seen. PELVIC ADENOPATHY: None visualized. OSSEOUS STRUCTURES: No significant change is seen. IMPRESSION: Nodular focus in the right lower lobe is indeterminate, follow-up recommended
== END | disposition home or self-care (01) ==
LOC: RADCTMAIN 11:59
PROVIDERS: ATTEND Internal Medicine Hematology & Oncology
DX: C15.5 Malignant neoplasm of lower third of esophagus (principal); I27.20 Pulmonary hypertension, unspecified; I07.1 Rheumatic tricuspid insufficiency
CPT/HCPCS: 93306; 82565; 84520; 71260; 74177; J1642; Q9967

== ENCOUNTER → 2021-07-23 | Outpatient (CLI) | payer MEDICAID ==
[2021-07-23 12:34] LABS: African American GFR (CKD) >90 (>60 ml/min/1.73 sqM); Blood Urea Nitrogen 4 mg/dL (7-17); Non-African American GFR(CKD) >90 (>60 ml/min/1.73 sqM)
--- NOTE | 2021-07-23 15:30 | CT ---
EXAMINATION TYPE: CT ChestAbdPelvis w con DATE OF EXAM: 07/23/2021 COMPARISON: CT dated 04/16/2021 HISTORY: Follow up for esophageal cancer. CT DLP: 2812.9 mGycm Automated exposure control for dose reduction was used. CONTRAST: CT scan of the chest, abdomen and pelvis is performed with Oral Contrast and with IV Contrast, patien t injected with 100ml mL of Isovue 300. FINDINGS: LUNGS: The previously described 6 mm right basal lung nodule is not appreciated today. Unremarkable l ungs otherwise. Patent trachea and main bronchi. No pleural effusion. MEDIASTINUM: No cardiomegaly. Patent major mediastinal vessels. No pathologically enlarged lymph node s in the chest. No pericardial effusion. Stable small sliding hiatal hernia. A few paraesophageal lym ph nodes are smaller today measuring 4 mm compared to 8mm previously. Grossly unremarkable remainder of the esophagus. OTHER: No aggressive bone lesion. LIVER/GB: Suspected hepatic steatosis. With this limitation, no definite hepatic focal lesion identif ied. Previous cholecystectomy. PANCREAS: No significant abnormality is seen. SPLEEN: No significant abnormality is seen. ADRENALS: No significant abnormality is seen. KIDNEYS: No significant abnormality is seen. BOWEL: Apparent progressive soft tissue thickening at the most proximal portion of the stomach just distal to the gastroesophageal junction measuring 32 mm compared to 17 mm previously. Underlying prog ressive lesion at that location can't be excluded. Recommend correlation with gastroscopy results. Un remarkable remainder of the stomach, duodenum and small bowel. Scattered uncomplicated colonic divert iculosis. Normal appendix. REPRODUCTIVE ORGANS: No gross uterine or adnexal mass. LYMPH NODES: No greater than 1 cm abdominal or pelvic lymph nodes are appreciated. OSSEOUS STRUCTURES: Anterolisthesis of L5 over S1 with severe bilateral L4-5 and L5-S1 facet osteoart hropathy. Marked degenerative changes at L5-S1. Degenerative changes of the sacroiliac joints. No agg ressive bone lesion. OTHER: Unremarkable abdominal aorta and IVC. No sizable ascites. Fat-containing umbilical hernia. IMPRESSION: Apparent progressive thickening of the most proximal portion of the stomach as described above, under lying progressive lesion at that location can't be excluded. Recommend correlation with PET scan and/ or gastroscopy results. The previously described 6 mm right lung base nodule is not appreciated today. No other definite lung nodule identified. Smaller right inferior paraesophageal lymph nodes as described above. No other metastatic disease see n in the chest, abdomen or the pelvis. Incidental findings as described above.
--- NOTE | 2021-07-24 07:58 | ECHOF ---
Referral Reason:Z01.818 Chemo expo, C15.5 Esophageal ca MEASUREMENTS -------- HEIGHT: 170.2 cm WEIGHT: 132.0 kg BP: RVIDd: 2.7 cm (< 3.3) IVSd: 1.0 cm (0.6 - 1.1) LVIDd: 4.8 cm (3.9 - 5.3) LVPWd: 1.0 cm (0.6 - 1.1) IVSs: 1.8 cm LVIDs: 3.0 cm LVPWs: 1.7 cm LA Diam: 3.6 cm (2.7 - 3.8) Ao Diam: 3.1 cm (2.0 - 3.7) AV Cusp: 2.0 cm (1.5 - 2.6) MV EXCURSION: 13.883 mm (> 18.000) MV EF SLOPE: 87 mm/s (70 - 150) EPSS: 0.5 cm MV E Rosas: 0.84 m/s MV DecT: 302 ms MV A Rosas: 0.99 m/s MV E/A Ratio: 0.84 AV maxP.00 mmHg AV meanP.90 mmHg RAP: 5.00 mmHg RVSP: 37.36 mmHg FINDINGS -------- Sinus rhythm. This was a technically adequate study. The left ventricular size is normal. Left ventricular wall thickness is normal. Overall left vent ricular systolic function is normal with, an EF between 60 - 65 %. The right ventricle is normal in size. The left atrium is normal in size. The right atrium is normal in size. Interatrial and interventricular septum intact. The aortic valve is trileaflet, and appears structurally normal. No aortic stenosis or regurgitation. The mitral valve is normal. Mild tricuspid regurgitation present. There is mild pulmonary hypertension. The right ventricular systolic pressure, as measured by Doppler, is 37.36mmHg. There is no pulmonic regurgitation present. The aortic root size is normal. Normal inferior vena cava with normal inspiratory collapse consistent with estimated right atrial pre ssure of 5 mmHg. There is no pericardial effusion. CONCLUSIONS -------- 1. The left ventricular size is normal. 2. Left ventricular wall thickness is normal. 3. Overall left ventricular systolic function is normal with, an EF between 60 - 65 %. 4. The aortic valve is trileaflet, and appears structurally normal. No aortic stenosis or regurgitati on. 5. Mild tricuspid regurgitation present. 6. There is mild pulmonary hypertension. 7. The right ventricular systolic pressure, as measured by Doppler, is 37.36mmHg. 8. There is no pericardial effusion. GEAR TOOTH GRINDING MACHINE OPERATOR: Ana Colón RDCS
== END | disposition home or self-care (01) ==
LOC: RADECHMAIN 11:23
PROVIDERS: ATTEND Internal Medicine Hematology & Oncology
DX: Z01.818 Encounter for other preprocedural examination (principal); C15.5 Malignant neoplasm of lower third of esophagus; I07.1 Rheumatic tricuspid insufficiency; I27.20 Pulmonary hypertension, unspecified
CPT/HCPCS: 93306; 82565; 84520; 71260; 74177; 36415; Q9967

== ENCOUNTER 2021-08-19 09:28 | Day surgery (SDC) | payer MEDICAID ==
[~2021-08-19 09:28] MED LIST changes: -DEXAMETHASONE SOD PHOSPHATE 4 MG/ML 1 ML VIAL IV ONE; +LIDOCAINE 1% (10MG/ML) FOR IV START INTRADERMA PRN; -ONDANSETRON 4 MG/2 ML VIAL IVP ONE; -Pre Op ABX Message 1 EACH MISC MISCELLANE ONE; -ceFAZolin 3 GM in SODIUM CHLORIDE 0.9% 100 ML IVPB PRN; -fentaNYL (PF) 50 MCG/ML 2 ML AMP IV PRN
[2021-08-19 10:45] VITALS: TEMP 97.6
[2021-08-19] MEDS ORDERED: LIDOCAINE 2% INJ 20 MG/ML (2 ML VIAL) ONE (11:06)
[2021-08-19] MEDS ORDERED: PROPOFOL 10 MG/ML 20 ML VIAL IV ONE (11:06)
[2021-08-19] MEDS ORDERED: KETAMINE 10 MG/ML 20 ML VIAL ONE (11:06)
[2021-08-19] MEDS ORDERED: MIDAZOLAM 2 MG/2 ML VIAL ONE (11:06)
--- NOTE | 2021-08-19 11:22 | P.GSHP ---
History of Present Illness H&P Date: 08/19/21 CHIEF COMPLAINT: Esophageal cancer HISTORY OF PRESENT ILLNESS: The patient is a 61-year-old female who presents reports gastroesophageal reflux disease. Upper endoscopy was offered for further evaluation and management. PAST MEDICAL HISTORY: Please see list. PAST SURGICAL HISTORY: Please see list. MEDICATIONS: Please see list. ALLERGIES: Please see list. SOCIAL HISTORY: No illicit drug use FAMILY HISTORY: No reports of Crohn disease or ulcerative colitis. REVIEW OF ORGAN SYSTEMS: CONSTITUTIONAL: No reports of fevers or chills. GI: Denies any blood in stools or constipation. PHYSICAL EXAM: VITAL SIGNS: Stable GENERAL: Well-developed and pleasant in no acute distress. HEENT: No scleral icterus. Extraocular movements grossly intact. Moist buccal mucosa. NECK: Supple without lymphadenopathy. CHEST: Unlabored respirations. Equal bilateral excursions. CARDIOVASCULAR: Regular rate and rhythm. Distal 2+ pulses. ABDOMEN: Soft, nondistended. MUSCULOSKELETAL: No clubbing, cyanosis, or edema. ASSESSMENT: 1. Esophageal cancer PLAN: 1. Recommend proceeding with an upper endoscopy Past Medical History Past Medical History: Atrial Fibrillation, Cancer, Chest Pain / Angina, GERD/Reflux, Hyperlipidemia, Osteoarthritis (OA), Sleep Apnea/CPAP/BIPAP, Vascular Disorder Additional Past Medical History / Comment(s): ESOPHAGEAL CANCER. 07/2020 lower GI bleed/ulceration from hiatal hernia/ severe anemia with blood transfusion, gastric polyp, hiatal hernia, diverticular disease, colon polyp, hemorrhoids, constipation, AUTUMN and either sleeps in a recliner or uses Cpap, arthritis in back/bilateral knees, migraines years ago, osteopenia, RLS, bilateral leg poor circulation, bronchitis, sinusitis. History of Any Multi-Drug Resistant Organisms: None Reported Past Surgical History: Bladder Surgery, Breast Surgery, Cholecystectomy, Heart Catheterization, Joint Replacement, Orthopedic Surgery, Tubal Ligation Additional Past Surgical History / Comment(s): left breast biopsy, L knee arthroscopy, buck knee replacement, rt shoulder arthroscopy, bladder sling, bladder suspension, EGD, colonoscopies, small bowel capsule, 08/11/20 heart cath(needed blood transfusion) Past Anesthesia/Blood Transfusion Reactions: Previous Problems w/ Anesthesia Additional Past Anesthesia/Blood Transfusion Reaction / Comment(s): states during her 1st knee replacement & during colonoscopy her legs were "twitching" & had to be given general anesthesia-didn't think had to do w/her restless leg Past Psychological History: No Psychological Hx Reported Additional Psychological History / Comment(s): . Smoking Status: Former smoker Past Alcohol Use History: Rare Additional Past Alcohol Use History / Comment(s): Pt started smoking in 1973 and quit in 1992. 1/2 PPD Past Drug Use History: None Reported - Past Family History Father Family Medical History: Coronary Artery Disease (CAD) Additional Family Medical History / Comment(s): Father lived to be 82 yrs. He had 9 cardiac stents. Sister(s) Additional Family Medical History / Comment(s): Pt has 3 sisters, all of which are healthy except one has thyroid problem. Mother Family Medical History: Congestive Heart Failure (CHF) Additional Family Medical History / Comment(s): Mother of CHF at the age of 74 yrs. She was obese. Medications and Allergies Home Medications Medication Instructions Recorded Confirmed Type Pramipexole [Mirapex] 1 mg PO TID 12/18/18 08/18/21 History Metoprolol Succinate [Toprol XL] 50 mg PO QAM 10/29/20 08/18/21 History Pravastatin Sodium [Pravachol] 40 mg PO QAM 10/29/20 08/18/21 History Ondansetron [Zofran] 1 tab PO DIRECTED 06/24/21 08/18/21 History Furosemide [Lasix] 20 mg PO DAILY 08/12/21 08/18/21 History Rivaroxaban [Xarelto] 20 mg PO DAILY 08/18/21 08/18/21 History Allergies Allergy/AdvReac Type Severity Reaction Status Date / Time adhesive tape Allergy Rash/Hives/pulls Verified 08/19/21 10:22 skin off Surgical - Exam Vital Signs Temp Pulse Resp BP Pulse Ox 97.6 F 82 16 174/83 97 08/19/21 10:44 08/19/21 10:44 08/19/21 10:44 08/19/21 10:44 08/19/21 10:44
--- NOTE | 2021-08-19 11:30 | P.PCN ---
Date of Procedure: 08/19/21 Description of Procedure: PREOPERATIVE DIAGNOSIS: Esophageal cancer/stricture POSTOPERATIVE DIAGNOSIS: Esophageal cancer, stenosis Diaphragmatic hiatal hernia OPERATION: Esophagogastroduodenoscopy with biopsies along gastroesophageal junction SURGEON: Tanisha Joseph MD ANESTHESIA: MAC. INDICATIONS: The patient is a 61-year-old female who presents with esophageal cancer. Benefits and risks of the procedure were described. Informed consent was obtained. DESCRIPTION: The patient was brought into the endoscopy suite and laid in the left lateral decubitus position. An Olympus gastroscope was passed along the posterior oropharynx down to the distal esophagus where the squamocolumnar junction was encountered at 32 cm from the incisors. The stomach was entered and no bile reflux was found. Additional findings are listed below. Biopsies with cold forceps were obtained of the antrum. The first through third portion of the duodenum was examined. Retroflexion of the scope confirmed Hill grade 4 lower esophageal valve. The squamocolumnar junction demonstrated LA grade B erosive esophagitis. The stomach was desufflated. The patient tolerated the procedure well. FINDINGS: Squamocolumnar junction 32 cm from the incisors. Diaphragmatic hiatus at 36 cm. Hiatal hernia, 4 cm Hill grade 4 lower esophageal valve. LA grade B erosive esophagitis. Resolved gastroesophageal stenosis, mass biopsies obtained No active duodenitis. RECOMMENDATIONS: Repeat upper endoscopy in 3 months, October 2021 Plan - Discharge Summary New Discharge Prescriptions: Continue Pramipexole [Mirapex] 1 mg PO TID Pravastatin Sodium [Pravachol] 40 mg PO QAM Metoprolol Succinate [Toprol XL] 50 mg PO QAM Ondansetron [Zofran] 1 tab PO DIRECTED Furosemide [Lasix] 20 mg PO DAILY Rivaroxaban [Xarelto] 20 mg PO DAILY Discharge Medication List Pramipexole [Mirapex] 1 mg PO TID 12/18/18 [History] Metoprolol Succinate [Toprol XL] 50 mg PO QAM 10/29/20 [History] Pravastatin Sodium [Pravachol] 40 mg PO QAM 10/29/20 [History] Ondansetron [Zofran] 1 tab PO DIRECTED 06/24/21 [History] Furosemide [Lasix] 20 mg PO DAILY 08/12/21 [History] Rivaroxaban [Xarelto] 20 mg PO DAILY 08/18/21 [History] Follow up Appointment(s)/Referral(s): Tanisha Joseph MD [STAFF PHYSICIAN] - 09/01/21 Patient Instructions/Handouts: Hiatal Hernia (GEN) Discharge Disposition: HOME SELF-CARE
[2021-08-19 11:34] VITALS: PULSE 85
[2021-08-19 12:03] VITALS: BP 116/66; RESP 16
== END 2021-08-19 12:09 | disposition home or self-care (01) ==
LOC: ORWHC2ENDO 09:28
PROVIDERS: ATTEND Surgery Plastic and Reconstructive Surgery
DX: C15.9 Malignant neoplasm of esophagus, unspecified (principal); K21.00 Gastro-esophageal reflux disease with esophagitis, without bleeding; K44.9 Diaphragmatic hernia without obstruction or gangrene; I48.91 Unspecified atrial fibrillation; I20.9 Angina pectoris, unspecified; G47.33 Obstructive sleep apnea (adult) (pediatric); E78.5 Hyperlipidemia, unspecified; M17.0 Bilateral primary osteoarthritis of knee; M47.9 Spondylosis, unspecified; M85.80 Other specified disorders of bone density and structure, unspecified site; K59.00 Constipation, unspecified; G25.81 Restless legs syndrome; I27.20 Pulmonary hypertension, unspecified; K57.90 Diverticulosis of intestine, part unspecified, without perforation or abscess without bleeding; Z86.010 Personal history of colon polyps; Z98.890 Other specified postprocedural states; Z90.49 Acquired absence of other specified parts of digestive tract; Z96.653 Presence of artificial knee joint, bilateral; Z87.891 Personal history of nicotine dependence; Z79.899 Other long term (current) drug therapy; Z79.01 Long term (current) use of anticoagulants; Z91.09 Other allergy status, other than to drugs and biological substances; Z98.51 Tubal ligation status; Z82.49 Family history of ischemic heart disease and other diseases of the circulatory system; Z83.49 Family history of other endocrine, nutritional and metabolic diseases
CPT/HCPCS: 88305; 43239; J2250; J2704; J2001

== ENCOUNTER → 2022-02-22 | Outpatient (CLI) | payer MEDICAID ==
[2022-02-22 11:05] LABS: African American GFR (CKD) >90 (>60 ml/min/1.73 sqM); Blood Urea Nitrogen 16 mg/dL (7-17); Non-African American GFR(CKD) >90 (>60 ml/min/1.73 sqM)
--- NOTE | 2022-02-22 21:09 | CT ---
EXAMINATION TYPE: CT ChestAbdPelvis wo/w con DATE OF EXAM: 02/22/2022 INDICATION: Follow up to esophageal CA COMPARISON: 12/18/2021 CT DLP: 4879.3 mGycm CONTRAST: Performed with Oral Contrast and without and with IV Contrast, patient injected with 70 mL of Isovue 300. TECHNIQUE: Axial images at 5 mm thick sections. Reconstructed images in the coronal plane. Delayed images through the kidneys. FINDINGS: CT CHEST: Portion of the thyroid visualized is normal. Left supraclavicular lymphadenopathy is increased in siz e from comparison currently measuring 2.3 cm. Series 3 image 4 There is a stable 0.5 cm nodule within the right middle lobe. Series 7 image 26. No enlarged mediastinal or hilar adenopathy is evident. The ascending aorta diameter at the level of the main pulmonary artery is 3.6 cm. The main pulmonary artery diameter at the bifurcation is 2.[address] ABDOMEN: There is eccentric thickening of the esophagus at the level of the gastroesophageal junc tion. This has a thickness 2.3 cm to be compatible with the patient's esophageal cancer. Small hiatal hernia may be present as well. There is a very prominent lymph node at the gastroesophageal junction level measuring 2.2 cm. Series 6 image 42. This is increased in size from comparison. Additional sma ller lymph node near the proximal stomach measuring 1.4 cm. Series 6 image 43. There appears to be so me thickening of the gastric cardia with thickness of 3 cm. These findings have worsened over the int erval. Liver: Normal Spleen: Normal Pancreas: Normal Adrenal glands: The adrenal glands are normal. Gallbladder: Not identified. Kidneys: No masses are evident. No hydronephrosis is present. No cysts are present. Delayed images were obtained through the kidneys, which remain unremarkable. Aorta: Vascular calcification is within the aorta. Inferior vena cava: Normal. CT PELVIS: Multiple diverticuli are through the colon. This appears greatest in the region of the transverse col on. Small bowel loops filled with oral contrast are normal. There are loops of bowel which are incomp letely distended or lack oral contrast limiting their evaluation. Appendix: Normal as visualized. Urinary bladder: Normal. Genitourinary structures: Uterus appears normal. Adnexa are normal. Osseous structures: No suspicious lytic or sclerotic lesions. IMPRESSIONS: 1. Thickened distal esophageal region with extension into the gastric cardia. Enlarged distal or esop hageal lymphadenopathy is enlarged. Findings are progressive from the recent comparison of 12/18/2021. 2. Diverticulosis without acute diverticulitis.
== END | disposition home or self-care (01) ==
LOC: RADPROMAIN 10:09
PROVIDERS: ATTEND Internal Medicine Hematology & Oncology
DX: Z03.89 Encounter for observation for other suspected diseases and conditions ruled out (principal); C15.5 Malignant neoplasm of lower third of esophagus; K57.90 Diverticulosis of intestine, part unspecified, without perforation or abscess without bleeding
CPT/HCPCS: 82565; 84520; 71270; 74178; J1642; Q9967

== ENCOUNTER → 2022-05-10 | Outpatient (CLI) | payer MEDICAID ==
--- NOTE | 2022-05-11 20:37 | MM ---
Reason for Exam: Screening (asymptomatic). Last mammogram was performed 1 year(s) and 8 month(s) ago. Patient History: Menarche at age 12. First Full-Term at age 32. Late child-bearing (after 30). Postmenopausal. 1998, Benign Excisional Biopsy on the left side. Risk Values: [place] 5 year model risk: 2.4%. NCI Lifetime model risk: 11.4%. Prior Study Comparison: 06/23/2018 Bilateral Screening Mammogram, [facility]. 06/25/2019 Bilateral Screening Mammogram, [facility]. 09/05/2020 Bilateral Screening Mammogram, [facility]. Tissue Density: There are scattered fibroglandular densities. Findings: Analyzed By CAD. Small area of chronic nodularity central anterior left breast. No significant change from prior exams. Overall Assessment: Benign, BI-RAD 2 Management: Screening Mammogram of both breasts in 1 year. 1. Patient should continue monthly self breast exams. 2. A clinical breast exam by your physician is recommended on an annual basis. 3. This exam should not preclude additional follow-up of suspicious palpable abnormalities. Electronically signed and approved by: Luisa Tsai M.D. Radiologist
== END | disposition home or self-care (01) ==
LOC: RADMAMWWP 13:34
PROVIDERS: ATTEND Family Medicine
DX: Z12.31 Encounter for screening mammogram for malignant neoplasm of breast (principal); Z78.0 Asymptomatic menopausal state
CPT/HCPCS: 77067

== ENCOUNTER → 2022-05-12 | Outpatient (CLI) | payer MEDICAID ==
[2022-05-12 11:08] LABS: African American GFR (CKD) >90 (>60 ml/min/1.73 sqM); Blood Urea Nitrogen 13 mg/dL (7-17); Non-African American GFR(CKD) >90 (>60 ml/min/1.73 sqM)
--- NOTE | 2022-05-12 15:09 | CT ---
EXAMINATION TYPE: CT ChestAbdPelvis w con DATE OF EXAM: 05/12/2022 COMPARISON: 02/22/2022, 12/18/2021, 07/23/2021 HISTORY: 61-year-old female C1 5.5 espophagus CA, malignant neoplasm lesser curvature of the stomach. TECHNIQUE: Contiguous axial scanning of the chest, abdomen, and pelvis performed with IV Contrast, pa tient injected with 100 mL of Isovue 300. Delayed images through the kidneys were obtained. Coronal/s agittal reconstructions performed. CT DLP: 2958.8 mGycm Automated exposure control for dose reduction was used. FINDINGS: CHEST: Heart upper limits of normal in size without pericardial effusion. Aorta normal caliber with conventional branching anatomy. Right anterior chest wall injection port with catheter tip at the lower SVC. No thoracic lymphadenopathy by CT size criteria. Redemonstrated small hiatal hernia. The previous mural thickening along the left lateral wall of the hiatal hernia has resolved. Mural thickening measuring up to 1.9 cm along the posterior gastric fundu s shows improvement compared to 2.8 cm, previously. An adjacent lower right paraesophageal lymph node is smaller and only 8 mm versus 2.2 cm, previously. An adjacent gastric hepatic ligament lymph node has resolved. Lungs show some strandy atelectasis in the lower lungs consolidation or pleural effusion. ABDOMEN: Changes in the GE junction and proximal stomach region as mentioned above. There appears to be some underlying fatty infiltration of the liver. No focal liver lesion. Liver bor derline enlarged at 17.7 cm. Portal venous system is patent. No biliary ductal dilatation. Gallbladde r surgically absent. Adrenal glands, kidneys, spleen, and pancreas within normal limits. No dilated small bowel, free fluid, or free air. No mesenteric or retroperitoneal lymphadenopathy. Normal appendix. Mild to moderate stool burden with generalized colonic diverticulosis. No pericolonic inflammatory ch dot. PELVIS: Bladder distended. Uterus anteverted. Prominent appearance to the endometrium possibly measuring up t o 1.4 cm on the axial series image 100. Ultrasound to exclude any abnormal endometrial thickening. Th ere is mild pelvic floor relaxation. Both ovaries are visualized. No abnormal fluid collection in the pelvis or pelvic lymphadenopathy. BONES: Mild degenerative change of the hips. Degenerative hypertrophic facet arthropathy mid to lower lumbar spine. Some degenerative bony ankylosis across the posterior elements. There may be a fixed anteroli sthesis at L5-S1 as a result there is accentuated lumbar lordosis. No osseous destructive process see n. IMPRESSION: 1. INTERVAL TREATMENT RESPONSE. THE MURAL THICKENING ALONG THE LEFT LATERAL WALL OF THE SMALL HIATAL HERNIA HAS RESOLVED. THE PREVIOUS LOWER RIGHT PARAESOPHAGEAL LYMPH NODE IS NOW SMALL AT 8 MM VERSUS 2 .2 CM, PREVIOUSLY. AN ADJACENT GASTROHEPATIC LIGAMENT LYMPH NODE HAS RESOLVED. 2. HOWEVER, SOME MURAL THICKENING ALONG THE POSTERIOR GASTRIC FUNDUS REMAINS BUT ALSO SHOWS IMPROVEME NT AT 1.9 CM THICK VERSUS 2.8 CM, PREVIOUSLY. 3. BORDERLINE HEPATOMEGALY WITH MODERATE HEPATIC STEATOSIS. CORRELATE WITH LFT'S, LIPID PROFILE, AND PATIENT RISK FACTORS. 4. QUESTIONABLE THICKENING OF THE ENDOMETRIUM ON AXIAL SERIES. CORRELATE FOR ANY POSTMENOPAUSAL BLEED ING. PELVIC ULTRASOUND MAY BE HELPFUL IN BETTER DELINEATING THE STRIPE THICKNESS. 5. GENERALIZED COLONIC DIVERTICULOSIS WITHOUT ACUTE DIVERTICULITIS.
== END | disposition home or self-care (01) ==
LOC: RADPROMAIN 09:16
PROVIDERS: ATTEND Internal Medicine Hematology & Oncology
DX: C15.5 Malignant neoplasm of lower third of esophagus (principal); K57.30 Diverticulosis of large intestine without perforation or abscess without bleeding; K76.0 Fatty (change of) liver, not elsewhere classified; D64.9 Anemia, unspecified; E78.5 Hyperlipidemia, unspecified; I10 Essential (primary) hypertension
CPT/HCPCS: 82565; 84520; 71260; 74177; J1642; Q9967 ×2

== ENCOUNTER 2022-07-15 11:07 | Outpatient (CLI) | payer MEDICAID ==
[2022-07-15 12:07] LABS: African American GFR (CKD) >90 (>60 ml/min/1.73 sqM); Blood Urea Nitrogen 10 mg/dL (7-17); Non-African American GFR(CKD) >90 (>60 ml/min/1.73 sqM)
--- NOTE | 2022-07-15 13:57 | CT ---
EXAMINATION TYPE: CT ChestAbdPelvis w con CT DLP: 2984.2 mGycm, Automated exposure control for dose reduction was used. DATE OF EXAM: 07/15/2022 1:28 PM COMPARISON: CT chest and pelvis 05/12/2022, 02/22/2022. CLINICAL INDICATION:Female, 61 years old with history of C15.5 esophagus; [facility], Follow up for esophage al cancer. Technique: Multiple axial images of the chest, abdomen, and pelvis were obtained following the intrav enous administration of 100 mL Isovue-300. Oral contrast was administered. Two-dimensional coronal an d sagittal reconstructions were obtained. Findings: CHEST: LUNGS/ PLEURA: The lung parenchyma appears unremarkable. No suspicious pulmonary nodules or masses. AIRWAY: Patent and unremarkable. HEART: Heart is mildly enlarged for size. MEDIASTINUM: No pathologically enlarged lymph nodes identified. VASCULATURE: No aortic aneurysm. Right chest wall Hhyurt-t-Wisk with tip terminating in the superior vena cava. MUSCULOSKELETAL: No acute osseous abnormalities. SOFT TISSUES/LYMPH NODES: Unremarkable. LOWER NECK: No significant findings. ABDOMEN: ABDOMEN LIVER: Diffusely hypoattenuating parenchyma. No focal lesion. GALLBLADDER AND BILE DUCTS: The gallbladder is surgically absent. PANCREAS: Unremarkable. SPLEEN: Unremarkable. ADRENAL GLANDS: Unremarkable. KIDNEYS AND URETERS: No evidence of hydronephrosis or renal calculus. The kidneys enhance symmetrical ly. PELVIS BLADDER: Unremarkable REPRODUCTIVE: Pelvic floor laxity. Anteverted uterus. ABDOMEN & PELVIS STOMACH AND BOWEL: Small hiatal hernia redemonstrated. Persistent mild thickening of the gastric card ia wall measuring up to 22 mm, similar to prior exam. Scattered clonic diverticula are seen throughou t the colon. No evidence of bowel obstruction. Appendix is unremarkable. Enteric contrast reaches the mid small bowel. PERITONEUM: No evidence of pneumoperitoneum or free fluid. VASCULATURE: No evidence of aortic aneurysm. MUSCULOSKELETAL: No acute osseous abnormalities. Mild degenerative changes of the hips. Degenerative hypertrophic facet arthropathy mid to lower lumbar spine redemonstrated. Degenerative bony ankylosis across the posterior elements. There again may be a fixed anterolisthesis at L5-S1 with resultant acc entuated lumbar lordosis. No aggressive osseous lesion. LYMPH NODES: No gross evidence for lymphadenopathy. Previously seen right paraesophageal lymph node i s no longer visualized. SOFT TISSUE/ABDOMINAL WALL: Unremarkable IMPRESSION: 1. Continued positive response to treatment with resolution of previous demonstrated right paraesoph ageal lymph node. 2. Similar mural thickening along the posterior gastric fundus measuring up to 2.2 cm. 3. Hepatic steatosis. 4. Colonic diverticulosis without evidence for acute diverticulitis.
== END 2022-07-15 13:28 | disposition home or self-care (01) ==
LOC: RADPROMAIN 11:07
PROVIDERS: ATTEND Internal Medicine Hematology & Oncology
DX: C15.5 Malignant neoplasm of lower third of esophagus (principal); K76.0 Fatty (change of) liver, not elsewhere classified; K57.30 Diverticulosis of large intestine without perforation or abscess without bleeding; K31.89 Other diseases of stomach and duodenum; D64.9 Anemia, unspecified; E78.5 Hyperlipidemia, unspecified; I10 Essential (primary) hypertension
CPT/HCPCS: 82565; 84520; 71260; 74177; J1642; Q9967

== ENCOUNTER 2022-07-20 20:23 | Emergency (ER) | payer MEDICAID ==
[2022-07-20 20:28] VITALS: RESP 20; TEMP 98.7
--- NOTE | 2022-07-20 21:09 | XR ---
EXAMINATION TYPE: XR chest 2V DATE OF EXAM: 07/20/2022 COMPARISON: 01/05/2021 HISTORY: Cough TECHNIQUE: 2 views FINDINGS: There is subsegmental atelectasis left lung base. There is right central venous catheter an d the tip is in the superior vena cava. No heart failure. Heart size is normal. No evidence of pleura l effusion the bony thorax is intact. IMPRESSION: Mild subsegmental atelectasis left lung base is improved compared to old exam. No heart f ailure
--- NOTE | 2022-07-20 22:03 | ED ---
URI HPI - General Chief Complaint: Upper Respiratory Infection Stated Complaint: COVID TEST Time Seen by Provider: 07/20/22 20:43 Source: patient Mode of arrival: ambulatory Limitations: no limitations - History of Present Illness Initial Comments: Patient is a 61-year-old female presenting with chief complaint of URI-like symptoms. She is complaining of cough, congestion, and sore throat that ongoing for the last 3 days. Patient's at home Covid test was positive today, she is requesting one at our facility to ensure that her results are correct. She last had chemo 10 days ago for esophageal cancer. He denies any fever, chills, chest pain, difficulty breathing, palpitations, weakness, nausea, vomiting, abdominal pain. - Related Data Home Medications Medication Instructions Recorded Confirmed Pramipexole [Mirapex] 1 mg PO TID 12/18/18 02/17/22 Metoprolol Succinate [Toprol XL] 50 mg PO QAM 10/29/20 02/17/22 Pravastatin Sodium [Pravachol] 40 mg PO QAM 10/29/20 02/17/22 Ondansetron [Zofran] 1 tab PO DIRECTED 06/24/21 02/17/22 Furosemide [Lasix] 20 mg PO DAILY 08/12/21 02/17/22 Rivaroxaban [Xarelto] 20 mg PO DAILY 08/18/21 02/17/22 Betamet Acet-Betameth Sod Phos 01/27/22 [Celestone Soluspan] Montelukast [Singulair] 10 day 01/27/22 hydrOXYzine HCL [Atarax] 10 mg PO QID 01/27/22 02/17/22 Previous Rx's Medication Instructions Recorded Molnupiravir [Lagevrio (Eua)] 800 mg PO Q12H 5 Days #40 cap 07/20/22 Allergies Allergy/AdvReac Type Severity Reaction Status Date / Time adhesive tape Allergy Rash/Hives/pulls Verified 07/20/22 20:28 skin off Review of Systems ROS Statement: Those systems with pertinent positive or pertinent negative responses have been documented in the HPI. ROS Other: All systems not noted in ROS Statement are negative. Past Medical History Past Medical History: Atrial Fibrillation, Cancer, Chest Pain / Angina, GERD/Reflux, Hyperlipidemia, Osteoarthritis (OA), Sleep Apnea/CPAP/BIPAP, Vascular Disorder Additional Past Medical History / Comment(s): 07/2020 lower GI bleed/ulceration from hiatal hernia/ severe anemia with blood transfusion, gastric polyp, hiatal hernia, diverticular disease, colon polyp, hemorrhoids, constipation, AUTUMN and either sleeps in a recliner or uses Cpap, arthritis in back/bilateral knees, m igraines years ago, osteopenia, RLS, bilateral leg poor circulation, bronchitis, sinusitis, swallowing difficulty. ESOPHAGEAL CANCER. History of Any Multi-Drug Resistant Organisms: None Reported Past Surgical History: Bladder Surgery, Breast Surgery, Cholecystectomy, Heart Catheterization, Joint Replacement, Orthopedic Surgery, Tubal Ligation Additional Past Surgical History / Comment(s): left breast biopsy, L knee arthroscopy, buck knee replacement, rt shoulder arthroscopy, bladder sling, bladder suspension, EGD, colonoscopies, small bowel capsule, 08/11/20 heart cath(needed blood transfusion) Past Anesthesia/Blood Transfusion Reactions: Previous Problems w/ Anesthesia Additional Past Anesthesia/Blood Transfusion Reaction / Comment(s): states during her 1st knee replacement & during colonoscopy her legs were "twitching" & had to be given general anesthesia-didn't think had to do w/her restless leg Past Psychological History: No Psychological Hx Reported Smoking Status: Former smoker Past Alcohol Use History: None Reported Past Drug Use History: None Reported - Past Family History Father Family Medical History: Coronary Artery Disease (CAD) Additional Family Medical History / Comment(s): Father lived to be 82 yrs. He had 9 cardiac stents. Sister(s) Additional Family Medical History / Comment(s): Pt has 3 sisters, all of which are healthy except one has thyroid problem. Mother Family Medical History: Congestive Heart Failure (CHF) Additional Family Medical History / Comment(s): Mother of CHF at the age of 74 yrs. She was obese. General Exam Limitations: no limitations General appearance: alert, in no apparent distress Head exam: Present: atraumatic, normocephalic, normal inspection Eye exam: Present: normal appearance ENT exam: Present: normal exam, normal oropharynx, mucous membranes moist, TM's normal bilaterally Neck exam: Present: normal inspection, full ROM, lymphadenopathy Respiratory exam: Present: normal lung sounds bilaterally. Absent: respiratory distress, wheezes, rales, rhonchi, stridor Cardiovascular Exam: Present: regular rate, normal rhythm, normal heart sounds. Absent: systolic murmur, diastolic murmur, rubs, gallop, clicks Neurological exam: Present: alert, oriented X3, CN II-XII intact Psychiatric exam: Present: normal affect, normal mood Skin exam: Present: warm, dry, intact, normal color. Absent: rash Course Vital Signs 07/20/22 07/20/22 20:24 22:20 Temperature 98.7 F Pulse Rate 64 88 Respiratory 20 20 Rate Blood Pressure 140/72 122/66 O2 Sat by Pulse 95 96 Oximetry Medical Decision Making - Medical Decision Making Was pt. sent in by a medical professional or institution (, [facility]NANON, REELING MACHINE SETUP OPERATOR, urgent care, hospital, or fci...) When possible be specific @ -No Did you speak to anyone other than the patient for history (EMS, parent, family, police, friend...)? What history was obtained from this source @ -No Did you review nursing and triage notes (agree or disagree)? Why? @ -I reviewed and agree with nursing and triage notes Were old charts reviewed (outside hosp., previous admission, EMS record, old EKG, old radiological studies, urgent care reports/EKG's, fci records)? Report findings @ -No old charts were reviewed Differential Diagnosis (chest pain, altered mental status, abdominal pain women, abdominal pain men, vaginal bleeding, weakness, fever, dyspnea, syncope, headache, dizziness, GI bleed, back pain, seizure, CVA, palpatations, mental health, musculoskeletal)? @ -not applicable EKG interpreted by me (3pts min.). @ -As above X-rays interpreted by me (1pt min.). @ -Chest x-ray shows mild subsegmental atelectasis left lung base is improved compared to old exam. No heart failure. CT interpreted by me (1pt min.). @ -None done U/S interpreted by me (1pt. min.). @ -None done What testing was considered but not performed or refused? (CT, X-rays, U/S, labs)? Why? @ -None What meds were considered but not given or refused? Why? @ -None Did you discuss the management of the patient with other professionals (professionals i.e. , SHANNON, REELING MACHINE SETUP OPERATOR, lab, RT, psych nurse, perinatal social worker, budget and policy analyst, teacher, airfield services officer, rn case mgr)? Give summary @ -No Was smoking cessation discussed for >3mins.? @ -No Was critical care preformed (if so, how long)? @ -No Were there social determinants of health that impacted care today? How? (Homelessness, low income, unemployed, alcoholism, drug addiction, transportation, low edu. Level, literacy, decrease access to med. care, long term, rehab)? @ -No Was there de-escalation of care discussed even if they declined (Discuss DNR or withdrawal of care, Hospice)? DNR status @ -No What co-morbidities impacted this encounter? (DM, HTN, Smoking, COPD, CAD, Cancer, CVA, ARF, Chemo, Hep., AIDS, mental health diagnosis, sleep apnea, morbid obesity)? @ -Esophageal cancer, hyperlipidemia Was patient admitted / discharged? Hospital course, mention meds given and route, prescriptions, significant lab abnormalities, going to OR and other pertinent info. @ -Patient is a 61-year-old female with esophageal cancer, last received chemo 10 days ago, presenting with chief complaint of URI-like symptoms. Positive at home Covid test. On physical examination heart and lungs are clear to auscultation and normal HEENT exam, there is a mild amount of fluid seen behind the right tympanic membrane, no erythema or bulging. Patient is afebrile and nontoxic appearing. Chest x-ray shows no evidence of pneumonia. Patient is positive for coronavirus. Patient is educated on these findings as well as on supportive treatment at home and quarantine guidelines. I offered the patient an antiviral prescription, discussed risks and benefits, patient did request this treatment. Prescription sent for Molnupiravir. Follow-up with PCP. Report back to ER with any new or worsening symptoms. Discussed return parameters and answered all questions. Patient conveyed verbal understanding and agreed to the plan. I discussed this case in detail with my attending Dr. Waters Undiagnosed new problem with uncertain prognosis? @ -No Drug Therapy requiring intensive monitoring for toxicity (Heparin, Nitro, Insulin, Cardizem)? @ -No Were any procedures done? @ -No Diagnosis/symptom? @ -Covid Acute, or Chronic, or Acute on Chronic? @ -Acute Uncomplicated (without systemic symptoms) or Complicated (systemic symptoms)? @ -Uncomplicated Side effects of treatment? @ -No Exacerbation, Progression, or Severe Exacerbation? @ -No Poses a threat to life or bodily function? How? (Chest pain, [place], [place], pneumonia, PE, COPD, DKA, ARF, appy, cholecystitis, CVA, Diverticulitis, Homicidal, Suicidal, threat to staff... and all critical care pts) @ -Potentially though unlikely - Lab Data Lab Results 07/20/22 Range/Units 21:07 Coronavirus (PCR) Detected A (Not Detectd) Disposition Clinical Impression: COVID Disposition: HOME SELF-CARE Condition: Good Instructions (If sedation given, give patient instructions): COVID-19 (Coronavirus Disease 2019) (ED) Additional Instructions: Follow-up with PCP. Report back to ER with any new or worsening symptoms. Take medication as prescribed. Quarantine at home for 5 days starting from the first day of symptoms. If after 5 days your symptoms have mostly resolved and you are fever free for at least 24 hours this is then followed by 5 days of strict mask usage while in public. Prescriptions: Molnupiravir [Lagevrio (Eua)] 800 mg PO Q12H 5 Days #40 cap Is patient prescribed a controlled substance at d/c from ED?: No Referrals: Radha Faria MD [Primary Care Provider] - 1-2 days Time of Disposition: 22:03
[2022-07-20 22:21] VITALS: BP 122/66; PULSE 88
== END 2022-07-20 22:20 | disposition home or self-care (01) ==
LOC: EC 20:23
DX: U07.1 COVID-19 (principal); I48.91 Unspecified atrial fibrillation; K21.9 Gastro-esophageal reflux disease without esophagitis; E78.5 Hyperlipidemia, unspecified; M19.90 Unspecified osteoarthritis, unspecified site; G47.30 Sleep apnea, unspecified; Z88.8 Allergy status to other drugs, medicaments and biological substances; Z79.899 Other long term (current) drug therapy; Z87.891 Personal history of nicotine dependence
CPT/HCPCS: 71046; 87635; 99283

== ENCOUNTER → 2022-10-05 | Outpatient (CLI) | payer MEDICAID ==
--- NOTE | 2022-10-06 07:06 | CA ---
Transthoracic Echo Report Name: Christa Butler Age: 62 Gender: F : 1960 Exam Date: 10/05/2022 15:45 Exam Location: [facility] Ht (in): 65 Wt (lb): 329 Ordering Physician: Holden Blanchard MD Attending/Referring Phys: Holden Blanchard MD [employer] [facility] Procedure CPT: Indications: C155 Cardiac Hx: Technical Quality: Very technically difficult study Contrast 1: Total Dose (mL): Contrast 2: Total Dose (mL): MEASUREMENTS (Male / Female) Normal Values 2D ECHO LV Diastolic Diameter PLAX 4.8 cm 4.2 - 5.9 / 3.9 - 5.3 cm LV Systolic Diameter PLAX 3.1 cm IVS Diastolic Thickness 1.3 cm 0.6 - 1.0 / 0.6 - 0.9 cm LVPW Diastolic Thickness 1.3 cm 0.6 - 1.0 / 0.6 - 0.9 cm LV Relative Wall Thickness 0.5 RV Internal Dim ED PLAX 2.4 cm LVOT Diameter 2.0 cm Aortic Root Diameter 2.7 cm LA Systolic Diameter LX 2.9 cm 3.0 - 4.0 / 2.7 - 3.8 cm LV Diastolic Volume MOD BP 51.4 cm??? 67 - 155 / 56 - 104 cm??? LV Systolic Volume MOD BP 20.6 cm??? 22 - 58 / 19 - 49 cm??? LV Ejection Fraction MOD BP 59.9 % >= 55 % LV Diastolic Volume MOD 4C 64.8 cm??? LV Systolic Volume MOD 4C 24.3 cm??? LV Ejection Fraction MOD 4C 62.5 % LV Diastolic Length 4C 7.3 cm LV Systolic Length 4C 6.8 cm LV Diastolic Volume MOD 2C 37.4 cm??? LV Systolic Volume MOD 2C 15.9 cm??? LV Ejection Fraction MOD 2C 57.4 % LV Diastolic Length 2C 6.6 cm LV Systolic Length 2C 6.2 cm LA Volume 51.1 cm??? 18 - 58 / 22 - 52 cm??? DOPPLER AV Peak Velocity 191.0 cm/s AV Peak Gradient 14.6 mmHg LVOT Peak Velocity 144.3 cm/s LVOT Peak Gradient 8.3 mmHg AV Area Cont Eq pk 2.4 cm??? MV Peak Velocity 97.1 cm/s MV Peak Gradient 3.8 mmHg MV Mean Velocity 53.6 cm/s MV Mean Gradient 1.4 mmHg MV Velocity Time Integral 36.7 cm MR Peak Velocity 194.8 cm/s MR Peak Gradient 15.2 mmHg Mitral E Point Velocity 101.9 cm/s Mitral A Point Velocity 90.8 cm/s Mitral E to A Ratio 1.1 MV Deceleration Time 235.1 ms MV E' Velocity 8.6 cm/s Mitral E to MV E' Ratio 11.8 TR Peak Velocity 166.4 cm/s TR Peak Gradient 11.1 mmHg Right Ventricular Systolic Press 16.7 mmHg FINDINGS Left Ventricle Left ventricular ejection fraction is estimated at 55-60 %.left ventricular cavity size normal. Normal left ventricular wall motion. Mildly increased left ventricular wall thickness. Normal left ventricular diastolic filling pattern. Right Ventricle Normal right ventricular size and function. Right Atrium Normal right atrial size. Left Atrium Normal left atrial size. Mitral Valve Structurally normal mitral valve. Mild MR. Aortic Valve Aortic valve not well visualized. No aortic valve stenosis or regurgitation. Tricuspid Valve Tricuspid valve not well visualized. Trace TR. Pulmonic Valve Pulmonic valve not well visualized. No pulmonic regurgitation. Pericardium Normal pericardium. Aorta Normal size aortic root and proximal ascending aorta. CONCLUSIONS 1. Normal left ventricle size and systolic function 2. Mild mitral with trace tricuspid regurgitation Previewed by: Dr. Consuelo Sepulveda MD (Electronically Signed) Final Date: 06 October 2022 07:06
== END | disposition home or self-care (01) ==
LOC: RADECHMAIN 15:41
PROVIDERS: ATTEND Internal Medicine Hematology & Oncology
DX: C15.5 Malignant neoplasm of lower third of esophagus (principal); I08.1 Rheumatic disorders of both mitral and tricuspid valves
CPT/HCPCS: 93306

== ENCOUNTER → 2022-10-11 | Outpatient (CLI) | payer MEDICAID ==
[2022-10-11 07:44] LABS: African American GFR (CKD) >90 (>60 ml/min/1.73 sqM); Blood Urea Nitrogen 18 mg/dL (7-17); Non-African American GFR(CKD) >90 (>60 ml/min/1.73 sqM)
--- NOTE | 2022-10-11 09:18 | CT ---
EXAMINATION TYPE: CT ChestAbdPelvis w con DATE OF EXAM: 10/11/2022 COMPARISON: 07/15/2022 HISTORY: Follow up for esophageal cancer. CT DLP: 2970.4 mGycm CONTRAST: CT scan of the chest, abdomen and pelvis is performed with Oral Contrast and with IV Contrast, patien t injected with 100ml mL of Isovue 300. CT Chest: LUNGS: The lungs are clear and free of infiltrate or atelectasis. No pulmonary nodule or mass is det ected. No pleural effusion or CT evidence of interstitial lung disease. MEDIASTINUM: Thoracic aorta is of normal caliber. The heart is not enlarged. No evidence for media stinal mass or adenopathy. Small fixed hiatal hernia noted. HILAR STRUCTURES: No evidence for mass. No hilar adenopathy is appreciated. OTHER: No significant abnormality. CONTRAST CT ABDOMEN AND PELVIS FINDINGS: LIVER/GB: Gallbladder is surgically absent. Mild changes of hepatic steatosis. No space occupying hep atic lesion. Biliary tree is of normal caliber. PANCREAS: No inflammation. No distinct mass. SPLEEN: No splenic enlargement. No lesion seen. ADRENALS: No nodule. No thickening. KIDNEYS/BLADDER: No hydronephrosis. No nephrolithiasis. No distinct renal mass. BOWEL: Stable gastric fundal wall thickening at 2.2 cm versus 2.2 cm previously. Normal appendix. No rmal bowel caliber. No inflammation. GENITAL ORGANS: No gross abnormality. LYMPH NODES: No greater than 1cm abdominal or pelvic lymph nodes are appreciated. AORTA: No significant abnormality. OSSEOUS STRUCTURES: No significant abnormality is seen. OTHER: No significant additional abnormality is seen. IMPRESSION: 1. Stable gastric fundal wall thickening at 2.2 cm versus 2.2 cm previously. 2. No evidence for adenopathy. 3. Hepatic steatosis.
== END | disposition home or self-care (01) ==
LOC: RADPROMAIN 06:47
PROVIDERS: ATTEND Internal Medicine Hematology & Oncology
DX: C15.5 Malignant neoplasm of lower third of esophagus (principal); K76.0 Fatty (change of) liver, not elsewhere classified
CPT/HCPCS: 82565; 84520; 71260; 74177; 36415; Q9967

== ENCOUNTER 2022-12-16 06:29 | Emergency (ER) | payer MEDICAID ==
[2022-12-16] MEDS ORDERED: PANTOPRAZOLE 40 MG/10 ML VIAL IVP STA (06:55)
[2022-12-16] MEDS ORDERED: ONDANSETRON 4 MG/2 ML VIAL IVP STA (06:55)
--- NOTE | 2022-12-16 07:02 | ED ---
GI Bleed HPI - General Chief complaint: GI Bleed Stated complaint: Vomiting Blood/GI Bleeding Time Seen by Provider: 12/16/22 06:48 Source: patient, RN notes reviewed Mode of arrival: wheelchair Limitations: no limitations - History of Present Illness Initial comments: This is a 62-year-old female who presents to the emergency department for hematemesis. Patient states that early this morning she felt very nauseous and proceeded to throw up blood twice. She proceeded to throw up blood again in the waiting room. Complaining of epigastric pain. She is on Xarelto for atrial fibrillation. Denies any history of similar symptoms in the past. She is being treated for stage IV esophageal cancer. Currently being treated at [facility] and is managed by Dr. Blanchard. She was diagnosed in November 2020. Currently being treated with immunotherapy. States that she does continue to feel very nauseous. Denies any fevers, chills, sore throat, cough, dyspnea, palpitations, diarrhea, back pain, or headaches. MD complaint: gross hematemesis - Related Data Home Medications Medication Instructions Recorded Confirmed Pramipexole [Mirapex] 1 mg PO TID 12/18/18 02/17/22 Metoprolol Succinate [Toprol XL] 50 mg PO QAM 10/29/20 02/17/22 Pravastatin Sodium [Pravachol] 40 mg PO QAM 10/29/20 02/17/22 Ondansetron [Zofran] 1 tab PO DIRECTED 06/24/21 02/17/22 Furosemide [Lasix] 20 mg PO DAILY 08/12/21 02/17/22 Rivaroxaban [Xarelto] 20 mg PO DAILY 08/18/21 02/17/22 Betamet Acet-Betameth Sod Phos 01/27/22 [Celestone Soluspan] Montelukast [Singulair] 10 day 01/27/22 hydrOXYzine HCL [Atarax] 10 mg PO QID 01/27/22 02/17/22 Previous Rx's Medication Instructions Recorded Molnupiravir [Lagevrio (Eua)] 800 mg PO Q12H 5 Days #40 cap 07/20/22 Pantoprazole [Protonix] 40 mg PO DAILY 14 Days #14 tab 12/16/22 Sucralfate [Carafate] 1 gm PO QID 10 Days #40 tablet 12/16/22 Allergies Allergy/AdvReac Type Severity Reaction Status Date / Time adhesive tape Allergy Rash/Hives/pulls Verified 12/16/22 06:35 skin off Review of Systems ROS Statement: Those systems with pertinent positive or pertinent negative responses have been documented in the HPI. ROS Other: All systems not noted in ROS Statement are negative. Past Medical History Past Medical History: Atrial Fibrillation, Cancer, Chest Pain / Angina, GERD/Reflux, Hyperlipidemia, Osteoarthritis (OA), Sleep Apnea/CPAP/BIPAP, Vascular Disorder Additional Past Medical History / Comment(s): 07/2020 lower GI bleed/ulceration from hiatal hernia/ severe anemia with blood transfusion, gastric polyp, hiatal hernia, diverticular disease, colon polyp, hemorrhoids, constipation, AUTUMN and either sleeps in a recliner or uses Cpap, arthritis in back/bilateral knees, migraines years ago, osteopenia, RLS, bilateral leg poor circulation, bronchitis, sinusitis, swallowing difficulty. ESOPHAGEAL CANCER. History of Any Multi-Drug Resistant Organisms: None Reported Past Surgical History: Bladder Surgery, Breast Surgery, Cholecystectomy, Heart Catheterization, Joint Replacement, Orthopedic Surgery, Tubal Ligation Additional Past Surgical History / Comment(s): left breast biopsy, L knee arthroscopy, buck knee replacement, rt shoulder arthroscopy, bladder sling, bladder suspension, EGD, colonoscopies, small bowel capsule, 08/11/20 heart cath(needed blood transfusion). Past Anesthesia/Blood Transfusion Reactions: Previous Problems w/ Anesthesia Additional Past Anesthesia/Blood Transfusion Reaction / Comment(s): states during her 1st knee replacement & during colonoscopy her legs were "twitching" & had to be given general anesthesia-didn't think had to do w/her restless leg Past Psychological History: No Psychological Hx Reported Smoking Status: Never smoker Past Alcohol Use History: Rare Past Drug Use History: None Reported - Past Family History Father Family Medical History: Coronary Artery Disease (CAD) Additional Family Medical History / Comment(s): Father lived to be 82 yrs. He had 9 cardiac stents. Sister(s) Additional Family Medical History / Comment(s): Pt has 3 sisters, all of which are healthy except one has thyroid problem. Mother Family Medical History: Congestive Heart Failure (CHF) Additional Family Medical History / Comment(s): Mother of CHF at the age of 74 yrs. She was obese. General Exam Limitations: no limitations General appearance: alert, in no apparent distress Head exam: Present: atraumatic, normocephalic, normal inspection Respiratory exam: Present: normal lung sounds bilaterally. Absent: respiratory distress, wheezes, rales, rhonchi, stridor Cardiovascular Exam: Present: regular rate, normal rhythm, normal heart sounds. Absent: systolic murmur, diastolic murmur, rubs, gallop, clicks GI/Abdominal exam: Present: soft, normal bowel sounds. Absent: distended, tenderness, guarding, rebound, rigid Neurological exam: Present: alert, oriented X3, CN II-XII intact Psychiatric exam: Present: normal affect, normal mood Skin exam: Present: warm, dry, intact, normal color. Absent: rash Course Vital Signs 12/16/22 12/16/22 12/16/22 06:35 07:29 09:10 Temperature 98.8 F 98.4 F Pulse Rate 92 92 97 Respiratory 18 16 16 Rate Blood Pressure 118/69 126/87 127/60 O2 Sat by Pulse 98 95 95 Oximetry 12/16/22 10:51 Temperature Pulse Rate 98 Respiratory 18 Rate Blood Pressure 115/56 O2 Sat by Pulse 95 Oximetry Medical Decision Making - Medical Decision Making This is a 62-year-old female who presents to the emergency department for hematemesis. Was pt. sent in by a medical professional or institution? @ -No Did you speak to anyone other than the patient for history? @ -No Did you review nursing and triage notes? @ -Yes, and I agree, it is accurate with regards to the patient's symptoms. Were old charts reviewed? @ -No Differential Diagnosis? @ -Differential GI Bleed: Esophageal varices, aortoenteric fistula, Pauly-Zhu, gastritis, peptic ulcer disease, diverticulosis, inflammatory bowel disease, hemorrhoids, fissure, colitis, malignancy, Meckels diverticulum, this is not meant to be an all- inclusive list. EKG interpreted by me (3pts min.)? @ -EKG interpreted by me demonstrating the following: Sinus rhythm. Ventricular rate 89 beats per minute, IA interval 148 ms, QRS duration 94 ms, QTC 387 ms. X-rays interpreted by me (1pt min.)? @ -Not obtained CT interpreted by me (1pt min.)? @ -Not obtained U/S interpreted by me (1pt. min.)? @ -Not obtained What testing was considered but not performed? (CT, X-rays, U/S, labs)? Why? @ -None What meds were considered but not given? Why? @ -None Did you discuss the management of the patient with other professionals? @ -Yes, I initially spoke with Dr. Jamison, hem/onc, who recommended repeating the hemoglobin and transferring the patient out for GI if there was a substantial drop. After repeat hemoglobin was obtained, I spoke with Emani hem/onc, who advised that her hemoglobin is stable with typical values and if her symptoms are under control, she can be discharged home with plan to follow up with their office tomorrow. Did you reconcile home meds? @ -No Was smoking cessation discussed for >3mins.? @ -No Was critical care preformed (if so, how long)? @ -No Were there social determinants of health that impacted care today? How? (Homelessness, low income, unemployed, alcoholism, drug addiction, transportation, low edu. Level, literacy, decrease access to med. care, alf, rehab)? @ -No Was there de-escalation of care discussed even if they declined? (Discuss DNR or withdrawal of care, Hospice)? @ -No What co-morbidities impacted this encounter? (DM, HTN, Smoking, COPD, CAD, Cancer, CVA, Hep., AIDS, mental health diagnosis, sleep apnea, morbid obesity)? @ -Esophageal cancer, atrial fibrillation, vascular disorder Was patient admitted / discharged? @ -Admitted. Lab work obtained revealing an initial hemoglobin of 11.1, and it was otherwise nonactionable. Patient treated with IV Protonix and Zofran with significant relief in symptoms. I spoke with Dr. Jamison, hem/onc. She advised repeating the CBC, and if there is a significant drop in hemoglobin, she should be transferred out to a facility with GI services available. We repeate d the CBC after 2 hours, and the hemoglobin was 10.5. Her hemoglobin typically runs in the tens, and this was considered stable for the patient. I then spoke with Emani regarding these values, and she advised that because the hemoglobin is stable, she could be discharged home. They advised a prescription for carafate. I did repeat a CBC for a 3rd time, 2 hours after the 2nd value. This was 10.5 as well. Patient continued to remain asymptomatic in the emergency department and felt stable for discharge home. States that she has Zofran at home and does not need a refill on this. She was given a prescription for pantoprazole and Carafate. She'll otherwise follow-up at [facility] to have repeat blood work and reevaluation. Undiagnosed new problem with uncertain prognosis? @ -None Drug Therapy requiring intensive monitoring for toxicity (Heparin, Nitro, Insulin, Cardizem)? @ -None Were any procedures done? @ -None Diagnosis/symptom? @ -Hematemesis Acute, or Chronic, or Acute on Chronic? @ -Acute Uncomplicated (without systemic symptoms) or Complicated (systemic symptoms)? @ -Uncomplicated Side effects of treatment? @ -None Exacerbation, Progression, or Severe Exacerbation] @ -Not applicable Poses a threat to life or bodily function? @ -Not at this time, however if symptoms returned and she lost a significant amount of blood, it could be life threatening. Return precautions reviewed in depth, the patient is instructed to return to the emergency department with any new, worsening, or concerning symptoms. Patient verbalized understanding. This case was discussed in detail with the attending ED physician, Dr. Hall. Presentation, findings, and treatment plan discussed in detail as well. - Lab Data Result diagrams: 12/16/22 11:33 12/16/22 06:56 Lab Results 12/16/22 12/16/22 12/16/22 Range/Units 06:56 06:56 06:56 WBC 7.1 (3.8-10.6) k/uL RBC 3.52 L (3.80-5.40) m/uL Hgb 11.1 L (11.4-16.0) gm/dL Hct 34.6 (34.0-46.0) % MCV 98.2 (80.0-100.0) fL MCH 31.7 (25.0-35.0) pg MCHC 32.2 (31.0-37.0) g/dL RDW 15.3 (11.5-15.5) % Plt Count 308 (150-450) k/uL MPV 7.4 Neutrophils % 79 % Lymphocytes % 10 % Monocytes % 5 % Eosinophils % 5 % Basophils % 0 % Neutrophils # 5.6 (1.3-7.7) k/uL Lymphocytes # 0.7 L (1.0-4.8) k/uL Monocytes # 0.3 (0-1.0) k/uL Eosinophils # 0.3 (0-0.7) k/uL Basophils # 0.0 (0-0.2) k/uL Hypochromasia Slight PT 11.1 (9.0-12.0) sec INR 1.1 (<1.2) APTT 26.1 (22.0-30.0) sec Sodium 138 (137-145) mmol/L Potassium 4.8 (3.5-5.1) mmol/L Chloride 104 (98-107) mmol/L Carbon Dioxide 28 (22-30) mmol/L Anion Gap 6 mmol/L BUN 31 H (7-17) mg/dL Creatinine 0.73 (0.52-1.04) mg/dL Est GFR (CKD-EPI)AfAm >90 (>60 ml/min/1.73 sqM) Est GFR (CKD-EPI)NonAf 89 (>60 ml/min/1.73 sqM) Glucose 134 H (74-99) mg/dL Plasma Lactic Acid Lemuel (0.7-2.0) mmol/L Calcium 8.9 (8.4-10.2) mg/dL Total Bilirubin 0.6 (0.2-1.3) mg/dL AST 23 (14-36) U/L ALT 26 (4-34) U/L Alkaline Phosphatase 66 (38-126) U/L Troponin I (0.000-0.034) ng/mL Total Protein 6.2 L (6.3-8.2) g/dL Albumin 3.3 L (3.5-5.0) g/dL Blood Type Blood Type Recheck Bld Type Recheck Status Antibody Screen Spec Expiration Date 12/16/22 12/16/22 12/16/22 Range/Units 06:56 06:56 06:56 WBC (3.8-10.6) k/uL RBC (3.80-5.40) m/uL Hgb (11.4-16.0) gm/dL Hct (34.0-46.0) % MCV (80.0-100.0) fL MCH (25.0-35.0) pg MCHC (31.0-37.0) g/dL RDW (11.5-15.5) % Plt Count (150-450) k/uL MPV Neutrophils % % Lymphocytes % % Monocytes % % Eosinophils % % Basophils % % Neutrophils # (1.3-7.7) k/uL Lymphocytes # (1.0-4.8) k/uL Monocytes # (0-1.0) k/uL Eosinophils # (0-0.7) k/uL Basophils # (0-0.2) k/uL Hypochromasia PT (9.0-12.0) sec INR (<1.2) APTT (22.0-30.0) sec Sodium (137-145) mmol/L Potassium (3.5-5.1) mmol/L Chloride (98-107) mmol/L Carbon Dioxide (22-30) mmol/L Anion Gap mmol/L BUN (7-17) mg/dL Creatinine (0.52-1.04) mg/dL Est GFR (CKD-EPI)AfAm (>60 ml/min/1.73 sqM) Est GFR (CKD-EPI)NonAf (>60 ml/min/1.73 sqM) Glucose (74-99) mg/dL Plasma Lactic Acid Lemuel 1.1 (0.7-2.0) mmol/L Calcium (8.4-10.2) mg/dL Total Bilirubin (0.2-1.3) mg/dL AST (14-36) U/L ALT (4-34) U/L Alkaline Phosphatase (38-126) U/L Troponin I <0.012 (0.000-0.034) ng/mL Total Protein (6.3-8.2) g/dL Albumin (3.5-5.0) g/dL Blood Type A Positive Blood Type Recheck A Pos Bld Type Recheck Status No Antibody Screen NEGATIVE Spec Expiration Date 12/19/2022 - 235512/16/22 12/16/22 Range/Units 09:03 11:33 WBC 6.8 7.6 (3.8-10.6) k/uL RBC 3.30 L 3.30 L (3.80-5.40) m/uL Hgb 10.5 L 10.5 L (11.4-16.0) gm/dL Hct 32.1 L 32.3 L (34.0-46.0) % MCV 97.3 97.8 (80.0-100.0) fL MCH 31.8 31.7 (25.0-35.0) pg MCHC 32.7 32.4 (31.0-37.0) g/dL RDW 15.3 15.4 (11.5-15.5) % Plt Count 278 292 (150-450) k/uL MPV 7.5 7.7 Neutrophils % 75 76 % Lymphocytes % 13 13 % Monocytes % 6 5 % Eosinophils % 4 4 % Basophils % 0 0 % Neutrophils # 5.1 5.7 (1.3-7.7) k/uL Lymphocytes # 0.9 L 1.0 (1.0-4.8) k/uL Monocytes # 0.4 0.4 (0-1.0) k/uL Eosinophils # 0.3 0.3 (0-0.7) k/uL Basophils # 0.0 0.0 (0-0.2) k/uL Hypochromasia Slight Slight PT (9.0-12.0) sec INR (<1.2) APTT (22.0-30.0) sec Sodium (137-145) mmol/L Potassium (3.5-5.1) mmol/L Chloride (98-107) mmol/L Carbon Dioxide (22-30) mmol/L Anion Gap mmol/L BUN (7-17) mg/dL Creatinine (0.52-1.04) mg/dL Est GFR (CKD-EPI)AfAm (>60 ml/min/1.73 sqM) Est GFR (CKD-EPI)NonAf (>60 ml/min/1.73 sqM) Glucose (74-99) mg/dL Plasma Lactic Acid Lemuel (0.7-2.0) mmol/L Calcium (8.4-10.2) mg/dL Total Bilirubin (0.2-1.3) mg/dL AST (14-36) U/L ALT (4-34) U/L Alkaline Phosphatase (38-126) U/L Troponin I (0.000-0.034) ng/mL Total Protein (6.3-8.2) g/dL Albumin (3.5-5.0) g/dL Blood Type Blood Type Recheck Bld Type Recheck Status Antibody Screen Spec Expiration Date Disposition Clinical Impression: Hematemesis, Esophageal cancer Disposition: HOME SELF-CARE Instructions (If sedation given, give patient instructions): Hematemesis (ED) Additional Instructions: Return to the emergency department with any new, worsening, or concerning symptoms. Take the Protonix once daily. Take this 30-60 minutes before eating or taking other medication. Take the Carafate four times daily. Take the Zofran up to every 8 hours as needed for nausea and vomiting. Slowly advance your diet as tolerated and remain well-hydrated. Follow up with Dr. Blanchard at 11:30 AM tomorrow at [facility]. Follow up with your primary care provider in 1-2 days. Prescriptions: Sucralfate [Carafate] 1 gm PO QID 10 Days #40 tablet Pantoprazole [Protonix] 40 mg PO DAILY 14 Days #14 tab Is patient prescribed a controlled substance at d/c from ED?: No Referrals: Radha Faria MD [Primary Care Provider] - 1-2 days
[2022-12-16 07:12] LABS: Basophils % (A) 0 %; Eosinophils # (A) 0.3 k/uL (0-0.7); Eosinophils % (A) 5 %; HCT 34.6 % (34.0-46.0); HGB 11.1 gm/dL (11.4-16.0); Hypochromasia Slight; Lymphocytes # (A) 0.7 k/uL (1.0-4.8); Lymphocytes % (A) 10 %; MCH 31.7 pg (25.0-35.0); MCHC 32.2 g/dL (31.0-37.0); MCV 98.2 fL (80.0-100.0); Mean Platelet Volume 7.4; Monocytes # (A) 0.3 k/uL (0-1.0); Monocytes % (A) 5 %; Neutrophils # (A) 5.6 k/uL (1.3-7.7); Neutrophils % (A) 79 %; Platelet Count 308 k/uL (150-450); RBC 3.52 m/uL (3.80-5.40); RDW 15.3 % (11.5-15.5); WBC 7.1 k/uL (3.8-10.6)
[2022-12-16 07:22] LABS: INR 1.1 (<1.2); Partial Thromboplastin Time 26.1 sec (22.0-30.0); Prothrombin Time 11.1 sec (9.0-12.0)
[2022-12-16 07:26] LABS: ALT 26 U/L (4-34); AST 23 U/L (14-36); African American GFR (CKD) >90 (>60 ml/min/1.73 sqM); Albumin 3.3 g/dL (3.5-5.0); Alkaline Phosphatase 66 U/L (38-126); Anion Gap 6 mmol/L; Blood Urea Nitrogen 31 mg/dL (7-17); Calcium 8.9 mg/dL (8.4-10.2); Carbon Dioxide 28 mmol/L (22-30); Chloride 104 mmol/L (98-107); Glucose 134 mg/dL (74-99); Non-African American GFR(CKD) 89 (>60 ml/min/1.73 sqM); Potassium 4.8 mmol/L (3.5-5.1); Sodium 138 mmol/L (137-145); Total Bilirubin 0.6 mg/dL (0.2-1.3); Total Protein 6.2 g/dL (6.3-8.2)
[2022-12-16 07:30] VITALS: TEMP 98.4
[2022-12-16 09:24] LABS: Basophils % (A) 0 %; Eosinophils # (A) 0.3 k/uL (0-0.7); Eosinophils % (A) 4 %; HCT 32.1 % (34.0-46.0); HGB 10.5 gm/dL (11.4-16.0); Hypochromasia Slight; Lymphocytes # (A) 0.9 k/uL (1.0-4.8); Lymphocytes % (A) 13 %; MCH 31.8 pg (25.0-35.0); MCHC 32.7 g/dL (31.0-37.0); MCV 97.3 fL (80.0-100.0); Mean Platelet Volume 7.5; Monocytes # (A) 0.4 k/uL (0-1.0); Monocytes % (A) 6 %; Neutrophils # (A) 5.1 k/uL (1.3-7.7); Neutrophils % (A) 75 %; Platelet Count 278 k/uL (150-450); RDW 15.3 % (11.5-15.5); WBC 6.8 k/uL (3.8-10.6)
[2022-12-16 10:53] VITALS: RESP 18
[2022-12-16] MEDS ORDERED: SODIUM CHLORIDE 0.9% 1,000 ML IV STA (11:26)
[2022-12-16 11:43] LABS: Basophils % (A) 0 %; Eosinophils # (A) 0.3 k/uL (0-0.7); Eosinophils % (A) 4 %; HCT 32.3 % (34.0-46.0); HGB 10.5 gm/dL (11.4-16.0); Hypochromasia Slight; Lymphocytes % (A) 13 %; MCH 31.7 pg (25.0-35.0); MCHC 32.4 g/dL (31.0-37.0); MCV 97.8 fL (80.0-100.0); Mean Platelet Volume 7.7; Monocytes # (A) 0.4 k/uL (0-1.0); Monocytes % (A) 5 %; Neutrophils # (A) 5.7 k/uL (1.3-7.7); Neutrophils % (A) 76 %; Platelet Count 292 k/uL (150-450); RDW 15.4 % (11.5-15.5); WBC 7.6 k/uL (3.8-10.6)
[2022-12-16] MEDS ORDERED: ACET/COD 300 MG/30 MG STARTER PACK 6 TAB BTL PO STA (11:53)
[2022-12-16 13:03] VITALS: BP 114/65; PULSE 92
== END 2022-12-16 13:03 | disposition home or self-care (01) ==
LOC: EC 06:29
DX: K92.2 Gastrointestinal hemorrhage, unspecified (principal); C15.9 Malignant neoplasm of esophagus, unspecified; E78.5 Hyperlipidemia, unspecified; G47.33 Obstructive sleep apnea (adult) (pediatric); I48.91 Unspecified atrial fibrillation; Z79.01 Long term (current) use of anticoagulants; Z79.899 Other long term (current) drug therapy; Z88.8 Allergy status to other drugs, medicaments and biological substances
CPT/HCPCS: 36415; 93005; 86900; 86901; 80053; 83605; 84484; 85025; 85610; 85730; 86850; 99285; 96374; 96375; J2405; C9113

== ENCOUNTER 2022-12-20 18:50 | Emergency (ER) | payer MEDICAID ==
--- NOTE | 2022-12-20 19:26 | ED ---
General Adult HPI - General Source: patient, RN notes reviewed Mode of arrival: ambulatory Limitations: no limitations <Ivett Vargas - Last Filed: 12/20/22 19:23> <Vianca Chavis - Last Filed: 12/21/22 00:35> <Nicholas Dorantes - Last Filed: 12/21/22 06:20> - General Chief complaint: Recheck/Abnormal Lab/Rx Stated complaint: dizziness, low hemoglobin Time Seen by Provider: 12/20/22 19:23 - History of Present Illness Initial comments: Patient is a 62 year old female who presents to the emergency department for concern for low hemoglobin. Patient has esophageal cancer undergoing immunotherapy. Today she had blood work at Dr. Blanchard's office hemoglobin was 7.8. Patient feels lightheaded, fatigued, nauseous. (Ivett Vargas) The patient's a 62-year-old female with a history of esophageal cancer, HIV ablation which she is on several toe 4, anemia who presents for dizziness, weakness and near syncope. The patient has been followed over the last 5 days for a drop in her hemoglobin. Patient was seen on and an hemoglobin of 12. She had outpatient blood work done earlier today and was 7.8. Patient went home and became significantly dizzy and weak. She feels as though it has dropped even more since this afternoon. Patient initially had hematemesis and dark tarry stools, however that has resolved. She was supposed follow-up with her general surgeon Dr. Swan for an outpatient EGD however is having worsening symptoms. Patient has any chest pain or shortness breath. Patient has continued to take her xarelto as prescribed since being seen on . The PCP wanted to have the patient follow up with retirement manager before stopping the Xarelto. (Vianca Chavis) - Related Data Home Medications Medication Instructions Recorded Confirmed Pramipexole [Mirapex] 1 mg PO TID 12/18/18 12/20/22 Metoprolol Succinate [Toprol XL] 50 mg PO DAILY 10/29/20 12/20/22 Rivaroxaban [Xarelto] 20 mg PO DAILY 08/18/21 12/20/22 Multivitamin/Iron/Folic Acid 1 tab PO DAILY 12/20/22 12/20/22 [Centrum Women Tablet] Pravastatin Sodium [Pravachol] 20 mg PO DAILY 12/20/22 12/20/22 Vitamin B Complex 1 cap PO DAILY 12/20/22 12/20/22 Previous Rx's Medication Instructions Recorded Pantoprazole [Protonix] 40 mg PO DAILY 14 Days #14 tab 12/16/22 Sucralfate [Carafate] 1 gm PO QID 10 Days #40 tablet 12/16/22 Allergies Allergy/AdvReac Type Severity Reaction Status Date / Time adhesive tape Allergy Rash/Hives/pulls Verified 12/20/22 23:01 skin off Review of Systems ROS Other: All systems not noted in ROS Statement are negative. <Ivett Vargas - Last Filed: 12/20/22 19:23> ROS Other: All systems not noted in ROS Statement are negative. <Vianca Chavis - Last Filed: 12/21/22 00:35> ROS Other: All systems not noted in ROS Statement are negative. <Nicholas Dorantes - Last Filed: 12/21/22 06:20> ROS Statement: Those systems with pertinent positive or pertinent negative responses have been documented in the HPI. Past Medical History Past Medical History: Atrial Fibrillation, Cancer, Chest Pain / Angina, GERD/Reflux, Hyperlipidemia, Osteoarthritis (OA), Sleep Apnea/CPAP/BIPAP, Vascular Disorder Additional Past Medical History / Comment(s): 07/2020 lower GI bleed/ulceration from hiatal hernia/ severe anemia with blood transfusion, gastric polyp, hiatal hernia, diverticular disease, colon polyp, hemorrhoids, constipation, AUTUMN and either sleeps in a recliner or uses Cpap, arthritis in back/bilateral knees, migraines years ago, osteopenia, RLS, bilateral leg poor circulation, bronchitis, sinusitis, swallowing difficulty. ESOPHAGEAL CANCER. History of Any Multi-Drug Resistant Organisms: None Reported Past Surgical History: Bladder Surgery, Breast Surgery, Cholecystectomy, Heart Catheterization, Joint Replacement, Orthopedic Surgery, Tubal Ligation Additional Past Surgical History / Comment(s): left breast biopsy, L knee arthroscopy, buck knee replacement, rt shoulder arthroscopy, bladder sling, bladder suspension, EGD, colonoscopies, small bowel capsule, 08/11/20 heart cath(needed blood transfusion). Past Anesthesia/Blood Transfusion Reactions: Previous Problems w/ Anesthesia Additional Past Anesthesia/Blood Transfusion Reaction / Comment(s): states du ring her 1st knee replacement & during colonoscopy her legs were "twitching" & had to be given general anesthesia-didn't think had to do w/her restless leg Past Psychological History: No Psychological Hx Reported Smoking Status: Never smoker Past Alcohol Use History: Rare Past Drug Use History: None Reported - Past Family History Father Family Medical History: Coronary Artery Disease (CAD) Additional Family Medical History / Comment(s): Father lived to be 82 yrs. He had 9 cardiac stents. Sister(s) Additional Family Medical History / Comment(s): Pt has 3 sisters, all of which are healthy except one has thyroid problem. Mother Family Medical History: Congestive Heart Failure (CHF) Additional Family Medical History / Comment(s): Mother of CHF at the age of 74 yrs. She was obese. <Ivett Vargas - Last Filed: 12/20/22 19:23> General Exam Limitations: no limitations <Ivett Vargas - Last Filed: 12/20/22 19:23> General appearance: alert Head exam: Present: atraumatic, normocephalic Eye exam: Present: PERRL ENT exam: Present: normal exam Neck exam: Present: normal inspection Cardiovascular Exam: Present: regular rate, normal rhythm GI/Abdominal exam: Present: soft Rectal exam: Present: heme (+) stool, other (NOT GROSSLY BLOODY, BUT RED, BLOOD APPEARING STOOL SAMPLE) Extremities exam: Present: normal inspection, full ROM Neurological exam: Present: alert, altered, oriented X3 Psychiatric exam: Present: normal affect, normal mood Skin exam: Present: warm <Vianca Chavis - Last Filed: 12/21/22 00:35> - General Exam Comments Initial Comments: Visual Physical Exam Vital signs reviewed General: Well-appearing, nontoxic, no acute distress. Head: Normocephalic, atraumatic Eyes: PERRLA, EOMI ENT: Airway patent Chest: Nonlabored breathing Skin: No visual rash, normal skin tone Neuro: Alert and oriented 3 Musculoskeletal: No gross abnormalities (Ivett Vargas) Course <Vianca Chavis - Last Filed: 12/21/22 00:35> Vital Signs 12/20/22 12/20/22 12/21/22 18:56 23:24 00:36 Temperature 98.6 F 97.6 F Pulse Rate 81 73 75 Respiratory 17 17 19 Rate Blood Pressure 92/57 103/42 107/60 O2 Sat by Pulse 95 95 Oximetry 12/21/22 12/21/22 12/21/22 00:44 00:54 01:05 Temperature 97.6 F 97.9 F 98.0 F Pulse Rate 72 74 Respiratory 18 19 Rate Blood Pressure 99/49 106/51 O2 Sat by Pulse 97 98 Oximetry - Reevaluation(s) Reevaluation #1: 12/21/22 00:20 Patient is given IV fluids due to borderline hypotension. One unit of red blood cells was ordered in the emergency room. I spoke with general surgeon on-call for Dr. Swan's group. He states that the patient will need to be transferred out where there is GI services and would not accept the admission. I did discuss this with the patient. She agrees to transfer. Patient is stable at this time. I will speak with the accepting physician at the transfer facility regarding the Xarelto reversal agents. (Vianca Chavis) Reevaluation #2: 12/21/22 00:[address] Fuller for [facility] regarding transfer and accepting the patient. patient will be transfered ed to ed. he did state to not worry about putting in a xarelto reversal at this time, and to just send her. (Vianca Chavis) EKG Findings - EKG Comments: EKG Findings:: EKG shows sinus rhythm at a rate of 75 bpM, no acute ST segment elevation no prolonged QT interval <Vianca Chavis - Last Filed: 12/21/22 00:35> Medical Decision Making <Ivett Vargas - Last Filed: 12/20/22 19:23> - Lab Data Result diagrams: 12/20/22 21:25 12/20/22 21:25 - EKG Data -: EKG Interpreted by Me - Radiology Data Radiology results: report reviewed <Vianca Chavis - Last Filed: 12/21/22 00:35> - Lab Data Result diagrams: 12/20/22 21:25 12/20/22 21:25 <Nicholas Dorantes - Last Filed: 12/21/22 06:20> - Medical Decision Making I performed the QuickNote portion of this chart - Ivett Vargas PA-C (Ivett Vargas) Was pt. sent in by a medical professional or institution (SHANNON Abbasi, CREATIVE ARTS THERAPIST, urgent care, hospital, or fdc...) When possible be specific @ -PCP Dr. Tomlin Did you speak to anyone other than the patient for history (EMS, parent, family, police, friend...)? What history was obtained from this source @ -[No] Did you review nursing and triage notes (agree or disagree)? Why? @ -[I reviewed and agree with nursing and triage notes] Were old charts reviewed (outside hosp., previous admission, EMS record, old EKG, old radiological studies, urgent care reports/EKG's, fdc records)? Report findings @ -Yes old charts are reviewed Differential Diagnosis (chest pain, altered mental status, abdominal pain women, abdominal pain men, vaginal bleeding, weakness, fever, dyspnea, syncope, headache, dizziness, GI bleed, back pain, seizure, CVA, palpatations, mental health, musculoskeletal)? @ -Symptomatic anemia, GI bleed, unstable GI bleed EKG interpreted by me (3pts min.). @ -EKG shows sinus rhythm at a rate of 75 bpm, no acute ST segment elevation or T-wave changes X-rays interpreted by me (1pt min.). @ -[None done] CT interpreted by me (1pt min.). @ -[None done] U/S interpreted by me (1pt. min.). @ -[None done] What testing was considered but not performed or refused? (CT, X-rays, U/S, labs)? Why? @ -[None] What meds were considered but not given or refused? Why? @ -Kcentra as this medication would have to be sent from a different facility and the patient is being transfered out. Will speak with admitting physician regarding further management of this Did you discuss the management of the patient with other professionals (pr ofessionals i.e. SHANNON Abbasi, CREATIVE ARTS THERAPIST, lab, RT, psych nurse, social problems specialist, spun paste machine operator, teacher, chief operations officer, case supervisor)? Give summary @ -[Discussed patient's symptoms are History and admitting plan with attending ED physician Dr. Dorantes today. Was smoking cessation discussed for >3mins.? @ -[No] Was critical care preformed (if so, how long)? @ -[No] Were there social determinants of health that impacted care today? How? (Homelessness, low income, unemployed, alcoholism, drug addiction, transportation, low edu. Level, literacy, decrease access to med. care, longterm, rehab)? @ -[No] Was there de-escalation of care discussed even if they declined (Discuss DNR or withdrawal of care, Hospice)? DNR status @ -[No] What co-morbidities impacted this encounter? (DM, HTN, Smoking, COPD, CAD, Cancer, CVA, ARF, Chemo, Hep., AIDS, mental health diagnosis, sleep apnea, morbid obesity)? @ -[Esophageal cancer, hypertension, upper GI bleed and lower GI bleed Was patient admitted / discharged? Hospital course, mention meds given and route, prescriptions, significant lab abnormalities, going to OR and other pertinent info. @ -[Patient will be admitted to the hospital. Given that we do not have GI on- call today she will have to be transferred to another facility where GI is available. I did speak with general surgeon who is covering for patient's surgeon Dr. Swan and he will not accept the patient under his care and stated the patient will be to be transferred. Undiagnosed new problem with uncertain prognosis? @ -[Symptomatic anemia, GI bleed Drug Therapy requiring intensive monitoring for toxicity (Heparin, Nitro, Insulin, Cardizem)? @ -[No] Were any procedures done? @ -[No] Diagnosis/symptom? @ -[Symptomatic anemia, GI bleed Acute, or Chronic, or Acute on Chronic? @ -[Acute Uncomplicated (without systemic symptoms) or Complicated (systemic symptoms)? @ -[Complicated Side effects of treatment? @ -[No] Exacerbation, Progression, or Severe Exacerbation? @ -[No] Poses a threat to life or bodily function? How? (Chest pain, USA, GA, pneumonia, PE, COPD, DKA, ARF, appy, cholecystitis, CVA, Diverticulitis, Homicidal, Hurtado icidal, threat to staff... and all critical care pts) @ -[Yes, GI bleed (Vianca Chavis) I spoke with the accepting ER physician at [facility] who accepted the transfer. (Nicholas Dorantes) - Lab Data Lab Results 12/20/22 12/20/22 12/20/22 Range/Units 21:25 21:25 21:25 WBC 6.1 (3.8-10.6) k/uL RBC 2.36 L (3.80-5.40) m/uL Hgb 7.4 L D (11.4-16.0) gm/dL Hct 23.1 L (34.0-46.0) % MCV 98.1 (80.0-100.0) fL MCH 31.4 (25.0-35.0) pg MCHC 32.0 (31.0-37.0) g/dL RDW 16.2 H (11.5-15.5) % Plt Count 288 (150-450) k/uL MPV 7.9 Neutrophils % 70 % Lymphocytes % 16 % Monocytes % 6 % Eosinophils % 6 % Basophils % 0 % Neutrophils # 4.3 (1.3-7.7) k/uL Lymphocytes # 1.0 (1.0-4.8) k/uL Monocytes # 0.4 (0-1.0) k/uL Eosinophils # 0.3 (0-0.7) k/uL Basophils # 0.0 (0-0.2) k/uL Hypochromasia Slight Anisocytosis Slight Macrocytosis Slight PT 12.3 H (9.0-12.0) sec INR 1.2 H (<1.2) APTT 29.9 (22.0-30.0) sec Sodium 137 (137-145) mmol/L Potassium 3.4 L (3.5-5.1) mmol/L Chloride 103 (98-107) mmol/L Carbon Dioxide 30 (22-30) mmol/L Anion Gap 4 mmol/L BUN 8 (7-17) mg/dL Creatinine 0.69 (0.52-1.04) mg/dL Est GFR (CKD-EPI)AfAm >90 (>60 ml/min/1.73 sqM) Est GFR (CKD-EPI)NonAf >90 (>60 ml/min/1.73 sqM) Glucose 103 H (74-99) mg/dL Calcium 8.4 (8.4-10.2) mg/dL Total Bilirubin 0.5 (0.2-1.3) mg/dL AST 28 (14-36) U/L ALT 23 (4-34) U/L Alkaline Phosphatase 72 (38-126) U/L Troponin I (0.000-0.034) ng/mL Total Protein 5.9 L (6.3-8.2) g/dL Albumin 3.0 L (3.5-5.0) g/dL Stool Occult Blood (Negative) Blood Type Blood Type Recheck Bld Type Recheck Status Antibody Screen Crossmatch Spec Expiration Date 12/20/22 12/20/22 12/20/22 Range/Units 21:25 23:03 23:28 WBC (3.8-10.6) k/uL RBC (3.80-5.40) m/uL Hgb (11.4-16.0) gm/dL Hct (34.0-46.0) % MCV (80.0-100.0) fL MCH (25.0-35.0) pg MCHC (31.0-37.0) g/dL RDW (11.5-15.5) % Plt Count (150-450) k/uL MPV Neutrophils % % Lymphocytes % % Monocytes % % Eosinophils % % Basophils % % Neutrophils # (1.3-7.7) k/uL Lymphocytes # (1.0-4.8) k/uL Monocytes # (0-1.0) k/uL Eosinophils # (0-0.7) k/uL Basophils # (0-0.2) k/uL Hypochromasia Anisocytosis Macrocytosis PT (9.0-12.0) sec INR (<1.2) APTT (22.0-30.0) sec Sodium (137-145) mmol/L Potassium (3.5-5.1) mmol/L Chloride (98-107) mmol/L Carbon Dioxide (22-30) mmol/L Anion Gap mmol/L BUN (7-17) mg/dL Creatinine (0.52-1.04) mg/dL Est GFR (CKD-EPI)AfAm (>60 ml/min/1.73 sqM) Est GFR (CKD-EPI)NonAf (>60 ml/min/1.73 sqM) Glucose (74-99) mg/dL Calcium (8.4-10.2) mg/dL Total Bilirubin (0.2-1.3) mg/dL AST (14-36) U/L ALT (4-34) U/L Alkaline Phosphatase (38-126) U/L Troponin I <0.012 (0.000-0.034) ng/mL Total Protein (6.3-8.2) g/dL Albumin (3.5-5.0) g/dL Stool Occult Blood Positive H (Negative) Blood Type A Positive Blood Type Recheck A Pos Bld Type Recheck Status No Antibody Screen NEGATIVE Crossmatch See Detail Spec Expiration Date 12/23/2022 - 2302 Disposition <AliciaIvett - Last Filed: 12/20/22 19:23> Decision to Admit Reason: Admit from (transfer to [facility]) Decision Date: 12/21/22 (patient will be transfered to hospital with GI chemistry quality control technician) Decision Time: 12:05 - Out of Hospital Transfer - Req. Specs Out of Hospital Transfer - Requested Specifics: Other Non-Acute ([facility] ed for GI specialist) <Vianca Chavis - Last Filed: 12/21/22 00:35> <Nicholas Dorantes - Last Filed: 12/21/22 06:20> Clinical Impression: Symptomatic anemia, GI bleed Narrative: patient will be transfered to [facility] for admission with GI specialist. (Vianca Chavis) Disposition: OTHER INSTITUTION NOT DEFINED Condition: Serious Referrals: Radha Faria MD [Primary Care Provider] - 1-2 days
[2022-12-20 21:56] LABS: Anisocytosis Slight; Basophils % (A) 0 %; Eosinophils # (A) 0.3 k/uL (0-0.7); Eosinophils % (A) 6 %; HCT 23.1 % (34.0-46.0); Hypochromasia Slight; Lymphocytes % (A) 16 %; MCH 31.4 pg (25.0-35.0); MCV 98.1 fL (80.0-100.0); Macrocytosis Slight; Mean Platelet Volume 7.9; Monocytes # (A) 0.4 k/uL (0-1.0); Monocytes % (A) 6 %; Neutrophils # (A) 4.3 k/uL (1.3-7.7); Neutrophils % (A) 70 %; Platelet Count 288 k/uL (150-450); RBC 2.36 m/uL (3.80-5.40); RDW 16.2 % (11.5-15.5); WBC 6.1 k/uL (3.8-10.6)
[2022-12-20 22:02] LABS: INR 1.2 (<1.2); Partial Thromboplastin Time 29.9 sec (22.0-30.0); Prothrombin Time 12.3 sec (9.0-12.0)
[2022-12-20 22:05] LABS: ALT 23 U/L (4-34); AST 28 U/L (14-36); African American GFR (CKD) >90 (>60 ml/min/1.73 sqM); Alkaline Phosphatase 72 U/L (38-126); Anion Gap 4 mmol/L; Blood Urea Nitrogen 8 mg/dL (7-17); Calcium 8.4 mg/dL (8.4-10.2); Carbon Dioxide 30 mmol/L (22-30); Chloride 103 mmol/L (98-107); Glucose 103 mg/dL (74-99); Non-African American GFR(CKD) >90 (>60 ml/min/1.73 sqM); Potassium 3.4 mmol/L (3.5-5.1); Sodium 137 mmol/L (137-145); Total Bilirubin 0.5 mg/dL (0.2-1.3); Total Protein 5.9 g/dL (6.3-8.2)
[2022-12-20 22:06] LABS: HGB 7.4 gm/dL (11.4-16.0)
[2022-12-20] MEDS ORDERED: SODIUM CHLORIDE 0.9% 1,000 ML IV ONE (23:14)
[2022-12-21] MEDS ORDERED: PANTOPRAZOLE 40 MG/10 ML VIAL IVP STA (00:21)
[2022-12-21 00:56] VITALS: BP 106/51; PULSE 74; RESP 19
[2022-12-21 01:06] VITALS: TEMP 98
== END 2022-12-21 01:10 | disposition other institution (70) ==
LOC: EC 18:50
DX: D64.9 Anemia, unspecified (principal); K92.2 Gastrointestinal hemorrhage, unspecified; E78.5 Hyperlipidemia, unspecified; I48.91 Unspecified atrial fibrillation; G47.30 Sleep apnea, unspecified; Z79.899 Other long term (current) drug therapy; Z91.09 Other allergy status, other than to drugs and biological substances
CPT/HCPCS: 99284 ×2; 96360 ×2; 36415; 93005; 86900; 86901; 80053; 84484; 85025; 85610; 85730; 86850; 86920; 82272; 36430; P9016

== ENCOUNTER → 2023-01-03 | Outpatient (CLI) | payer MEDICAID ==
--- NOTE | 2023-01-03 10:57 | CA ---
Transthoracic Echo Report Name: Christa Butler Age: 62 Gender: F : 1960 Exam Date: 01/03/2023 10:15 Exam Location: [facility] Ht (in): 67 Wt (lb): 322 Ordering Physician: Holden Blanchard MD Attending/Referring Phys: Manager Care Management Odalys Justin RDCS Procedure CPT: Indications: C15.5 D64.9 E78.5 I10 Cardiac Hx: Technical Quality: Fair Contrast 1: Total Dose (mL): Contrast 2: Total Dose (mL): MEASUREMENTS (Male / Female) Normal Values 2D ECHO LV Diastolic Diameter PLAX 5.2 cm 4.2 - 5.9 / 3.9 - 5.3 cm LV Systolic Diameter PLAX 3.7 cm IVS Diastolic Thickness 1.5 cm 0.6 - 1.0 / 0.6 - 0.9 cm LVPW Diastolic Thickness 1.2 cm 0.6 - 1.0 / 0.6 - 0.9 cm LV Relative Wall Thickness 0.5 RV Internal Dim ED PLAX 3.9 cm M-MODE Aortic Root Diameter MM 3.0 cm LA Systolic Diameter MM 1.4 cm LA Ao Ratio MM 0.5 AV Cusp Separation MM 3.9 cm DOPPLER AV Peak Velocity 224.5 cm/s AV Peak Gradient 20.2 mmHg AV Mean Velocity 153.3 cm/s AV Mean Gradient 10.8 mmHg AV Velocity Time Integral 44.2 cm LVOT Peak Velocity 161.5 cm/s LVOT Peak Gradient 10.4 mmHg LVOT Velocity Time Integral 28.2 cm Mitral E Point Velocity 103.1 cm/s Mitral A Point Velocity 119.5 cm/s Mitral E to A Ratio 0.9 MV Deceleration Time 164.9 ms MV E' Velocity 8.8 cm/s Mitral E to MV E' Ratio 11.7 TR Peak Velocity 261.6 cm/s TR Peak Gradient 27.4 mmHg Right Ventricular Systolic Press 37.6 mmHg FINDINGS Left Ventricle Moderately increased left ventricular wall thickness. Left ventricular cavity size normal. Normal left ventricular systolic function with no obvious regional wall motion abnormalities. Left ventricular ejection fraction is estimated at 55-60 %. Right Ventricle Mild right ventricular dilatation. Mild pulmonary hypertension. Right Atrium Normal right atrial size. Left Atrium Normal left atrial size. Mitral Valve Structurally normal mitral valve. No mitral stenosis, or prolapse. Trace mitral regurgitation Aortic Valve Mild aortic stenosis with a peak gradient of 20 mmHg and a mean gradient of 11 mmHg. No aortic regurgitation. Tricuspid Valve Structurally normal tricuspid valve. Mild tricuspid regurgitation. Pulmonic Valve Structurally normal pulmonic valve. Pericardium No pericardial effusion. Aorta Normal size aortic root and proximal ascending aorta. CONCLUSIONS 1. Normal left ventricle size and systolic function 2. Mild aortic stenosis 3. Mild tricuspid regurgitation with mild pulmonary hypertension 4. Trace mitral regurgitation Previewed by: Dr. Consuelo Sepulveda MD (Electronically Signed) Final Date: 03 January 2023 10:56
[2023-01-03 11:19] LABS: African American GFR (CKD) >90 (>60 ml/min/1.73 sqM); Blood Urea Nitrogen 6 mg/dL (7-17); Non-African American GFR(CKD) >90 (>60 ml/min/1.73 sqM)
--- NOTE | 2023-01-03 12:11 | CT ---
EXAMINATION TYPE: CT ChestAbdPelvis w con CT DLP: 3048.60 mGycm, Automated exposure control for dose reduction was used. DATE OF EXAM: 01/03/2023 11:53 AM COMPARISON: CT chest abdomen pelvis with most recent 10/11/2022 CLINICAL INDICATION:Female, 62 years old with history of C15.5 Z01.818; PHH, Esophageal ca Technique: Multiple axial images of the chest, abdomen, and pelvis were obtained following the intrav enous administration of 100 mL Isovue-300. Oral contrast was administered. Two-dimensional coronal an d sagittal reconstructions were obtained. Findings: CHEST: LUNGS/ PLEURA: The lung parenchyma appears unremarkable. No suspicious pulmonary nodules or masses. AIRWAY: Patent and unremarkable. HEART: Heart is mildly enlarged for size. MEDIASTINUM: No pathologically enlarged lymph nodes identified. VASCULATURE: No aortic aneurysm. Right chest wall [id number] with tip terminating in the low supe rior vena cava. MUSCULOSKELETAL: No acute osseous abnormalities. SOFT TISSUES/LYMPH NODES: Unremarkable. LOWER NECK: No significant findings. ABDOMEN: ABDOMEN LIVER: Diffusely hypoattenuating parenchyma. No focal lesion. GALLBLADDER AND BILE DUCTS: The gallbladder is surgically absent. PANCREAS: Unremarkable. SPLEEN: Unremarkable. ADRENAL GLANDS: Unremarkable. KIDNEYS AND URETERS: No evidence of hydronephrosis or renal calculus. The kidneys enhance symmetrical ly. Contrast is demonstrated within both collecting systems on the delayed phase. PELVIS BLADDER: Unremarkable REPRODUCTIVE: Pelvic floor laxity. Anteverted uterus. ABDOMEN & PELVIS STOMACH AND BOWEL: Small hiatal hernia redemonstrated. Persistent mild thickening of the gastric card ia wall measuring up to 30 mm, similar to prior exam. Scattered clonic diverticula are seen throughou t the colon. No evidence of bowel obstruction. Appendix is unremarkable. Enteric contrast reaches the mid small bowel. PERITONEUM: No evidence of pneumoperitoneum or free fluid. VASCULATURE: No evidence of aortic aneurysm. MUSCULOSKELETAL: No acute osseous abnormalities. Mild degenerative changes of the hips. Degenerative hypertrophic facet arthropathy mid to lower lumbar spine redemonstrated. Degenerative bony ankylosis across the posterior elements. There again may be a fixed anterolisthesis at L5-S1 with resultant acc entuated lumbar lordosis. No aggressive osseous lesion. LYMPH NODES: No gross evidence for lymphadenopathy. Previously seen right paraesophageal lymph node i s no longer visualized. SOFT TISSUE/ABDOMINAL WALL: Unremarkable IMPRESSION: 1. Stable mural thickening along the posterior gastric fundus measuring up to 3.0 when measuring wit h similar technique. No evidence for pathologic adenopathy. 2. Hepatic steatosis. 3. Colonic diverticulosis without evidence for acute diverticulitis.
== END | disposition home or self-care (01) ==
LOC: RADCTMAIN 09:09
PROVIDERS: ATTEND Internal Medicine Hematology & Oncology
DX: Z01.818 Encounter for other preprocedural examination (principal); C15.5 Malignant neoplasm of lower third of esophagus; I08.1 Rheumatic disorders of both mitral and tricuspid valves; K57.30 Diverticulosis of large intestine without perforation or abscess without bleeding; K76.0 Fatty (change of) liver, not elsewhere classified; K31.89 Other diseases of stomach and duodenum; I27.20 Pulmonary hypertension, unspecified; I10 Essential (primary) hypertension; E78.5 Hyperlipidemia, unspecified; D64.9 Anemia, unspecified; Z71.3 Dietary counseling and surveillance
CPT/HCPCS: 93306; 82565; 84520; 71260; 74177; 36415; Q9967

== ENCOUNTER → 2023-04-26 | Outpatient (CLI) | payer MEDICAID ==
[2023-04-26 12:26] LABS: African American GFR (CKD) >90 (>60 ml/min/1.73 sqM); Blood Urea Nitrogen 8 mg/dL (7-17); Non-African American GFR(CKD) >90 (>60 ml/min/1.73 sqM)
--- NOTE | 2023-05-01 21:48 | CT ---
EXAMINATION TYPE: CT ChestAbdPelvis w con CT DLP: 2828.40 mGycm, Automated exposure control for dose reduction was used. DATE OF EXAM: 04/26/2023 1:48 PM COMPARISON: CTs 01/03/2023 and 10/11/2022 CLINICAL INDICATION:Female, 62 years old with history of C15.5 esophageal ca; PHH, hx of gastroesopha geal ca, obs for mets Technique: Multiple axial images of the chest, abdomen, and pelvis were obtained. Two-dimensional cor onal and sagittal reconstructions were obtained. Contrast used:100ml mL of Isovue 300 with IV Contrast, Oral contrast used: with Oral Contrast FINDINGS: CHEST: LUNGS/ PLEURA: No airspace consolidation, pleural effusion, or pneumothorax. Mild bibasilar atelectas is. There is a 5 mm nodule in the anterior right lung image 29 series 5 which appears stable. There a re several tiny (3-4 mm) groundglass and solid appearing nodules throughout the right lung, and a few in the left lung, which appear to be new since the last exam. Largest such new nodule is in the lef t lower lobe just above the diaphragm; this appears oval and solid, measures up to 10 x 7 mm image 38 . No highly suspicious nodule or mass is seen. AIRWAY: Central airways are patent. LOWER NECK: No significant findings. MEDIASTINUM: Stable small mediastinal lymph nodes. No suspicious new or enlarging nodes. HEART: Normal heart size. No significant coronary artery calcifications. No appreciable pericardial effusion. Mildly prominent pericardial fat. VASCULATURE: Mild aortic calcifications along the arch. Ascending aorta is 3.4 cm, descending is 2.6 cm. Aortic size is within normal limits. Grossly preserved enhancement of the pulmonary arteries, in the limits of non-CTA exam. Pulmonary trunk is normal in size. Trunk measures 2.6 CM. SOFT TISSUES/LYMPH NODES: Unremarkable soft tissues. No axillary adenopathy. MUSCULOSKELETAL: No acute osseous abnormality. Mild to moderate degenerative disk disease throughout the thoracolumbar spine. No destructive bone lesions are seen. OTHER: Right chest Mediport with its catheter tip in the SVC above the right atrium. ABDOMEN PELVIS: ABDOMEN LIVER: Liver is normal in size, 13.5 cm. No evidence of mass or contour abnormality. The portal veins are enhancing as is the splenic vein. GALLBLADDER AND BILE DUCTS: Gallbladder again not seen, likely absent. No biliary dilatation is sugge sted. PANCREAS: Unremarkable. SPLEEN: Unremarkable. ADRENAL GLANDS: Stable, no evidence of mass.. KIDNEYS AND URETERS: Kidneys enhance symmetrically. There is no evidence of mass or hydronephrosis. PELVIS BLADDER: Unremarkable REPRODUCTIVE: Uterus is present, it is anteflexed and deviates slightly into the right pelvis. The pr esumed ovaries appear grossly unremarkable by CT. ABDOMEN & PELVIS STOMACH AND BOWEL: Small to moderate sized hiatal hernia again noted. There again appears to be wall thickening of the distal esophagus within the hernia which extends across the GE junction, with a sim ilar degree of soft tissue thickening seen along the wall of the gastric cardia, measuring up to 3 cm in thickness, unchanged. Contrast and some artifact seen within the gastric lumen without additional abnormality seen. Contrast throughout the small bowel loops without evidence of obstruction. The obed endix appears normal. There is no contrast yet seen within the colon. The colon is essentially collap sed, similar to the prior study. Several diverticula in the distal descending and sigmoid colon witho ut evidence of diverticulitis. Colonic wall appears mildly thickened throughout these areas which cou ld be chronic secondary to diverticular disease itself. PERITONEUM: No evidence of pneumoperitoneum or free fluid. VASCULATURE: Minimal aortic atherosclerotic calcifications. No evidence of AAA. MUSCULOSKELETAL: No acute osseous abnormality. Mild to moderate degenerative disk disease throughout the thoracolumbar spine. Mild degenerative change of the hips. No destructive bone lesions are seen. LYMPH NODES: Stable appearance with no pathologically enlarged lymph nodes seen in the region of the distal esophagus, GE junction, stomach. No retroperitoneal adenopathy is seen. SOFT TISSUES/ABDOMINAL WALL: Small fat-containing umbilical region hernia is unchanged. IMPRESSION: 1. Stable 5 mm nodule in the anterior right lung. Several tiny (3-4 mm) groundglass and solid appear ing nodules throughout the right lung, and a few in the left lung, appear to be new since the last ex am. Largest is in the left lung base measuring up to 10 x 7 mm. These are nonspecific, but favored to be post infectious/post inflammatory. These will be reassessed on subsequent follow-up imaging. 2. Stable small mediastinal lymph nodes. No suspicious new or enlarging nodes. 3. Small to moderate sized hiatal hernia, stable. Wall thickening of the distal esophagus within the hernia extending across the GE junction, with a similar degree of soft tissue thickening seen along the wall of the gastric cardia, measuring up to 3 cm in thickness, unchanged. 4. Colonic diverticular disease without diverticulitis. 5. No new abnormality in the abdomen or pelvis to suggest metastatic disease.
== END | disposition home or self-care (01) ==
LOC: RADCTMAIN 11:43
PROVIDERS: ATTEND Internal Medicine Hematology & Oncology
DX: C15.5 Malignant neoplasm of lower third of esophagus (principal); K44.9 Diaphragmatic hernia without obstruction or gangrene; K57.30 Diverticulosis of large intestine without perforation or abscess without bleeding; R91.8 Other nonspecific abnormal finding of lung field
CPT/HCPCS: 82565; 84520; 71260; 74177; 36415; Q9967

== ENCOUNTER → 2023-07-09 | Outpatient (CLI) | payer MEDICAID ==
[2023-07-09 13:25] LABS: Microalbumin Creatinine Ratio <7 mg/g Cr (0-30)
[2023-07-09 13:28] LABS: ALT 21 U/L (8-44); AST 22 U/L (13-35); Albumin 3.7 g/dL (3.8-4.9); Albumin/Globulin Ratio 1.37 Ratio (1.60-3.17); Alkaline Phosphatase 107 U/L (41-126); BUN/Creat Ratio 9.43 Ratio (12.00-20.00); Blood Urea Nitrogen 6.6 mg/dL (9.0-27.0); Calcium 9.2 mg/dL (8.7-10.3); Carbon Dioxide 27.8 mmol/L (21.6-31.8); Chloride 106 mmol/L (96-109); Chol/HDL Ratio 3.26 Ratio; Globulin 2.7 g/dL (1.6-3.3); Glucose 88 mg/dL (70-110); LDL Cholesterol,Calculated 95.6 mg/dL (0.0-131.0); Potassium 4.8 mmol/L (3.5-5.5); Sodium 142 mmol/L (135-145); Total Bilirubin 0.3 mg/dL (0.3-1.2); Total Protein 6.4 g/dL (6.2-8.2); VLDL Calculation 12.46 mg/dL (5.00-40.00)
== END | disposition home or self-care (01) ==
LOC: LABWHC1 08:03
PROVIDERS: ATTEND Family Medicine
DX: I26.99 Other pulmonary embolism without acute cor pulmonale (principal)
CPT/HCPCS: 36415; 80053; 80061; 82043; 82570; 83036

== ENCOUNTER → 2023-07-12 | Outpatient (CLI) | payer MEDICAID ==
--- NOTE | 2023-07-14 08:10 | MM ---
Reason for Exam: Screening (asymptomatic). Last mammogram was performed 1 year(s) and 2 month(s) ago. Patient History: Menarche at age 12. First Full-Term at age 32. Late child-bearing (after 30). Postmenopausal. 1998, Benign Excisional Biopsy on the left side. Risk Values: Alberta 5 year model risk: 2.5%. NCI Lifetime model risk: 11.0%. Prior Study Comparison: 06/25/2019 Bilateral Screening Mammogram, [facility]. 09/05/2020 Bilateral Screening Mammogram, [facility]. 05/10/2022 Bilateral MG screening mammo w CAD, [facility]. Tissue Density: The breasts are almost entirely fatty. Findings: Analyzed By CAD. Right breast: There is no suspicious group of microcalcifications or new suspicious mass. Left breast: There is no suspicious group of microcalcifications or new suspicious mass. There is no suspicious group of microcalcifications or new suspicious mass. Overall Assessment: Negative, BI-RAD 1 Management: Screening Mammogram of both breasts in [address] [facility] will attempt to contact patient to return for supplemental views and ultrasound if indicated. Patient should continue monthly self-breast exams. A clinical breast exam by your physician is recommended on an annual basis. This exam should not preclude additional follow-up of suspicious palpable abnormalities. Note on Alberta scores and lifetime risk: 1. A Alberta score greater than 3% is considered moderate risk. If this is the case, consider specialist referral to assess eligibility for a risk reducing agent. 2. If overall lifetime risk for the development of breast cancer is 20% or higher, the patient may qualify for future screening with alternating mammogram and breast MRI. Electronically signed and approved by: Fredy Kaplan DO
== END | disposition home or self-care (01) ==
LOC: RADMAMWWP 12:41
PROVIDERS: ATTEND Family Medicine
DX: Z12.31 Encounter for screening mammogram for malignant neoplasm of breast (principal); Z78.0 Asymptomatic menopausal state
CPT/HCPCS: 77067

== ENCOUNTER → 2023-07-25 | Outpatient (CLI) | payer MEDICAID ==
[2023-07-25 15:25] LABS: African American GFR (CKD) >90 (>60 ml/min/1.73 sqM); Blood Urea Nitrogen 8 mg/dL (7-17); Non-African American GFR(CKD) 89 (>60 ml/min/1.73 sqM)
--- NOTE | 2023-07-25 19:33 | CT ---
EXAMINATION TYPE: CT ChestAbdPelvis w con CT DLP: 2785.2 mGycm, Automated exposure control for dose reduction was used. DATE OF EXAM: 07/25/2023 4:50 PM COMPARISON: 04/26/2023, 01/03/2023 CLINICAL INDICATION:Female, 62 years old with history of Z01.818 Pre-chemo C15.5 ESOPHAGEAL CANCER; P HH, Stage IV esophageal cancer Technique: CT ChestAbdPelvis w con; Multiple axial images were obtained. Two-dimensional coronal and sagittal reconstructions were obtained. Contrast used:100 mL of Isovue 300 with IV Contrast, Oral contrast used: with Oral Contrast Findings: CHEST: LUNGS/ PLEURA: Stable right middle lobe somewhat linear nodular density measuring 5 mm series 4 image 30. Left lung base nodular density is felt to represent consolidation probably due to atelectasis. N o suspicious pulmonary nodules or masses. AIRWAY: Patent and unremarkable. HEART: Heart is mildly enlarged for size. MEDIASTINUM: No pathologically enlarged lymph nodes identified. Enlargement of the distal esophagus n ear the cardiac sphincter. Findings not significantly changed from prior on 224. Distal esophagus dem onstrates mild wall thickening up to 24 mm not appreciated on prior. VASCULATURE: No aortic aneurysm. Right chest wall [id number] with tip terminating in the low supe rior vena cava. MUSCULOSKELETAL: No acute osseous abnormalities. SOFT TISSUES/LYMPH NODES: Unremarkable. LOWER NECK: No significant findings. ABDOMEN: ABDOMEN LIVER: Diffusely hypoattenuating parenchyma. No focal lesion. GALLBLADDER AND BILE DUCTS: The gallbladder is surgically absent. PANCREAS: Unremarkable. SPLEEN: Unremarkable. ADRENAL GLANDS: Unremarkable. KIDNEYS AND URETERS: No evidence of hydronephrosis or renal calculus. The kidneys enhance symmetrical ly. Contrast is demonstrated within both collecting systems on the delayed phase. PELVIS BLADDER: Unremarkable REPRODUCTIVE: Pelvic floor laxity. Anteverted uterus. ABDOMEN & PELVIS STOMACH AND BOWEL: Small hiatal hernia redemonstrated. Hyperemia of the rectum with mild circumferent ial wall thickening. Persistent mild thickening of the gastric cardia wall measuring up to 30 mm. Sca ttered clonic diverticula are seen throughout the colon. No evidence of bowel obstruction. Appendix i s unremarkable. Enteric contrast reaches the mid small bowel. PERITONEUM: No evidence of pneumoperitoneum or free fluid. VASCULATURE: No evidence of aortic aneurysm. MUSCULOSKELETAL: No acute osseous abnormalities. Mild degenerative changes of the hips. Degenerative hypertrophic facet arthropathy mid to lower lumbar spine redemonstrated. Degenerative bony ankylosis across the posterior elements. There again may be a fixed anterolisthesis at L5-S1 with resultant acc entuated lumbar lordosis. No aggressive osseous lesion. LYMPH NODES: No gross evidence for lymphadenopathy. Previously seen right paraesophageal lymph node i s no longer visualized. SOFT TISSUE/ABDOMINAL WALL: Unremarkable IMPRESSION: 1. Pacing wall thickening of the distal esophagus possibly relating to progression of disease consid er pet/CT for evaluation for metabolic activity. 2. Stable mural thickening along the posterior gastric fundus 3. No greater than 1.0 cm in short axis lymph nodes identified. 4. Mild hyperemia of the rectum correlate for proctitis. 5. Hepatic steatosis. 6. Colonic diverticulosis without evidence for acute diverticulitis.
--- NOTE | 2023-07-26 10:04 | CA ---
Transthoracic Echo Report Name: Christa Butler Age: 62 Gender: F : 1960 Exam Date: 07/25/2023 16:35 Exam Location: [facility] Ht (in): 67 Wt (lb): 288 Ordering Physician: Holden Blanchard MD Attending/Referring Phys: Quinton Rogers MD ([id number]) Switchboard Operator Receptionist Nelida Marcos RDCS Procedure CPT: Indications: Z01.818 Pre-chemo C15.5 ESOPHAGEAL CANCER Cardiac Hx: Technical Quality: Contrast 1: Total Dose (mL): Contrast 2: Total Dose (mL): MEASUREMENTS (Male / Female) Normal Values 2D ECHO LV Diastolic Diameter PLAX 4.6 cm 4.2 - 5.9 / 3.9 - 5.3 cm LV Systolic Diameter PLAX 3.3 cm IVS Diastolic Thickness 0.9 cm 0.6 - 1.0 / 0.6 - 0.9 cm LVPW Diastolic Thickness 1.3 cm 0.6 - 1.0 / 0.6 - 0.9 cm LV Relative Wall Thickness 0.5 LVOT Diameter 2.0 cm Aortic Root Diameter 2.9 cm LA Systolic Diameter LX 3.6 cm 3.0 - 4.0 / 2.7 - 3.8 cm DOPPLER AV Peak Velocity 167.2 cm/s AV Peak Gradient 11.2 mmHg AV Mean Velocity 108.4 cm/s AV Mean Gradient 5.7 mmHg AV Velocity Time Integral 36.0 cm LVOT Peak Velocity 109.4 cm/s LVOT Peak Gradient 4.8 mmHg LVOT Velocity Time Integral 24.2 cm LVOT Stroke Volume 77.0 cm??? LVOT Stroke Volume Index 32.6 ml/m??? AV Area Cont Eq vti 2.1 cm??? AV Area Cont Eq pk 2.1 cm??? Mitral E Point Velocity 95.2 cm/s Mitral A Point Velocity 83.4 cm/s Mitral E to A Ratio 1.1 MV Deceleration Time 281.7 ms MV E' Velocity 8.2 cm/s Mitral E to MV E' Ratio 11.6 TR Peak Velocity 256.9 cm/s TR Peak Gradient 26.4 mmHg FINDINGS Left Ventricle Left ventricular ejection fraction is estimated at 50-55 %. Normal left ventricular diastolic filling pattern. No obvious regional wall motion abnormalities. Right Ventricle Normal right ventricular size. Right Atrium Normal right atrial size. Left Atrium Normal left atrial size. Mitral Valve No mitral regurgitation. Aortic Valve No aortic valve stenosis or regurgitation. Tricuspid Valve Trace to mild tricuspid regurgitation. Pulmonic Valve No pulmonic regurgitation. Pericardium No pericardial effusion. Aorta Normal size aortic root. CONCLUSIONS Previous echo recorded on 01/03/2023. Left ventricular ejection fraction 50-55% Normal left ventricular thickness No mitral regurgitation Trace to mild tricuspid regurgitation Previewed by: Dr. Uvaldo Tucker DO (Electronically Signed) Final Date: 26 July 2023 10:03
== END | disposition home or self-care (01) ==
LOC: RADCTMAIN 14:38
PROVIDERS: ATTEND Internal Medicine Hematology & Oncology
DX: Z01.818 Encounter for other preprocedural examination (principal); K76.0 Fatty (change of) liver, not elsewhere classified; K57.30 Diverticulosis of large intestine without perforation or abscess without bleeding; K22.89 Other specified disease of esophagus; K31.89 Other diseases of stomach and duodenum; C15.5 Malignant neoplasm of lower third of esophagus; I10 Essential (primary) hypertension; E78.5 Hyperlipidemia, unspecified; D64.9 Anemia, unspecified; R68.89 Other general symptoms and signs; Z71.3 Dietary counseling and surveillance
CPT/HCPCS: 93306; 82565; 84520; 71260; 74177; 36415; Q9967

== ENCOUNTER → 2023-10-03 | Outpatient (CLI) | payer BC ==
[2023-10-03 12:25] LABS: African American GFR (CKD) 85 (>60 ml/min/1.73 sqM); Blood Urea Nitrogen 9 mg/dL (7-17); Non-African American GFR(CKD) 73 (>60 ml/min/1.73 sqM)
--- NOTE | 2023-10-03 14:49 | CT ---
EXAMINATION TYPE: CT ChestAbdPelvis w con CT DLP: 1899 mGycm, Automated exposure control for dose reduction was used. DATE OF EXAM: 10/03/2023 1:34 PM COMPARISON: Multiple CT Chest Abdomen Pelvis With most recent 07/25/2023 CLINICAL INDICATION:Female, 63 years old with history of C15.5 MALIGNANT NEOPLASM OF LOWER THIRD OF E SOPHAG; PHH, f/u esophageal cancer Technique: Multiple axial images of the chest, abdomen, and pelvis were obtained following the intrav enous administration of 100 mL Isovue-300. Oral contrast administered. Two-dimensional coronal and sa gittal reconstructions were obtained. Findings: CHEST: LUNGS/ PLEURA: Stable right middle lobe nodular density (series 4, image 30). No new or enlarging pul monary nodules. Bibasilar linear scarring or atelectasis. No pleural effusion or pneumothorax. AIRWAY: Patent and unremarkable. HEART: Heart is mildly enlarged for size. MEDIASTINUM: No pathologically enlarged lymph nodes identified. VASCULATURE: No aortic aneurysm. Right chest wall [id number] with tip terminating in the low supe rior vena cava. MUSCULOSKELETAL: No acute osseous abnormalities. SOFT TISSUES/LYMPH NODES: Unremarkable. LOWER NECK: No significant findings. Other: Oral contrast demonstrated within the mid to distal esophagus likely related to reflux and/or esophageal narrowing due to malignancy. ABDOMEN: ABDOMEN LIVER: No focal lesion. GALLBLADDER AND BILE DUCTS: The gallbladder is surgically absent. PANCREAS: Unremarkable. SPLEEN: Unremarkable. ADRENAL GLANDS: Unremarkable. KIDNEYS AND URETERS: No evidence of hydronephrosis or renal calculus. The kidneys enhance symmetrical ly. PELVIS BLADDER: Unremarkable REPRODUCTIVE: Pelvic floor laxity. Anteverted uterus. ABDOMEN & PELVIS STOMACH AND BOWEL: Small hiatal hernia redemonstrated. There is again suspicious intrapelvic wall thi ckening of the distal esophagus extending to the GE junction. This measures up to 1.7 cm. The gastric fundal wall thickening measures up to 2.2 cm. Scattered clonic diverticula are seen throughout the c olon. No evidence of bowel obstruction. Appendix is unremarkable. Enteric contrast reaches the transv erse colon. PERITONEUM: No evidence of pneumoperitoneum or free fluid. VASCULATURE: No evidence of aortic aneurysm. MUSCULOSKELETAL: No acute osseous abnormalities. Mild degenerative changes of the hips. Degenerative hypertrophic facet arthropathy mid to lower lumbar spine redemonstrated. Degenerative bony ankylosis across the posterior elements. There again may be a fixed anterolisthesis at L5-S1 with resultant acc entuated lumbar lordosis. No aggressive osseous lesion. LYMPH NODES: New enlarged periaortic lymph node measuring 1.6 cm short axis (series 3, image 74). SOFT TISSUE/ABDOMINAL WALL: Small fat filled umbilical hernia. IMPRESSION: 1. Overall similar appearance of eccentric wall thickening distal esophagus entering into the gastri c fundus consistent with reported neoplasm. 2. New enlarged single periaortic lymph node suspicious for metastasis. Consider further evaluation w ith PET/CT.
== END | disposition home or self-care (01) ==
LOC: RADCTMAIN 11:05
PROVIDERS: ATTEND Internal Medicine Hematology & Oncology
DX: K22.89 Other specified disease of esophagus (principal); C15.5 Malignant neoplasm of lower third of esophagus; I10 Essential (primary) hypertension; E78.5 Hyperlipidemia, unspecified; D63.0 Anemia in neoplastic disease; R59.0 Localized enlarged lymph nodes
CPT/HCPCS: 82565; 84520; 71260; 74177; 36415; Q9967

== ENCOUNTER 2023-11-11 21:37 | Emergency (ER) | payer BC ==
[2023-11-11 21:59] VITALS: RESP 18; TEMP 98
[2023-11-11 23:20] LABS: Anisocytosis Moderate; Basophils % (A) 0 %; Eosinophils # (A) 0.8 k/uL (0-0.7); Eosinophils % (A) 12 %; HCT 39.7 % (34.0-46.0); HGB 12.4 gm/dL (11.4-16.0); Hypochromasia Moderate; Lymphocytes # (A) 0.7 k/uL (1.0-4.8); Lymphocytes % (A) 10 %; MCH 29.9 pg (25.0-35.0); MCHC 31.2 g/dL (31.0-37.0); MCV 95.6 fL (80.0-100.0); Macrocytosis Slight; Monocytes # (A) 0.4 k/uL (0-1.0); Monocytes % (A) 6 %; Neutrophils # (A) 4.7 k/uL (1.3-7.7); Neutrophils % (A) 71 %; Platelet Count 338 k/uL (150-450); RBC 4.15 m/uL (3.80-5.40); RDW 20.3 % (11.5-15.5); WBC 6.6 k/uL (3.8-10.6)
[2023-11-11 23:30] LABS: INR 1.3 (<1.2); Partial Thromboplastin Time 36.5 sec (22.0-30.0); Prothrombin Time 13.5 sec (10.0-12.5)
[2023-11-11 23:49] LABS: ALT 21 U/L (4-34); AST 29 U/L (14-36); African American GFR (CKD) >90 (>60 ml/min/1.73 sqM); Albumin 3.4 g/dL (3.5-5.0); Alkaline Phosphatase 83 U/L (38-126); Anion Gap 6 mmol/L; Blood Urea Nitrogen 7 mg/dL (7-17); Calcium 9.2 mg/dL (8.4-10.2); Carbon Dioxide 25 mmol/L (22-30); Chloride 107 mmol/L (98-107); Glucose 91 mg/dL (74-99); Non-African American GFR(CKD) >90 (>60 ml/min/1.73 sqM); Potassium 3.9 mmol/L (3.5-5.1); Sodium 138 mmol/L (137-145); Total Bilirubin 0.5 mg/dL (0.2-1.3); Total Protein 6.2 g/dL (6.3-8.2)
--- NOTE | 2023-11-12 01:11 | ED ---
GI Bleed HPI - General Chief complaint: GI Bleed Stated complaint: RECTAL BLEEDING Time Seen by Provider: 11/11/23 23:04 Source: patient Mode of arrival: ambulatory Limitations: no limitations - History of Present Illness Initial comments: This patient is a 63-year-old woman who presents for evaluation of rectal bleeding. The patient states she had this once previously and was told it was related to hemorrhoids. She states that for the past 4 days when she has bowel movement she has bright red blood in the toilet and with wiping. She also has had some intermittent abdominal discomfort. She indicates the epigastric area and states that it has been burning. The patient denies hematemesis. She denies symptoms of anemia including no lightheadedness, orthostasis, syncope. No chest pain, palpitations, diaphoresis. No dyspnea MD complaint: blood on toilet paper Onset/Timin -: days(s) Radiation: other (Gastric) Severity scale (1-10): 1 Quality: burning Consistency: intermittent Improves with: none Worsens with: none Context: history of GI bleed Associated Symptoms: denies other symptoms Treatments Prior to Arrival: none - Related Data Home Medications Medication Instructions Recorded Confirmed Pramipexole [Mirapex] 1 mg PO TID 12/18/18 01/03/23 Metoprolol Succinate [Toprol XL] 50 mg PO DAILY 10/29/20 01/03/23 Rivaroxaban [Xarelto] 20 mg PO DAILY 08/18/21 01/03/23 Multivitamin/Iron/Folic Acid 1 tab PO DAILY 12/20/22 01/03/23 [Centrum Women Tablet] Pravastatin Sodium [Pravachol] 20 mg PO DAILY 12/20/22 01/03/23 Vitamin B Complex 1 cap PO DAILY 12/20/22 01/03/23 Previous Rx's Medication Instructions Recorded Pantoprazole [Protonix] 40 mg PO DAILY 14 Days #14 tab 12/16/22 Sucralfate [Carafate] 1 gm PO QID 10 Days #40 tablet 12/16/22 Allergies Allergy/AdvReac Type Severity Reaction Status Date / Time adhesive tape Allergy Rash/Hives/pulls Verified 11/11/23 21:59 skin off Review of Systems ROS Statement: Those systems with pertinent positive or pertinent negative responses have been documented in the HPI. ROS Other: All systems not noted in ROS Statement are negative. Constitutional: Denies: fever, chills, weakness Respiratory: Denies: cough, dyspnea Cardiovascular: Denies: chest pain, palpitations, edema Gastrointestinal: Reports: abdominal pain, hematochezia. Denies: nausea, vomiting, diarrhea, hematemesis, melena Genitourinary: Denies: dysuria, hematuria Musculoskeletal: Denies: back pain Skin: Denies: rash Neurological: Denies: headache, weakness Hematological/Lymphatic: Denies: easy bleeding Past Medical History Past Medical History: Atrial Fibrillation, Cancer, Chest Pain / Angina, GERD/Reflux, Hyperlipidemia, Osteoarthritis (OA), Sleep Apnea/CPAP/BIPAP, Vascular Disorder Additional Past Medical History / Comment(s): 07/2020 lower GI bleed/ulceration from hiatal hernia/ severe anemia with blood transfusion, gastric polyp, hiatal hernia, diverticular disease, colon polyp, hemorrhoids, constipation, AUTUMN and either sleeps in a recliner or uses Cpap, arthritis in back/bilateral knees, migraines years ago, osteopenia, RLS, bilateral leg poor circulation, bronchitis, sinusitis, swallowing difficulty. ESOPHAGEAL CANCER. History of Any Multi-Drug Resistant Organisms: None Reported Past Surgical History: Bladder Surgery, Breast Surgery, Cholecystectomy, Heart Catheterization, Joint Replacement, Orthopedic Surgery, Tubal Ligation Additional Past Surgical History / Comment(s): left breast biopsy, L knee arthroscopy, buck knee replacement, rt shoulder arthroscopy, bladder sling, bladder suspension, EGD, colonoscopies, small bowel capsule, 08/11/20 heart cath(needed blood transfusion). Past Anesthesia/Blood Transfusion Reactions: Previous Problems w/ Anesthesia Additional Past Anesthesia/Blood Transfusion Reaction / Comment(s): states during her 1st knee replacement & during colonoscopy her legs were "twitching" & had to be given general anesthesia-didn't think had to do w/her restless leg Past Psychological History: No Psychological Hx Reported Smoking Status: Never smoker Past Alcohol Use History: None Reported Past Drug Use History: None Reported - Past Family History Father Family Medical History: Coronary Artery Disease (CAD) Additional Family Medical History / Comment(s): Father lived to be 82 yrs. He had 9 cardiac stents. Sister(s) Additional Family Medical History / Comment(s): Pt has 3 sisters, all of which are healthy except one has thyroid problem. Mother Family Medical History: Congestive Heart Failure (CHF) Additional Family Medical History / Comment(s): Mother of CHF at the age of 74 yrs. She was obese. General Exam Limitations: no limitations General appearance: alert, in no apparent distress Head exam: Present: atraumatic, normocephalic Eye exam: Present: normal appearance. Absent: scleral icterus, conjunctival injection Neck exam: Present: normal inspection Respiratory exam: Present: normal lung sounds bilaterally. Absent: respiratory distress, wheezes, rales, rhonchi, stridor, accessory muscle use Cardiovascular Exam: Present: regular rate, normal rhythm, normal heart sounds. Absent: systolic murmur, diastolic murmur, rubs, gallop GI/Abdominal exam: Present: soft. Absent: distended, tenderness, guarding, rebound, rigid, mass Extremities exam: Present: normal inspection, normal capillary refill. Absent: pedal edema, calf tenderness Back exam: Present: normal inspection. Absent: CVA tenderness (R), CVA tenderness (L) Neurological exam: Present: alert Skin exam: Present: warm, dry, intact, normal color. Absent: rash Course Vital Signs 11/11/23 21:57 Temperature 98 F Pulse Rate 78 Respiratory 18 Rate Blood Pressure 131/80 O2 Sat by Pulse 96 Oximetry Medical Decision Making - Medical Decision Making This patient is a 63-year-old woman here for gastrointestinal bleeding. On the exam the patient does have moderate external hemorrhoids and there are is internal hemorrhoid as well. There is a trace of dried blood at the anus. On digital exam there is no gross blood but a trace of dried blood related to hem orrhoid. 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 She states that she will follow with him as outpatient. She does agree to return if she is having more bleeding. - Lab Data Result diagrams: 11/11/23 22:21 11/11/23 22:21 Lab Results 11/11/23 11/11/23 11/11/23 Range/Units 22:21 22:21 22:21 WBC 6.6 (3.8-10.6) k/uL RBC 4.15 (3.80-5.40) m/uL Hgb 12.4 (11.4-16.0) gm/dL Hct 39.7 (34.0-46.0) % MCV 95.6 (80.0-100.0) fL MCH 29.9 (25.0-35.0) pg MCHC 31.2 (31.0-37.0) g/dL RDW 20.3 H (11.5-15.5) % Plt Count 338 (150-450) k/uL MPV 7.0 Neutrophils % 71 % Lymphocytes % 10 % Monocytes % 6 % Eosinophils % 12 % Basophils % 0 % Neutrophils # 4.7 (1.3-7.7) k/uL Lymphocytes # 0.7 L (1.0-4.8) k/uL Monocytes # 0.4 (0-1.0) k/uL Eosinophils # 0.8 H (0-0.7) k/uL Basophils # 0.0 (0-0.2) k/uL Hypochromasia Moderate Anisocytosis Moderate Macrocytosis Slight PT 13.5 H (10.0-12.5) sec INR 1.3 H (<1.2) APTT 36.5 H (22.0-30.0) sec Sodium 138 (137-145) mmol/L Potassium 3.9 (3.5-5.1) mmol/L Chloride 107 (98-107) mmol/L Carbon Dioxide 25 (22-30) mmol/L Anion Gap 6 mmol/L BUN 7 (7-17) mg/dL Creatinine 0.71 (0.52-1.04) mg/dL Est GFR (CKD-EPI)AfAm >90 (>60 ml/min/1.73 sqM) Est GFR (CKD-EPI)NonAf >90 (>60 ml/min/1.73 sqM) Glucose 91 (74-99) mg/dL Plasma Lactic Acid Lemuel (0.7-2.0) mmol/L Calcium 9.2 (8.4-10.2) mg/dL Total Bilirubin 0.5 (0.2-1.3) mg/dL AST 29 (14-36) U/L ALT 21 (4-34) U/L Alkaline Phosphatase 83 (38-126) U/L Troponin I (0.000-0.034) ng/mL Total Protein 6.2 L (6.3-8.2) g/dL Albumin 3.4 L (3.5-5.0) g/dL Blood Type Blood Type Recheck Bld Type Recheck Status Antibody Screen Spec Expiration Date 11/11/23 11/11/23 11/11/23 Range/Units 22:21 22:21 23:09 WBC (3.8-10.6) k/uL RBC (3.80-5.40) m/uL Hgb (11.4-16.0) gm/dL Hct (34.0-46.0) % MCV (80.0-100.0) fL MCH (25.0-35.0) pg MCHC (31.0-37.0) g/dL RDW (11.5-15.5) % Plt Count (150-450) k/uL MPV Neutrophils % % Lymphocytes % % Monocytes % % Eosinophils % % Basophils % % Neutrophils # (1.3-7.7) k/uL Lymphocytes # (1.0-4.8) k/uL Monocytes # (0-1.0) k/uL Eosinophils # (0-0.7) k/uL Basophils # (0-0.2) k/uL Hypochromasia Anisocytosis Macrocytosis PT (10.0-12.5) sec INR (<1.2) APTT (22.0-30.0) sec Sodium (137-145) mmol/L Potassium (3.5-5.1) mmol/L Chloride (98-107) mmol/L Carbon Dioxide (22-30) mmol/L Anion Gap mmol/L BUN (7-17) mg/dL Creatinine (0.52-1.04) mg/dL Est GFR (CKD-EPI)AfAm (>60 ml/min/1.73 sqM) Est GFR (CKD-EPI)NonAf (>60 ml/min/1.73 sqM) Glucose (74-99) mg/dL Plasma Lactic Acid Lemuel 0.8 (0.7-2.0) mmol/L Calcium (8.4-10.2) mg/dL Total Bilirubin (0.2-1.3) mg/dL AST (14-36) U/L ALT (4-34) U/L Alkaline Phosphatase (38-126) U/L Troponin I <0.012 (0.000-0.034) ng/mL Total Protein (6.3-8.2) g/dL Albumin (3.5-5.0) g/dL Blood Type A Positive Blood Type Recheck A Pos Bld Type Recheck Status No Antibody Screen NEGATIVE Spec Expiration Date 11/14/20232320 - EKG Data -: EKG Interpreted by Me EKG shows normal: sinus rhythm, axis (Borderline left axis), intervals (Normal) Rate: normal (Rate 75 bpm) Interpretation: LVH (Voltage criteria) Disposition Clinical Impression: GI bleeding, Hemorrhoids Disposition: HOME SELF-CARE Condition: Fair Instructions (If sedation given, give patient instructions): Gastrointestinal Bleeding (ED) Is patient prescribed a controlled substance at d/c from ED?: No Referrals: Radha Faria MD [Primary Care Provider] - 1-2 days
[2023-11-12 02:29] VITALS: BP 116/75; PULSE 74
== END 2023-11-12 02:30 | disposition home or self-care (01) ==
LOC: EC 21:37
DX: K62.5 Hemorrhage of anus and rectum (principal); K64.9 Unspecified hemorrhoids; Z91.048 Other nonmedicinal substance allergy status
CPT/HCPCS: 36415; 80053; 83605; 84484; 85025; 85610; 85730; 86850; 86900; 86901; 99285

== ENCOUNTER → 2023-12-22 | Outpatient (CLI) | payer BC ==
[2023-12-22 10:05] LABS: African American GFR (CKD) >90 (>60 ml/min/1.73 sqM); Blood Urea Nitrogen 6 mg/dL (7-17); Non-African American GFR(CKD) 82 (>60 ml/min/1.73 sqM)
--- NOTE | 2023-12-22 11:38 | CT ---
EXAMINATION TYPE: CT ChestAbdPelvis w con DATE OF EXAM: 12/22/2023 COMPARISON: 10/03/2023 HISTORY: esophageal CA CT DLP: 2851.1 mGycm. Automated Exposure Control for Dose Reduction was Utilized. CONTRAST: CT scan of the thorax, abdomen and pelvis is performed with IV Contrast, patient injected with 100 mL of Isovue 300. FINDINGS: LUNGS: The lungs are grossly clear, there is no concerning parenchymal mass or nodule identified. T here is no pleural effusion or pneumothorax seen. The tracheobronchial tree is patent. Bibasilar ate lectasis or scarring. MEDIASTINUM: There are no greater than 1 cm hilar or mediastinal lymph nodes. Trace of pericardial ef fusion is seen. OTHER: Stable distal esophageal and gastric fundal wall thickening suspicious for neoplasm essentiall y unchanged.. LIVER/GB: Findings compatible with hepatic steatosis.. PANCREAS: No significant abnormality is seen. SPLEEN: No significant abnormality is seen. ADRENALS: No significant abnormality is seen. KIDNEYS: No significant abnormality is seen. BOWEL: No significant abnormality is seen. GENITAL ORGANS: No gross abnormality seen. LYMPH NODES: Left retroperitoneal\preaortic lymph node is slightly increased in size now measuring sh ort axis of 2 cm versus 1.6 cm on prior.. OSSEOUS STRUCTURES: No significant abnormality is seen. OTHER: No significant additional abnormality is seen. IMPRESSION: 1. Stable distal esophageal and gastric mass. 2. Mild progression in size of the retroperitoneal lymph node now measuring 2 cm versus 1.6.
== END | disposition home or self-care (01) ==
LOC: RADCTMAIN 09:17
PROVIDERS: ATTEND Internal Medicine Hematology & Oncology
DX: C15.5 Malignant neoplasm of lower third of esophagus
CPT/HCPCS: 36415; 71260; 74177; 82565; 84520

== ENCOUNTER → 2024-01-31 | Outpatient (CLI) | payer BC ==
--- NOTE | 2024-01-31 12:14 | CA ---
Transthoracic Echo Report Name: Christa Butler Age: 63 Gender: F : 1960 Exam Date: 01/31/2024 11:30 Exam Location: [place] [facility] Ht (in): 67 Wt (lb): 272 Ordering Physician: Holden Blanchard MD Attending/Referring Phys: Prehemmer Ana Colón RDCS Procedure CPT: Indications: Z01.818 Chemo Cardiac Hx: Technical Quality: Fair Contrast 1: Total Dose (mL): Contrast 2: Total Dose (mL): MEASUREMENTS (Male / Female) Normal Values 2D ECHO LV Diastolic Diameter PLAX 4.3 cm 4.2 - 5.9 / 3.9 - 5.3 cm LV Systolic Diameter PLAX 3.4 cm IVS Diastolic Thickness 0.9 cm 0.6 - 1.0 / 0.6 - 0.9 cm LVPW Diastolic Thickness 1.0 cm 0.6 - 1.0 / 0.6 - 0.9 cm LV Relative Wall Thickness 0.4 RV Internal Dim ED PLAX 3.4 cm LA Systolic Diameter LX 2.8 cm 3.0 - 4.0 / 2.7 - 3.8 cm LA Volume 69.3 cm??? 18 - 58 / 22 - 52 cm??? LA Volume Index 28.0 cm???/m??? 16 - 28 cm???/m??? M-MODE Aortic Root Diameter MM 3.2 cm AV Cusp Separation MM 2.0 cm DOPPLER AV Peak Velocity 150.0 cm/s AV Peak Gradient 9.0 mmHg MV Area PHT 3.0 cm??? Mitral E Point Velocity 84.6 cm/s Mitral A Point Velocity 87.9 cm/s Mitral E to A Ratio 1.0 MV Deceleration Time 254.3 ms TR Peak Velocity 242.9 cm/s TR Peak Gradient 23.6 mmHg Right Ventricular Systolic Press 28.4 mmHg FINDINGS Left Ventricle Left ventricular ejection fraction is estimated at 55-60 %. Left ventricular cavity size normal. Left ventricular wall thickness normal. Normal left ventricular wall motion. GLPS average -15.2% Right Ventricle Mild right ventricular dilatation. Right ventricular systolic pressure within normal limits. Right Atrium Normal right atrial size. No right atrial thrombus or mass seen. Left Atrium Normal left atrial size. No left atrial thrombus or mass present. Mitral Valve Structurally normal mitral valve. No mitral stenosis, regurgitation or prolapse. Aortic Valve Trileaflet aortic valve. No aortic valve stenosis or regurgitation. Tricuspid Valve Structurally normal tricuspid valve. Trace to mild tricuspid regurgitation. Pulmonic Valve Structurally normal pulmonic valve. No pulmonic regurgitation. Pericardium No pericardial or pleural effusion. Aorta Normal size aortic root and proximal ascending aorta. CONCLUSIONS 1. Normal left ventricular size and systolic function with GLP S average - 15.2% 2. Trace to mild tricuspid regurgitation with normal pulmonary pressure Previewed by: Dr. Consuelo Sepulveda MD (Electronically Signed) Final Date: 31 January 2024 12:14
== END | disposition home or self-care (01) ==
LOC: RADECHMAIN 11:16
PROVIDERS: ATTEND Internal Medicine Hematology & Oncology
DX: Z01.818 Encounter for other preprocedural examination
CPT/HCPCS: 93306

== ENCOUNTER → 2024-03-12 | Outpatient (CLI) | payer BC ==
[2024-03-12 11:50] LABS: African American GFR (CKD) >90 (>60 ml/min/1.73 sqM); Blood Urea Nitrogen 9 mg/dL (7-17); Non-African American GFR(CKD) 79 (>60 ml/min/1.73 sqM)
--- NOTE | 2024-03-12 14:34 | CT ---
EXAMINATION TYPE: CT ChestAbdPelvis w con CT DLP: 2682.9 mGycm, Automated exposure control for dose reduction was used. DATE OF EXAM: 03/12/2024 1:09 PM COMPARISON: Multiple CT chest abdomen pelvis with most recent 12/22/2023 CLINICAL INDICATION:Female, 63 years old with history of C15.5 ESOPHAGUS CANCER; PHH, ESOPHAGUS CA/ST AGE 4 Technique: Multiple axial images of the chest, abdomen, and pelvis were obtained following the intrav enous administration of 100 mL Isovue-300. Oral contrast was administered. Two-dimensional coronal an d sagittal reconstructions were obtained. Findings: CHEST: LUNGS/ PLEURA: No new or enlarging pulmonary nodules. Bibasilar linear scarring. No pleural effusion or pneumothorax. AIRWAY: Patent and unremarkable. HEART: Heart is mildly enlarged for size. No pericardial effusion. MEDIASTINUM: No pathologically enlarged lymph nodes identified. VASCULATURE: No aortic aneurysm. Right chest wall [id number] with tip terminating in the low supe rior vena cava. MUSCULOSKELETAL: No acute osseous abnormalities. SOFT TISSUES/LYMPH NODES: Unremarkable. LOWER NECK: No significant findings. Other: Oral contrast demonstrated within the mid to distal esophagus likely related to reflux and/or esophageal narrowing due to malignancy. ABDOMEN: ABDOMEN LIVER: No focal lesion. GALLBLADDER AND BILE DUCTS: The gallbladder is surgically absent. No biliary duct dilatation. PANCREAS: Unremarkable. SPLEEN: Unremarkable. ADRENAL GLANDS: Unremarkable. KIDNEYS AND URETERS: No evidence of hydronephrosis or renal calculus. The kidneys enhance symmetrical ly. Contrast is demonstrated within both collecting systems on the delayed phase. PELVIS BLADDER: Under distended, limiting evaluation. REPRODUCTIVE: Pelvic floor laxity. Anteverted uterus. ABDOMEN & PELVIS STOMACH AND BOWEL: Small hiatal hernia redemonstrated. There is again eccentric wall thickening of th e distal esophagus extending to the GE junction measuring up to 2.7 cm. This is consistent with known esophageal cancer. Scattered clonic diverticula are seen throughout the colon. No evidence of bowel obstruction. Appendix is unremarkable. Enteric contrast reaches the distal small bowel. PERITONEUM: No evidence of pneumoperitoneum or free fluid. VASCULATURE: No evidence of aortic aneurysm. MUSCULOSKELETAL: No acute osseous abnormalities. Mild degenerative changes of the hips. Degenerative hypertrophic facet arthropathy mid to lower lumbar spine redemonstrated. Degenerative bony ankylosis across the posterior elements. There again may be a fixed anterolisthesis at L5-S1 with resultant acc entuated lumbar lordosis. No aggressive osseous lesion. LYMPH NODES: Stable right distal paraesophageal mildly enlarged lymph node measuring 1.0 cm (series 3 , image 42). Enlarging posterior left periaortic lymph node measuring 3.6 cm, previously 2.9 cm (seri es 3, image 75). SOFT TISSUE/ABDOMINAL WALL: Small fat filled umbilical hernia. IMPRESSION: 1. Overall similar appearance of eccentric wall thickening of the distal esophagus consistent with r eported esophageal cancer. 2. Continued enlargement of retroperitoneal lymph node likely representing metastasis. Stable paraes ophageal mildly enlarged lymph node likely representing metastasis. [facility], , 03/12/2024 2:32 PM
== END ==
LOC: RADCTMAIN 10:57
PROVIDERS: ATTEND Internal Medicine Hematology & Oncology
DX: C15.5 Malignant neoplasm of lower third of esophagus (principal); R59.0 Localized enlarged lymph nodes; K42.9 Umbilical hernia without obstruction or gangrene; D64.9 Anemia, unspecified; E78.5 Hyperlipidemia, unspecified; I10 Essential (primary) hypertension
CPT/HCPCS: 82565; 84520; 71260; 74177; 36415; Q9967

== ENCOUNTER → 2024-04-26 | Outpatient (CLI) | payer BC ==
--- NOTE | 2024-04-28 15:04 | PE ---
EXAMINATION TYPE: PET CT fusion skull to thigh DATE OF EXAM: 04/26/2024 CLINICAL INDICATION:Female, 63 years old with history of C15.5 ESOPHAGUS CANCER; TECHNIQUE: Following the intravenous administration of 10.01 mCi of F-18 FDG, whole body images are performed from the skull base to the midthigh. Images are reviewed on the computer in the coronal, axial, and sagittal planes. Reconstructed rotating images are created on independent workstation and reviewed on the computer. A non-contrast CT is performed in conjunction with the PET scan. Glucose level 83 mg/dL CT DLP: 935 mGycm, Automated exposure control for dose reduction was used. COMPARISON: CT 03/12/2024, PET/CT 12/30/2021, MRI: None FINDINGS: Mediastinal SUV mean is 2.4. Hepatic parenchyma SUV mean is 2.9. SKULL BASE AND NECK: No suspicious radiotracer activity. CHEST, MEDIASTINUM, AND HILAR REGION: * AP window lymph node measuring 6 mm in short axis max SUV 5.4 ABDOMEN AND PELVIS: * There is a hiatal hernia with circumferential wall thickening of the distal esophagus, now max SUV 27.8, previously 9.6. * An adjacent lymph node with increased metabolic activity max SUV 14.3, previously 6.0 measuring 9 mm * A lymph node nodes in the retroperitoneum measuring up to 20 mm in short axis max SUV 12.2 previou sly 7.2. MUSCULOSKELETAL STRUCTURES: Diffuse uptake throughout the osseous structures. No corresponding osseous abnormality. OTHER CT: Right chest wall [id number] tip terminating in the superior vena cava. The heart is mild ly enlarged for size. Moderate hiatal hernia scattered colonic diverticula. Fat-containing umbilical hernia. IMPRESSION: 1. Progression of disease of the distal esophagus with increased metabolic activity. Additionally in creased metabolic activity within the right low esophageal lymph node and increased metabolic activit y of retroperitoneal lymph node and AP window lymph node. 2. Diffuse osseous uptake, likely secondary to colony stimulating factor use, correlate clinically. [facility], , 04/28/2024 3:02 PM
== END | disposition home or self-care (01) ==
LOC: RADPETMAIN 13:58
PROVIDERS: ATTEND Radiology Radiation Oncology
DX: C15.5 Malignant neoplasm of lower third of esophagus (principal); C77.1 Secondary and unspecified malignant neoplasm of intrathoracic lymph nodes; Z87.891 Personal history of nicotine dependence; K57.30 Diverticulosis of large intestine without perforation or abscess without bleeding; K42.9 Umbilical hernia without obstruction or gangrene
CPT/HCPCS: 78815; A9552

== ENCOUNTER 2024-05-10 08:12 | Inpatient (IN) | payer BC ==
--- NOTE | 2024-05-10 09:02 | ED ---
General Adult HPI - General Chief complaint: GI Bleed Stated complaint: Rectal Bleeding Time Seen by Provider: 05/10/24 08:15 Source: patient, RN notes reviewed, old records reviewed Mode of arrival: ambulatory Limitations: no limitations - History of Present Illness Initial comments: This is a 63-year-old female who presents to the emergency department stating she has a history of stage IV esophageal cancer for which she is being treated with immunotherapy. Patient states her last chemo was last December. Patient comes in today because she states she has had 3 to 4 days of rectal bleeding every time she goes there is quite a bit of blood in the toilet. Patient states this dark red but is definitely blood. Patient denies any abdominal pain. Patient Nuys back pain. Patient Nuys any dysuria hematuria urinary frequency. Patient denies being short of breath or lightheaded - Related Data Home Medications Medication Instructions Recorded Confirmed Pramipexole [Mirapex] 1 mg PO TID 12/18/18 01/03/23 Metoprolol Succinate [Toprol XL] 50 mg PO DAILY 10/29/20 01/03/23 Rivaroxaban [Xarelto] 20 mg PO DAILY 08/18/21 01/03/23 Multivitamin/Iron/Folic Acid 1 tab PO DAILY 12/20/22 01/03/23 [Centrum Women Tablet] Pravastatin Sodium [Pravachol] 20 mg PO DAILY 12/20/22 01/03/23 Vitamin B Complex 1 cap PO DAILY 12/20/22 01/03/23 Previous Rx's Medication Instructions Recorded Pantoprazole [Protonix] 40 mg PO DAILY 14 Days #14 tab 12/16/22 Sucralfate [Carafate] 1 gm PO QID 10 Days #40 tablet 12/16/22 Allergies Allergy/AdvReac Type Severity Reaction Status Date / Time adhesive tape Allergy Rash/Hives/pulls Verified 05/10/24 08:23 skin off Review of Systems ROS Statement: Those systems with pertinent positive or pertinent negative responses have been documented in the HPI. ROS Other: All systems not noted in ROS Statement are negative. Past Medical History Past Medical History: Atrial Fibrillation, Cancer, Chest Pain / Angina, GERD/Reflux, Hyperlipidemia, Osteoarthritis (OA), Sleep Apnea/CPAP/BIPAP, Vascular Disorder Additional Past Medical History / Comment(s): 07/2020 lower GI bleed/ulceration from hiatal hernia/ severe anemia with blood transfusion, gastric polyp, hiatal hernia, diverticular disease, colon polyp, hemorrhoids, constipation, AUTUMN and either sleeps in a recliner or uses Cpap, arthritis in back/bilateral knees, migraines years ago, osteopenia, RLS, bilateral leg poor circulation, bronchitis, sinusitis, swallowing difficulty. ESOPHAGEAL CANCER. History of Any Multi-Drug Resistant Organisms: None Reported Past Surgical History: Bladder Surgery, Breast Surgery, Cholecystectomy, Heart Catheterization, Joint Replacement, Orthopedic Surgery, Tubal Ligation Additional Past Surgical History / Comment(s): left breast biopsy, L knee arthroscopy, buck knee replacement, rt shoulder arthroscopy, bladder sling, bladder suspension, EGD, colonoscopies, small bowel capsule, 08/11/20 heart cath(needed blood transfusion). Past Anesthesia/Blood Transfusion Reactions: Previous Problems w/ Anesthesia Additional Past Anesthesia/Blood Transfusion Reaction / Comment(s): states during her 1st knee replacement & during colonoscopy her legs were "twitching" & had to be given general anesthesia-didn't think had to do w/her restless leg Past Psychological History: No Psychological Hx Reported Smoking Status: Never smoker Past Alcohol Use History: Rare Past Drug Use History: None Reported - Past Family History Father Family Medical History: Coronary Artery Disease (CAD) Additional Family Medical History / Comment(s): Father lived to be 82 yrs. He had 9 cardiac stents. Sister(s) Additional Family Medical History / Comment(s): Pt has 3 sisters, all of which are healthy except one has thyroid problem. Mother Family Medical History: Congestive Heart Failure (CHF) Additional Family Medical History / Comment(s): Mother of CHF at the age of 74 yrs. She was obese. General Exam - General Exam Comments Initial Comments: GENERAL: Patient is well-developed and well-nourished. Patient is nontoxic and well- hydrated and is in no acute distress. ENT: Neck is soft and supple. No significant lymphadenopathy is noted. Oropharynx is clear. Moist mucous membranes. Neck has full range of motion without eliciting any pain. EYES: The sclera were anicteric and conjunctiva were pink and moist. Extraocular movements were intact and pupils were equal round and reactive to light. Eyelids were unremarkable. PULMONARY: Unlabored respirations. Good breath sounds bilaterally. No audible rales rhonchi or wheezing was noted. CARDIOVASCULAR: There is a regular rate and rhythm without any murmurs gallops or rubs. ABDOMEN: Soft and nontender with normal bowel sounds. SKIN: Skin is clear with no lesions or rashes and otherwise unremarkable. NEUROLOGIC: Patient is alert and oriented x3. Cranial nerves II through XII are grossly intact. Motor and sensory are also intact. Normal speech, volume and content. Symmetrical smile. MUSCULOSKELETAL: Normal extremities with adequate strength and full range of motion. LYMPHATICS: No significant lymphadenopathy is noted PSYCHIATRIC: Normal psychiatric evaluation. Limitations: no limitations Course Vital Signs 05/10/24 05/10/24 08:13 09:35 Temperature 98.2 F Pulse Rate 94 89 Respiratory 20 18 Rate Blood Pressure 121/61 122/71 O2 Sat by Pulse 97 98 Oximetry Medical Decision Making - Medical Decision Making Was pt. sent in by a medical professional or institution (, PA, [employer], urgent care, hospital, or [place] health care facility...) When possible be specific @ -No Did you speak to anyone other than the patient for history (EMS, parent, family, police, friend...)? What history was obtained from this source @ -No Did you review nursing and triage notes (agree or disagree)? Why? @ -I reviewed and agree with nursing and triage notes Were old charts reviewed (outside hosp., previous admission, EMS record, old EKG, old radiological studies, urgent care reports/EKG's, [place] health care facility records)? Report findings @ -No old charts were reviewed Differential Diagnosis? @ -Differential GI Bleed: Esophageal varices, aortoenteric fistula, Pauly-Zhu, gastritis, peptic ulcer disease, diverticulosis, inflammatory bowel disease, hemorrhoids, fissure, colitis, malignancy, Meckel's diverticulum, this is not meant to be an all- inclusive list. EKG interpreted by me (3pts min.). @ -As above X-rays interpreted by me (1pt min.). @ -None done CT interpreted by me (1pt min.). @ -None done U/S interpreted by me (1pt. min.). @ -None done What testing was considered but not performed or refused? (CT, X-rays, U/S, labs)? Why? @ -None What meds were considered but not given or refused? Why? @ -None Did you discuss the management of the patient with other professionals (professionals i.e. DrWill, PA, [employer], lab, RT, psych nurse, clinical social work aide, diamond powder technician, teacher, chief juvenile probation officer, major case detective)? Give summary @ -I spoke with Dr. Raya and he agreed to admit the patient Was smoking cessation discussed for >3mins.? @ -No Was critical care preformed (if so, how long)? @ -No Were there social determinants of health that impacted care today? How? (Homelessness, low income, unemployed, alcoholism, drug addiction, transportation, low edu. Level, literacy, decrease access to med. care, retirement, rehab)? @ -No Was there de-escalation of care discussed even if they declined (Discuss DNR or withdrawal of care, Hospice)? DNR status @ -No What co-morbidities impacted this encounter? (DM, HTN, Smoking, COPD, CAD, Canc er, CVA, ARF, Chemo, Hep., AIDS, mental health diagnosis, sleep apnea, morbid obesity)? @ -None Was patient admitted / discharged? Hospital course, mention meds given and route, prescriptions, significant lab abnormalities, going to OR and other pertinent info. @ -Patient's hemoglobin is 11 which is relatively stable for this patient. Patient will be admitted to Dr. Moore and CBCs will be repeated. Undiagnosed new problem with uncertain prognosis? @ -No Drug Therapy requiring intensive monitoring for toxicity (Heparin, Nitro, Insulin, Cardizem)? @ -No Were any procedures done? @ -No Diagnosis/symptom? @ -GI bleed Acute, or Chronic, or Acute on Chronic? @ -Acute Uncomplicated (without systemic symptoms) or Complicated (systemic symptoms)? @ -Complicated Side effects of treatment? @ -No Exacerbation, Progression, or Severe Exacerbation? @ -No Poses a threat to life or bodily function? How? (Chest pain, [place], [place], pneumonia, PE, COPD, DKA, ARF, appy, cholecystitis, CVA, Diverticulitis, Homicidal, Suicidal, threat to staff... and all critical care pts) @ -Yes this could lead to anemia and hypoxia and endorgan dysfunction - Lab Data Result diagrams: 05/10/24 09:04 05/10/24 09:04 Lab Results 01/16/25 01/16/25 01/16/25 Range/Units 09:04 09:04 09:04 WBC 5.7 (3.8-10.6) k/uL RBC 3.31 L (3.80-5.40) m/uL Hgb 11.0 L (11.4-16.0) gm/dL Hct 34.6 (34.0-46.0) % MCV 104.4 H (80.0-100.0) fL MCH 33.2 (25.0-35.0) pg MCHC 31.8 (31.0-37.0) g/dL RDW 13.4 (11.5-15.5) % Plt Count 392 (150-450) k/uL MPV 6.6 Neutrophils % 74 % Lymphocytes % 10 % Monocytes % 4 % Eosinophils % 11 % Basophils % 0 % Neutrophils # 4.2 (1.3-7.7) k/uL Lymphocytes # 0.6 L (1.0-4.8) k/uL Monocytes # 0.2 (0-1.0) k/uL Eosinophils # 0.6 (0-0.7) k/uL Basophils # 0.0 (0-0.2) k/uL Hypochromasia Moderate Macrocytosis Slight PT 12.5 (10.0-12.5) sec INR 1.2 H (<1.2) APTT 29.1 (22.0-30.0) sec Sodium 138 (137-145) mmol/L Potassium 4.5 (3.5-5.1) mmol/L Chloride 104 (98-107) mmol/L Carbon Dioxide 25 (22-30) mmol/L Anion Gap 9 mmol/L BUN 8 (7-17) mg/dL Creatinine 0.75 (0.52-1.04) mg/dL Est GFR (CKD-EPI)AfAm >90 (>60 ml/min/1.73 sqM) Est GFR (CKD-EPI)NonAf 85 (>60 ml/min/1.73 sqM) Glucose 91 (74-99) mg/dL Calcium 9.1 (8.4-10.2) mg/dL Total Bilirubin 0.3 (0.2-1.3) mg/dL AST 26 (14-36) U/L ALT 19 (4-34) U/L Alkaline Phosphatase 102 (38-126) U/L Total Protein 6.4 (6.3-8.2) g/dL Albumin 3.4 L (3.5-5.0) g/dL Disposition Clinical Impression: GI bleed Disposition: ADMITTED IP TO THIS HOSP Referrals: Radha Faria MD [Primary Care Provider] - 1-2 days Time of Disposition: 09:46
[2024-05-10 09:15] LABS: Basophils % (A) 0 %; Eosinophils # (A) 0.6 k/uL (0-0.7); Eosinophils % (A) 11 %; HCT 34.6 % (34.0-46.0); Hypochromasia Moderate; Lymphocytes # (A) 0.6 k/uL (1.0-4.8); Lymphocytes % (A) 10 %; MCH 33.2 pg (25.0-35.0); MCHC 31.8 g/dL (31.0-37.0); MCV 104.4 fL (80.0-100.0); Macrocytosis Slight; Mean Platelet Volume 6.6; Monocytes # (A) 0.2 k/uL (0-1.0); Monocytes % (A) 4 %; Neutrophils # (A) 4.2 k/uL (1.3-7.7); Neutrophils % (A) 74 %; Platelet Count 392 k/uL (150-450); RBC 3.31 m/uL (3.80-5.40); RDW 13.4 % (11.5-15.5); WBC 5.7 k/uL (3.8-10.6)
[2024-05-10 09:23] LABS: INR 1.2 (<1.2); Partial Thromboplastin Time 29.1 sec (22.0-30.0); Prothrombin Time 12.5 sec (10.0-12.5)
[2024-05-10 09:27] LABS: ALT 19 U/L (4-34); AST 26 U/L (14-36); African American GFR (CKD) >90 (>60 ml/min/1.73 sqM); Albumin 3.4 g/dL (3.5-5.0); Alkaline Phosphatase 102 U/L (38-126); Anion Gap 9 mmol/L; Blood Urea Nitrogen 8 mg/dL (7-17); Calcium 9.1 mg/dL (8.4-10.2); Carbon Dioxide 25 mmol/L (22-30); Chloride 104 mmol/L (98-107); Glucose 91 mg/dL (74-99); Non-African American GFR(CKD) 85 (>60 ml/min/1.73 sqM); Potassium 4.5 mmol/L (3.5-5.1); Sodium 138 mmol/L (137-145); Total Bilirubin 0.3 mg/dL (0.2-1.3); Total Protein 6.4 g/dL (6.3-8.2)
[2024-05-10] MEDS: SODIUM CHLORIDE 0.9% 1,000 ML IV ONE (10:54)
[2024-05-10] MEDS ORDERED: ONDANSETRON 4 MG TAB PO PRN (12:28)
[2024-05-10 14:22] LABS: Influenza A Not Detected (Not Detectd); Influenza B Not Detected (Not Detectd); RSV Detected (Not Detectd)
--- NOTE | 2024-05-10 14:39 | CT ---
CTA abdomen and pelvis. HISTORY: GI bleed COMPARISON: CT chest, bdomen and pelvis dated 03/12/2024. TECHNIQUE: Multiple axial images are obtained through the chest abdomen and pelvis before and after t he uneventful menstruation nonionic IV contrast material. 3-D postprocessing was performed. FINDINGS: There are mild chronic interstitial changes and bronchiectasis in the left lung base. There is a smal l hiatal hernia. There is surgical absence of the gallbladder. No biliary ductal dilatation. There is no focal mass or organomegaly involving the liver, pancreas, spleen or adrenal glands. There is no solid renal mass or hydronephrosis. Caliber of the abdominal aorta is normal. There is been interval enlargement of a periaortic lymph no de which has grown from 3.2 x 5.1 cm to 4.0 x 6.0 cm. No other abnormal lymph nodes are seen within t he abdomen or pelvis. The bowel loops are normal in caliber. There is no evidence of active GI bleed comparing the pre and postcontrast images. There is no pelvic mass or adenopathy. No focal osseous lesions are seen. IMPRESSION: 1. No evidence of acute GI bleed. No bowel abnormalities. 2. Enlarging retroperitoneal lymph node as described above. The findings are highly suspicious for me tastatic disease. [facility], , 05/10/2024 2:37 PM
[2024-05-10] MEDS: PRAMIPEXOLE 1 MG TAB PO SCH (16:55)
--- NOTE | 2024-05-10 17:46 | P.HPIM ---
History of Present Illness H&P Date: 05/10/24 Patient is a 63-year-old female with stage IV esophageal cancer being treated with immunotherapy, atrial fibrillation (on Xarelto), GERD, hyperlipidemia, lower GI bleed/ulceration from hiatal cardia which resulted severe anemia with blood transfusion, presenting with rectal bleeding. Patient states bleeding started 2 weeks ago but has become progressively worse as of 4 days ago. She describes it as a loose bright red/maroon-colored stool. She says it occurs 4-5 times a day whenever she sits on the toilet. She was previously in the emergency department earlier this year due to same reason but was not admitted. She was recently put on a Z-Micheal 2 days ago by her PCP for cough she has been zayas ving, but outside of that she has no new changes in medications. She reports of mild abdominal discomfort rating 3/10 which she describes as a burning sensation. The pain is localized to the mid upper epigastric region. Patient also reports of nausea and vomiting this morning. She reports there was no blood in her vomit. Patient endorses nonproductive cough she has been having for the past week. Patient denies fever, night sweats, chills, chest pain, shortness of breath, urinary symptoms. CTA abdomen/pelvis displayed no evidence for acute GI bleed, no bowel abnormalities, enlarging retroperitoneal lymph nodes suspicious for metastatic disease WBC 5.7, Hgb 11.0, MCV 104.4, INR 1.2, BUN 8, creatinine 0.75. T98.2 F, MA 94, RR 20, BP 121/61, O2 sat 97% on room air ED documentation reviewed and case discussed with ED provider. Review of systems: Pertinent positives and negatives as discussed in HPI, a complete review of systems was performed and all other systems are negative. Social history: Tobacco: Former smoker 29-year half pack smoker. Quit 30 years ago. Alcohol: Rare alcohol consumption Recreational drugs: Denies illicit drug Travel: No recent travel Physical examination: Vital signs reviewed General: non toxic, no distress, appears at stated age, obese Derm: no unusual rashes/lesions, warm Head: atraumatic, normocephalic, symmetric Eyes: EOMI, anicteric sclera, pupils equal round reactive to light ENT: Nose and ears atraumatic Neck: No cervical lymphadenopathy, trachea midline, supple Mouth: no lip lesion, mucus membranes moist Cardiovascular: S1S2 reg, no murmur, positive dorsalis pedis pulse bilateral, no edema Lungs: CTA bilateral, no rhonchi, no rales, no accessory muscle use Abdominal: soft, mild tenderness to palpation midepigastric region, no guarding Ext: muscle strength 5 out of 5 in all 4 extremities grossly, no gross muscle atrophy Neuro: CN II-XI grossly intact, no gross focal neuro deficits Psych: Alert, oriented to person, place, and time Assessment/Plan: Patient is a 63-year-old female with stage IV esophageal cancer being treated with immunotherapy, atrial fibrillation (on Xarelto), history of lower GI bleed presenting with rectal bleeding. Active: #. Acute GI bleed #. Mild abdominal pain Hgb 11.0, transfuse if < 7.0, or greater than 2 pt drop with hemodynamic instability CTA abdomen/pelvis displayed no evidence for acute GI bleed, no bowel abnormalities, enlarging retroperitoneal lymph nodes suspicious for metastatic disease C. difficile PCR, stool calprotectin, stool culture ordered Hold Xarelto Keep patient NPO - Recheck CBC q6hr - consult surgery - maintain large bore IV access, active type/screen #. RSV Patient with nonproductive cough for the past week Outpatient Z-Micheal discontinued Chest x-ray ordered Cepheid 4 Plex positive for RSV Procalcitonin ordered #. Macrocytic anemia Hgb 11.0, MCV 104.4 B12 and folate ordered #. Stage IV esophageal cancer treated with immunotherapy #. History of Diffuse Large B-Cell Lymphoma Oncology consulted - CT reviewed with evidence of enlarging retroperitoneal lymph nodes similar to presentation in past with dx of DLBCL Chronic: #. Chronic atrial fibrillation Resume metoprolol 50 mg p.o. daily for rate control Hold Xarelto Cardiac monitoring F: NS at 75 cc/hr E: Replete electrolytes as needed N: NPO A: Independently ambulatory at baseline DVT prophylaxis: SCDs The patient is admitted with an anticipated greater than 2 midnight stay for evaluation of lower GI bleed. CODE STATUS: Full code Discussed with: Patient Anticipated discharge place: Home Tate Ahuja MD PGY-1 IM Dictation was produced using [employer] dictation software. please excuse any grammatical, word or spelling errors. I saw and evaluated the patient during the morris and critical portions of this encounter, and discussed the case in detail with the resident author of this note, I agree with the Assessment and Plan, and my changes, if any, are h ighlighted in blue. Past Medical History Past Medical History: Atrial Fibrillation, Cancer, Chest Pain / Angina, GERD/Reflux, Hyperlipidemia, Osteoarthritis (OA), Sleep Apnea/CPAP/BIPAP, Vascular Disorder Additional Past Medical History / Comment(s): 07/2020 lower GI bleed/ulceration from hiatal hernia/ severe anemia with blood transfusion, gastric polyp, hiatal hernia, diverticular disease, colon polyp, hemorrhoids, constipation, AUTUMN and either sleeps in a recliner or uses Cpap, arthritis in back/bilateral knees, migraines years ago, osteopenia, RLS, bilateral leg poor circulation, bronchitis, sinusitis, swallowing difficulty. ESOPHAGEAL CANCER. History of Any Multi-Drug Resistant Organisms: None Reported Past Surgical History: Bladder Surgery, Breast Surgery, Cholecystectomy, Heart Catheterization, Joint Replacement, Orthopedic Surgery, Tubal Ligation Additional Past Surgical History / Comment(s): left breast biopsy, L knee arthroscopy, buck knee replacement, rt shoulder arthroscopy, bladder sling, bladder suspension, EGD, colonoscopies, small bowel capsule, 08/11/20 heart cath(needed blood transfusion). Past Anesthesia/Blood Transfusion Reactions: Previous Problems w/ Anesthesia Additional Past Anesthesia/Blood Transfusion Reaction / Comment(s): states during her 1st knee replacement & during colonoscopy her legs were "twitching" & had to be given general anesthesia-didn't think had to do w/her restless leg Past Psychological History: No Psychological Hx Reported Smoking Status: Never smoker Past Alcohol Use History: Rare Past Drug Use History: None Reported - Past Family History Father Family Medical History: Coronary Artery Disease (CAD) Additional Family Medical History / Comment(s): Father lived to be 82 yrs. He had 9 cardiac stents. Sister(s) Additional Family Medical History / Comment(s): Pt has 3 sisters, all of which are healthy except one has thyroid problem. Mother Family Medical History: Congestive Heart Failure (CHF) Additional Family Medical History / Comment(s): Mother of CHF at the age of 74 yrs. She was obese. Medications and Allergies Home Medications Medication Instructions Recorded Confirmed Type Pramipexole [Mirapex] 1 mg PO TID 12/18/18 05/10/24 History Metoprolol Succinate [Toprol XL] 50 mg PO DAILY 10/29/20 05/10/24 History Rivaroxaban [Xarelto] 20 mg PO W/SUPPER 08/18/21 05/10/24 History Vitamin B Complex 1 cap PO DAILY 12/20/22 05/10/24 History Azithromycin [Zithromax Z Pack] See Taper PO DIRECTED 05/10/24 05/10/24 History Mirabegron [Myrbetriq] 50 mg PO DAILY 05/10/24 05/10/24 History Multivit-Min/Iron/Folic/Lutein 1 tab PO DAILY 05/10/24 05/10/24 History [Centrum Silver Women Tablet] Ondansetron [Zofran] 4 mg PO Q6H PRN 05/10/24 05/10/24 History Allergies Allergy/AdvReac Type Severity Reaction Status Date / Time adhesive tape Allergy Rash/Hives/pulls Verified 05/10/24 10:56 skin off Physical Exam Osteopathic Statement: *. No significant issues noted on an osteopathic structural exam other than those noted in the History and Physical/Consult. Vitals: Vital Signs Temp Pulse Resp BP Pulse Ox 05/10/24 09:35 89 18 122/71 98 05/10/24 08:13 98.2 F 94 20 121/61 97 Intake and Output 05/09/24 05/10/24 05/10/24 22:59 06:59 14:59 Other: Weight 123.377 kg Results CBC & Chem 7: 05/10/24 09:04 05/10/24 09:04 Labs: Abnormal Lab Results - Last 24 Hours (Table) 05/10/24 05/10/24 05/10/24 Range/Units 09:04 09:04 09:04 RBC 3.31 L (3.80-5.40) m/uL Hgb 11.0 L (11.4-16.0) gm/dL MCV 104.4 H (80.0-100.0) fL Lymphocytes # 0.6 L (1.0-4.8) k/uL INR 1.2 H (<1.2) Albumin 3.4 L (3.5-5.0) g/dL
[2024-05-10 19:25] LABS: Basophils % (A) 0 %; Eosinophils # (A) 0.6 k/uL (0-0.7); Eosinophils % (A) 10 %; HCT 38.2 % (34.0-46.0); HGB 11.9 gm/dL (11.4-16.0); Hypochromasia Marked; Lymphocytes # (A) 0.7 k/uL (1.0-4.8); Lymphocytes % (A) 12 %; MCH 32.8 pg (25.0-35.0); MCHC 31.1 g/dL (31.0-37.0); MCV 105.6 fL (80.0-100.0); Macrocytosis Moderate; Mean Platelet Volume 6.7; Monocytes # (A) 0.3 k/uL (0-1.0); Monocytes % (A) 5 %; Neutrophils # (A) 4.1 k/uL (1.3-7.7); Neutrophils % (A) 71 %; Platelet Count 385 k/uL (150-450); RBC 3.62 m/uL (3.80-5.40); RDW 13.4 % (11.5-15.5); WBC 5.8 k/uL (3.8-10.6)
[2024-05-10] MEDS: guaiFENesin-DM 100-10MG/5ML 10 ML CUP PO PRN (21:57)
[2024-05-11] MEDS: NON FORMULARY DRUG (Mirabegron [Myrbetriq] 50 MG Tab.Er.24h) PO SCH (07:23)
--- NOTE | 2024-05-11 07:36 | XR ---
EXAMINATION TYPE: XR chest 1V portable DATE OF EXAM: 05/11/2024 7:09 AM COMPARISON: Chest radiographs from 08/29/2022 CLINICAL INDICATION: Female, 63 years old with history of cough; [facility] TECHNIQUE: XR chest 1V portable Frontal view of the chest. FINDINGS: Lungs/Pleura: There is no evidence of pleural effusion, focal consolidation, or pneumothorax. Pulmonary vascularity: Unremarkable. Heart/mediastinum: Cardiomediastinal silhouette is unremarkable. Musculoskeletal: No acute osseous pathology. Other findings: None Lines/Tubes: [id number] projecting over the right hemithorax with distal tip at the cavoatrial junction. IMPRESSION: [id number] with tip in appropriate position. [facility], , 05/11/2024 7:33 AM
[2024-05-11 08:36] LABS: African American GFR (CKD) 86 (>60 ml/min/1.73 sqM); Anion Gap 7 mmol/L; Blood Urea Nitrogen 8 mg/dL (7-17); Carbon Dioxide 25 mmol/L (22-30); Chloride 105 mmol/L (98-107); Glucose 93 mg/dL (74-99); Non-African American GFR(CKD) 74 (>60 ml/min/1.73 sqM); Potassium 3.9 mmol/L (3.5-5.1); Sodium 137 mmol/L (137-145)
[2024-05-11] MEDS: FOLIC ACID-VIT B COMPLEX-VIT C 1 CAP PO SCH (08:42)
[2024-05-11] MEDS: METOPROLOL SUCCINATE (ER) 50 MG TAB.ER.24H PO SCH (08:42)
[2024-05-11 11:06] LABS: Basophils % (A) 0 %; Eosinophils # (A) 0.4 k/uL (0-0.7); Eosinophils % (A) 10 %; HCT 34.9 % (34.0-46.0); HGB 11.2 gm/dL (11.4-16.0); Hypochromasia Slight; Lymphocytes # (A) 0.5 k/uL (1.0-4.8); Lymphocytes % (A) 12 %; MCH 33.5 pg (25.0-35.0); MCV 104.4 fL (80.0-100.0); Macrocytosis Slight; Mean Platelet Volume 7.1; Monocytes # (A) 0.3 k/uL (0-1.0); Monocytes % (A) 7 %; Neutrophils # (A) 2.8 k/uL (1.3-7.7); Neutrophils % (A) 69 %; Platelet Count 371 k/uL (150-450); RBC 3.34 m/uL (3.80-5.40)
--- NOTE | 2024-05-11 13:50 | P.PN ---
Subjective Progress Note Date: 05/11/24 Hospital Course: Patient is a 63-year-old female with stage IV esophageal cancer being treated with immunotherapy, atrial fibrillation (on Xarelto), GERD, hyperlipidemia, lower GI bleed/ulceration from hiatal cardia which resulted severe anemia with blood transfusion, presenting with rectal bleeding. Patient states bleeding started 2 weeks ago but has become progressively worse as of 4 days ago. She de scribes it as a loose bright red/maroon-colored stool. She says it occurs 4-5 times a day whenever she sits on the toilet. She was previously in the emergency department earlier this year due to same reason but was not admitted. She was recently put on a Z-Micheal 2 days ago by her PCP for cough she has been having, but outside of that she has no new changes in medications. She reports of mild abdominal discomfort rating 3/10 which she describes as a burning sensation. The pain is localized to the mid upper epigastric region. Patient also reports of nausea and vomiting this morning. She reports there was no blood in her vomit. Patient endorses nonproductive cough she has been having for the past week. Patient denies fever, night sweats, chills, chest pain, shortness of breath, urinary symptoms. CTA abdomen/pelvis displayed no evidence for acute GI bleed, no bowel abnormalities, enlarging retroperitoneal lymph nodes suspicious for metastatic disease WBC 5.7, Hgb 11.0, MCV 104.4, INR 1.2, BUN 8, creatinine 0.75. T98.2 F, WV 94, RR 20, BP 121/61, O2 sat 97% on room air ED documentation reviewed and case discussed with ED provider. Review of systems: Pertinent positives and negatives as discussed in HPI, a complete review of systems was performed and all other systems are negative. Subjective: 05/11/2023: patient seen and evaluated at bedside. No acute events overnight. No acute complaints. She reports of having two loose, bloody stools this morning. Reports she was seen by surgical team and placed her on clear liquid diet for bowel prep for upcoming colonoscopy. Physical examination: Vital signs reviewed General: non toxic, no distress, appears at stated age, obese Derm: no unusual rashes/lesions, warm Head: atraumatic, normocephalic, symmetric Eyes: EOMI, anicteric sclera, pupils equal round reactive to light ENT: Nose and ears atraumatic Neck: No cervical lymphadenopathy, trachea midline, supple Mouth: no lip lesion, mucus membranes moist Cardiovascular: S1S2 reg, no murmur, positive dorsalis pedis pulse bilateral, no edema Lungs: CTA bilateral, no rhonchi, no rales, no accessory muscle use Abdominal: soft, mild tenderness to palpation midepigastric region, no guarding Ext: muscle strength 5 out of 5 in all 4 extremities grossly, no gross muscle atrophy Neuro: CN II-XI grossly intact, no gross focal neuro deficits Psych: Alert, oriented to person, place, and time Assessment/Plan: Patient is a 63-year-old female with stage IV esophageal cancer being treated with immunotherapy, atrial fibrillation (on Xarelto), history of lower GI bleed presenting with rectal bleeding. Active: #. Acute GI bleed #Bright red blood per rectum #. Mild abdominal pain Hgb 11.0, transfuse if < 7.0, or greater than 2 pt drop with hemodynamic instability CTA abdomen/pelvis displayed no evidence for acute GI bleed, no bowel abnormalities, enlarging retroperitoneal lymph nodes suspicious for metastatic disease C. difficile PCR, stool calprotectin, stool culture ordered Hold Xarelto - Recheck CBC - surgery following, placed on clear liquid diet. plan for colonoscopy tomorrow - maintain large bore IV access, active type/screen #. RSV Patient with nonproductive cough for the past week Outpatient Z-Micheal discontinued Chest x-ray ordered Cepheid 4 Plex positive for RSV Procalcitonin ordered Maintain fluids and symptomatic treatment #. Macrocytic anemia Hgb 11.0, MCV 104.4 B12 and folate pending - iron studies ordered #. Stage IV esophageal cancer treated with immunotherapy #. History of Diffuse Large B-Cell Lymphoma Oncology consulted - CT reviewed with evidence of enlarging retroperitoneal lymph nodes similar to presentation in past with dx of DLBCL Chronic: #. Chronic atrial fibrillation Resume metoprolol 50 mg p.o. daily for rate control Hold Xarelto Cardiac monitoring F: NS at 75 cc/hr E: Replete electrolytes as needed N: clear liquid diet A: Independently ambulatory at baseline DVT prophylaxis: SCDs CODE STATUS: Full code Discussed with: Patient Anticipated discharge place: Home Tate Ahuja MD PGY-1 IM Dictation was produced using [employer] software. please excuse any grammatical, word or spelling errors. I have seen and evaluated the patient today. Discussed with the resident and a gree with the residents finding and plan as documented in the resident's note. Changes highlighted in blue font. Objective - Vital Signs Vital signs: Vital Signs Temp 98.4 F 05/10/24 20:45 Pulse 93 05/11/24 04:45 Resp 18 05/11/24 04:45 BP 111/68 05/11/24 04:45 Pulse Ox 93 L 05/11/24 04:45 FiO2 Intake & Output 05/10/24 05/11/24 05/11/24 18:59 06:59 18:59 Intake Total 150 Balance 150 Weight 123.377 kg Intake: Oral 150 Other: # Voids 0 1 # Bowel Movements 0 - Labs CBC & Chem 7: 05/11/24 10:42 05/11/24 07:35 Labs: Abnormal Lab Results - Last 24 Hours (Table) 05/10/24 05/10/24 05/10/24 Range/Units 09:04 09:04 09:04 RBC 3.31 L (3.80-5.40) m/uL Hgb 11.0 L (11.4-16.0) gm/dL MCV 104.4 H (80.0-100.0) fL Lymphocytes # 0.6 L (1.0-4.8) k/uL INR 1.2 H (<1.2) Albumin 3.4 L (3.5-5.0) g/dL RSV (PCR) (Not Detectd) 05/10/24 05/10/24 Range/Units 13:28 19:11 RBC 3.62 L (3.80-5.40) m/uL Hgb (11.4-16.0) gm/dL MCV 105.6 H (80.0-100.0) fL Lymphocytes # 0.7 L (1.0-4.8) k/uL INR (<1.2) Albumin (3.5-5.0) g/dL RSV (PCR) Detected A (Not Detectd)
--- NOTE | 2024-05-11 14:53 | P.GSCN ---
History of Present Illness Consult date: 05/11/24 History of present illness: CHIEF COMPLAINT: Bright red blood per rectum HISTORY OF PRESENT ILLNESS: This is a 63-year-old female with known stage IV esophageal cancer on immunotherapy. She presents to the hospital with complaints of bright red blood per rectum over the last 3 to 4 days. She reports she had some small bleeding probably over the last 2 weeks. But over the last 3 to 4 days she has had multiple episodes of bright red blood and occasional clots. She denies any abdominal pain. Denies any rectal pain. She does have a history of hemorrhoids and diverticulosis. With her last colonoscopy was in 2020 with evidence of pandiverticulosis and hemorrhoids. She is on Xarelto at home. Last dose was 05/09/2024. Her hemoglobin is 11.9. She reports her last EGD was about a year ago. She was found to be RSV positive. PAST MEDICAL HISTORY: Atrial Fibrillation, Cancer, Chest Pain / Angina, GERD/Reflux, Hyperlipidemia, Osteoarthritis (OA), Sleep Apnea/CPAP/BIPAP, Vascular Disorder, 07/2020 GI bleed/ulceration from hiatal hernia/ severe anemia with blood transfusion, gastric polyp, hiatal hernia, diverticular disease, colon polyp, hemorrhoids, c onstipation, AUTUMN and either sleeps in a recliner or uses Cpap, arthritis in back/bilateral knees, migraines years ago, osteopenia, RLS, bilateral leg poor circulation, bronchitis, sinusitis, swallowing difficulty. ESOPHAGEAL CANCER. PAST SURGICAL HISTORY: See below MEDICATIONS: See below ALLERGIES: See below SOCIAL HISTORY: No illicit drug use. REVIEW OF SYSTEMS: CONSTITUTIONAL: Denies fever or chills. HEENT: Denies blurred vision, vision changes, or eye pain. Denies hemoptysis CARDIOVASCULAR: Denies chest pain or pressure. RESPIRATORY: No shortness of breath. GASTROINTESTINAL: See HPI for pertinent findings HEMATOLOGIC: Denies bleeding disorders. GENITOURINARY: Denies any blood in urine or increased urinary frequency. SKIN: Denies pruitis. Denies rash. PHYSICAL EXAM: VITAL SIGNS: Reviewed GENERAL: Well-developed in no acute distress. HEENT: No sclera icterus. Extraocular movements grossly intact. Moist buccal mucosa. Head is atraumatic, normocephalic. No nasal drainage. ABDOMEN: Soft. Nondistended. nontender NEUROLOGIC: Alert and oriented. Cranial nerves II through XII grossly intact. LABORATORY DATA: WBC 4.0 Hgb 11.2 platelets 371 Sodium is 137 potassium 3.9 creatinine 0.84 RSV detected IMAGING: Chest CTA no evidence of acute GI bleed. No bowel abnormalities. Enlarging retroperitoneal lymph nodes as described above. The findings are highly to picious for metastatic disease. ASSESSMENT: 1. Acute GI bleed with bright red blood per rectum. 2. History of diverticulosis and hemorrhoids 3. History of stage IV esophageal cancer, patient is on immunotherapy PLAN: -Patient scheduled for colonoscopy tomorrow with Dr. Kaufman -Smita Culver bowel prep -Clear liquid diet today -N.p.o. after midnight -Continue to monitor hemoglobin -Continue to monitor for any signs or symptoms of bleeding Physician Boil Off Worker note has been reviewed by physician. Signing provider agrees with the documented findings, assessment, and plan of care. Past Medical History Past Medical History: Atrial Fibrillation, Cancer, Chest Pain / Angina, GERD/Reflux, Hyperlipidemia, Osteoarthritis (OA), Sleep Apnea/CPAP/BIPAP, V ascular Disorder Additional Past Medical History / Comment(s): 07/2020 lower GI bleed/ulceration from hiatal hernia/ severe anemia with blood transfusion, gastric polyp, hiatal hernia, diverticular disease, colon polyp, hemorrhoids, constipation, AUTUMN and either sleeps in a recliner or uses Cpap, arthritis in back/bilateral knees, migraines years ago, osteopenia, RLS, bilateral leg poor circulation, bronchitis, sinusitis, swallowing difficulty. ESOPHAGEAL CANCER. History of Any Multi-Drug Resistant Organisms: None Reported Past Surgical History: Bladder Surgery, Breast Surgery, Cholecystectomy, Heart Catheterization, Joint Replacement, Orthopedic Surgery, Tubal Ligation Additional Past Surgical History / Comment(s): left breast biopsy, L knee arthroscopy, buck knee replacement, rt shoulder arthroscopy, bladder sling, bladder suspension, EGD, colonoscopies, small bowel capsule, 08/11/20 heart cath(needed blood transfusion). Past Anesthesia/Blood Transfusion Reactions: Previous Problems w/ Anesthesia Additional Past Anesthesia/Blood Transfusion Reaction / Comm: states during her 1st knee replacement & during colonoscopy her legs were "twitching" & had to be given general anesthesia-didn't think had to do w/her restless leg Past Psychological History: No Psychological Hx Reported Additional Psychological History / Comment(s): . Smoking Status: Former smoker Past Alcohol Use History: Rare Additional Past Alcohol Use History / Comment(s): Pt started smoking in 1973 and quit in 1992. 1/2 PPD Past Drug Use History: None Reported - Past Family History Father Family Medical History: Coronary Artery Disease (CAD) Additional Family Medical History / Comment(s): Father lived to be 82 yrs. He had 9 cardiac stents. Sister(s) Additional Family Medical History / Comment(s): Pt has 3 sisters, all of which are healthy except one has thyroid problem. Mother Family Medical History: Congestive Heart Failure (CHF) Additional Family Medical History / Comment(s): Mother of CHF at the age of 74 yrs. She was obese. Medications and Allergies Home Medications Medication Instructions Recorded Confirmed Type Pramipexole [Mirapex] 1 mg PO TID 12/18/18 05/10/24 History Metoprolol Succinate [Toprol XL] 50 mg PO DAILY 10/29/20 05/10/24 History Rivaroxaban [Xarelto] 20 mg PO W/SUPPER 08/18/21 05/10/24 History Vitamin B Complex 1 cap PO DAILY 12/20/22 05/10/24 History Azithromycin [Zithromax Z Pack] See Taper PO DIRECTED 05/10/24 05/10/24 History Mirabegron [Myrbetriq] 50 mg PO DAILY 05/10/24 05/10/24 History Multivit-Min/Iron/Folic/Lutein 1 tab PO DAILY 05/10/24 05/10/24 History [Centrum Silver Women Tablet] Ondansetron [Zofran] 4 mg PO Q6H PRN 05/10/24 05/10/24 History Allergies Allergy/AdvReac Type Severity Reaction Status Date / Time adhesive tape Allergy Rash/Hives/pulls Verified 05/10/24 10:56 skin off Surgical - Exam Vital Signs Temp Pulse Resp BP Pulse Ox 98.2 F 94 20 121/61 97 05/10/24 08:13 05/10/24 08:13 05/10/24 08:13 05/10/24 08:13 05/10/24 08:13 Results - Labs 05/11/24 10:42 05/11/24 07:35 Abnormal Lab Results - Last 24 Hours (Table) 05/10/24 05/10/24 05/11/24 Range/Units 13:28 19:11 10:42 RBC 3.62 L 3.34 L (3.80-5.40) m/uL Hgb 11.2 L (11.4-16.0) gm/dL MCV 105.6 H 104.4 H (80.0-100.0) fL Lymphocytes # 0.7 L 0.5 L (1.0-4.8) k/uL RSV (PCR) Detected A (Not Detectd) Diabetes panel 05/11/24 Range/Units 07:35 Sodium 137 (137-145) mmol/L Potassium 3.9 (3.5-5.1) mmol/L Chloride 105 (98-107) mmol/L Carbon Dioxide 25 (22-30) mmol/L BUN 8 (7-17) mg/dL Creatinine 0.84 (0.52-1.04) mg/dL Glucose 93 (74-99) mg/dL Calcium 9.0 (8.4-10.2) mg/dL Calcium panel 05/11/24 Range/Units 07:35 Calcium 9.0 (8.4-10.2) mg/dL Pituitary panel 05/11/24 Range/Units 07:35 Sodium 137 (137-145) mmol/L Potassium 3.9 (3.5-5.1) mmol/L Chloride 105 (98-107) mmol/L Carbon Dioxide 25 (22-30) mmol/L BUN 8 (7-17) mg/dL Creatinine 0.84 (0.52-1.04) mg/dL Glucose 93 (74-99) mg/dL Calcium 9.0 (8.4-10.2) mg/dL Adrenal panel 05/11/24 Range/Units 07:35 Sodium 137 (137-145) mmol/L Potassium 3.9 (3.5-5.1) mmol/L Chloride 105 (98-107) mmol/L Carbon Dioxide 25 (22-30) mmol/L BUN 8 (7-17) mg/dL Creatinine 0.84 (0.52-1.04) mg/dL Glucose 93 (74-99) mg/dL Calcium 9.0 (8.4-10.2) mg/dL
[2024-05-11] MEDS: PEG 3350 (236 GM/BTL) + LYTES 4,000 ML BOTTLE PO ONE (16:06)
[2024-05-11 18:22] LABS: Basophils % (A) 0 %; Eosinophils # (A) 0.4 k/uL (0-0.7); Eosinophils % (A) 9 %; HCT 39.8 % (34.0-46.0); HGB 12.5 gm/dL (11.4-16.0); Hypochromasia Marked; Lymphocytes # (A) 0.7 k/uL (1.0-4.8); Lymphocytes % (A) 13 %; MCH 33.1 pg (25.0-35.0); MCHC 31.4 g/dL (31.0-37.0); MCV 105.4 fL (80.0-100.0); Macrocytosis Moderate; Mean Platelet Volume 6.5; Monocytes # (A) 0.4 k/uL (0-1.0); Monocytes % (A) 7 %; Neutrophils # (A) 3.5 k/uL (1.3-7.7); Neutrophils % (A) 69 %; Platelet Count 388 k/uL (150-450); RBC 3.78 m/uL (3.80-5.40); RDW 13.5 % (11.5-15.5); WBC 5.1 k/uL (3.8-10.6)
--- NOTE | 2024-05-11 20:07 | P.CONS ---
History of Present Illness - Reason for Consult [facility] date[facility]: Tate Ahuja - Chief Complaint rectal bleeding - History of Present Illness Ms. Butler is a 63 year old female who was initially seen in consult on 12/06/20. The patient has a known large had a hernia with associated symptoms including slowly progressive difficulty in swallowing it appears that she had a CT scan ordered by the surgical service on 09/05/20 which showed moderate to large hiatal hernia, with 2 enlarged lymph nodes in the paraesophageal region measuring 2.1 and 2.5 cm with 2 periaortic lymph nodes measuring 3.9 and 2.6 cm. Esophagogram in 09/12 showed a small to moderate fixed had a hernia. The patient was apparently scheduled for surgery for hiatal hernia. CT scans in 11/12 showed enlargement in the left-sided para-aortic nodes at 4 cm. The patient at that time was actually in the hospital for gallbladder inflammation. Initial ultrasound did not describe any stones or wall thickening. The patient was evaluated by surgery and was felt to have cholecystitis with right upper quadrant peritonitis. She had a robotic-assisted laparoscopic cholecystectomy, with pathology showing chronic cholecystitis with cholelithiasis and cholesterolosis. For hiatal hernia surgery was therefore rescheduled. The patient was electively taken to the or on 12/05/20. Intraoperatively she was found to have large retroperitoneal adenopathy as well as distal esophageal mass about 35-38 cm from the incisors involving 20-30% of the circumference. She also had significant adhesions in the paraesophageal area. Planned surgery was aborted. Instead the patient had lysis of adhesions and excision biopsy of retroperitoneal lymph node. Operative notes noted that the surface of the liver appeared to be normal on inspection. 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 Given the finding of the esophageal mass, the patient therefore appeared to have adenoca rcinoma of the lower esophagus, with metastasis at least to the paraesophageal and retroperitoneal nodes along the lesser curvature of the stomach. the patient had a colonoscopy and EGD in 09/12 which had been negative for any evidence of malignancy. She was seen for first office visit on 12/16/20. The patient had a PET scan, that unfortunately showed extensive mediastinal involvement including bilateral supraclavicular, mediastinal, paraesophageal, as well as retroperitoneal extending down to the aortic bifurcation. She has been on multiple treatment regimens, currently on herceptin and keyt ruda, completing cycle 29 on with overall well controlled disease. Her CT scan results showed stable thickening of the distal esophagus, and stable mildly enlarged paraesophageal node. And upper retroperitoneal lymph node noted to be 3.6 versus 2.9 cm. She was thus referred to rad onc to further evaluate, but after review of PET CT, Dr Beltran recommended to hold off on RT at this time. Plan is to continue on current systemic treatment Patient presented to emergency room with complaints of rectal bleeding. Patient reports he has been noting sammy blood in stool over the last 2 weeks that began to worsen over the last 5 days causing her to present to the emergency room for further evaluation. Upon admit CTA abdomen pelvis showing no evidence of acute GI bleed with no bowel abnormalities. Enlarging retroperitoneal lymph node, previously measuring 3.2 x 5.1, now 4.0 x 6.0 cm, compared to previous CT CAP on 03/12/2024. Labs reviewed, WBC 5.1, hemoglobin 11.2, MCV 104.4, platelets 371,000. PT 12.5, INR 1.2, PTT 29.1. LFTs and bilirubin WNL. C. difficile testing negative. Patient is positive for RSV and has been complaining of cough. At today's visit patient reports she did note sammy blood in the stool this morning but bleeding has improved. Xarelto has been held. General surgery has been consulted for endoscopic evaluation. Review of Systems 10 point ROS is negative except as stated in the HPI Past Medical History Past Medical History: Atrial Fibrillation, Cancer, Chest Pain / Angina, GE RD/Reflux, Hyperlipidemia, Osteoarthritis (OA), Sleep Apnea/CPAP/BIPAP, Vascular Disorder Additional Past Medical History / Comment(s): 07/2020 lower GI bleed/ulceration from hiatal hernia/ severe anemia with blood transfusion, gastric polyp, hiatal hernia, diverticular disease, colon polyp, hemorrhoids, constipation, AUTMUN and either sleeps in a recliner or uses Cpap, arthritis in back/bilateral knees, migraines years ago, osteopenia, RLS, bilateral leg poor circulation, bronchitis, sinusitis, swallowing difficulty. ESOPHAGEAL CANCER. History of Any Multi-Drug Resistant Organisms: None Reported Past Surgical History: Bladder Surgery, Breast Surgery, Cholecystectomy, Heart Catheterization, Joint Replacement, Orthopedic Surgery, Tubal Ligation Additional Past Surgical History / Comment(s): left breast biopsy, L knee arthroscopy, buck knee replacement, rt shoulder arthroscopy, bladder sling, bladder suspension, EGD, colonoscopies, small bowel capsule, 08/11/20 heart cath(needed blood transfusion). Past Anesthesia/Blood Transfusion Reactions: Previous Problems w/ Anesthesia Additional Past Anesthesia/Blood Transfusion Reaction / Comm: states during her 1st knee replacement & during colonoscopy her legs were "twitching" & had to be given general anesthesia-didn't think had to do w/her restless leg Past Psychological History: No Psychological Hx Reported Additional Psychological History / Comment(s): . Smoking Status: Former smoker Past Alcohol Use History: Rare Additional Past Alcohol Use History / Comment(s): Pt started smoking in 1973 and quit in 1992. 1/2 PPD Past Drug Use History: None Reported - Past Family History Father Family Medical History: Coronary Artery Disease (CAD) Additional Family Medical History / Comment(s): Father lived to be 82 yrs. He had 9 cardiac stents. Sister(s) Additional Family Medical History / Comment(s): Pt has 3 sisters, all of which are healthy except one has thyroid problem. Mother Family Medical History: Congestive Heart Failure (CHF) Additional Family Medical History / Comment(s): Mother of CHF at the age of 74 yrs. She was obese. Medications and Allergies Home Medications Medication Instructions Recorded Confirmed Type Pramipexole [Mirapex] 1 mg PO TID 12/18/18 05/10/24 History Metoprolol Succinate [Toprol XL] 50 mg PO DAILY 10/29/20 05/10/24 History Rivaroxaban [Xarelto] 20 mg PO W/SUPPER 08/18/21 05/10/24 History Vitamin B Complex 1 cap PO DAILY 12/20/22 05/10/24 History Azithromycin [Zithromax Z Pack] See Taper PO DIRECTED 05/10/24 05/10/24 History Mirabegron [Myrbetriq] 50 mg PO DAILY 05/10/24 05/10/24 History Multivit-Min/Iron/Folic/Lutein 1 tab PO DAILY 05/10/24 05/10/24 History [Centrum Silver Women Tablet] Ondansetron [Zofran] 4 mg PO Q6H PRN 05/10/24 05/10/24 History Allergies Allergy/AdvReac Type Severity Reaction Status Date / Time adhesive tape Allergy Rash/Hives/pulls Verified 05/10/24 10:56 skin off Physical Exam Vitals: Vital Signs Temp Pulse Pulse Resp BP BP Pulse Ox 05/11/24 12:00 98.7 F 82 16 106/67 97 05/11/24 08:39 98.3 F 89 17 103/72 96 05/11/24 04:45 93 18 111/68 93 L 05/11/24 00:45 103 H 18 121/73 95 05/10/24 20:45 98.4 F 91 18 106/68 97 05/10/24 18:39 98.6 F 103 H 17 122/76 96 05/10/24 16:55 90 18 108/60 97 05/10/24 15:39 94 18 130/56 98 05/10/24 14:21 89 18 131/55 94 L Intake and Output 05/10/24 05/11/24 05/11/24 22:59 06:59 14:59 Intake Total 0 Balance 0 Intake: Oral 0 Other: # Voids 0 1 2 # Bowel Movements 0 Weight 123.377 kg - Constitutional General appearance: no acute distress, obese - EENT Eyes: anicteric sclerae, EOMI ENT: hearing grossly normal - Respiratory Respiratory: bilateral: CTA - Cardiovascular Rhythm: regular - Gastrointestinal General gastrointestinal: soft, no tenderness - Integumentary Integumentary: no cyanotic, no jaundiced - Neurologic Neurologic: CNII-XII intact - Musculoskeletal Musculoskeletal: strength equal bilaterally - Psychiatric Psychiatric: A&O x's 3 Results CBC & Chem 7: 05/11/24 18:11 05/11/24 07:35 Labs: Abnormal Lab Results - Last 24 Hours (Table) 05/10/24 05/10/24 05/11/24 Range/Units 13:28 19:11 10:42 RBC 3.62 L 3.34 L (3.80-5.40) m/uL Hgb 11.2 L (11.4-16.0) gm/dL MCV 105.6 H 104.4 H (80.0-100.0) fL Lymphocytes # 0.7 L 0.5 L (1.0-4.8) k/uL RSV (PCR) Detected A (Not Detectd) Chest x-ray: report reviewed CT scan - abdomen: report reviewed CT scan - pelvis: report reviewed Assessment and Plan (1) GI bleeding Current Visit: Yes Status: Acute Priority: High Code(s): K92.2 - GASTROINTESTINAL HEMORRHAGE, UNSPECIFIED SNOMED Code(s): 08077426 (2) Abdominal pain Current Visit: Yes Status: Acute Code(s): R10.9 - UNSPECIFIED ABDOMINAL PAIN SNOMED Code(s): 26555018 (3) Esophageal cancer Current Visit: Yes Status: Acute Priority: Medium Code(s): C15.9 - MALIGNANT NEOPLASM OF ESOPHAGUS, UNSPECIFIED SNOMED Code(s): 918920479 Plan: GI bleed, anemia: Presented to emergency room with complaints of rectal bleeding. Patient reports he has been noting sammy blood in stool over the last 2 weeks that began to worsen over the last 5 days. -Upon admit CTA abdomen pelvis showing no evidence of acute GI bleed with no bowel abnormalities. Enlarging retroperitoneal lymph node, previously measuring 3.2 x 5.1, now 4.0 x 6.0 cm, compared to previous CT CAP on 03/12/2024. -Hemoglobin 11.2, MCV 104.4, platelets 371,000. PT 12.5, INR 1.2, PTT 29.1. LFTs and bilirubin WNL. -General surgery has been consulted for endoscopic evaluation, pending recs -Anemia is mild, but will obtain nutritional studies to r/o deficiencies -Persisting rectal bleeding, but bleeding is improving. Xarelto has been held -Continue to monitor CBC Metastatic esophageal cancer: -Oncology history as dictated in the HPI -Currently on treatment with herceptin and keytruda, completing cycle 29 on with overall well controlled disease. Her CT scan results showed stable thickening of the distal esophagus, and stable mildly enlarged paraesophageal node. And upper retroperitoneal lymph node noted to be 3.6 versus 2.9 cm. She was thus referred to rad onc to further evaluate, but after review of PET CT, Dr Beltran recommended to hold off on RT at this time. Plan is to continue on current systemic treatment -Treatment will be on hold until acute condition has resolved Doctor attests: I performed a history and physical examination of this patient, developed impression and plan of care. Discussed with dictator. I agree with dictators note, documented as a scribe.
[2024-05-12] MEDS: LACTATED RINGERS 500 ML IV ONE (08:01)
[2024-05-12] MEDS ORDERED: PROPOFOL 10 MG/ML 20 ML VIAL IV ONE (08:02)
[2024-05-12 08:21] LABS: African American GFR (CKD) >90 (>60 ml/min/1.73 sqM); Anion Gap 8 mmol/L; Blood Urea Nitrogen 10 mg/dL (7-17); Calcium 9.2 mg/dL (8.4-10.2); Carbon Dioxide 29 mmol/L (22-30); Chloride 101 mmol/L (98-107); Glucose 101 mg/dL (74-99); Magnesium 2.1 mg/dL (1.6-2.3); Non-African American GFR(CKD) 82 (>60 ml/min/1.73 sqM); Potassium 3.9 mmol/L (3.5-5.1); Sodium 138 mmol/L (137-145)
[2024-05-12 08:43] LABS: Basophils % (A) 0 %; Eosinophils # (A) 0.3 k/uL (0-0.7); Eosinophils % (A) 8 %; HCT 35.4 % (34.0-46.0); HGB 11.2 gm/dL (11.4-16.0); Hypochromasia Moderate; Lymphocytes # (A) 0.8 k/uL (1.0-4.8); Lymphocytes % (A) 19 %; MCHC 31.7 g/dL (31.0-37.0); MCV 103.9 fL (80.0-100.0); Macrocytosis Slight; Mean Platelet Volume 6.7; Monocytes # (A) 0.3 k/uL (0-1.0); Monocytes % (A) 7 %; Neutrophils # (A) 2.7 k/uL (1.3-7.7); Neutrophils % (A) 64 %; Platelet Count 343 k/uL (150-450); RBC 3.41 m/uL (3.80-5.40); RDW 13.5 % (11.5-15.5); WBC 4.2 k/uL (3.8-10.6)
--- NOTE | 2024-05-12 13:08 | P.PN ---
Subjective Progress Note Date: 05/12/24 Hospital Course: Patient is a 63-year-old female with stage IV esophageal cancer being treated with immunotherapy, atrial fibrillation (on Xarelto), GERD, hyperlipidemia, lower GI bleed/ulceration from hiatal cardia which resulted severe anemia with blood transfusion, presenting with rectal bleeding. Patient states bleeding started 2 weeks ago but has become progressively worse as of 4 days ago. She describes it as a loose bright red/maroon-colored stool. She says it occurs 4-5 times a day whenever she sits on the toilet. She was previously in the emergency department earlier this year due to same reason but was not admitted. She was recently put on a Z-Micheal 2 days ago by her PCP for cough she has been having, but outside of that she has no new changes in medications. She reports of mild abdominal discomfort rating 3/10 which she describes as a burning sensation. The pain is localized to the mid upper epigastric region. Patient also reports of nausea and vomiting this morning. She reports there was no blood in her vomit. Patient endorses nonproductive cough she has been having for the past week. Patient denies fever, night sweats, chills, chest pain, sh ortness of breath, urinary symptoms. CTA abdomen/pelvis displayed no evidence for acute GI bleed, no bowel abnormalities, enlarging retroperitoneal lymph nodes suspicious for metastatic disease WBC 5.7, Hgb 11.0, MCV 104.4, INR 1.2, BUN 8, creatinine 0.75. T98.2 F, [place] 94, RR 20, BP 121/61, O2 sat 97% on room air ED documentation reviewed and case discussed with ED provider. Review of systems: Pertinent positives and negatives as discussed in HPI, a complete review of systems was performed and all other systems are negative. Subjective: 05/11/2023: patient seen and evaluated at bedside. No acute events overnight. No acute complaints. She reports of having two loose, bloody stools this morning. Reports she was seen by surgical team and placed her on clear liquid diet for bowel prep for upcoming colonoscopy. 05/12/2023: Patient seen evaluated bedside. No acute events overnight. No acute complaints. She reports of moderate to severe abdominal pain post colonoscopy. Denies any bowel movement at this moment. Physical examination: Vital signs reviewed General: non toxic, no distress, appears at stated age, obese Derm: no unusual rashes/lesions, warm Head: atraumatic, normocephalic, symmetric Eyes: EOMI, anicteric sclera, pupils equal round reactive to light ENT: Nose and ears atraumatic Neck: No cervical lymphadenopathy, trachea midline, supple Mouth: no lip lesion, mucus membranes moist Cardiovascular: S1S2 reg, no murmur, positive dorsalis pedis pulse bilateral, no edema Lungs: CTA bilateral, no rhonchi, no rales, no accessory muscle use Abdominal: soft, diffuse tenderness to palpation, no guarding Ext: muscle strength 5 out of 5 in all 4 extremities grossly, no gross muscle atrophy Neuro: CN II-XI grossly intact, no gross focal neuro deficits Psych: Alert, oriented to person, place, and time Data reviewed today: Pertinent Labs: Hemoglobin 11.2, creatinine 0.77 Pertinent imaging: Assessment/Plan: Patient is a 63-year-old female with stage IV esophageal cancer being treated with immunotherapy, atrial fibrillation (on Xarelto), history of lower GI bleed presenting with rectal bleeding. Active: #. Acute lower GI bleed #. Bright red blood per rectum #. Moderate abdominal pain #. Ischemic colitis Hgb 11.0, transfuse if < 7.0, or greater than 2 pt drop with hemodynamic instability CTA abdomen/pelvis displayed no evidence for acute GI bleed, no bowel abnorma lities, enlarging retroperitoneal lymph nodes suspicious for metastatic disease Stool culture pending Stool calprotectin elevated at 200 C. difficile negative Hold Xarelto - Recheck CBC - surgery following, spoke with surgery. Stated that she had ischemic colitis as well as old blood in the colon and would like to keep her for now - maintain large bore IV access, active type/screen Current pain she is currently experiencing could be due to aftereffects from colonoscopy, if gets worse consider doing an abdominal x-ray -Consider restarting Xarelto as soon as possible if ischemic colitis possibly in the setting of thromboembolic phenomena from atrial fibrillation #. RSV, improving Patient with nonproductive cough for the past week Outpatient Z-Micheal discontinued Chest x-ray independently reviewed shows small left pleural effusion, no focal consolidations Cepheid 4 Plex positive for RSV Procalcitonin within normal limits at 0.11 Maintain fluids and symptomatic treatment Robitussin for cough suppression #. Macrocytic anemia Hgb 11.0, MCV 104.4 B12 1321, folate pending - iron studies ordered Continue with Nephrocaps 1 each p.o. daily #. Stage IV esophageal cancer treated with immunotherapy #. History of Diffuse Large B-Cell Lymphoma - CT reviewed with evidence of enlarging retroperitoneal lymph nodes similar to presentation in past with dx of DLBCL Oncology following, treatment will be on hold until acute condition has resolved Chronic: #. Chronic atrial fibrillation Resume metoprolol 50 mg p.o. daily for rate control Hold Xarelto Cardiac monitoring F: N/A E: Replete electrolytes as needed N: Heart healthy diet A: Independently ambulatory at baseline DVT prophylaxis: SCDs CODE STATUS: Full code Discussed with: Patient Anticipated discharge place: Home Tate Ahuja MD PGY-1 IM Dictation was produced using [employer] dictation software. please excuse any grammatical, word or spelling errors. I have seen and evaluated the patient today. Discussed with the resident and agree with the residents finding and plan as documented in the resident's note. Changes highlighted in blue font. Objective - Vital Signs Vital signs: Vital Signs Temp 98.2 F 05/12/24 04:00 Pulse 86 05/12/24 04:00 Resp 18 05/12/24 04:00 BP 102/69 05/12/24 04:00 Pulse Ox 93 L 05/12/24 04:00 FiO2 Intake & Output 05/11/24 05/12/24 05/12/24 18:59 06:59 18:59 Intake Total 540 Balance 540 Weight 120.3 kg Intake: Oral 540 Other: # Voids 2 - Labs CBC & Chem 7: 05/12/24 08:24 05/12/24 07:09 Labs: Abnormal Lab Results - Last 24 Hours (Table) 05/10/24 05/11/24 05/11/24 Range/Units Unknown 07:35 10:42 RBC 3.34 L (3.80-5.40) m/uL Hgb 11.2 L (11.4-16.0) gm/dL MCV 104.4 H (80.0-100.0) fL Lymphocytes # 0.5 L (1.0-4.8) k/uL Vitamin B12 1184.0 H (200.0-944.0) pg/mL Stool Calprotectin 200.0 H (<50) mcg/g 05/11/24 05/11/24 Range/Units 14:40 18:11 RBC 3.78 L (3.80-5.40) m/uL Hgb (11.4-16.0) gm/dL MCV 105.4 H (80.0-100.0) fL Lymphocytes # 0.7 L (1.0-4.8) k/uL Vitamin B12 1321.0 H (200.0-944.0) pg/mL Stool Calprotectin (<50) mcg/g
--- NOTE | 2024-05-12 13:50 | P.PN ---
Progress Note - Text Progress Note Date: 05/12/24 Patient had colonoscopy today. It was significant for ischemic colitis, old blood, diverticulosis, and external hemorrhoids. Formal operative note to follow
[2024-05-13 07:25] LABS: Basophils % (A) 0 %; Eosinophils # (A) 0.3 k/uL (0-0.7); Eosinophils % (A) 6 %; HCT 35.1 % (34.0-46.0); HGB 11.2 gm/dL (11.4-16.0); Hypochromasia Moderate; Lymphocytes # (A) 0.6 k/uL (1.0-4.8); Lymphocytes % (A) 12 %; MCH 33.1 pg (25.0-35.0); MCV 103.3 fL (80.0-100.0); Macrocytosis Slight; Mean Platelet Volume 6.8; Monocytes # (A) 0.3 k/uL (0-1.0); Monocytes % (A) 6 %; Neutrophils # (A) 3.2 k/uL (1.3-7.7); Neutrophils % (A) 73 %; Platelet Count 340 k/uL (150-450); RBC 3.39 m/uL (3.80-5.40); RDW 13.6 % (11.5-15.5); WBC 4.4 k/uL (3.8-10.6)
[2024-05-13 07:41] LABS: African American GFR (CKD) >90 (>60 ml/min/1.73 sqM); Anion Gap 8 mmol/L; Blood Urea Nitrogen 11 mg/dL (7-17); Calcium 9.1 mg/dL (8.4-10.2); Carbon Dioxide 27 mmol/L (22-30); Chloride 100 mmol/L (98-107); Glucose 109 mg/dL (74-99); Magnesium 2.1 mg/dL (1.6-2.3); Non-African American GFR(CKD) 82 (>60 ml/min/1.73 sqM); Potassium 3.6 mmol/L (3.5-5.1); Sodium 135 mmol/L (137-145)
[2024-05-13 11:38] VITALS: BP 110/63; PULSE 85; RESP 16; TEMP 97.8
--- NOTE | 2024-05-13 13:41 | P.PN ---
Subjective Progress Note Date: 05/13/24 Subjective: Patient seen and examined at bedside. No acute events overnight. Still having occasional bloody bowel movements, abdominal pain is resolved Pertinent positives and negatives as discussed above, a complete review of systems was performed and all other systems are negative. Vitals Signs Reviewed. General: Nontoxic, no distress, appears at stated age Derm: Warm, dry Head: Atraumatic, normocephalic, symmetric Eyes: EOMI, no lid lag, anicteric sclera Mouth: No lip lesion, mucus membranes moist Cardiovascular: S1S2 reg, no murmur Lungs: CTA bilateral, no rhonchi, no rales, no accessory muscle use Abdominal: Soft, nontender to palpation, no guarding, no appreciable organome rosalinda Ext: No gross muscle atrophy, no edema, no contractures Neuro: CN II-XI grossly intact, no focal neuro deficits Psych: Alert, oriented, appropriate affect Data Reviewed Today: Pertinent Labs: Hemoglobin 11.2, creatinine 0.78 Imaging: No new imaging Assessment and Plan: Active: Acute lower GI bleed Bright red blood per rectum Acute colitis, suspected ischemic versus inflammatory versus infectious External hemorrhoids Diverticulosis Acute blood loss anemia -Continue regular diet -Monitor hemoglobin -Restarted Xarelto 20 mg daily today -General Surgery following -If no further bloody bowel movements or hemoglobin stays stable, patient can be discharged home tomorrow RSV -Minimal cough -Symptomatic management Chronic: Chronic atrial fibrillation Esophageal cancer on immunotherapy History of diffuse large B-cell lymphoma DVT ppx: Xarelto Code status: Full code Anticipated discharge place: Home Anticipated discharge time: Tomorrow Objective - Vital Signs Vital signs: Vital Signs Temp 97.8 F 05/13/24 11:34 Pulse 85 05/13/24 13:03 Resp 16 05/13/24 13:03 BP 110/63 05/13/24 11:34 Pulse Ox 96 05/13/24 11:34 FiO2 Intake & Output 05/12/24 05/13/24 05/13/24 18:59 06:59 18:59 Intake Total 1390 1120 Output Total 50 Balance 1340 1120 Weight 119.4 kg Intake: IV 200 Oral 1190 1120 Output: Emesis 50 Other: # Voids 2 2 - Labs CBC & Chem 7: 05/13/24 06:56 05/13/24 06:56 Labs: Abnormal Lab Results - Last 24 Hours (Table) 05/13/24 05/13/24 Range/Units 06:56 06:56 RBC 3.39 L (3.80-5.40) m/uL Hgb 11.2 L (11.4-16.0) gm/dL MCV 103.3 H (80.0-100.0) fL Lymphocytes # 0.6 L (1.0-4.8) k/uL Sodium 135 L (137-145) mmol/L Glucose 109 H (74-99) mg/dL Microbiology - Last 24 Hours (Table) 05/10/24 Unknown Stool Culture - Preliminary Stool
--- NOTE | 2024-05-13 14:44 | P.DS ---
Providers Date of admission: 05/10/24 09:46 Expected date of discharge: 05/13/24 Attending physician: Rigoberto San Consults: 05/10/24 16:52 Consult Physician Routine Consulting Provider: Jovanni Chaney Consult Reason/Comments: GI Bleed Do you want consulting provider notified?: Yes 05/10/24 16:54 Consult Physician Routine Consulting Provider: Holden Blanchard Consult Reason/Comments: esophageal cancer Do you want consulting provider notified?: Yes Primary care physician: [facility] Course: Discharge Diagnosis: Acute lower GI bleed Bright red blood per rectum Acute colitis, suspected ischemic versus inflammatory versus infectious External hemorrhoids Diverticulosis Acute blood loss anemia RSV Chronic atrial fibrillation Esophageal cancer on immunotherapy History of diffuse large B-cell lymphoma Hospital Course: Patient is a 63-year-old female with stage IV esophageal cancer being treated with immunotherapy, atrial fibrillation (on Xarelto), GERD, hyperlipidemia, lower GI bleed/ulceration from hiatal cardia which resulted severe anemia with blood transfusion, presenting with rectal bleeding. CTA abdomen/pelvis displayed no evidence for acute GI bleed, no bowel abnormalities, enlarging retroperitoneal lymph nodes suspicious for metastatic disease WBC 5.7, Hgb 11.0, MCV 104.4, INR 1.2, BUN 8, creatinine 0.75. T98.2 F, [place] 94, RR 20, BP 121/61, O2 sat 97% on room air Patient is RSV positive. Relatively asymptomatic. Patient was followed by surgery, colonoscopy showed external hemorrhoids, diverticulosis, no evidence of colitis. No active bleeding. Hemoglobin remained stable. Started back on Xarelto. Patient seen and examined at bedside. Vital signs reviewed and stable. General: Nontoxic, no distress, appears at stated age Derm: Warm, dry Head: Atraumatic, normocephalic, symmetric Eyes: EOMI, no lid lag, anicteric sclera Mouth: No lip lesion, mucus membranes moist Cardiovascular: S1S2 reg, no murmur Lungs: CTA bilateral, no rhonchi, no rales, no accessory muscle use Abdominal: Soft, nontender to palpation, no guarding, no appreciable organomegaly Ext: No gross muscle atrophy, no edema, no contractures Neuro: CN II-XI grossly intact, no focal neuro deficits Psych: Alert, oriented, appropriate affect A total of 32 minutes of time were spent preparing this complex discharge summary. Patient was discharged on 05/13/2024 at 1443. Patient Condition at Discharge: Stable Plan - Discharge Summary Discharge Rx Participant: No New Discharge Prescriptions: Continue Pramipexole [Mirapex] 1 mg PO TID Ondansetron [Zofran] 4 mg PO Q6H PRN PRN Reason: Nausea And Vomiting Mirabegron [Myrbetriq] 50 mg PO DAILY Multivit-Min/Iron/Folic/Lutein [Centrum Silver Women Tablet] 1 tab PO DAILY Metoprolol Succinate [Toprol XL] 50 mg PO DAILY Rivaroxaban [Xarelto] 20 mg PO W/SUPPER Vitamin B Complex 1 cap PO DAILY Discontinued Azithromycin [Zithromax Z Pack] See Taper PO DIRECTED Discharge Medication List Pramipexole [Mirapex] 1 mg PO TID 12/18/18 [History] Metoprolol Succinate [Toprol XL] 50 mg PO DAILY 10/29/20 [History] Rivaroxaban [Xarelto] 20 mg PO W/SUPPER 08/18/21 [History] Vitamin B Complex 1 cap PO DAILY 12/20/22 [History] Mirabegron [Myrbetriq] 50 mg PO DAILY 05/10/24 [History] Multivit-Min/Iron/Folic/Lutein [Centrum Silver Women Tablet] 1 tab PO DAILY 05/10/24 [History] Ondansetron [Zofran] 4 mg PO Q6H PRN 05/10/24 [History] Follow up Appointment(s)/Referral(s): Radha Faria MD [Primary Care Provider] - 1-2 days Leland Kaufman DO [Medical Doctor] - 1 Week Patient Instructions/Handouts: Gastrointestinal Bleeding (DC), Rectal Bleeding (DC), Diverticulosis (DC), High Fiber Diet (DC) Activity/Diet/Wound Care/Special Instructions: please see PCP and surgery. Discharge Disposition: HOME SELF-CARE
[2024-05-13] MEDS ORDERED: RIVAROXABAN 20 MG TAB PO SCH (17:30)
--- NOTE | 2024-06-11 17:07 | P.OP ---
Date of Procedure: 05/02/24 Preoperative Diagnosis: GI Bleed Postoperative Diagnosis: Diverticulosis Procedure(s) Performed: Colonoscopy Anesthesia: MAC Surgeon: Leland Kaufman Pathology: none sent Condition: stable Disposition: PACU Description of Procedure: After informed consent was obtained, the patient was placed in the left lateral position and the above medications were titrated with adequate sedation. Monitoring was provided throughout the entire procedure. Digital rectal exam was performed revealing normal sphincter tone and no external hemorrhoids. The Pentax video colonoscope was inserted into rectum and advanced under direct visualization, without difficulty, to the cecum, where the cecal strap, appendiceal orifice, and the ileocecal valve were identified. The quality of the preparation was good. The colonoscope was then withdrawn while carefully examining the mucosa. The colonic mucosa appeared normal with normal vascularity and haustral markings. No masses, polyps, or AVM/s. Diverticula were seen. On retroflexed view in the rectum, there are small internal hemorrhoids. The endoscope was removed and the procedure terminated. The patient tolerated the procedure well without complications.
--- NOTE | 2024-06-13 17:23 | CDI ---
Documentation Clarification Form Date: 06/13/2024 04:37:40 PM From: Raquel Gan Phone: Admit Date: 05/10/2024 09:46:00 AM Patient Name: Christa Butler Visit Number: [id number] Discharge Date: 05/13/2024 04:12:00 PM ATTENTION: The Clinical Documentation Specialists (CDI) and [facility] Coding Staff appreciate your assistance in clarifying documentation. Please respond to the clarification below the line at the bottom and electronically sign. The CDI & [facility] Coding staff will review the response and follow-up if needed. Please note: Queries are made part of the Legal Health Record. If you have any questions, please contact the author of this message via ITS. Doctor/Provider: Leland Kaufman Ischemic Colitis is documented in 05/12 pn which may lack sufficient clinical evidence/support in the medical record. Additional clarification is requested. History/Risk Factors: Patient is a 63-year-old female with stage IVesophageal cancerbeing treated withimmunotherapy,atrial fibrillation(on Xarelto),GERD ,hyperlipidemia, lower GI bleed/ulcerationfrom hiatal cardia which resulted severeanemiawith blood transfusion, presenting withrectal bleeding. Patient statesbleeding started 2 weeks ago but has become progressively worse as of 4 days ago. She de scribes it as aloosebright red/maroon-colored stool. She says it occurs 4-5 times a day whenever she sits on the toilet. Clinical Indicators: Consult note on 05/11 -Presented to emergency room with complaints ofrectal bleeding. Patient reports he has been noting frankblood in stoolover the last 2 weeks that began to worsen over the last 5 days. -Upon admitCTAabdomen pelvis showingno evidence ofacuteGI bleedwith no bowelabnormalities. Enlarging retroperitoneal lymphnode, previously measuring 3. 2 x 5. 1, now 4. 0 x 6. 0 cm, compared to previousCTCAPon 03/12/2024. -Hemoglobin 11. 2, MCV 104. 4, platelets 371,000. PT12. 5, INR 1. 2, PTT 29. 1. LFTs and bilirubin WNL. Pn 05/12 -Patient hadcolonoscopytoday. It was significant forischemic colitis, old blood,diverticulosis, andexternal hemorrhoids. Formal operative note to follow Pn 05/12 ischemic colitis -surgery following, spoke with surgery. Stated that she hadischemic colitis as well as old blood in the colon and would like to keep her for now - maintain large bore IV access, active type/screen Colonoscopy -The colonic mucosa appeared normal with normal vascularity and haustral markings. Nomasses,polyps, orAVM/s. Diverticulawere seen. On retroflexed view in the rectum, there are smallinternal hemorrhoids Pn 05/13 -Acutecolitis, suspectedischemicversusinflammatoryversusinfectious External hemorrhoids Diverticulosis Acute blood loss anemia DS - Patient was followed by surgery,colonoscopyshowedexternal hemorrhoids, diverticulosis,no evidence ofcolitis. No activebleeding. Hemoglobin remained stable. Started back on Xarelto. Treatment: COLONOSCOPY , Hold Xarelto Please clarify if [insert diagnosis] is a valid diagnosis? [ ] No, Ischemic colitis is ruled out [ ] Yes, Ischemic colitis is present as evidence by (additional clinical support): [ ] Other (please specify diagnosis) [ ] Unable to determine (Template Last Revised: September 2023) MTDD
--- NOTE | 2024-06-18 14:56 | CDI ---
Document is new since 06/13/2024 5:24:55 PM. Documentation Clarification Form Date: 06/13/2024 04:37:40 PM From: Raquel Gan Phone: Admit Date: 05/10/2024 09:46:00 AM Patient Name: Christa Butler Visit Number: [id number] Discharge Date: 05/13/2024 04:12:00 PM ATTENTION: The Clinical Documentation Specialists (CDI) and [facility] Coding Staff appreciate your assistance in clarifying documentation.Please respond to the clarification below the line at the bottom and electronically sign.The CDI HIM Coding staff will review the response and follow-up if needed.Please note: Queries are made part of the Legal Health Record.If you have any questions, please contact the author of this message via ITS. Doctor/Provider: Leland Kaufman Acknowledge - query signed without answer. Ischemic Colitis is documented in 05/12 pn which may lack sufficient clinical evidence/support in the medical record.Additional clarification is requested. History/Risk Factors: Patient is a 63-year-old female with stage IV esophageal cancer being treated with immunotherapy, atrial fibrillation (on Xarelto), GERD , hyperlipidemia, lower GI bleed/ulceration from hiatal cardia which resulted severe anemia with blood transfusion, presenting with rectal bleeding.Patient states bleeding started 2 weeks ago but has become progressively worse as of 4 days ago.She de scribes it as a loose bright red/maroon-colored stool.She says it occurs 4-5 times a day whenever she sits on the toilet. Clinical Indicators: Consult note on 05/11 -Presented to emergency room with complaints of rectal bleeding.Patient reports he has been noting sammy blood in stool over the last 2 weeks that began to worsen over the last 5 days. -Upon admit CTA abdomen pelvis showing no evidence of acute GI bleed with no bowel abnormalities.Enlarging retroperitoneal lymph node, previously measuring 3. 2 x 5. 1, now 4. 0 x 6. 0 cm, compared to previous CT CAP on 03/12/2024. -Hemoglobin 11. 2, MCV 104. 4, platelets 371,000.PT 12.5, INR 1. 2, PTT 29. 1. LFTs and bilirubin WNL. Pn 05/12 -Patient had colonoscopy today.It was significant for ischemic colitis, old blood, diverticulosis, and external hemorrhoids.Formal operative note to follow Pn 1 ischemic colitis - surgery following, spoke with surgery.Stated that she had ischemic colitis as well as old blood in the colon and would like to keep her for now - maintain large bore IV access, active type/screen Colonoscopy -The colonic mucosa appeared normal with normal vascularity and haustral markings.No masses, polyps, or AVM/s.Diverticula were seen.On retroflexed view in the rectum, there are small internal hemorrhoids Pn 1 -Acute colitis, suspected ischemic versus inflammatory versus infectious External hemorrhoids Diverticulosis Acute blood loss anemia DS - Patient was followed by surgery, colonoscopy showed external hemorrhoids, diverticulosis, no evidence of colitis.No active bleeding.Hemoglobin remained stable.Started back on Xarelto. Treatment: COLONOSCOPY , Hold Xarelto Please clarify if [insert diagnosis] is a valid diagnosis? [ ] No, Ischemic colitis is ruled out [ ] Yes, Ischemic colitis is present as evidence by (additional clinical support): [ ] Other (please specify diagnosis) [ ] Unable to determine (Template Last Revised: September 2023) MTDD
--- NOTE | 2024-06-20 12:57 | CDI ---
Document is new since 06/18/2024 2:56:20 PM. Document is new since 06/13/2024 5:24:55 PM. Documentation Clarification Form Date: 06/13/2024 04:37:40 PM From: Raquel Gan Phone: Admit Date: 05/10/2024 09:46:00 AM Patient Name: Christa Butler Visit Number: [id number] Discharge Date: 05/13/2024 04:12:00 PM ATTENTION: The Clinical Documentation Specialists (CDI) and [facility] Coding Staff appreciate your assistance in clarifying documentation.Please respond to the clarification below the line at the bottom and electronically sign.The CDI [facility] Coding staff will review the response and follow-up if needed.Please note: Queries are made part of the Legal Health Record.If you have any questions, please contact the author of this message via ITS. Doctor/Provider: Leland Kaufman Acknowledge - query signed without answer. Ischemic Colitis is documented in 05/12 pn which may lack sufficient clinical evidence/support in the medical record.Additional clarification is requested. History/Risk Factors: Patient is a 63-year-old female with stage IV esophageal cancer being treated with immunotherapy, atrial fibrillation (on Xarelto), GERD , hyperlipidemia, lower GI bleed/ulceration from hiatal cardia which resulted severe anemia with blood transfusion, presenting with rectal bleeding.Patient states bleeding started 2 weeks ago but has become progressively worse as of 4 days ago.She de scribes it as a loose bright red/maroon-colored stool.She says it occurs 4-5 times a day whenever she sits on the toilet. Clinical Indicators: Consult note on 05/11 -Presented to emergency room with complaints of rectal bleeding.Patient reports he has been noting sammy blood in stool over the last 2 weeks that began to worsen over the last 5 days. -Upon admit CTA abdomen pelvis showing no evidence of acute GI bleed with no bowel abnormalities.Enlarging retroperitoneal lymph node, previously measuring 3. 2 x 5. 1, now 4. 0 x 6. 0 cm, compared to previous CT CAP on 03/12/2024. -Hemoglobin 11. 2, MCV 104. 4, platelets 371,000.PT 12.5, INR 1. 2, PTT 29. 1. LFTs and bilirubin WNL. Pn 05/12 -Patient had colonoscopy today.It was significant for ischemic colitis, old blood, diverticulosis, and external hemorrhoids.Formal operative note to follow Pn 1/ ischemic colitis - surgery following, spoke with surgery.Stated that she had ischemic colitis as well as old blood in the colon and would like to keep her for now - maintain large bore IV access, active type/screen Colonoscopy -The colonic mucosa appeared normal with normal vascularity and haustral markings.No masses, polyps, or AVM/s.Diverticula were seen.On retroflexed view in the rectum, there are small internal hemorrhoids Pn 1/ -Acute colitis, suspected ischemic versus inflammatory versus infectious External hemorrhoids Diverticulosis Acute blood loss anemia DS - Patient was followed by surgery, colonoscopy showed external hemorrhoids, diverticulosis, no evidence of colitis.No active bleeding.Hemoglobin remained stable.Started back on Xarelto. Treatment: COLONOSCOPY , Hold Xarelto Please clarify if [insert diagnosis] is a valid diagnosis? [ ] No, Ischemic colitis is ruled out [ ] Yes, Ischemic colitis is present as evidence by (additional clinical support): [ ] Other (please specify diagnosis) [ ] Unable to determine (Template Last Revised: September 2023) MTDD
--- NOTE | 2024-06-27 15:11 | CDI ---
Documentation Clarification Form Date: 06/27/24 From: Raquel Gan Admit Date: 05/10/2024 09:46:00 AM Patient Name: Christa Butler Visit Number: [id number] Discharge Date: 05/13/2024 04:12:00 PM ATTENTION: The Clinical Documentation Specialists (CDI) and [facility] Coding Staff appreciate your assistance in clarifying documentation. Please respond to the clarification below the line at the bottom and electronically sign.The CDI [facility] Coding staff will review the response and follow-up if needed. Please note: Queries are made part of the Legal Health Record Dear Dr. San, As attending physician, we request clarification related the the following diagnosis: Ischemic Colitis is documented which may lack sufficient clinical evidence/support in the medical record. Additional clarification is requested. History/Risk Factors: Patient is a 63-year-old female with stage IV esophageal cancer being treated with immunotherapy, atrial fibrillation (on Xarelto), GERD lower GI bleed/ulceration from hiatal cardia which resulted severe anemia with blood transfusion, presenting with rectal bleeding.Patient states bleeding started 2 weeks ago but has become progressively worse as of 4 days ago.She describes it as a loose bright red/maroon-colored stool.She says it occurs 4-5 times a day whenever she sits on the toilet. Clinical Indicators: Consult note on 05/11 -Presented to emergency room with complaints of rectal bleeding.Patient reports he has been noting sammy blood in stool over the last 2 weeks that began to worsen over the last 5 days. -Upon admit CTA abdomen pelvis showing no evidence of acute GI bleed with no bowel abnormalities.Enlarging retroperitoneal lymph node, previously measuring 3. 2 x 5. 1, now 4. 0 x 6. 0 cm, compared to previous CT CAP on 03/12/2024. -Hemoglobin 11. 2, MCV 104. 4, platelets 371,000.PT 12.5, INR 1. 2, PTT 29. 1. LFTs and bilirubin WNL. Prog note 05/12 -Patient had colonoscopy today.It was significant for ischemic colitis, old blood, diverticulosis, and external hemorrhoids.Formal operative note to follow Prog note 05/12 ischemic colitis - surgery following, spoke with surgery.Stated that she had ischemic colitis as well as old blood in the colon and would like to keep her for now- maintain large bore IV access, active type/screen Prog note 05/13 -Acute colitis, suspected ischemic versus inflammatory versus infectious External hemorrhoids Diverticulosis Acute blood loss anemia Discharge Summary- Patient was followed by surgery, colonoscopy showed external hemorrhoids, diverticulosis, no evidence of colitis.No active bleeding.Hemoglobin remained stable.Started back on Xarelto. Treatment: Colonoscopy -The colonic mucosa appeared normal with normal vascularity and haustral markings.No masses, polyps, or AVM/s.Diverticula were seen.On retroflexed view in the rectum, there are small internal hemorrhoids. Post op diagnosis = Diverticulosis Please clarify if ischemic colitis is a valid diagnosis? [ ] No, Ischemic colitis is ruled out [ x] Yes, Ischemic colitis is present as evidence by (additional clinical support): [ ] Other (please specify diagnosis) [ ] Unable to determine MTDD
== END 2024-05-13 16:12 | disposition home or self-care (01) | DRG 393 ==
LOC: EC 08:12 → 3SCARD 09:46
PROVIDERS: ADMIT Student in an Organized Health Care Education/Training Program; ATTEND Student in an Organized Health Care Education/Training Program
PROC: 0DJD8ZZ Inspection of Lower Intestinal Tract, Via Natural or Artificial Opening Endoscopic (ICD-10-PCS; principal; 2024-05-12 08:00)
DX: K55.9 Vascular disorder of intestine, unspecified (principal); K57.31 Diverticulosis of large intestine without perforation or abscess with bleeding; C15.9 Malignant neoplasm of esophagus, unspecified; D62 Acute posthemorrhagic anemia; B97.4 Respiratory syncytial virus as the cause of diseases classified elsewhere; I48.20 Chronic atrial fibrillation, unspecified; D53.9 Nutritional anemia, unspecified; G25.81 Restless legs syndrome; K64.4 Residual hemorrhoidal skin tags; E78.5 Hyperlipidemia, unspecified; Z96.653 Presence of artificial knee joint, bilateral; Z85.72 Personal history of non-Hodgkin lymphomas; Z88.8 Allergy status to other drugs, medicaments and biological substances; Z91.048 Other nonmedicinal substance allergy status; Z87.891 Personal history of nicotine dependence; Z79.01 Long term (current) use of anticoagulants; Z79.899 Other long term (current) drug therapy
CPT/HCPCS: 36415; 45378; 71045; 74174; 80048; 80053; 82607; 82728; 82747; 83540; 83550; 83735; 83921; 83993; 84145; 85025; 85610; 85730; 86850; 86900; 86901; 87045; 87046; 87324; 87636; 99285

== ENCOUNTER → 2024-07-06 | Outpatient (CLI) | payer BC ==
--- NOTE | 2024-07-06 12:24 | PE ---
EXAMINATION TYPE: PET CT fusion skull to thigh DATE OF EXAM: 07/06/2024 CLINICAL HISTORY: Esophageal cancer TECHNIQUE: Following the intravenous administration of 12.38 mCi of F-18 FDG, whole body images are performed from the skull base to the midthigh. Images are reviewed on the computer in the coronal, axial, and sagittal planes. Reconstructed rotating images are created on independent workstation and reviewed on the computer. A non-contrast CT is performed in conjunction with the PET scan. Blood g lucose level equals 83. COMPARISON: Prior PET/CT April 26, 2024 Subsequent study FINDINGS: SKULL BASE AND NECK: No new areas of suspicious hypermetabolic uptake CHEST, MEDIASTINUM, AND HILAR REGION: Persistent severe wall thickening in the distal esophagus with abnormal hypermetabolic uptake extending just below the diaphragm, max SUV is 22.49 versus [address] recent prior. Persistent hypermetabolic roughly 1.0 cm right-sided lymph node at this level axial image 105, max MONREAL V is 8.68 versus 14.3 on most recent prior. No new areas of abnormal hypermetabolic uptake. ABDOMEN AND PELVIS: Nonspecific bowel uptake redemonstrated. Normal excretion again seen. Persistent enlarged hypermetabolic left paraaortic lymph node measuring 4.1 x 3.2 cm axial image 155 fairly stable in size, max SUV is 17.45 versus 12.2 on most recent prior. OSSEOUS STRUCTURES: Mild diffuse uptake redemonstrated. No definitive new suspicious focal abnormal h ypermetabolic uptake OTHER CT: Mild mucosal thickening inferior aspect of the bilateral maxillary sinuses. Stable right in ternal jugular Mediport catheter. Moderate-sized hiatal hernia redemonstrated. Stable moderate size f at-containing umbilical hernia. IMPRESSION: Overall mixed response with 2 areas showing decreased max SUV and 1 area showing increase d max SUV. No new hypermetabolic lesions are seen. [facility], , 07/06/2024 12:22 PM
== END | disposition home or self-care (01) ==
LOC: RADPETMAIN 08:32
PROVIDERS: ATTEND Internal Medicine Hematology & Oncology
DX: C15.5 Malignant neoplasm of lower third of esophagus (principal); K44.9 Diaphragmatic hernia without obstruction or gangrene
CPT/HCPCS: 78815; A9552

== ENCOUNTER → 2024-10-15 | Outpatient (CLI) | payer BC ==
[2024-10-15 08:31] LABS: African American GFR (CKD) >90 (>60 ml/min/1.73 sqM); Blood Urea Nitrogen 6 mg/dL (7-17); Non-African American GFR(CKD) >90 (>60 ml/min/1.73 sqM)
--- NOTE | 2024-10-16 07:30 | CT ---
EXAMINATION TYPE: CT ChestAbdPelvis w con DATE OF EXAM: 10/15/2024 10:25 AM COMPARISON: PET/CT 07/06/2024 CLINICAL INDICATION: Female, 64 years old with history of C15.5 MALIGNANT NEOPLASM OF LOWER THIRD OF ESOPHAG, Malignant neoplasm of lower third of esophagus. TECHNIQUE: CT ChestAbdPelvis w con , with sagittal coronal reformats. If MIP/3-D images were created, there are created on a separate workstation. Contrast used:100 mL of Isovue 300 with IV Contrast, (none if empty) Oral contrast used: with Oral Contrast (none if empty) CT DLP: 2850.3 mGycm, Automated exposure control for dose reduction was used. FINDINGS: CT CHEST: Portion of the thyroid visualized is normal. No suspicious lung nodules or focal infiltrates are present. No enlarged mediastinal or hilar adenopathy is evident. There is a 1 cm lymph node adjacent to the hi atal hernia. The hilar hernia may have some wall thickening. There is fluid-filled esophagus to the l evel of the don. This correlates with the known esophageal cancer. No significant coronary artery calcifications. The ascending aorta diameter at the level of the main pulmonary artery is 2.9 cm. The main pulmonary artery diameter at the bifurcation is 2.5 cm. Moderate size hiatal hernia is present. CT ABDOMEN: Liver: Normal Spleen: Normal Pancreas: Normal Adrenal glands: The adrenal glands are normal. Gallbladder: Normal Kidneys: No masses are evident. No hydronephrosis is present. No cysts are present. Delayed images were obtained through the kidneys, which remain unremarkable. Aorta: Vascular calcification is within the aorta. Para-aortic adenopathy is present. These are largest measuring 3.3 x 4.3 cm. Previous measurement was 3.2 x 4.1 cm. A 2.4 cm reference lesion measured 2.5 cm previously.. Inferior vena cava: Normal. CT PELVIS: Loops of bowel within the abdomen and pelvis are normal. There are loops of bowel which are incom pletely distended or lack oral contrast limiting their evaluation. Appendix: Normal as visualized. Urinary bladder: Normal. Genitourinary structures: Uterus and adnexa appear normal Osseous structures: No suspicious lytic or sclerotic lesions. Spondylolysis of L5 is present with fac et degenerative changes are within lumbar spine. IMPRESSION: 1. Changes compatible with the patient's distal esophageal neoplasm with fluid filled proximal esopha ricky thickened distal esophageal wall. 2. Enlarged paraesophageal and periaortic adenopathy essentially stable from prior PET/CT.. [facility], , 10/16/2024 7:28 AM
== END | disposition home or self-care (01) ==
LOC: RADCTMAIN 07:45
PROVIDERS: ATTEND Internal Medicine Hematology & Oncology
DX: C15.5 Malignant neoplasm of lower third of esophagus (principal); D64.9 Anemia, unspecified; E78.5 Hyperlipidemia, unspecified; I10 Essential (primary) hypertension; R59.0 Localized enlarged lymph nodes
CPT/HCPCS: 82565; 84520; 71260; 74177; 36415; Q9967

== ENCOUNTER 2024-10-30 13:20 | Inpatient (IN) | payer BC ==
--- NOTE | 2024-10-30 14:10 | ED ---
Recheck HPI - General Source: patient, RN notes reviewed Mode of arrival: wheelchair Limitations: no limitations <Mary Shaffer - Last Filed: 10/30/24 16:15> - General Source: patient, RN notes reviewed Mode of arrival: wheelchair Limitations: no limitations - History of Present Illness MD Complaint: abnormal lab Onset/Timin -: days(s) Context: called for abnormal lab result Associated Symptoms: malaise <Abel Harvey - Last Filed: 10/31/24 00:20> - General Chief Complaint: Recheck/Abnormal Lab/Rx Stated Complaint: Low hemoglobin Time Seen by Provider: 10/30/24 14:10 - History of Present Illness Initial Comments: 64-year-old female presented the ER for evaluation of low hemoglobin. Patient is following up with Dr. Blanchard as she is currently being treated with immunotherapy for esophageal cancer. She states today she was evaluated and found to have a hemoglobin of 5.1. Patient sent over to ER for blood transfusion as was mother was unable to accommodate patient today. Patient reports she feels "weak". She denies any chest pain, shortness of breath, dizziness or lightheadedness. She does report a history of blood transfusions. (Mary Shaffer) This is a 64-year-old female with history of esophageal cancer presenting for abnormal lab work. Patient was sent by Dr. Whelan due to low hemoglobin (5.1) following immunotherapy for esophageal cancer. Patient Dors is some weakness/fatigue but otherwise denies fever, chills, chest pain, dyspnea, dizziness. (Abel Harvey) - Related Data Home Medications Medication Instructions Recorded Confirmed Pramipexole [Mirapex] 1 mg PO TID 12/18/18 10/30/24 Metoprolol Succinate [Toprol XL] 50 mg PO DAILY 10/29/20 10/30/24 Rivaroxaban [Xarelto] 20 mg PO W/SUPPER 08/18/21 10/30/24 Vitamin B Complex 1 cap PO DAILY 12/20/22 10/30/24 Mirabegron [Myrbetriq] 50 mg PO DAILY 05/10/24 10/30/24 Multivit-Min/Iron/Folic/Lutein 1 tab PO DAILY 05/10/24 10/30/24 [Centrum Silver Women Tablet] Kanjinti(Unknown Dose) 1 dose IV Q21D 10/30/24 10/30/24 Pembrolizumab [Keytruda] 1 dose IV Q21D 10/30/24 10/30/24 Allergies Allergy/AdvReac Type Severity Reaction Status Date / Time adhesive tape Allergy Rash/Hives/pulls Verified 10/30/24 17:30 skin off Review of Systems ROS Other: All systems not noted in ROS Statement are negative. <Mary Shaffer - Last Filed: 10/30/24 16:15> ROS Other: All systems not noted in ROS Statement are negative. <Abel Harvey - Last Filed: 10/31/24 00:20> ROS Statement: Those systems with pertinent positive or pertinent negative responses have been documented in the HPI. Past Medical History Past Medical History: Atrial Fibrillation, Cancer, Chest Pain / Angina, GERD/Reflux, Hyperlipidemia, Osteoarthritis (OA), Sleep Apnea/CPAP/BIPAP, Vascular Disorder Additional Past Medical History / Comment(s): 07/2020 lower GI bleed/ulceration from hiatal hernia/ severe anemia with blood transfusion, gastric polyp, hiatal hernia, diverticular disease, colon polyp, hemorrhoids, constipation, AUTUMN and either sleeps in a recliner or uses Cpap, arthritis in back/bilateral knees, migraines years ago, osteopenia, RLS, bilateral leg poor circulation, bronchitis, sinusitis, swallowing difficulty. ESOPHAGEAL CANCER. History of Any Multi-Drug Resistant Organisms: None Reported Past Surgical History: Bladder Surgery, Breast Surgery, Cholecystectomy, Heart Catheterization, Joint Replacement, Orthopedic Surgery, Tubal Ligation Additional Past Surgical History / Comment(s): left breast biopsy, L knee arthroscopy, buck knee replacement, rt shoulder arthroscopy, bladder sling, bladder suspension, EGD, colonoscopies, small bowel capsule, 08/11/20 heart cath(needed blood transfusion). Past Anesthesia/Blood Transfusion Reactions: Previous Problems w/ Anesthesia Additional Past Anesthesia/Blood Transfusion Reaction / Comment(s): states during her 1st knee replacement & during colonoscopy her legs were "twitching" & had to be given general anesthesia-didn't think had to do w/her restless leg Past Psychological History: No Psychological Hx Reported Smoking Status: Former smoker Past Alcohol Use History: None Reported Past Drug Use History: None Reported - Past Family History Father Family Medical History: Coronary Artery Disease (CAD) Additional Family Medical History / Comment(s): Father lived to be 82 yrs. He had 9 cardiac stents. Sister(s) Additional Family Medical History / Comment(s): Pt has 3 sisters, all of which are healthy except one has thyroid problem. Mother Family Medical History: Congestive Heart Failure (CHF) Additional Family Medical History / Comment(s): Mother of CHF at the age of 74 yrs. She was obese. <Mary Shaffer - Last Filed: 10/30/24 16:15> General Exam Limitations: no limitations General appearance: alert, in no apparent distress Respiratory exam: Present: normal lung sounds bilaterally. Absent: respiratory distress, wheezes, rales, rhonchi, stridor Cardiovascular Exam: Present: regular rate, normal rhythm, normal heart sounds. Absent: systolic murmur, diastolic murmur, rubs, gallop, clicks GI/Abdominal exam: Present: soft, normal bowel sounds. Absent: distended, tenderness, guarding, rebound, rigid Rectal exam: Present: hemorrhoids (No active bleeding. Nonthrombosed) Neurological exam: Present: alert, oriented X3, CN II-XII intact Skin exam: Present: warm, dry, intact, pallor <DeenaMary - Last Filed: 10/30/24 16:15> Limitations: no limitations General appearance: alert, in no apparent distress Head exam: Present: atraumatic, normocephalic, normal inspection Eye exam: Present: normal appearance, PERRL, EOMI. Absent: scleral icterus, conjunctival injection, periorbital swelling ENT exam: Present: normal exam, mucous membranes moist Neck exam: Present: normal inspection. Absent: tenderness, meningismus, lymphadenopathy Respiratory exam: Present: normal lung sounds bilaterally. Absent: respiratory distress, wheezes, rales, rhonchi, stridor Cardiovascular Exam: Present: regular rate, normal rhythm, systolic murmur (2/6). Absent: diastolic murmur, rubs, gallop, clicks GI/Abdominal exam: Present: soft, normal bowel sounds. Absent: distended, tenderness, guarding, rebound, rigid Extremities exam: Present: normal inspection, full ROM, normal capillary refill. Absent: tenderness, pedal edema, joint swelling, calf tenderness Back exam: Present: normal inspection Neurological exam: Present: alert, oriented X3, CN II-XII intact Psychiatric exam: Present: normal affect, normal mood Skin exam: Present: warm, dry, intact, normal color. Absent: rash <Abel Harvey - Last Filed: 10/31/24 00:20> Course <Mary Shaffer - Last Filed: 10/30/24 16:15> Vital Signs 10/30/24 10/30/24 10/30/24 13:22 16:45 17:00 Temperature 98.1 F 98.2 F 98.1 F Pulse Rate 85 79 87 Respiratory 16 18 18 Rate Blood Pressure 111/71 98/35 102/48 O2 Sat by Pulse 98 100 100 Oximetry 10/30/24 10/30/24 10/30/24 17:20 18:10 18:53 Temperature 98.0 F 98.6 F Pulse Rate 85 85 85 Respiratory 18 18 18 Rate Blood Pressure 103/49 93/48 101/57 O2 Sat by Pulse 100 98 Oximetry 10/30/24 10/30/24 10/30/24 19:05 19:25 22:16 Temperature 98.4 F 98.4 F 98.6 F Pulse Rate 89 96 76 Respiratory 16 16 16 Rate Blood Pressure 116/78 99/53 94/53 O2 Sat by Pulse 96 95 98 Oximetry 10/30/24 10/30/24 23:11 23:37 Temperature 98.7 F Pulse Rate 80 77 Respiratory 16 16 Rate Blood Pressure 91/45 99/49 O2 Sat by Pulse 97 94 L Oximetry - Reevaluation(s) Reevaluation #1: 10/30/24 15:24 Case discussed with oncologyPatti. She advised on transfer of 2 units nonirradiated. She requested repeat H&H 1 hour after last transfusion. She stated if hemoglobin was above 7 patient can be discharged home. Otherwise reach back out to oncology (Mary Shaffer) Reevaluation #2: 10/30/24 16:15 Patient signed out to Abel Harvey PA-C pending transfusion and disposition. (Mary Shaffer) Medical Decision Making - Lab Data Result diagrams: 10/30/24 14:29 10/30/24 14:29 <Mary Shaffer - Last Filed: 10/30/24 16:15> - Lab Data Result diagrams: 10/30/24 14:29 10/30/24 14:29 <Abel Harvey - Last Filed: 10/31/24 00:20> - Medical Decision Making Was pt. sent in by a medical professional or institution (SHANNON Abbasi, PRODUCT TRAINER, urgent care, hospital, or prison...) When possible be specific @ -Patient sent from oncology for further evaluation of low hemoglobin and blood transfusion. Did you speak to anyone other than the patient for history (EMS, parent, family, police, friend...)? What history was obtained from this source @ -No Did you review nursing and triage notes (agree or disagree)? Why? @ -I reviewed and agree with nursing and triage notes Were old charts reviewed (outside hosp., previous admission, EMS record, old EKG, old radiological studies, urgent care reports/EKG's, prison records)? Report findings @ -No old charts were reviewed Differential Diagnosis (chest pain, altered mental status, abdominal pain women, abdominal pain men, vaginal bleeding, weakness, fever, dyspnea, syncope, headache, dizziness, GI bleed, back pain, seizure, CVA, palpatations, mental health, musculoskeletal)? @ -Acute blood loss anemia, anemia of chronic disease, cancer... This list is not meant to be all-inclusive EKG interpreted by me (3pts min.). @ -None done X-rays interpreted by me (1pt min.). @ -None done CT interpreted by me (1pt min.). @ -None done U/S interpreted by me (1pt. min.). @ -None done What testing was considered but not performed or refused? (CT, X-rays, U/S, labs)? Why? @ -None What meds were considered but not given or refused? Why? @ -None Did you discuss the management of the patient with other professionals (professionals i.e. SHANNON Abbasi, PRODUCT TRAINER, lab, RT, psych nurse, geriatric social worker, quality control checker, teacher, special weapons unit officer, director case management)? Give summary @ -No Was smoking cessation discussed for >3mins.? @ -No Was critical care preformed (if so, how long)? @ -No Were there social determinants of health that impacted care today? How? (Homelessness, low income, unemployed, alcoholism, drug addiction, transportation, low edu. Level, literacy, decrease access to med. care, [place] [facility], rehab)? @ -No Was there de-escalation of care discussed even if they declined (Discuss DNR or withdrawal of care, Hospice)? DNR status @ -No What co-morbidities impacted this encounter? (DM, HTN, Smoking, COPD, CAD, Cancer, CVA, ARF, Chemo, Hep., AIDS, mental health diagnosis, sleep apnea, morbid obesity)? @ -Stage IV esophageal cancer on immunotherapy Was patient admitted / discharged? Hospital course, mention meds given and route, prescriptions, significant lab abnormalities, going to OR and other pertinent info. @ -64-year-old female presented the ER for evaluation of low hemoglobin. Patient sent from oncology, . Vital signs stable. Repeat hemoglobin 4.8. This was discussed with oncology, Patti. She advised on transfusing 2 units of nonradiated packed red blood cells. She states 1 hour after final bag transfuse as repeat H&H. If above 7 patient can be discharged home if below 7 reach out to oncology for further instruction. PRBCs ordered. Case signed out to Zacarias Harvey PA-C pending transfusion and dispositon. (Mary Shaffer) Was pt. sent in by a medical professional or institution (, SHANNON, PRODUCT TRAINER, urgent care, hospital, or prison...) When possible be specific @ -Dr. Blanchard Did you speak to anyone other than the patient for history (EMS, parent, family, police, friend...)? What history was obtained from this source @ -No Did you review nursing and triage notes (agree or disagree)? Why? @ -I reviewed and agree with nursing and triage notes Were old charts reviewed (outside hosp., previous admission, EMS record, old EKG, old radiological studies, urgent care reports/EKG's, prison records)? Report findings @ -No old charts were reviewed Differential Diagnosis (chest pain, altered mental status, abdominal pain women, abdominal pain men, vaginal bleeding, weakness, fever, dyspnea, syncope, headache, dizziness, GI bleed, back pain, seizure, CVA, palpatations, mental health, musculoskeletal)? @ -Pancytopenia, hemolytic anemia, cancer, this is not an exhaustive list. EKG interpreted by me (3pts min.). @ -Not done X-rays interpreted by me (1pt min.). @ -None done CT interpreted by me (1pt min.). @ -None done U/S interpreted by me (1pt. min.). @ -None done What testing was considered but not performed or refused? (CT, X-rays, U/S, labs)? Why? @ -None What meds were considered but not given or refused? Why? @ -None Did you discuss the management of the patient with other professionals (altag[employer]ia rapp i.e. , PA, PRODUCT TRAINER, lab, RT, psych nurse, geriatric social worker, quality control checker, teacher, special weapons unit officer, director case management)? Give summary @ -Spoke to Dr. Funes from [facility], [place] regarding patient admission Was smoking cessation discussed for >3mins.? @ -No Was critical care preformed (if so, how long)? @ -PRBC infusion, 35 minutes Were there social determinants of health that impacted care today? How? (Homelessness, low income, unemployed, alcoholism, drug addiction, transportation, low edu. Level, literacy, decrease access to med. care, [place] [facility], rehab)? @ -No Was there de-escalation of care discussed even if they declined (Discuss DNR or withdrawal of care, Hospice)? DNR status @ -No What co-morbidities impacted this encounter? (DM, HTN, Smoking, COPD, CAD, Cancer, CVA, ARF, Chemo, Hep., AIDS, mental health diagnosis, sleep apnea, morbid obesity)? @ -Esophageal cancer Was patient admitted / discharged? Hospital course, mention meds given and route, prescriptions, significant lab abnormalities, going to OR and other pertinent info. @ -Patient care initially passed to me from Mary Shaffer PA-C. Patient was in process of receiving total of 2 PRBC following initial discovery of hemoglobin of 5.1. Hemoglobin here 4.8, potassium 3.4potassium chloride provided. Patient blood type a positive. After long period of blood transfusion, H&H will be performed to reassess anemia status nearing end of my shift. 2 units will not likely raise hemoglobin to or above 7.0, patient was admitted to observation for further evaluation and transfusion to better stabilize hemoglobin levels. Spoke to Dr. Funes from [facility], [place] regarding patient admission. Discussed patient with Dr. Fletcher. Undiagnosed new problem with uncertain prognosis? @ -No Drug Therapy requiring intensive monitoring for toxicity (Heparin, Nitro, Insulin, Cardizem)? @ -No Were any procedures done? @ -No Diagnosis/symptom? @ -Anemia Acute, or Chronic, or Acute on Chronic? @ -Acute Uncomplicated (without systemic symptoms) or Complicated (systemic symptoms)? @ -Complicated Side effects of treatment? @ -No Exacerbation, Progression, or Severe Exacerbation? @ -No Poses a threat to life or bodily function? How? (Chest pain, [place], [place], pneumonia, PE, COPD, DKA, ARF, appy, cholecystitis, CVA, Diverticulitis, Homicidal, Suicidal, threat to staff... and all critical care pts) @ -Critical anemia, possible endorgan damage (Abel Harvey) - Lab Data Lab Results 10/30/24 10/30/24 10/30/24 Range/Units 14:29 14:29 14:29 WBC 5.99 (4.50-10.00) 10*3/uL RBC 1.92 L (4.10-5.20) 10*6/uL Hgb 4.8 L* (12.0-15.0) g/dL Hct 16.9 L* (37.2-46.3) % MCV 88.0 (80.0-97.0) fL MCH 25.0 L (27.0-32.0) pg MCHC 28.4 L (32.0-37.0) g/dL Plt Count 407 (140-440) 10*3/uL MPV 9.1 L (9.5-12.2) fL Immature Gran % (Auto) 0.3 % Neutrophils % 74.3 % Lymphocytes % 13.5 % Monocytes % 6.0 % Eosinophils % 5.7 % Basophils % 0.2 % Immature Gran # 0.02 (0.00-0.04) 10*3/uL Neutrophils # 4.45 (1.80-7.70) 10*3/uL Lymphocytes # 0.81 L (0.90-5.00) 10*3/uL Monocytes # 0.36 (0.20-1.00) 10*3/uL Eosinophils # 0.34 (0.04-0.35) 10*3/uL Basophils # 0.01 (0.00-0.10) 10*3/uL Sodium 138 (137-145) mmol/L Potassium 3.4 L (3.5-5.1) mmol/L Chloride 107 (98-107) mmol/L Carbon Dioxide 26 (22-30) mmol/L Anion Gap 5 mmol/L BUN 10 (7-17) mg/dL Creatinine 0.62 (0.52-1.04) mg/dL Est GFR (CKD-EPI)AfAm >90 (>60 ml/min/1.73 sqM) Est GFR (CKD-EPI)NonAf >90 (>60 ml/min/1.73 sqM) Glucose 81 (74-99) mg/dL Calcium 8.8 (8.4-10.2) mg/dL Total Bilirubin 0.6 (0.2-1.3) mg/dL AST 22 (14-36) U/L ALT 10 (4-34) U/L Alkaline Phosphatase 80 (38-126) U/L Total Protein 5.4 L (6.3-8.2) g/dL Albumin 2.8 L (3.5-5.0) g/dL Blood Type A Positive Blood Type Recheck A Pos Bld Type Recheck Status No Antibody Screen NEGATIVE Crossmatch See Detail Spec Expiration Date 11/02/20242328 Disposition <Mary Shaffer - Last Filed: 10/30/24 16:15> Time of Disposition: 23:30 Decision Date: 10/31/24 Decision Time: 23:30 <Abel Harvey - Last Filed: 10/31/24 00:20> Clinical Impression: Symptomatic anemia Disposition: ADMITTED IP TO THIS [facility] Condition: Fair Referrals: Radha Faria MD [Primary Care Provider] - 1-2 days
[2024-10-30 14:56] LABS: Basophils # (A) 0.01 10*3/uL (0.00-0.10); Basophils % (A) 0.2 %; Eosinophils # (A) 0.34 10*3/uL (0.04-0.35); Eosinophils % (A) 5.7 %; Lymphocytes # (A) 0.81 10*3/uL (0.90-5.00); Lymphocytes % (A) 13.5 %; MCH 25.0 pg (27.0-32.0); MCHC 28.4 g/dL (32.0-37.0); MCV 88.0 fL (80.0-97.0); Monocytes # (A) 0.36 10*3/uL (0.20-1.00); Monocytes % (A) 6.0 %; Neutrophils # (A) 4.45 10*3/uL (1.80-7.70); Neutrophils % (A) 74.3 %; Platelet Count 407 10*3/uL (140-440); RBC 1.92 10*6/uL (4.10-5.20); RDW 18.7 % (11.5-14.5); WBC 5.99 10*3/uL (4.50-10.00)
[2024-10-30 15:02] LABS: HCT 16.9 % (37.2-46.3); HGB 4.8 g/dL (12.0-15.0)
[2024-10-30 16:01] LABS: ALT 10 U/L (4-34); AST 22 U/L (14-36); African American GFR (CKD) >90 (>60 ml/min/1.73 sqM); Albumin 2.8 g/dL (3.5-5.0); Alkaline Phosphatase 80 U/L (38-126); Anion Gap 5 mmol/L; Blood Urea Nitrogen 10 mg/dL (7-17); Calcium 8.8 mg/dL (8.4-10.2); Carbon Dioxide 26 mmol/L (22-30); Chloride 107 mmol/L (98-107); Glucose 81 mg/dL (74-99); Non-African American GFR(CKD) >90 (>60 ml/min/1.73 sqM); Potassium 3.4 mmol/L (3.5-5.1); Sodium 138 mmol/L (137-145); Total Protein 5.4 g/dL (6.3-8.2)
[2024-10-30] MEDS: PRAMIPEXOLE 1 MG TAB PO STA (20:11)
[2024-10-30] MEDS: POTASSIUM CHLORIDE ER 20 MEQ TAB.ER PO STA (22:14)
[2024-10-31] MEDS ORDERED: MORPHINE SULFATE 4 MG/ML SYRINGE IV PRN (00:20)
[2024-10-31] MEDS ORDERED: NALOXONE 0.4 MG/ML 1 ML VIAL IV PRN (00:20)
[2024-10-31] MEDS ORDERED: ONDANSETRON 4 MG/2 ML VIAL IVP PRN (00:20)
[2024-10-31] MEDS ORDERED: ACETAMINOPHEN TAB 325 MG TAB PO PRN (00:20)
[2024-10-31] MEDS: NON FORMULARY DRUG (Pembrolizumab [Keytruda] 100 MG/4 ML Each) IV SCH (01:34)
--- NOTE | 2024-10-31 01:39 | P.HPIM ---
History of Present Illness H&P Date: 10/31/24 Patient is a 64 y/o F with PMHx of stage IV esophageal CA, Afib on xarelto, HLD, GERD, AUTUMN here for weakness. She was getting her keytruda at the oncology office today where they found her HGB to be 5.1 which prompted them to send her to ER. In ER her HGB was 4.8 and she was given 2 units pRBC. She did not really endorse any symptoms such as fatigue, chills, fevers, chest pain, sob, dizziness. The only symptom that was new for her was some leg pain when she was walking. Patient has a port on right side. PMHx: Atrial Fibrillation, Cancer, Chest Pain / Angina, GERD/Reflux, Hyperlipidemia, Osteoarthritis (OA), Sleep Apnea/CPAP/BIPAP Surgical Hx: Bladder Surgery, Breast Surgery, Cholecystectomy, Heart Catheterization, Joint Replacement, Orthopedic Surgery, Tubal Ligation, 08/11/20 heart cath(needed blood transfusion) Family Hx: Father - CAD Mother - CHF [Imaging]. [Laboratory evaluation]. [Vitals] Review of systems: Pertinent positives and negatives as discussed in HPI, a complete review of systems was performed and all other systems are negative. Physical examination: Vital signs reviewed General: non toxic, no distress, appears at stated age, normal weight Derm: no unusual rashes/lesions, warm Head: atraumatic, normocephalic, symmetric Eyes: EOMI, anicteric sclera, pupils equal round reactive to light ENT: Nose and ears atraumatic Neck: No cervical lymphadenopathy, trachea midline, supple Mouth: no lip lesion, mucus membranes moist Cardiovascular: S1S2 reg, no murmur, positive dorsalis pedis pulse bilateral, no edema Lungs: CTA bilateral, no rhonchi, no rales, no accessory muscle use Abdominal: soft, nontender to palpation, no guarding Ext: muscle strength 5 out of 5 in all 4 extremities grossly, no gross muscle atrophy Neuro: CN II-XI grossly intact, no gross focal neuro deficits Psych: Alert, oriented to person, place, and time Assessment/Plan: #Severe anemia likely 2/2 cancer or chemotherapy s/p 2 unites pRBC Plan: -H/H Q6hr -Oncology consult -Reticulocyte count -Iron studies -Transfuse as needed #Hypokalemia 3.4 upon arrival s/p 40mEQ potassium chloride Plan: -CMP in am -EKG stat -Oral replacement prn Check Mg #Afib on rivaroxaban High thromboembolic and bleeding risk d/t active cancer and anemia. Plan: -hold rivaroxaban until GI bleeding is ruled out -Cardiology outpt f/u #Esophageal CA Stage IV with anemia Plan: -F/U with oncology DVT prophylaxis: SCDs CODE STATUS: [FULL CODE] Discussed with: [Dr Funes] Anticipated discharge place: [Home] I have seen and evaluated the patient today. I Discussed the case with the resident and agree with the resident's findings I edited (In Blue)the assessment and plan as necessary as documented in the resident's note. symptomatic anemia , secondary to chemotherapy blood transfusion check H&H every 6 hrs onc consult rule out GI bleeding Past Medical History Past Medical History: Atrial Fibrillation, Cancer, Chest Pain / Angina, GERD/Reflux, Hyperlipidemia, Osteoarthritis (OA), Sleep Apnea/CPAP/BIPAP, Vascul ar Disorder Additional Past Medical History / Comment(s): 07/2020 lower GI bleed/ulceration from hiatal hernia/ severe anemia with blood transfusion, gastric polyp, hiatal hernia, diverticular disease, colon polyp, hemorrhoids, constipation, AUTUMN and either sleeps in a recliner or uses Cpap, arthritis in back/bilateral knees, migraines years ago, osteopenia, RLS, bilateral leg poor circulation, bronchitis, sinusitis, swallowing difficulty. ESOPHAGEAL CANCER. History of Any Multi-Drug Resistant Organisms: None Reported Past Surgical History: Bladder Surgery, Breast Surgery, Cholecystectomy, Heart Catheterization, Joint Replacement, Orthopedic Surgery, Tubal Ligation Additional Past Surgical History / Comment(s): left breast biopsy, L knee arthroscopy, buck knee replacement, rt shoulder arthroscopy, bladder sling, bladder suspension, EGD, colonoscopies, small bowel capsule, 08/11/20 heart c ath(needed blood transfusion). Past Anesthesia/Blood Transfusion Reactions: Previous Problems w/ Anesthesia Additional Past Anesthesia/Blood Transfusion Reaction / Comment(s): states during her 1st knee replacement & during colonoscopy her legs were "twitching" & had to be given general anesthesia-didn't think had to do w/her restless leg Past Psychological History: No Psychological Hx Reported Smoking Status: Former smoker Past Alcohol Use History: None Reported Past Drug Use History: None Reported - Past Family History Father Family Medical History: Coronary Artery Disease (CAD) Additional Family Medical History / Comment(s): Father lived to be 82 yrs. He had 9 cardiac stents. Sister(s) Additional Family Medical History / Comment(s): Pt has 3 sisters, all of which are healthy except one has thyroid problem. Mother Family Medical History: Congestive Heart Failure (CHF) Additional Family Medical History / Comment(s): Mother of CHF at the age of 74 yrs. She was obese. Medications and Allergies Home Medications Medication Instructions Recorded Confirmed Type Pramipexole [Mirapex] 1 mg PO TID 12/18/18 10/30/24 History Metoprolol Succinate [Toprol XL] 50 mg PO DAILY 10/29/20 10/30/24 History Rivaroxaban [Xarelto] 20 mg PO W/SUPPER 08/18/21 10/30/24 History Vitamin B Complex 1 cap PO DAILY 12/20/22 10/30/24 History Mirabegron [Myrbetriq] 50 mg PO DAILY 05/10/24 10/30/24 History Multivit-Min/Iron/Folic/Lutein 1 tab PO DAILY 05/10/24 10/30/24 History [Centrum Silver Women Tablet] Kokojinti(Unknown Dose) 1 dose IV Q21D 10/30/24 10/30/24 History Pembrolizumab [Keytruda] 1 dose IV Q21D 10/30/24 10/30/24 History Allergies Allergy/AdvReac Type Severity Reaction Status Date / Time adhesive tape Allergy Rash/Hives/pulls Verified 10/30/24 17:30 skin off Physical Exam Vitals: Vital Signs Temp Pulse Resp BP Pulse Ox 10/30/24 23:37 77 16 99/49 94 L 10/30/24 23:11 98.7 F 80 16 91/45 97 10/30/24 22:16 98.6 F 76 16 94/53 98 10/30/24 19:25 98.4 F 96 16 99/53 95 10/30/24 19:05 98.4 F 89 16 116/78 96 10/30/24 18:53 98.6 F 85 18 101/57 10/30/24 18:10 85 18 93/48 98 10/30/24 17:20 98.0 F 85 18 103/49 100 10/30/24 17:00 98.1 F 87 18 102/48 100 10/30/24 16:45 98.2 F 79 18 98/35 100 10/30/24 13:22 98.1 F 85 16 111/71 98 Intake and Output 10/30/24 10/30/24 10/31/24 14:59 22:59 06:59 Intake Total 310 310 Balance 310 310 Intake: Blood Product 310 310 Rc As-1 Unit 0 310 [id number] Rc As-1 Unit 310 [id number] Other: Weight 116.573 kg Results CBC & Chem 7: 10/31/24 01:30 10/30/24 14:29 Labs: Abnormal Lab Results - Last 24 Hours (Table) 10/30/24 10/30/24 10/30/24 Range/Units 14:29 14:29 14:29 RBC 1.92 L (4.10-5.20) 10*6/uL Hgb 4.8 L* (12.0-15.0) g/dL Hct 16.9 L* (37.2-46.3) % MCH 25.0 L (27.0-32.0) pg MCHC 28.4 L (32.0-37.0) g/dL MPV 9.1 L (9.5-12.2) fL Lymphocytes # 0.81 L (0.90-5.00) 10*3/uL Potassium 3.4 L (3.5-5.1) mmol/L Total Protein 5.4 L (6.3-8.2) g/dL Albumin 2.8 L (3.5-5.0) g/dL Crossmatch See Detail
[2024-10-31 04:06] LABS: Basophils # (A) 0.03 10*3/uL (0.00-0.10); Basophils % (A) 0.4 %; Eosinophils # (A) 0.40 10*3/uL (0.04-0.35); Eosinophils % (A) 5.5 %; HCT 23.0 % (37.2-46.3); Lymphocytes # (A) 0.62 10*3/uL (0.90-5.00); Lymphocytes % (A) 8.5 %; MCH 27.3 pg (27.0-32.0); MCHC 30.9 g/dL (32.0-37.0); MCV 88.5 fL (80.0-97.0); Monocytes # (A) 0.48 10*3/uL (0.20-1.00); Monocytes % (A) 6.6 %; Neutrophils # (A) 5.73 10*3/uL (1.80-7.70); Neutrophils % (A) 78.6 %; Platelet Count 407 10*3/uL (140-440); RBC 2.60 10*6/uL (4.10-5.20); RDW 16.8 % (11.5-14.5); WBC 7.29 10*3/uL (4.50-10.00)
[2024-10-31 04:27] LABS: HGB 7.1 g/dL (12.0-15.0)
[2024-10-31] MEDS: MYRBETRIQ 50 MG PO SCH (08:26)
[2024-10-31 10:25] LABS: HCT 24.7 % (37.2-46.3); HGB 7.3 g/dL (12.0-15.0); MCH 26.6 pg (27.0-32.0); MCHC 29.6 g/dL (32.0-37.0); MCV 90.1 FL (80.0-97.0); NRBC Per 100 WBC 0.03 X 10*3/uL (0.00-0.01); Platelet Count 431 X 10*3/uL (140-440); RBC 2.74 X 10*6/uL (4.10-5.20); RDW 17.2 % (11.5-14.5); WBC 7.90 X 10*3/uL (4.50-10.00)
[2024-10-31] MEDS: METOPROLOL SUCCINATE (ER) 50 MG TAB.ER.24H PO SCH (10:32)
[2024-10-31] MEDS: PANTOPRAZOLE 40 MG TABLET PO SCH (10:32)
[2024-10-31 10:54] LABS: Ferritin 109.0 ng/mL (10.0-291.0); Iron 470.0 UG/DL (50-170); Total Iron Binding Capacity 440.0 UG/DL (228-460)
[2024-10-31] MEDS: PRAMIPEXOLE 1 MG TAB PO STA (11:16)
[2024-10-31 12:55] LABS: HCT 23.3 % (37.2-46.3); HGB 7.2 g/dL (12.0-15.0); MCH 27.7 pg (27.0-32.0); MCHC 30.9 g/dL (32.0-37.0); MCV 89.6 fL (80.0-97.0); Platelet Count 409 10*3/uL (140-440); RBC 2.60 10*6/uL (4.10-5.20); RDW 16.9 % (11.5-14.5); WBC 7.71 10*3/uL (4.50-10.00)
[2024-10-31] MEDS ORDERED: RIVAROXABAN 20 MG TAB PO SCH (17:30)
--- NOTE | 2024-10-31 20:32 | P.CONS ---
History of Present Illness - Reason for Consult Consult date: 10/31/24 anemia, treatment for malignancy Requesting physician: Abel Harvey - Chief Complaint low Hgb - History of Present Illness Ms. Butler is a 64 year old female Currently admitted for anemia. She is currently on treatment with ogrivi and keytruda for metastatic esophageal adenocarainoma. She is admitted for anemia, requiring blood transfusions for Hgb 4.8, s/p 2 units she is 7.1. Pt has know iron def from chronic bleeding from her disease. She is being given IV iron in the office. She is to start palliative radiation on November 08. Pt denies any bleeding other then her hemorrhoidal bleeding, she feels better after blood transfusion. Denies F, N,V, appetite is o k, no s/s infection reported. Malignancy Hx: pt initially seen in consult 12/06/20. Pt a known large hernia with associated symptoms including slowly progressive difficulty in swallowing. CT 09/05/20 showed moderate to large hiatal hernia, with 2 enlarged lymph nodes in the paraesophageal region measuring 2.1 and 2.5 cm with 2 periaortic lymph nodes measuring 3.9 and 2.6 cm. Esophagogram in 09/12 showed a small to moderate fixed had a hernia. Pt was scheduled for hiatal hernia repair. She ended up being hospitalized for gallbladder inflammation in October. CT 11/12 showed enlargement in the left-sided para-aortic nodes at 4 cm. US did not describe any stones or wall thickening. She was evaluated by Surgery and was felt to have cholecystitis with right upper quadrant peritonitis. She had a robotic- assisted laparoscopic cholecystectomy, with pathology showing chronic cholecystitis with cholelithiasis and cholesterolosis. Hiatal hernia surgery was rescheduled. She was electively taken to surgery 12/05/20. Intraoperatively she was found to have large retroperitoneal adenopathy as well as distal esophageal mass about 35-38 cm from the incisors involving 20-30% of the circumference. S he also had significant adhesions in the paraesophageal area. Planned surgery was aborted. Instead the patient had lysis of adhesions and excision biopsy of retroperitoneal lymph node. Operative notes reported that the surface of the liver appeared to be normal on inspection. 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 Given the finding of the esophageal mass, the patient therefore appeared to have adenocarcinoma of the lower esophagus, with metastasis at least to the paraesophageal and retroperitoneal nodes along the lesser curvature of the stomach. Colonoscopy and EGD 09/12 was negative for any evidence of malignancy. She was seen for first office visit on 12/16/20. The patient had a PET scan, that unfortunately showed extensive mediastinal involvement including bilateral supraclavicular, mediastinal, paraesophageal, as well as retroperitoneal extending down to the aortic bifurcation. She has been on multiple treatments with some periods of disease control and good QOL, most recently had Keytruda and ogivri on 10/30. Review of Systems 10 point ROS is neg except as as stated in HPI Past Medical History Past Medical History: Atrial Fibrillation, Cancer, Chest Pain / Angina, GERD/Reflux, Hyperlipidemia, Osteoarthritis (OA), Sleep Apnea/CPAP/BIPAP, Vascu lar Disorder Additional Past Medical History / Comment(s): 07/2020 lower GI bleed/ulceration from hiatal hernia/ severe anemia with blood transfusion, gastric polyp, hiatal hernia, diverticular disease, colon polyp, hemorrhoids, constipation, AUTUMN and either sleeps in a recliner or uses Cpap, arthritis in back/bilateral knees, migraines years ago, osteopenia, RLS, bilateral leg poor circulation, bronchitis, sinusitis, swallowing difficulty. ESOPHAGEAL CANCER diagnosed Au 2020-2 rounds of chemo, radiation Jan 2022, and currently receiving immunotherapy. Plans for Radiation again begining next week 12/08/24. History of Any Multi-Drug Resistant Organisms: None Reported Past Surgical History: Bladder Surgery, Breast Surgery, Cholecystectomy, Heart Catheterization, Joint Replacement, Orthopedic Surgery, Tubal Ligation Additional Past Surgical History / Comment(s): left breast biopsy, L knee arthroscopy, buck knee replacement, rt shoulder arthroscopy, bladder sling, bladder suspension, EGD, colonoscopies, small bowel capsule, 08/11/20 heart cath(needed blood transfusion). Past Anesthesia/Blood Transfusion Reactions: Previous Problems w/ Anesthesia Additional Past Anesthesia/Blood Transfusion Reaction / Comm: states during her 1st knee replacement & during colonoscopy her legs were "twitching" & had to be given general anesthesia-didn't think had to do w/her restless leg Past Psychological History: No Psychological Hx Reported Additional Psychological History / Comment(s): . Smoking Status: Former smoker Past Alcohol Use History: None Reported Additional Past Alcohol Use History / Comment(s): Pt started smoking in 1973 and quit in 1992. 1/2 PPD Past Drug Use History: None Reported - Past Family History Father Family Medical History: Coronary Artery Disease (CAD) Additional Family Medical History / Comment(s): Father lived to be 82 yrs. He had 9 cardiac stents. Sister(s) Additional Family Medical History / Comment(s): Pt has 3 sisters, all of which are healthy except one has thyroid problem. Mother Family Medical History: Congestive Heart Failure (CHF) Additional Family Medical History / Comment(s): Mother of CHF at the age of 74 yrs. She was obese. Medications and Allergies Home Medications Medication Instructions Recorded Confirmed Type Pramipexole [Mirapex] 1 mg PO TID 12/18/18 10/30/24 History Metoprolol Succinate [Toprol XL] 50 mg PO DAILY 10/29/20 10/30/24 History Rivaroxaban [Xarelto] 20 mg PO W/SUPPER 08/18/21 10/30/24 History Vitamin B Complex 1 cap PO DAILY 12/20/22 10/30/24 History Mirabegron [Myrbetriq] 50 mg PO DAILY 05/10/24 10/30/24 History Multivit-Min/Iron/Folic/Lutein 1 tab PO DAILY 05/10/24 10/30/24 History [Centrum Silver Women Tablet] Kokoander(Unknown Dose) 1 dose IV Q21D 10/30/24 10/30/24 History Pembrolizumab [Keytruda] 1 dose IV Q21D 10/30/24 10/30/24 History Allergies Allergy/AdvReac Type Severity Reaction Status Date / Time adhesive tape Allergy Rash/Hives/pulls Verified 10/30/24 17:30 skin off Physical Exam Vitals: Vital Signs Temp Pulse Pulse Resp BP BP Pulse Ox 10/31/24 18:00 98.1 F 79 16 109/67 98 10/31/24 12:40 98.4 F 69 16 95/65 100 10/31/24 08:00 16 10/31/24 07:59 98.1 F 72 16 119/75 100 10/31/24 05:45 97.6 F 77 15 115/67 98 10/31/24 02:31 82 16 120/70 97 10/30/24 23:37 77 16 99/49 94 L 10/30/24 23:11 98.7 F 80 16 91/45 97 10/30/24 22:16 98.6 F 76 16 94/53 98 Intake and Output 10/31/24 10/31/24 10/31/24 06:59 14:59 22:59 Intake Total 064 218 5400 Balance 545 506 3368 Intake: Oral 480 1740 Blood Product 310 Rc As-1 Unit 310 [id number] Other: Voiding Method Toilet # Voids 5 # Bowel Movements 1 Weight 116.573 kg - Constitutional General appearance: average body habitus, cooperative, no acute distress - EENT Eyes: anicteric sclerae, EOMI ENT: hearing grossly normal, normal oropharynx - Respiratory Respiratory: bilateral: CTA - Cardiovascular Rhythm: regular Abnormal Heart Sounds: no systolic murmur, no diastolic murmur, no rub, no S3 Gallop, no S4 Gallop, no click, no other leg Peripheral Edema: bilateral: None - Gastrointestinal General gastrointestinal: no absent bowel sounds, no decreased bowel sounds, no distended, no hepatomegaly, no hyperactive bowel sounds, normal bowel sounds, no organomegaly, no rigid, no scaphoid, soft, no splenomegaly, tenderness, no umbilical hernia, no ventral hernia - Integumentary Integumentary: normal - Neurologic Neurologic: CNII-XII intact - Musculoskeletal Musculoskeletal: strength equal bilaterally - Psychiatric Psychiatric: A&O x's 3, appropriate affect, intact judgment & insight Results CBC & Chem 7: 10/31/24 12:30 10/30/24 14:29 Labs: Abnormal Lab Results - Last 24 Hours (Table) 10/30/24 10/31/24 10/31/24 Range/Units 14:29 01:30 06:49 RBC 2.60 L 2.74 L (4.10-5.20) 10*6/uL Hgb 7.1 L D 7.3 L (12.0-15.0) g/dL Hct 23.0 L 24.7 L (37.2-46.3) % MCH 26.6 L (27.0-32.0) pg MCHC 30.9 L 29.6 L (32.0-37.0) g/dL RDW 17.2 H (11.5-14.5) % MPV 9.4 L (9.5-12.2) FL Lymphocytes # 0.62 L (0.90-5.00) 10*3/uL Eosinophils # 0.40 H (0.04-0.35) 10*3/uL NRBC/100 WBC Diff 0.03 H (0.00-0.01) X 10*3/uL Retic Count (0.10-1.80) % Iron (50-170) UG/DL % Saturation (12.00-45.00) Crossmatch See Detail 10/31/24 10/31/24 10/31/24 Range/Units 07:31 07:31 12:30 RBC 2.60 L (4.10-5.20) 10*6/uL Hgb 7.2 L (12.0-15.0) g/dL Hct 23.3 L (37.2-46.3) % MCH (27.0-32.0) pg MCHC 30.9 L (32.0-37.0) g/dL RDW 16.9 H (11.5-14.5) % MPV 9.3 L (9.5-12.2) FL Lymphocytes # (0.90-5.00) 10*3/uL Eosinophils # (0.04-0.35) 10*3/uL NRBC/100 WBC Diff (0.00-0.01) X 10*3/uL Retic Count 3.16 H (0.10-1.80) % Iron 470 H (50-170) UG/DL % Saturation 106.82 H (12.00-45.00) Crossmatch Assessment and Plan (1) Symptomatic anemia Current Visit: Yes Status: Chronic Priority: Medium Code(s): D64.9 - ANEMIA, UNSPECIFIED SNOMED Code(s): 965473438 (2) Esophageal cancer Current Visit: No Status: Chronic Priority: Medium Code(s): C15.9 - MALIGNANT NEOPLASM OF ESOPHAGUS, UNSPECIFIED SNOMED Code(s): 437100101 Plan: Anemia -secondary to chronic bleeding from malignancy -Discussed with Attending, plans are to hold eliquis -plans for radiation for symptoms, due to start 11/08 -Pt is receiving IV iron in the office Transfuse for Hgb <7 Metastatic esophageal carcinoma -Diagnosis and treatment as documented in HPI -Last treatment was 10/30. -Due to start palliative radiation 11/08 -No other significant SE from treatment per pt Pt is ok from Hem/Onc to be discharged in AM after CBC reviewed and she is cleared by Attending
[2024-11-01] MEDS: PRAMIPEXOLE 1 MG TAB PO SCH (01:00)
[2024-11-01 06:04] LABS: African American GFR (CKD) >90 (>60 ml/min/1.73 sqM); Anion Gap 7 mmol/L; Blood Urea Nitrogen 3 mg/dL (7-17); Calcium 8.8 mg/dL (8.4-10.2); Carbon Dioxide 24 mmol/L (22-30); Chloride 108 mmol/L (98-107); Glucose 78 mg/dL (74-99); Non-African American GFR(CKD) >90 (>60 ml/min/1.73 sqM); Potassium 3.8 mmol/L (3.5-5.1); Sodium 139 mmol/L (137-145)
[2024-11-01 06:08] LABS: Basophils # (A) 0.04 10*3/uL (0.00-0.10); Basophils % (A) 0.6 %; Eosinophils # (A) 0.43 10*3/uL (0.04-0.35); Eosinophils % (A) 6.6 %; HCT 23.0 % (37.2-46.3); HGB 7.0 g/dL (12.0-15.0); Lymphocytes # (A) 0.65 10*3/uL (0.90-5.00); Lymphocytes % (A) 9.9 %; MCH 27.0 pg (27.0-32.0); MCHC 30.4 g/dL (32.0-37.0); MCV 88.8 fL (80.0-97.0); Monocytes # (A) 0.43 10*3/uL (0.20-1.00); Monocytes % (A) 6.6 %; Neutrophils # (A) 4.97 10*3/uL (1.80-7.70); Neutrophils % (A) 75.8 %; Platelet Count 420 10*3/uL (140-440); RBC 2.59 10*6/uL (4.10-5.20); RDW 17.3 % (11.5-14.5); WBC 6.55 10*3/uL (4.50-10.00)
--- NOTE | 2024-11-01 13:33 | P.DS ---
Providers Date of admission: 10/31/24 00:24 Expected date of discharge: 11/01/24 Attending physician: Kerrie Funes MD Consults: 10/31/24 00:20 Consult Physician Stat Consulting Provider: Holden Blanchard Consult Reason/Comments: Anemia following immunotherapy Do you want consulting provider notified?: Yes, Notify in am 10/31/24 10:28 Consult Physician Routine Consulting Provider: Leland Kaufman Consult Reason/Comments: anemia, hx of hemorrhoids, bleeding Do you want consulting provider notified?: Yes Primary care physician: [facility] Course: Discharge Diagnosis: Microcytic anemia Atrial fibrillation on rivaroxaban Hypokalemia Stage IV Esophageal cancer Hospital Course: Patient is a 64 y/o F with PMHx of stage IV esophageal CA, Afib on xarelto, HLD, GERD, AUTUMN here for weakness. She was getting her keytruda at the oncology office where they found her HGB to be 5.1 which prompted them to send her to ER. In ER her HGB was 4.8 and she was given 2 units pRBC. She did not really endorse any symptoms such as fatigue, chills, fevers, chest pain, sob, dizziness. The only symptom that was new for her was some leg pain when she was walking. Patient has a port on right side. Patient did mention history of hemorrhoids and associated bleeding as well as GI bleeding that is not new for her. She mentions that she filled the toilet bowl with blood a few times in the last day or two. After receiving 2 units PRBC the patient's hemoglobin increased to 7.1 and remained above 7 on rechecks. Her Xarelto was held. She denied any further bleeding while admitted. Lab studies showed iron level of 470, percent saturation of 106.82, TIBC 440, transferrin: 328.0, ferritin: 109.0, reticulocyte count of 3.16. Patient was given potassium supplementation while admitted. Patient's severe anemia on presentation is likely due to blood loss from her GI bleeding from esophageal cancer and/or hemorrhoids. A component of keytruda induced anemia, anemia of chronic disease, and iron deficiency anemia is also possible. Heme-onc and surgery were consulted. Patient received a third unit of PRBC on 11/01/2024 and was discharged with recommendation for follow-up with PCP and heme-onc. She was told to return to have a CBC checked on Tuesday. She was also recommended to stop taking her Xarelto until she is able to follow-up with her water pollution control technician. Patient seen and examined at bedside. Vital signs reviewed and stable. Physical examination: Vital signs reviewed General: non toxic, no distress, appears at stated age, normal weight Derm: no unusual rashes/lesions, warm Head: atraumatic, normocephalic, symmetric Eyes: EOMI, anicteric sclera, pupils equal round reactive to light ENT: Nose and ears atraumatic Neck: No cervical lymphadenopathy, trachea midline, supple Mouth: no lip lesion, mucus membranes moist Cardiovascular: Regular rate and rhythm. 2+ bilateral lower extremity pitting edema. Lungs: CTA bilateral, no rhonchi, no rales, no accessory muscle use Abdominal: soft, nontender to palpation, no guarding Ext: muscle strength 5 out of 5 in all 4 extremities grossly, no gross muscle atrophy Neuro: CN II-XI grossly intact, no gross focal neuro deficits Psych: Alert, oriented to person, place, and time A total of greater than 30 minutes of time were spent preparing this complex discharge summary. Patient was discharged on 11/01/2024. Bhargav Snow MD PGY-1 TY Dictation was produced using [employer] dictation software. please excuse any grammatical, word or spelling errors. I have seen and evaluated the patient today. Discussed with the resident and agree with the residents subjective and objective as documented in the note above. We discussed the assessment and plan as below. Severe normocytic anemia: Status post 2 unit PRBC, receiving 3rd unit today. Fe studies Fe 470, % sat 106.82, Ferritin 109. Hold Xarelto on discharge. Surgery consulted, recommending no surgical intervention. Stage IV esophageal CA: Oncology on board. A-Fib: Hold Xarelto. Metoprolol 50 mg PO QD. Urinary urgency: Mirabegron 50 mg PO QD. AUTUMN : CPAP QHS. RLS: Mirapex 1 mg PO TID. Patient is not having an active bleed. Hg appears to have stabilized. No indication for EGD C-scope at this time. She is adamant about going home. Plans for discharge home today. Advised to repeat CBC in 3 days to be followed up with PCP and Dr. Blanchard. Hold Xarelto given CHADVASC of 1 risks due outweight the benefits until follow up with [employer]. Patient Condition at Discharge: Fair Plan - Discharge Summary Discharge Rx Participant: Yes New Discharge Prescriptions: Continue Pramipexole [Mirapex] 1 mg PO TID Mirabegron [Myrbetriq] 50 mg PO DAILY Multivit-Min/Iron/Folic/Lutein [Centrum Silver Women Tablet] 1 tab PO DAILY Metoprolol Succinate [Toprol XL] 50 mg PO DAILY Vitamin B Complex 1 cap PO DAILY Pembrolizumab [Keytruda] 1 dose IV Q21D Kanjinti(Unknown Dose) 1 dose IV Q21D Discontinued Rivaroxaban [Xarelto] 20 mg PO W/SUPPER Discharge Medication List Pramipexole [Mirapex] 1 mg PO TID 12/18/18 [History] Metoprolol Succinate [Toprol XL] 50 mg PO DAILY 10/29/20 [History] Vitamin B Complex 1 cap PO DAILY 12/20/22 [History] Mirabegron [Myrbetriq] 50 mg PO DAILY 05/10/24 [History] Multivit-Min/Iron/Folic/Lutein [Centrum Silver Women Tablet] 1 tab PO DAILY 05/10/24 [History] Kanjinti(Unknown Dose) 1 dose IV Q21D 10/30/24 [History] Pembrolizumab [Keytruda] 1 dose IV Q21D 10/30/24 [History] Follow up Appointment(s)/Referral(s): Holden Blanchard [STAFF PHYSICIAN] - 12/14/24 9:30 am () Radha Faria MD [Primary Care Provider] - 1-2 days (The office is leaving a note for Dr. Cordoba and they will give you a call with an available appointment time.) Ambulatory/Diagnostic Orders: Complete Blood Count w/diff [LAB.AMB] Time Frame: 3 Days, Location: None Selected Patient Instructions/Handouts: Gastrointestinal Bleeding (GEN), Anemia (DC), Blood Transfusion (DC) Activity/Diet/Wound Care/Special Instructions: Bloodwork to be done in 3 days. Daily Radiation to begin 11/07/2024 @ 4:15 pm Discharge Disposition: HOME SELF-CARE
[2024-11-01 13:41] VITALS: BP 108/67; PULSE 81; RESP 14; TEMP 97.8
--- NOTE | 2024-11-01 16:50 | P.GSCN ---
History of Present Illness Consult date: 11/01/24 History of present illness: 64-year-old female is admitted secondary to anemia. She currently is undergoing treatment for metastatic esophageal adenocarcinoma. She is known to have iron deficiency from chronic bleeding from her disease process. She has been receiving immunotherapy so far from oncology with plan for palliative radiation to begin next week. She states that she does have a long history of hemorrhoids and did have some hemorrhoidal bleeding recently that has resolved. She has had colonoscopy within the last 6 months without any concerning masses noted. Review of Systems All systems: negative Past Medical History Past Medical History: Atrial Fibrillation, Cancer, Chest Pain / Angina, GERD/Reflux, Hyperlipidemia, Osteoarthritis (OA), Sleep Apnea/CPAP/BIPAP, Vascul ar Disorder Additional Past Medical History / Comment(s): 07/2020 lower GI bleed/ulceration from hiatal hernia/ severe anemia with blood transfusion, gastric polyp, hiatal hernia, diverticular disease, colon polyp, hemorrhoids, constipation, AUTUMN and either sleeps in a recliner or uses Cpap, arthritis in back/bilateral knees, migraines years ago, osteopenia, RLS, bilateral leg poor circulation, bronchitis, sinusitis, swallowing difficulty. ESOPHAGEAL CANCER diagnosed Nov ust of 2020-2 rounds of chemo, radiation Jan 2022, and currently receiving immunotherapy. Plans for Radiation again begining next week 12/08/24. History of Any Multi-Drug Resistant Organisms: None Reported Past Surgical History: Bladder Surgery, Breast Surgery, Cholecystectomy, Heart Catheterization, Joint Replacement, Orthopedic Surgery, Tubal Ligation Additional Past Surgical History / Comment(s): left breast biopsy, L knee arthroscopy, buck knee replacement, rt shoulder arthroscopy, bladder sling, bladder suspension, EGD, colonoscopies, small bowel capsule, 08/11/20 heart cath(needed blood transfusion). Past Anesthesia/Blood Transfusion Reactions: Previous Problems w/ Anesthesia Additional Past Anesthesia/Blood Transfusion Reaction / Comm: states during her 1st knee replacement & during colonoscopy her legs were "twitching" & had to be given general anesthesia-didn't think had to do w/her restless leg Past Psychological History: No Psychological Hx Reported Additional Psychological History / Comment(s): . Smoking Status: Former smoker Past Alcohol Use History: None Reported Additional Past Alcohol Use History / Comment(s): Pt started smoking in 1973 and quit in 1992. 1/2 PPD Past Drug Use History: None Reported - Past Family History Father Family Medical History: Coronary Artery Disease (CAD) Additional Family Medical History / Comment(s): Father lived to be 82 yrs. He had 9 cardiac stents. Sister(s) Additional Family Medical History / Comment(s): Pt has 3 sisters, all of which are healthy except one has thyroid problem. Mother Family Medical History: Congestive Heart Failure (CHF) Additional Family Medical History / Comment(s): Mother of CHF at the age of 74 yrs. She was obese. Medications and Allergies Home Medications Medication Instructions Recorded Confirmed Type Pramipexole [Mirapex] 1 mg PO TID 12/18/18 10/30/24 History Metoprolol Succinate [Toprol XL] 50 mg PO DAILY 10/29/20 10/30/24 History Vitamin B Complex 1 cap PO DAILY 12/20/22 10/30/24 History Mirabegron [Myrbetriq] 50 mg PO DAILY 05/10/24 10/30/24 History Multivit-Min/Iron/Folic/Lutein 1 tab PO DAILY 05/10/24 10/30/24 History [Centrum Silver Women Tablet] Jignesh(Unknown Dose) 1 dose IV Q21D 10/30/24 10/30/24 History Pembrolizumab [Keytruda] 1 dose IV Q21D 10/30/24 10/30/24 History Allergies Allergy/AdvReac Type Severity Reaction Status Date / Time adhesive tape Allergy Rash/Hives/pulls Verified 10/30/24 17:30 skin off Surgical - Exam Osteopathic Statement: *. No significant issues noted on an osteopathic structural exam other than those noted in the History and Physical/Consult. Vital Signs Temp Pulse Resp BP Pulse Ox 98.1 F 85 16 111/71 98 10/30/24 13:22 10/30/24 13:22 10/30/24 13:22 10/30/24 13:22 10/30/24 13:22 - General well nourished, no distress - Eyes normal ocular movement - Neck trachea midline - Respiratory normal respiratory effort - Abdomen Abdomen: soft, non tender Results - Labs 11/01/24 05:00 11/01/24 05:00 Abnormal Lab Results - Last 24 Hours (Table) 10/30/24 10/31/24 11/01/24 Range/Units 14:29 12:30 05:00 RBC 2.60 L 2.59 L (4.10-5.20) 10*6/uL Hgb 7.2 L 7.0 L (12.0-15.0) g/dL Hct 23.3 L 23.0 L (37.2-46.3) % MCHC 30.9 L 30.4 L (32.0-37.0) g/dL RDW 16.9 H 17.3 H (11.5-14.5) % MPV 9.3 L (9.5-12.2) fL Lymphocytes # 0.65 L (0.90-5.00) 10*3/uL Eosinophils # 0.43 H (0.04-0.35) 10*3/uL Chloride (98-107) mmol/L BUN (7-17) mg/dL Crossmatch See Detail 11/01/24 Range/Units 05:00 RBC (4.10-5.20) 10*6/uL Hgb (12.0-15.0) g/dL Hct (37.2-46.3) % MCHC (32.0-37.0) g/dL RDW (11.5-14.5) % MPV (9.5-12.2) fL Lymphocytes # (0.90-5.00) 10*3/uL Eosinophils # (0.04-0.35) 10*3/uL Chloride 108 H (98-107) mmol/L BUN 3 L (7-17) mg/dL Crossmatch Diabetes panel 11/01/24 Range/Units 05:00 Sodium 139 (137-145) mmol/L Potassium 3.8 (3.5-5.1) mmol/L Chloride 108 H (98-107) mmol/L Carbon Dioxide 24 (22-30) mmol/L BUN 3 L (7-17) mg/dL Creatinine 0.63 (0.52-1.04) mg/dL Glucose 78 (74-99) mg/dL Calcium 8.8 (8.4-10.2) mg/dL Calcium panel 11/01/24 Range/Units 05:00 Calcium 8.8 (8.4-10.2) mg/dL Pituitary panel 11/01/24 Range/Units 05:00 Sodium 139 (137-145) mmol/L Potassium 3.8 (3.5-5.1) mmol/L Chloride 108 H (98-107) mmol/L Carbon Dioxide 24 (22-30) mmol/L BUN 3 L (7-17) mg/dL Creatinine 0.63 (0.52-1.04) mg/dL Glucose 78 (74-99) mg/dL Calcium 8.8 (8.4-10.2) mg/dL Adrenal panel 11/01/24 Range/Units 05:00 Sodium 139 (137-145) mmol/L Potassium 3.8 (3.5-5.1) mmol/L Chloride 108 H (98-107) mmol/L Carbon Dioxide 24 (22-30) mmol/L BUN 3 L (7-17) mg/dL Creatinine 0.63 (0.52-1.04) mg/dL Glucose 78 (74-99) mg/dL Calcium 8.8 (8.4-10.2) mg/dL Assessment and Plan Plan: 64-year-old female with anemia. This is likely secondary to chronic disease. Continue with hematology/oncology recommendations. She is currently being transfused 1 unit of packed red blood cell. At this point, there is no plan for surgical intervention as she has had colonoscopy within the last 6 months and does not have any current gross bleeding. Continue medical recommendations.
== END 2024-11-01 15:17 | disposition home or self-care (01) | DRG 812 ==
LOC: EC 13:20 → 5NMEDONC 10-31 00:23 → OBSVTOIN 10-31 00:24 → 5NMEDONC 10-31 06:39
PROVIDERS: ADMIT Internal Medicine; ATTEND Internal Medicine
PROC: 30243N1 Transfusion of Nonautologous Red Blood Cells into Central Vein, Percutaneous Approach (ICD-10-PCS; principal; 2024-10-30)
DX: D50.0 Iron deficiency anemia secondary to blood loss (chronic) (principal); C15.5 Malignant neoplasm of lower third of esophagus; C77.1 Secondary and unspecified malignant neoplasm of intrathoracic lymph nodes; C77.2 Secondary and unspecified malignant neoplasm of intra-abdominal lymph nodes; R13.10 Dysphagia, unspecified; D64.81 Anemia due to antineoplastic chemotherapy; I48.91 Unspecified atrial fibrillation; G25.81 Restless legs syndrome; E78.5 Hyperlipidemia, unspecified; T45.1X5A Adverse effect of antineoplastic and immunosuppressive drugs, initial encounter; E87.6 Hypokalemia; K44.9 Diaphragmatic hernia without obstruction or gangrene; M85.80 Other specified disorders of bone density and structure, unspecified site; G47.33 Obstructive sleep apnea (adult) (pediatric); M47.9 Spondylosis, unspecified; R53.1 Weakness; Z79.01 Long term (current) use of anticoagulants; Z79.899 Other long term (current) drug therapy; Z79.620 Long term (current) use of immunosuppressive biologic; Z79.69 Long term (current) use of other immunomodulators and immunosuppressants; Z87.891 Personal history of nicotine dependence; Z96.653 Presence of artificial knee joint, bilateral
CPT/HCPCS: 36415; 36430; 80048; 80053; 82728; 83540; 83550; 83735; 84466; 85025; 85027; 85045; 86850; 86900; 86901; 86920; 99285

== ENCOUNTER → 2024-11-05 | Outpatient (CLI) | payer BC ==
[2024-11-05 12:51] LABS: Basophils # (A) 0.03 X 10*3/uL (0.00-0.10); Basophils % (A) 0.5 %; Eosinophils # (A) 0.40 X 10*3/uL (0.04-0.35); Eosinophils % (A) 6.2 %; HCT 31.8 % (37.2-46.3); HGB 9.3 g/dL (12.0-15.0); Immature Grans, Automated 0.50 %; Lymphocytes # (A) 0.66 X 10*3/uL (0.90-5.00); Lymphocytes % (A) 10.3 %; MCH 27.6 pg (27.0-32.0); MCHC 29.2 g/dL (32.0-37.0); MCV 94.4 FL (80.0-97.0); Monocytes # (A) 0.50 X 10*3/uL (0.20-1.00); Monocytes % (A) 7.8 %; NRBC Per 100 WBC 0 X 10*3/uL (0.00-0.01); Neutrophils # (A) 4.81 X 10*3/uL (1.80-7.70); Neutrophils % (A) 74.7 %; Platelet Count 437 X 10*3/uL (140-440); RBC 3.37 X 10*6/uL (4.10-5.20); RDW 20.4 % (11.5-14.5); WBC 6.43 X 10*3/uL (4.50-10.00)
== END | disposition home or self-care (01) ==
LOC: LABWHC1 08:16
PROVIDERS: ATTEND Family Medicine
DX: D64.9 Anemia, unspecified (principal)
CPT/HCPCS: 36415; 85025